=== PATIENT | male | born 1950 | race Caucasian/White ===

== ENCOUNTER 2017-08-03 13:57 | Outpatient (RCR) | payer MEDICARE, OTHER, SELFPAY ==
[2017-05-23 10:00] VITALS: BP 115/52
[2017-08-03 13:02] VITALS: BP 128/70; BMI 30.7
[2017-08-03 15:36] LABS: AST(SGOT) 24 U/L (15-37); Alanine Aminotransfer ALT/SGPT 22 U/L (16-61); Alkaline Phosphatase 41 U/L (45-117); Bilirubin, Direct 0.23 mg/dL (0.00-0.30); Globulin 3.4 g/dL (2.2-4.2); Protein, Total 7.4 g/dL (6.4-8.2)
[2017-08-03 15:39] LABS: BNP,B-Type NATRIURETIC PEPTIDE 211.9 pg/mL (0-100)
== END 2017-08-03 14:00 | disposition home or self-care (01) ==
LOC: LAB 13:57
PROVIDERS: Family Provider Family Medicine; PCP Family Medicine; Visit Provider Internal Medicine Pulmonary Disease
DX: I27.20 Pulmonary hypertension, unspecified (principal); R06.00 Dyspnea, unspecified; Z79.899 Other long term (current) drug therapy
CPT/HCPCS: 36415; 80076; 83880

== ENCOUNTER → 2017-08-28 13:54 | Outpatient (CLI) | payer MEDICARE, OTHER, SELFPAY | PROVIDERS: Family Provider Family Medicine; PCP Family Medicine; Visit Provider Internal Medicine Cardiovascular Disease | DX: I47.2 Ventricular tachycardia (principal) | CPT/HCPCS: 93225; 93226 ==

== ENCOUNTER 2017-10-30 16:49 | Outpatient (RCR) | payer MEDICARE, OTHER, SELFPAY ==
[2017-10-01 06:42] VITALS: BP 128/70; BMI 30.7
[2017-10-30 18:07] LABS: AST(SGOT) 22 U/L (15-37); Alanine Aminotransfer ALT/SGPT 17 U/L (16-61); Albumin, Serum 3.9 g/dL (3.2-5.0); Alkaline Phosphatase 34 U/L (45-117); Globulin 3.3 g/dL (2.2-4.2); Protein, Total 7.2 g/dL (6.4-8.2)
== END 2017-10-30 17:00 | disposition home or self-care (01) ==
LOC: LAB 16:49
PROVIDERS: Family Provider Family Medicine; PCP Family Medicine; Visit Provider Internal Medicine Pulmonary Disease
DX: I27.20 Pulmonary hypertension, unspecified (principal); R06.00 Dyspnea, unspecified; Z79.899 Other long term (current) drug therapy
CPT/HCPCS: 36415; 80076; 83880

== ENCOUNTER → 2017-12-31 14:18 | Outpatient (CLI) | payer MEDICARE, OTHER, SELFPAY ==
[2017-12-31 17:00] LABS: Magnesium 1.5 mg/dL (1.6-2.6)
== END ==
PROVIDERS: Family Provider Family Medicine; PCP Family Medicine; Visit Provider Physician Assistant Medical
DX: E83.42 Hypomagnesemia (principal)
CPT/HCPCS: 36415; 83735

== ENCOUNTER → 2018-06-11 14:32 | Outpatient (CLI) | payer MEDICARE, OTHER, SELFPAY ==
[2018-06-04 15:35] VITALS: BMI 31.3
--- NOTE | 2018-06-11 14:33 | CT_ITS ---
STUDY: CT ABDOMEN AND PELVIS WITH CONTRAST REASON FOR EXAM: Male, 67 years old. B-cell lymphoma RADIATION DOSAGE (If Supplied By Facility): CTDIvol = ( 23.83 ) mGy, DLP = ( 2819.32 ) mGycm TECHNIQUE: Transaxial images were obtained from the dome of the diaphragm to the symphysis pubis without oral contrast. 75ML ml of Isovue 300 contrast was administered. Sagittal and coronal images were reconstructed. Individualized dose optimization techniques were used for this CT. COMPARISON: 04/21/2016 FINDINGS: The patient is status post cholecystectomy. Again noted is fatty infiltration of the liver. There are no focal hepatic lesions. The spleen is enlarged, measuring 14.5 cm in maximal dimension. This is stable when compared with the prior exam. The pancreas is within normal limits. The adrenal glands are within normal limits. There are no renal or ureteral stones. There is no hydronephrosis. There are no focal renal lesions. Normal visualized stomach. There is no bowel obstruction or inflammation. The appendix is not visualized, but there are no findings to suggest acute appendicitis. Again noted is a fat-containing right inguinal hernia. There is no bowel containing hernia. The aorta is normal in caliber. Again noted are atherosclerotic calcifications in the aorta. There is mild mesenteric lymphadenopathy noted with the largest node measuring 2.0 x 1.2 cm (image 50 series 4). There is no free air, free fluid or fluid collection. There are no destructive osseous lesions. Again noted is vertebroplasty cement in the L2 vertebral body. Again noted are degenerative changes in the lumbar spine. CT/Abdomen/Pelvis WITH Contrast IMPRESSION: Mild mesenteric lymphadenopathy which is new when compared with the prior exam. If indicated, further evaluation with PET CT can be performed. Stable splenomegaly. Stable fatty infiltration of the liver. Electronically Signed: Eliazar Stack, at 16:05 EST Tel , Service support ,
--- NOTE | 2018-06-11 14:33 | CT_ITS ---
HISTORY: History of B-cell lymphoma for follow-up TECHNIQUE: Helically acquired images were obtained of the neck following IV contrast. A radiation dose optimization technique was used for this scan. IV Contrast dosage and agent: 75 cc Isovue-300 contrast COMPARISON: 09/28/2015 FINDINGS: With comparison to previous, no significant change. No cervical lymph node enlargement. The parotid and some the upper glands show no CT abnormality. The tongue base appears normal. Right tonsillar small crypt calcification, unchanged. No suspicious tonsillar enlargement. Laryngeal and pharyngeal structure showed no CT abnormality. Trachea is midline. Thyroid gland is not enlarged. Minor opacification of the ethmoid air cells and left maxillary sinus mild mucosal thickening, unchanged, compatible with chronic sinusitis. Bilateral carotid atherosclerotic calcifications. The mastoid air cells are poorly developed. Middle ear cavities appear clear. CT/Soft Tissue Neck WITH Contrast IMPRESSION: 1. No lymphadenopathy or recurrent tumor. No significant change. 2. Chronic mild sinusitis and bilateral carotid atherosclerotic calcifications. Individualized dose optimization techniques were used for this CT. at 0723 Reported and signed by: Av Son MD Electronically Signed: Av Son, at 7:21 EST Tel , Service support ,
--- NOTE | 2018-06-11 14:33 | CT_ITS ---
STUDY: CT CHEST WITH CONTRAST REASON FOR EXAM: Male, 67 years old. B-cell lymphoma TECHNIQUE: Transaxial imaging was performed following intravenous administration of 758ML ml of Isovue 300 contrast material. Coronal and sagittal reformatted images were created. Individualized dose optimization techniques were used for this CT. COMPARISON: 04/21/2016 FINDINGS: There is stable mild emphysematous changes noted in the lungs. There are no pulmonary infiltrates or pleural effusions. There are no pulmonary nodules or masses. There is no pneumothorax. The heart and pericardium are within normal limits. There are coronary artery calcifications noted. There is new mediastinal lymphadenopathy noted with a 2.0 x 1.3 cm prevascular node (image 40 series 2), a 1.7 x 1.7 cm upper paratracheal lymph node (image 39 series 2) and a 2.6 x 1.3 cm subcarinal lymph node (image 55 series 2). There is no evidence of thoracic aortic aneurysm. There are no destructive osseous lesions. CT/Chest WITH Contrast IMPRESSION: New mediastinal lymphadenopathy, as described above. If indicated, further evaluation with PET CT can be performed. Stable mild emphysema. No pulmonary nodules or masses. Coronary artery disease. Electronically Signed: Eliazar Stack, at 15:58 EST Tel , Service support ,
[2018-06-11 16:42] LABS: AST(SGOT) 23 U/L (15-37); Alanine Aminotransfer ALT/SGPT 24 U/L (16-61); Albumin, Serum 3.7 g/dL (3.2-5.0); Alkaline Phosphatase 37 U/L (45-117); Bilirubin, Direct 0.22 mg/dL (0.00-0.30); Globulin 3.1 g/dL (2.2-4.2); Protein, Total 6.8 g/dL (6.4-8.2)
[2018-06-11 16:47] LABS: BNP,B-Type NATRIURETIC PEPTIDE 396.5 pg/mL (0-100)
--- OUTSIDE RECORDS SUMMARY | 2018-07-28 20:18 | XMS RPT_ITS ---
:1950 Author Organization OHIP Support Name Relationship Address Phone GRAYSON HERRREA Unavailable [address] + [place] [address] R Unavailable Unavailable Unavailable GRAYSON HERRERA Unavailable [address] + [place] [address] R Unavailable Unavailable Unavailable GRAYSON HERRERA Unavailable [address] [place] [address] JAVIERASAF Unavailable Unavailable Unavailable GRAYSON HERRERA Unavailable [address] + [place] [address] R Unavailable Unavailable Unavailable GRAYSON HERRERA Unavailable [address] + [place] [address] R Unavailable Unavailable Unavailable VICENTA HERRERAARA Unavailable [address] + [place] [address] R Unavailable Unavailable Unavailable GRAYSON HERRERA Unavailable [address] + [place] [address] R Unavailable Unavailable Unavailable GRAYSON HERRERA Unavailable [address] + [place] [address] R Unavailable Unavailable Unavailable GRAYSON HERRERA Unavailable [address] [place] [address] JAVIER ASAF Unavailable Unavailable Unavailable VICENTA HERRERAARA Unavailable [address] + [place] [address] R Unavailable Unavailable Unavailable JAVIER GRAYSON Unavailable [address] + [place] [address] R Unavailable Unavailable Unavailable JAVIER GRAYSON Unavailable [address] + [place] [address] R Unavailable Unavailable Unavailable JAVIER GRAYSON Unavailable [address] + [place] [address] R Unavailable Unavailable Unavailable VICENTA HERRERAARA Unavailable [address] [place] [address] ASAF HERRERA Unavailable Unavailable Unavailable GRAYSON HERRERA Unavailable [address] [place] [address] ASAF HERRERA Unavailable Unavailable Unavailable VICENTA HERRERAARA Unavailable [address] [place] [address] ASAF HERRERA Unavailable Unavailable Unavailable VICENTA HERRERAARA Unavailable [address] + [place] [address] R Unavailable Unavailable Unavailable VICENTA HERRERAARA Unavailable [address] + [place] [address] R Unavailable Unavailable Unavailable VICENTA HERRERAARA Unavailable [address] + [place] [address] R Unavailable Unavailable Unavailable JAVIERVICENTAGRAYSON Unavailable [address] + [place] [address] VICENTA HERRERAARA Unavailable [address] + [place] [address] VICENTA HERRERAARA Unavailable [address] + [place] [address] R Unavailable Unavailable Unavailable GRAYSON HERRERA A Unavailable [address] + [place] [address] R Unavailable Unavailable Unavailable JAVIERGRAYSON A Unavailable [address] + [place] [address] R Unavailable Unavailable Unavailable VICENTA HERRERAARA Unavailable [address] + [place] [address] JAVIER GRAYSON Unavailable [address] + [place] [address] JAVIER GRAYSON Unavailable [address] + [place] [address] JAVIER GRAYSON Unavailable [address] + [place] [address] JAVIER GRAYSON Unavailable [address] + [place] [address] JAVIER GRAYSON Unavailable [address] + [place] [address] JAVIERGRAYSON A Unavailable [address] + [place] [address] R Unavailable Unavailable Unavailable JAVIER GRAYSON A Unavailable [address] + [place] [address] R Unavailable Unavailable Unavailable GRAYSON HERRERA Unavailable [address] [place] [address] ASAF HERRERA Unavailable Unavailable Unavailable GRAYSON HERRERA Unavailable [address] [place] [address] ASAF HERRERA Unavailable Unavailable Unavailable GRAYSON HERRERA A Unavailable [address] + [place] [address] R Unavailable Unavailable Unavailable GRAYSON HERRERA A Unavailable [address] + [place] [address] R Unavailable Unavailable Unavailable GRAYSON HERRERA A Unavailable [address] + [place] [address] R Unavailable Unavailable Unavailable GRAYSON HERRERA Unavailable [address] + [place] [address] GRAYSON HERRERA Unavailable [address] + [place] [address] GRAYSON HERRERA A Unavailable [address] + [place] [address] R Unavailable Unavailable Unavailable GRAYSON HERRERA A Unavailable [address] + [place] [address] R Unavailable Unavailable Unavailable GRAYSON HERRERA A Unavailable [address] + [place] [address] R Unavailable Unavailable Unavailable GRAYSON HERRERA A Unavailable [address] + [place] [address] R Unavailable Unavailable Unavailable GRAYSON HERRERA A Unavailable [address] + [place] [address] R Unavailable Unavailable Unavailable Care Team Providers Name Role Phone EDIS CABALLERO Admitting Unavailable EDIS CABALLERO Attending Unavailable SERGIO, RHODA A Primary Care Unavailable EDIS CABALLERO Admitting Unavailable EDIS CABALLERO Attending Unavailable SERGIO, RHODA A Primary Care Unavailable D'BURTFIORDALIZA CRAWFORD Attending Unavailable SERGIO, RHODA A Referring Unavailable SERGIO, RHODA A Primary Care Unavailable FIORDALIZA MCDONNELL Attending Unavailable Kaushal'FIORDALIZA BURT Referring Unavailable SERGIO, RHODA A Primary Care Unavailable D'FIORDALIZA BURT Attending Unavailable D'BURT, FIORDALIZA Referring Unavailable SERGIO, RHODA A Primary Care Unavailable D'BURT, FIORDALIZA Attending Unavailable D'BURT, FIORDALIZA Referring Unavailable SERGIO, RHODA A Primary Care Unavailable D'BURT, FIORDALIZA Attending Unavailable D'BURT, FIORDALIZA Referring Unavailable SERGIO, RHODA A Primary Care Unavailable Clary Arredondo MD Attending Unavailable SERGIO, RHODA Primary Care Unavailable CHRIS RODRIGUEZ MD Attending Unavailable SERGIO, RHODA Primary Care Unavailable SERGIO, RHODA Attending Unavailable SERGIO, RHODA Primary Care Unavailable CHRIS RODRIGUEZ MD Attending Unavailable SERGIO, RHODA Primary Care Unavailable RAVINDER Jackson Attending Unavailable SERGIO, RHODA Primary Care Unavailable Solomon Mercer Attending Unavailable Jamison, Yuliet Referring Unavailable PrahJem Attending Unavailable Jamison, Yuliet Primary Care Unavailable Jem Cedillo Consulting Unavailable Tawana Joe Attending Unavailable Sergio, Rhoda Referring Unavailable Tawana Joe Attending Unavailable Tawana Joe Referring Unavailable Jamison, Yuliet Primary Care Unavailable Tawana Joe Attending Unavailable Jem Cedillo Attending Unavailable Jamison, Yuliet Primary Care Unavailable PraJem hammer Consulting Unavailable Jem Cedillo Attending Unavailable Jem Cedillo Referring Unavailable Jamison, Yuliet Primary Care Unavailable Tawana Joe Attending Unavailable Sergio, Rhoda Referring Unavailable Sergio, Rhoda Primary Care Unavailable Mike Leiva Attending Unavailable Mike Leiva Referring Unavailable Sergio, Rhoda Primary Care Unavailable Jem Cedillo Attending Unavailable Jem Cedillo Referring Unavailable Sergio, Rhoda Primary Care Unavailable PraJme hammer Consulting Unavailable Eids Caballero Attending Unavailable Edis Caballero Referring Unavailable Sergio, Rhoda Primary Care Unavailable PraJem hammer Attending Unavailable Jem Cedillo Referring Unavailable Jamison, Yuliet Primary Care Unavailable Micheal Rouse Attending Unavailable Tawana Joe Referring Unavailable Jamison, Yuliet Primary Care Unavailable Tawana Joe Consulting Unavailable Micheal Rouse Attending Unavailable Micheal Rouse Referring Unavailable Jamison, Yuliet Primary Care Unavailable Cody Fernandez Attending Unavailable Cody Fernandez Referring Unavailable Mike Leiva Attending Unavailable Mike Leiva Referring Unavailable Sergio, Rhoda Primary Care Unavailable Veena Tesfayeita Attending Unavailable Tesfaye, Mikala Attending Unavailable Tawana Joe Attending Unavailable Sergio, Rhoda Referring Unavailable Tesfaye, Mikala Attending Unavailable Tesfaye, Mikala Attending Unavailable Sibilia, Mike Attending Unavailable Sibilia, Mike Referring Unavailable Sergio, Rhoda Primary Care Unavailable JoeTawana scherer Attending Unavailable Sergio, Rhoda Referring Unavailable JoeTawana scherer Attending Unavailable JoeTawana guzman Referring Unavailable Jamison, Yuliet Primary Care Unavailable Sergio, Kristin Attending Unavailable Sergio, Rhoda Primary Care Unavailable Prah, Jem Consulting Unavailable Sergio, Rhoda Referring Unavailable Prah, Jem Attending Unavailable Sergio, Kristin Referring Unavailable Sergio, Rhoda Primary Care Unavailable Prah, Jem Consulting Unavailable Prah, Jem Attending Unavailable Prah, Jem Referring Unavailable Jamison, Yuliet Primary Care Unavailable Sibilia, Mike Consulting Unavailable Sibilia, Mike Attending Unavailable Jamison, Yuliet Primary Care Unavailable Solomon Mercer Attending Unavailable CalSolomon menon Referring Unavailable Jamison, Yuliet Primary Care Unavailable PROBLEMS PROBLEMS DATE TYPE CONDITION / CODE ATTENDING STATUS SOURCE 07/18/2018 Admitting New Patient / D'BR[place], Active [place] diagnosis [id number]() [facility] Repository 07/05/2018 Unknown I25.10 - [place], Active [facility] Atherosclerotic [facility] heart disease of [facility] [place] coronary Repository artery without angina pectoris / I25.10(ICD-10) 2018 Unknown C85.90 - Non-Hod[facility] Jem Active [facility] lymphoma, Community unspecified, Hospital unspecified site / Repository C85.90(ICD-10) 2018 Unknown C83.33 - Diffuse [facility] large B-cell [facility] lymphoma, [facility] intra-abdominal Repository lymph nodes / C83.33(ICD-10) 2018 Unknown R91.1 - Solitary PrajaquelinJem Active [place] pulmonary nodule / Community R91.1(ICD-10) Hospital Repository 2018 Unknown Z85.72 - Personal PrajaquelinJem Active [facility] history of [facility] lymphomas / Repository Z85.72(ICD-10) 2018 Unknown R93.5 - [facility] [place] findings on [facility] diagnostic imaging Hospital of other abdominal Repository regions, including retroperitoneum / R93.5(ICD-10) 06/17/2018 Unknown K40.30 - Unilateral [place], Active [facility] inguinal hernia, [facility] with obstruction, Hospital without gangrene, Repository not specified as recurrent / K40.30(ICD-10) 06/11/2018 Unknown R19.7 - Diarrhea, Jem Cedillo Active [place] unspecified / [facility] R19.7(ICD-10) Hospital Repository 12/31/2017 Unknown E83.42 - Joe, Active [facility] Hypomagnesemia / Tawana [facility] E83.42(ICD-10) Hospital Repository 11/16/2017 Admitting Ischemic FEDERICO, EDIS G Active [facility] diagnosis cardiomyopathy / University I25.5(ICD-10) [facility] Repository 11/16/2017 Admitting Essential (primary) FEDERICO, EDIS G [facility] diagnosis hypertension / University I10(ICD-10) [facility] Repository 11/15/2017 Admitting Ventricular FEDERICO, EDIS G Active [facility] diagnosis tachycardia / University I47.2(ICD-10) [facility] Repository 11/29/2017 Unknown I27.20 - Pulmonary Sibilia, Active [place] hypertension, [facility] unspecified / Hospital I27.20(ICD-10) Repository 10/01/2017 Unknown R06.00 - Dyspnea, Sibilia, Active [facility] unspecified / [facility] R06.00(ICD-10) Hospital Repository PROCEDURES PROCEDURES No Procedure Records FoundRESULTS RESULTS STRESS REPORT Observed: 07/23/2018 Status: F Source: [place] 9:09 AM [facility] HOSPITAL REPOSITORY [facility] Cardiovascular Services [address] [place] [address] MR#: [id number] Acct: [id number] Name: ASAF HERRERA Rep #: [id number] : 1950 68 From: Micheal Rouse MD Primary Care: Yuliet Jamison DO Status: REG CLI Ordering Dr: Dennise Whitaker Stress Test Report : 07/23/2017 Procedure: Pharmacologic (-) evaluation Indications: CAD; PCI; preoperative cardiovascular evaluation Consent: The patient Procedure: The patient underwent pharmacologic (Regadenoson) evaluation with a peak heart rate of 87 beats per minute (58% predicted maximal heart rate) with peak blood pressure was 160/88 mmHg. The baseline ECG demonstrated normal sinus rhythm with a right bundle branch block pattern. The peak pharmacologic ECG continuous demonstrating a right bundle branch block pattern with no obvious ECG changes. There was not occasional PVC pretest. There was no complaints of chest discomfort during pharmacologic infusion or recovery. The examination was discontinued secondary to complete the protocol. Impression: 1. Pharmacologic (regadenoson) evaluation 2. Peak pharmacological ECG will continue right bundle branch block pattern with no obvious ECG changes 3. Occasional PVCs pretest 4. Nuclear images pending Myocardial perfusion imaging study: Technique: The patient was injected with 14.2 mci of technetium-99m Cardiolite and subsequently rest SPECT Cardiolite nuclear imaging was obtained in the horizontal long, vertical long, and short axis views. Patient underwent a pharmacologic (regadenoson) evaluation with peak heart rate of 87 beats per minute (58% predicted maximal heart rate) with a peak blood pressure of 160/88 mmHg. The patient was injected with 44.4 mci of technetium-99m Cardiolite and subsequently stress SPECT Cardiolite nuclear imaging was obtained in the horizontal, vertical, and short axis views. Gated Cardiolite study at peak stress was obtained. Interpretation: Rest and stress SPECT Cardiolite nuclear imaging status post realignment, normalization, and attenuation correction, demonstrates the appearance of an extracardiac/gastrointestinal tracer uptake near the inferior segments. Otherwise there appears to be relative uniform tracer uptake with the exception of a small area of subtle diminished tracer uptake near the inferior apical/lateral apical segments without significant change between rest and stress appearing compatible with physiologic apical thinning. There is end systolic thickening and brightening. The gated Cardiolite study demonstrates myocardial thickening and inward wall motion. The reported LVEF is 55%. Impression: 1. Rest and stress SPECT nuclear imaging demonstrate myocardial perfusion changes appearing compatible with physiologic apical thinning with no myocardial perfusion changes considered diagnostic for associated stress induced myocardial ischemia. 2. The gated Cardiolite study reports an LVEF of 55%. This note was generated using a voice recognition system and there may be incorrect words, spelling or punctuation that were not noted when reviewing the office note prior to saving. 07/23/18 0909 <Electronically signed by Micheal Rouse MD> Date Micheal Rouse MD CC: Yuliet Jamison DO; Micheal Rouse MD Date Dictated: 07/23/18902 Date Transcribed: 07/23/18902 Systems Software Manager: PM Signed CBC-COMPLETE BLOOD CNT Collected: 07/23/2018 Status: F Source: AREL[place] NO DIFF 8:48 AM [facility] REPOSITORY TYPE CODE TESTS RESULT OUT OF RANGE REFERENCE UNITS LAB L100.1000 4.4-11.0 K/mm3 Normal WBC 5.8 LAB L100.1200 4.6-6.2 M/mm3 Normal RBC 5.35 LAB L100.1300 13.0-16.5 g/dl Normal HGB 15.5 LAB L100.1400 40-54 % Normal HCT 47.5 LAB L100.1500 80-94 fL Normal MCV 88.8 LAB L100.1600 27.0-32.0 pg Normal MCH 29.0 LAB L100.1700 32-36 g/gl Normal MCHC 32.6 LAB L100.1810 11.6-14.6 % Normal RDW CV 14.5 LAB L100.1820 35.1-43.9 fl High RDW SD 46.5 LAB L100.1900 150-450 K/mm3 Low PLT 133 LAB L100.2000 6.2-12.0 fl Normal MPV 9.5 Performed By: #### L100.0500 #### [facility] [address] [place], [address] BASIC METABOLIC Collected: 07/23/2018 Status: F Source: [place] PROFILE (BMP) 8:48 AM [facility] REPOSITORY TYPE CODE TESTS RESULT OUT OF RANGE REFERENCE UNITS LAB L501.0100 74-106 mg/dL High GLU 135 Result Comment: Fasting Glucose result greater than or equal to 126 mg/dL suggests DIABETES MELLITUS per A.D.A. criteria. Please note revised GLUCOSE reference range effective 2017. LAB L501.1000 7-18 mg/dL High BUN 31 LAB L501.1100 0.70-1.30 mg/dL High CREAT,SERUM 1.41 Result Comment: The validity of the calculated GFR AND GFRAA in patients over 70 years has not been determined. Clinical correlation is essential. LAB L501.1110 >60 mL/min Low EST GFR 53 Result Comment: Non- GFR Calc LAB L501.1115 >60 mL/min Normal EST GFR - AA 64 Result Comment: GFR Calc LAB L501.1300 10-20 RATIO High BUN/CRE 22.0 LAB L501.2200 8.5-10.1 mg/dL CA Normal 9.4 LAB L501.5300 136-145 mmol/L NA Normal 142 LAB L501.5600 3.5-5.1 mmol/L K Normal 4.3 LAB L501.5900 98-107 mmol/L High CL 108 LAB L501.6100 21.0-32.0 mmol/L Normal CO2 26.0 LAB L501.6200 5-15 Normal GAP 8 Performed By: #### L500.2500 #### [facility] [address] [place], [address] HEMOGLOBIN A1C Collected: 07/23/2018 Status: F Source: ARELIS 8:48 AM [facility] REPOSITORY Order Comment: Reason for Laboratory Test PREOP TYPE CODE TESTS RESULT OUT OF RANGE REFERENCE UNITS LAB L501.9985 4.2-6.3 % Normal HGB A1C 5.8 Performed By: #### L501.9985 #### [facility] [address] [place], [address] MRI ABD WITH AND W/O Observed: 2018 Status: F Source: [place] CONTRAST 12:29 PM [facility] REPOSITORY [facility] Imaging Services [address] [place] [address] MRI Abd WITH and W/O Contrast MR#: [id number] Acct: [id number] Name: ASAF HERRERA Kaushal Rep #: [id number] : 1950 M 68 From: Andi Klein MD PCP: Yuliet Jamison DO Status: REG CLI Study: MRI Abd WITH and W/O Contrast Date of Exam: 07/08/18 Exam# [id number] Ordering Dr: Jem Cedillo MD STUDY: MRI ABDOMEN WITH AND WITHOUT CONTRAST REASON FOR EXAM: Male, 68 years old. Attention pancreas. Nausea. 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 Prior cholecystectomy. TECHNIQUE: Standardized fat and water weighted pulse sequences were obtained in all 3 orthogonal planes post contrast administration. 10 ml of Gadavist contrast material was administered intravenously for the contrast portion of the examination. COMPARISON: PET/CT 06/24/2018, CT abdomen and pelvis 06/11/2018, 04/21/2016, 09/28/2015, PET/CT 06/21/2015. FINDINGS: Body wall soft tissues: No acute process. Osseous structures: No acute process. Mid to low lumbar spondylosis. L2 kyphoplasty. Inferior chest: Limited evaluation, no acute process. Liver: Not enlarged. Normal signal characteristics, no lesion, no biliary ductal ectasia, normal common bile duct, gallbladder surgically absent. Pancreas: Mild atrophy, no ductal ectasia or focal lesion and no evidence of acute pancreatitis. Spleen: Mild splenomegaly, craniocaudal spleen 14 cm. Adrenal glands: Normal. Urogenital: Right renal mid polar lateral margin partially exophytic cyst, oval shaped, circumscribed margins, greatest dimension 14 mm, T2 hyperintense, T1 hypointense, thin-walled peripherally. There is a small focus of diminished enhancement along the anterior wall, and a very slender enhancing septation. The majority is nonenhancing and simple cystic. The left kidney is unremarkable. Retroperitoneum: No mass or lymphadenopathy. Vasculature: No acute process. Stomach and bowel: Evaluated portions exhibit no acute process. MRI/MRI Abd WITH and W/O Contrast IMPRESSION: 1. Mild pancreatic atrophy without a suspicious lesion, ductal ectasia, or inflammation. 2. Nondilated biliary tree and common bile duct. 3. Minimally complex cyst of the right kidney. Tiny favored as enhancing focus, very slender enhancing septum. Bosniak category 2F. Approximate risk of malignancy 5%. Follow-up is recommended in 6 months. Monitoring for size or increased complexity should be effective with ultrasound. Electronically Signed: Andi Klein MD at 18:49 EST Tel , Service support , CC: Jem Cedillo MD; Yuliet Jamison DO Systems Software Manager: Signed ECHOCARDIOGRAM COMPLETE Observed: 07/05/2018 Status: F Source: ARELIS 4:18 PM [facility] REPOSITORY [facility] [place] [address] Echo Complete 07/05/18 1345 MR#: [id number] Acct: [id number] Name: ASAF HERRERA Rep #: [id number] : 1950 67 From: Micheal Rouse MD Attending Dr: Tawana Joe Status: REG CLI Ordering Dr: Tawana Joe Date: 07/05/18 Location: [facility] Sex: M C Admitted: Reason For Study: Dyspnea/SOB Procedure This was a 2D Doppler, Color Flow transthoracic echocardiogram. Myocardial strain analysis was performed in this exam to aid in the assessment of cardiac function. The study was technically difficult. Exam performed in department. Left Ventricle Mildly dilated left ventricle. Segmental dysfunction with preserved ejection fraction (see wall motion). The estimated ejection fraction is 60 %. There is evidence of diastolic dysfunction. Infero-Basal: Akinetic. Mid-Posterior: Hypokinetic. Mid-Inferior: Hypokinetic. Right Ventricle Normal RV size. Normal systolic function. Atria The left atrium is mildly enlarged. Normal right atrium. No doppler evidence for ASD. Mitral Valve There is mild to moderate mitral annular calcification. Extension of the mitral annular calcification onto the posterior mitral valve leaflet. Mild (1+) mitral valve insufficiency. Tricuspid Valve Normal tricuspid valve. Trivial tricuspid valve insufficiency. Right ventricular systolic pressure estimated to be 60 mmHg. Aortic Valve Trisinus/trileaflet aortic valve. Mild focal aortic valve thickening. Pulmonic Valve The pulmonic valve is not well visualized. Trivial pulmonic valve insufficiency. Great Vessels Normal sized aortic root. Pericardium/Pleural No pericardial effusion. MMode/2D Measurements AND Calculations LVIDd: 6.4 cm IVSd: 1.2 cm Ao root diam: 3.2 cm LVIDs: 4.5 cm LVPWd: 1.0 cm RVDd: 5.2 cm FS: 29.1 % LAV(MOD-bp): 70.4 ml LVAd ap4: 36.8 cm2 SV(MOD-sp4): 93.2 ml LAV(MOD-bp) Indexed: 31.3 ml/m2 EDV(MOD-sp4): 134.8 ml LAV(MOD-sp2): 73.0 ml EDV(sp4-el): 138.1 ml LAV(MOD-sp4): 65.1 ml LVAs ap4: 18.1 cm2 ESV(MOD-sp4): 41.6 ml ESV(sp4-el): 41.7 ml EF(MOD-sp4): 69.1 % EF(sp4-el): 69.8 % SV(sp4-el): 96.4 ml LA A4 area: 22.0 cm2 LA dimension(2D): 5.4 cm RA A4 area: 18.1 cm2 Doppler Measurements AND Calculations MV E max erna: 114.4 cm/sec Lat Peak E' Erna: 10.9 cm/sec Med Peak E' Erna: 5.2 cm/sec MV A max erna: 75.1 cm/sec E/E' lat: 10.5 E/E' med: 22.2 MV E/A: 1.5 Ao V2 max: 164.8 cm/sec LV V1 max: 117.7 cm/sec PA V2 max: 118.2 cm/sec Ao max P.9 mmHg LV V1 max P.5 mmHg Ao V2 mean: 121.6 cm/sec Ao mean P.3 mmHg Ao V2 VTI: 35.5 cm TR max erna: 378.2 cm/sec TR max P.2 mmHg Interpretation Summary The study was technically difficult. Mildly dilated left ventricle. Segmental dysfunction with preserved ejection fraction (see wall motion). The estimated ejection fraction is 60 %. The left atrium is mildly enlarged. There is mild to moderate mitral annular calcification. Extension of the mitral annular calcification onto the posterior mitral valve leaflet. Mild (1+) mitral valve insufficiency. Trivial tricuspid valve insufficiency. Mild focal aortic valve thickening. Trivial pulmonic valve insufficiency. Right ventricular systolic pressure estimated to be 60 mmHg. There is evidence of diastolic dysfunction. Ordering Physician: Tawana Joe Referring Physician: Ayesha Jamison Performed By: Abbi Rodriguez RDCS, RVT 07/05/18 1618 Date Micheal Rouse MD CC: Yuliet Jamison DO; Tawana Joe Date Dictated: 07/05/18 1345 Date Transcribed: 07/05/18 1618 Systems Software Manager: Signed CARDIOLOGY VISIT Observed: 06/27/2018 Status: F Source: [place] REPORT 4:50 PM [facility] REPOSITORY [facility] [address] [place] [address] OFFICE VISIT Date of Service: 06/24/18 MR#: [id number] Acct: [id number] Name: ASAF HERRERA Rep #: [id number] : 1950 Provider: Tawana Joe Age/Sex: 67/M Location: [facility] Status: Signed HPI HPI Details: ASAF HERRERA, is a 67 M who presents to the office today for cardiovascular outpatient follow-up. Patient has a history of coronary artery disease status post stenting with drug-eluting stent to RCA in May 2017. He also has a history of remote stenting with a bare metal stent to the RCA, ischemic mediated cardiomyopathy, pulmonary hypertension, hyperlipidemia, and nonsustained ventricular tachycardia. Patient was referred to Dr. Caballero for further evaluation of his nonsustained ventricular tachycardia after recent RCA stenting. He was on amiodarone but this has been discontinued by Dr. Caballero. He is planning to undergo a hernia repair in the near future. During part of his workup it was noted that he had an elevated BNP. He was given a short course of Lasix. He is unsure if the Lasix made a difference. He did lose 8 pounds. He is concerned about his cancer returning as he is short of breath and fatigue. He is having a workup done with oncology. He is in need of cataract surgery in addition to inguinal hernia surgery. He does not have any chest pain or heaviness. He does not have any lightheadedness or dizziness. He does not have any lower extremity edema. He does not have any near-syncope or syncope. Intake Vital Signs06/24/18 Height 6 ft 06/24/18 Weight: 225 lb 06/24/18 Body Mass Index (BMI) 30.5 06/24/18 Blood Pressure 122/60 H 06/24/18 Blood Pressure Location Lt brachial Intake Visit Reasons: 6 M FU Type Caster Required: No Is patient in pain?: No Allergies magnesium Adverse Reaction (Severe, Verified 06/27/18 11:14) Diarrhea Medications Aspirin [Aspirin, Baby] 81 mg PO DAILY@0800 01/22/14 [History Confirmed 06/27/18] Clopidogrel Bisulfate [Plavix] 75 mg PO DAILY 01/22/14 [History Confirmed 06/27/18] Pantoprazole Sodium [Protonix] 20 mg PO DAILY 01/22/14 [History Confirmed 06/27/18] Cholecalciferol (Vitamin D3) [D3-2000] 5,000 unit PO DAILY 02/09/15 [History Confirmed 06/27/18] Tamsulosin HCl [Flomax] 0.4 mg PO QHS #30 cap 06/18/15 [Rx Confirmed 06/27/18] Fenofibrate,Micronized [Lofibra] 134 mg PO DAILY 12/03/15 [History Confirmed 06/27/18] Sertraline HCl [Zoloft] 150 mg PO DAILY 12/03/15 [History Confirmed 06/27/18] Oxygen, Home [Home Oxygen] 2 - 4 lpm NASAL UD PRN 09/28/16 [History Confirmed 06/27/18] Rosuvastatin Calcium [Crestor] 40 mg PO DAILY 05/21/17 [History Confirmed 06/27/18] treprostinil diolamine ER 1 mg tablet,extended release 4 mg PO DAILY tab 08/03/17 [History Confirmed 06/27/18] Glipizide [Glucotrol Xl] 5 mg PO DAILY 08/15/17 [History Confirmed 06/27/18] carvedilol 12.5 mg tablet 12.5 mg PO BID #180 tab 12/31/17 [Rx Confirmed 06/27/18] macitentan 10 mg tablet 10 mg PO QDAY 12/31/17 [History Confirmed 06/27/18] triamcinolone acetonide 0.1 % topical ointment 1 applic TOPICAL .prn g 12/31/17 [History Confirmed 06/27/18] allopurinol 100 mg tablet 100 mg PO DAILY 06/17/18 [History Confirmed 06/27/18] lisinopril 20 mg tablet 10 mg PO DAILY tab 06/17/18 [History Confirmed 06/27/18] PFSH Medical History Essential (primary) hypertension (Chronic) Atherosclerotic heart disease of [place] coronary artery without angina pectoris (Chronic) NSVT (nonsustained ventricular tachycardia) (Acute) CAD (coronary artery disease), [place] artery transplanted heart (Chronic) Cough (Acute) Dyspnea (Acute) Fever (Acute) Other malaise and fatigue (Acute) Shortness of breath (Acute) Hyperlipidemia (Chronic) Palpitations (Chronic) Pulmonary hypertension (Chronic) Surgical History H/O shoulder surgery (Resolved) tendon surgery (Resolved) heel surgery (Resolved) Hx of cholecystectomy (Resolved) History of lumbar surgery (Resolved) S/P coronary artery stent placement (Chronic 2004) S/P nasal surgery (Resolved) Family History Father Heart disease Hypertension Mother Heart disease CVA (cerebral vascular accident) Sister Diabetes Heart disease Social History Smoking Status: Former smoker how long ago did patient quit smokin alcohol intake: current Alcohol type: beer, hard liquor substance use type: does not use caffeine: Yes Type: coffee what type of physical activity do you participate in: none seatbelt use: always do you feel safe at home: Yes ROS Const Const: Negative for fatigue, weakness, body ache, fever(s) or chills ENT ENT: Negative for dizziness Cardio Chest Pain: No Edema: None Muscle aches with walking: None Resp Respiratory: Negative for SOB with activity, SOB at rest, SOB orthopnea\SOB lying down or paroxysmal nocturnal dyspnea GI GI: Negative nausea, black,tarry stools, bright, red blood in stools or vomiting blood/hematemesis : Negative for hematuria or frequent nighttime urination/ nocturia Musc Musc: Negative for muscle aches/ myalgia Neuro Neuro: Negative for weakness or dizziness Endo Endo: Negative for fatigue Cardiology Exam Const Appearance: cooperative, healthy appearing, comfortable and no acute distress Orientation: alert, awake and oriented x3 Head Head: normal to inspection Mouth: oral mucosae normal Neck Neck: no JVD and normal visual inspection Carotids: normal carotid upstroke Chest Chest inspection: normal inspection of the chest and normal respiratory effort Auscultation: Bilateral: Clear to Auscultation Cardio Rate: regular rate Rhythm: regular rhythm Heart sounds: S1 normal and S2 normal; negative rub or gallop GI GI: normal to inspection Neuro General: alert, awake, oriented x3 and CN's II-XI intact bilaterally Skin Skin: no rashes or lesions noted Extremities Pulses: Normal: Right Posterior Tibial Pulse, Left Posterior Tibial Pulse, Right Radial Pulse, Left Radial Pulse Lower Extremity Edema: None: Bilateral Psych Psychological: normal affect Assessment AND Plan 1. Atherosclerosis of [place] coronary artery of [place] heart without angina pectoris I25.10 Plan Patient does not have any symptoms of angina. He will continue with current aggressive medical management and risk factor modification. Orders Orders: 2. Essential hypertension I10 Plan Blood pressure is adequately controlled. Will not make any adjustments. 3. Cardiomyopathy, ischemic I25.5 Plan Patient did have an elevated BNP. He unsure if increasing his Lasix made a difference. He did lose 8 pounds in that week. We will have him hold his Lasix. Will obtain an echocardiogram. Once that is complete will assess cardiac clearance for his hernia surgery. Patient will be undergoing cataract surgery, it is okay for patient to proceed with the surgery. Plan Detail Additional Comments Thank you for allowing us to participate in patient's plan of care, if you have any questions please do not hesitate to call. This note was generated using a voice recognition system and there may be incorrect words, spelling or punctuation errors that were not noted when reviewing the office note prior to saving. Follow Up 06/24/18 (keep as is) Coding Level of Care Code Off vis,est,level 4 Diagnoses Atherosclerosis of [place] coronary artery of [place] heart without angina pectoris I25.10 [place] vs. transplanted heart: [place] heart Essential hypertension I10 Cardiomyopathy, ischemic I25.5 Coding Level of Care Code Off vis,est,level 4 Diagnoses Atherosclerosis of [place] coronary artery of [place] heart without angina pectoris I25.10 [place] vs. transplanted heart: [place] heart Essential hypertension I10 Cardiomyopathy, ischemic I25.5 06/27/18 1650 <Electronically signed by Tawana JAMESON> Date Tawana JAMESON Cosigner Signature: Date (if applicable) CC: Rhoda Chung MD ONCOLOGY VISIT REPORT Observed: 06/27/2018 Status: F Source: [place] 12:20 PM [facility] REPOSITORY [facility] [place] [address] OFFICE VISIT Date of Service: 06/27/18 1200 MR#: [id number] Acct: [id number] Name: ASAF HERRERA Rep #: [id number] : 1950 From: Jem Cedillo MD Age/Sex: 67/M Location: OMD Status: Signed Subjective - Date of Service Date of Service:: 06/27/18 - Chief Complaint F/U for PET/CT results. - History of Present Illness 67-year-old man was 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 He underwent kyphoplasty and biopsy at that time showed lymphoproliferative disorder. He developed progressive disease with transformation to diffuse large B cell in August 2014 and was treated with 6 cycles of R-CHOP until May 26, 2015. Demonstrated a CR on PET 06/21/15. He felt more tired, had loose stools and swelling in the R groin. CT on 06/11/2018 showed Left AP window node. He had a PET/CT done and comes for follow up. - Past Medical/Social History Past Medical History Past Medical History: COPD,Heart disease,Hyperlipidemia,Hypertension, Sleep apnea Cancer: Lymphoma Past Surgical History Surgical: Back,Cholecystectomy,Cardiac stent Other Surgical History: LEFT HEEL FRACTURE REPAIR LLE TENDON SURGERY BILATERAL SHOULDER SURGERY NASAL SURGERY EAR TUBES PLACED RIGHT INGUINAL LYMPH NODE BX Family History Paternal Past Medical History: Heart disease,Hypertension Maternal Past Medical History: Heart disease,Stroke Social History Smoking Status Former smoker Review of Systems Constitutional:: Denies: Fever, Sweats, Weight loss, Appetite change, Chills Cardiovascular:: Denies: Chest pain, Palpitations, Dyspnea on exertion, Orthopnea, PND, Shortness of breath Respiratory: Denies: Cough, Hemoptysis, Shortness of Breath, Wheezing Gastrointestinal:: Denies: Abdominal pain, Nausea, Vomiting, Diarrhea, Constipation, Hematochezia Genitourinary: Denies: Dysuria, Hematuria, 15, Flank pain Musculoskeletal:: Denies: Back pain, Myalgia, Arthralgia Skin: Denies: Rash, Skin Changes, Wounds Neurological:: Denies: Headache, Dizziness, Visual changes, Tinnitus, Hearing loss Psychiatric: Denies: Anxiety, Depression, Homicidal Ideations, Suicidal Ideations Vital Signs Height 6 ft Weight: 103.419 kg Weight in Pounds 228.0 lbs Pulse Ox 91 - Physical Exam General: Alert, Oriented x3, No apparent distress Laboratory Data: Laboratory Tests Diagnostic Data: Diagnostic Data PET, CT Tumor Imaging 06/24/18 07:49 IMPRESSION: 1. Increased glucose concentration observed in the left thoracic perihilum fulfills quantitative criteria for viable neoplasm. Histopathologic analysis is recommended. (Maria Esther et al, Journal of Clinical Oncology 16:2142, 1997 Rafia, Seminars in Thoracic and Cardiovascular Surgery 14:292, 2001). 2. Facilitated FDG concentration noted in the mid abdominal retroperitoneum in the region of the pancreatic head demonstrated no anatomic changes on review of CT of the abdomen and pelvis report dated 06/11/18. Correlation with magnetic resonance imaging may be of benefit. 3. The increase in radiotracer uptake noted in the third lumbar vertebra is most consistent with postsurgical change attributed to the patient?s vertebroplasty. Electronic Signature Andi Alba D.O. Electronically Signed: Andi Alba DO at 21:28 EST Tel , Service support , Assessment and Plan NHL follicular type, s/p transformation to DLBC, treated with 6 cycles of R-CHOP. Feels un-well R/O recurrent disease. Right inguinal hernia. PET/CT shows activities in AP mediastinal, laryngeal area, pancreatic head. Discussed need for biopsy of AP window node, ENT evaluation. Pt agrees to proceed. Wants to for surgical evaluation before getting further work for flushing of face. Plan is to obtain Thoracic surgery consult, ENT consult. Obtain MRI +/- of pancreas. RTC 4 weeks with CBC, CMP,LDH/uric acid. Medications: Prescriptions This Visit Medication Instructions Recorded Glipizide [Glucotrol Xl] 5 mg PO DAILY 08/15/17 lisinopril 20 mg tablet 10 mg PO DAILY tab 06/17/18 Primary Care Provider: Rhoda Chung Referring Provider: Jem Cedillo MD - Problem List (1) History of non-Hodgkin's lymphoma Status: Chronic (2) Inguinal hernia Status: Chronic (3) Diarrhea Status: Chronic (4) Lung nodule < 6cm on CT Status: Acute Code Visit Office Visits / Consults: [id number] OV L4 Est 06/27/18 1220 <Electronically signed by Jem Cedillo MD> Date Jem Cedillo MD Cosigner Signature: Date (if applicable) CC: CBC W/DIFF, AUTOMATED Collected: 06/27/2018 Status: F Source: [place] 10:51 AM [facility] REPOSITORY Order Comment: Reason for Laboratory Test . TYPE CODE TESTS RESULT OUT OF RANGE REFERENCE UNITS LAB L100.1000 4.4-11.0 K/mm3 Normal WBC 6.5 LAB L100.1200 4.6-6.2 M/mm3 Normal RBC 5.13 LAB L100.1300 13.0-16.5 g/dl Normal HGB 14.7 LAB L100.1400 40-54 % Normal HCT 44.9 LAB L100.1500 80-94 fL Normal MCV 87.5 LAB L100.1600 27.0-32.0 pg Normal MCH 28.7 LAB L100.1700 32-36 g/gl Normal MCHC 32.7 LAB L100.1810 11.6-14.6 % Normal RDW CV 14.2 LAB L100.1820 35.1-43.9 fl High RDW SD 45.5 LAB L100.1900 150-450 K/mm3 Low PLT 130 LAB L100.2000 6.2-12.0 fl Normal MPV 8.3 LAB L100.2100 47-70 % High NEUT% 73.4 LAB L100.2200 19-41 % Low LY% 11.9 LAB L100.2300 0-10 % Normal MONO% 9.0 LAB L100.2400 0-5 % Normal EO% 4.9 LAB L100.2500 0-1 % Normal BASO% 0.5 LAB L100.2550 0.0-0.9 % Normal IM GRAN % 0.300 Result Comment: IG% - Immature Granulocytes (promyelocytes, myelocytes and metamyelocytes) > 1% indicates that a LEFT SHIFT is Present. LAB L100.2620 2.0-7.7 X10 3/uL Normal Absolute Neut 4.8 LAB L100.2720 0.83-4.51 X10 3/ul Low Absolute Lymph 0.78 Performed By: #### L100.0100 #### [facility] [address] [place], [address] COMPREHENSIVE METABOLIC Collected: 06/27/2018 Status: F Source: [facility] 10:51 AM [facility] REPOSITORY Order Comment: Reason for Laboratory Test . Serial Specimen #1, #2 or #3? 1 TYPE CODE TESTS RESULT OUT OF RANGE REFERENCE UNITS LAB L501.0100 74-106 mg/dL Normal GLU 97 Result Comment: Please note revised GLUCOSE reference range effective 2017. LAB L501.1000 7-18 mg/dL High BUN 28 LAB L501.1100 0.70-1.30 mg/dL High CREAT,SERUM 1.61 Result Comment: The validity of the calculated GFR AND GFRAA in patients over 70 years has not been determined. Clinical correlation is essential. LAB L501.1110 >60 mL/min Low EST GFR 45 Result Comment: Non- GFR Calc LAB L501.1115 >60 mL/min Low EST GFR - AA 55 Result Comment: GFR Calc LAB L501.1255 ml/min Normal Estimated CRCL 47.53 LAB L501.1300 10-20 RATIO Normal BUN/CRE 17.4 LAB L501.1500 6.4-8. g/dL Normal 2 T PROT 7.4 LAB L501.1800 3.2-5. g/dL Normal 0 ALB 4.1 LAB L501.1950 2.2-4. g/dL Normal 2 GLOB 3.3 LAB L501.2000 0.9-2. RATIO Normal 4 A/G 1.2 LAB L501.2200 8.5-10 mg/dL Low .1 CA 8.4 LAB L501.4100 15-37 U/L Normal AST 19 LAB L501.4305 45-117 U/L Low ALK P 37 LAB L501.4405 16-61 U/L Normal ALT 19 LAB L501.4600 0.20-1 mg/dL Normal .00 T BILI 0.60 LAB L501.5300 136-14 mmol/L Normal 5 NA 140 LAB L501.5600 3.5-5. mmol/L Normal 1 K 4.6 LAB L501.5900 98-107 mmol/L High CL 110 LAB L501.6100 21.0-3 mmol/L Normal 2.0 CO2 24.0 LAB L501.6200 5-15 Normal GAP 6 Performed By: #### L500.4050, L501.1400, L504.2610 #### [facility] [address] [place], [address] URIC ACID Collected: 06/27/2018 Status: F Source: [place] 10:51 AM [facility] REPOSITORY Order Comment: Reason for Laboratory Test . Serial Specimen #1, #2 or #3? 1 TYPE CODE TESTS RESULT OUT OF RANGE REFERENCE UNITS LAB L501.1400 3.5-7.2 mg/dL Normal URIC 6.4 Result Comment: The drugs N-Acetylcysteine and Metamizole may falsely depress this assay. Performed By: #### L500.4050, L501.1400, L504.2610 #### [facility] [address] [place], [address] LDH Collected: 06/27/2018 Status: F Source: [place] 10:51 AM [facility] REPOSITORY Order Comment: Reason for Laboratory Test . Serial Specimen #1, #2 or #3? 1 TYPE CODE TESTS RESULT OUT OF RANGE REFERENCE UNITS LAB L504.2610 87-241 U/L Normal LDH 148 Performed By: #### L500.4050, L501.1400, L504.2610 #### [facility] [address] [place], [place], [address] PET/CT TUMOR BASE Observed: 06/24/2018 Status: F Source: [place] -THIGH SUBS 7:49 AM [facility] REPOSITORY [facility] Imaging Services [address] [place] [address] PET/CT Tumor Base -Thigh Subs MR#: [id number] Acct: [id number] Name: ASAF HERRERA Rep #: [id number] : 1950 M 67 From: Andi Alba DO PCP: Yuliet Jamison DO Status: REG RCR Study: PET/CT Tumor Base -Thigh Subs Date of Exam: 06/24/18 Exam# [id number] Ordering Dr: Jem Cedillo MD INDICATIONS: A 67-year-old male with reported history of lymphoma presenting for restaging examination. COMPARISON EXAMINATION: CT of the neck, chest, abdomen and pelvis reports dated 06/11/18, previous FDG PET study dated 06/21/15 INDEX LESION SIZE LUGANO SCORE SUV INTERPRETATION NEW: Left thoracic perihilum 17.3 x 27.5-mm (frame 237) 5 24.7 Fulfills quantitative criteria for viable neoplasm NEW: mid abdominal retroperitoneum, pancreatic head 16.2-mm 3 2.4 May warrant further investigation with magnetic resonance imaging NON-INDEX LESION SIZE LUGANO SCORE SUV INTERPRETATION Second lumbar vertebra X 3.3 (max) Most consistent with postsurgical change attributed to visualized vertebroplasty TECHNIQUE: Following the intravenous administration of 17.5 mCi of F-18 deoxyglucose via the right antecubital fossa, multiplanar image acquisitions of the neck, chest, abdomen and pelvis to level of mid thigh, obtained at one hour post radiopharmaceutical administration contemporaneously interpreted with the current CT of the neck, chest, abdomen and pelvis to level of mid thigh, dated 06/24/[address] of the neck, chest, abdomen and pelvis reports dated 06/11/18, previous FDG PET study report dated 06/21/15 reveal: SERUM GLUCOSE LEVEL: 65 mg/dl. HEIGHT: 73 inches. WEIGHT: 230 lbs. FINDINGS: 1. Newly identified increased glucose concentration is manifest in the region of the left thoracic perihilum-left mid medial lung zone. The calculated maximal standard uptake value is 24.7. The maximal axial diameter of the corresponding metabolic, morphologic abnormality on review of CT of the chest dated 06/24/18 is 17.3-mm (transverse) x 27.5-mm (AP). The [place] Deauville score is 5. 2. There is an increase in FDG uptake noted in the midline mid abdominal retroperitoneum contiguous and/or adjacent to the visualized pancreatic head. The calculated maximal standard uptake value is 2.4. The [place] Deauville score is 3. The maximal axial diameter of the metabolic abnormality on review of CT of the abdomen dated 06/24/18 is approximately 16.2-mm (AP). Review of CT of the abdomen and pelvis report dated 06/11/18 defines no corresponding anatomic abnormality in the analogous location. 3. Normal physiologic distribution of the radiopharmaceutical is apparent in the hepatic (3.1) and splenic parenchyma, both renal units, bladder and visualized intestinal tract. The visualized portion of the cerebral cortex demonstrate symmetric and preserved glucose metabolism. Diffuse radiopharmaceutical concentration is noted in all four quadrants of the abdomen and pelvis. The spleen demonstrates a maximal vertical dimension of 11.8-cm (normal<12.5-cm). Pertinent CT findings are as follows: ABDOMEN AND PELVIS: There is atherosclerotic calcification defined in the abdominal aorta without evidence of dilatation-aneurysm formation. Pelvic arterial calcification is observed. A prominent fat containing right inguinal hernia is noted. Bilateral inguinal soft tissue densities are non-glucose avid. Colonic diverticulosis is defined. The gallbladder is surgically absent. SKELETAL: Degenerative changes are noted in the cervical, thoracic and lumbar spine. Vertebroplasty placement is defined at the level of the second lumbar vertebra with increased glucose concentration identified demonstrating a calculated maximal standard uptake value of 3.3. PET/PET/CT Tumor Base -Thigh Subs IMPRESSION: 1. Increased glucose concentration observed in the left thoracic perihilum fulfills quantitative criteria for viable neoplasm. Histopathologic analysis is recommended. (Maria Esther et al, Journal of Clinical Oncology 16:2142, 1998 Rafia, Seminars in Thoracic and Cardiovascular Surgery 14:292, 2002). 2. Facilitated FDG concentration noted in the mid abdominal retroperitoneum in the region of the pancreatic head demonstrated no anatomic changes on review of CT of the abdomen and pelvis report dated 06/11/18. Correlation with magnetic resonance imaging may be of benefit. 3. The increase in radiotracer uptake noted in the third lumbar vertebra is most consistent with postsurgical change attributed to the patient?s vertebroplasty. Electronic Signature Andi Alba D.O. Electronically Signed: Andi Alba DO at 21:28 EST Tel , Service support , CC: Jem Cedillo MD; Yuliet Jamison DO Systems Software Manager: Signed ONCOLOGY VISIT REPORT Observed: 06/17/2018 Status: F Source: [place] 12:34 PM [facility] REPOSITORY [facility] [address] [place] [address] OFFICE VISIT Date of Service: 06/17/18 1217 MR#: [id number] Acct: [id number] Name: ASAF HERRERA Rep #: [id number] : 1950 From: Jem Cedillo MD Age/Sex: 67/M Location: OMD Status: Signed Subjective - Date of Service Date of Service:: 06/17/18 - Chief Complaint F/U for CT results. - History of Present Illness 67-year-old man was 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 He underwent kyphoplasty and biopsy at that time showed lymphoproliferative disorder. He developed progressive disease with transformation to diffuse large B cell in August 2014 and was treated with 6 cycles of R-CHOP until May 26, 2015. Demonstrated a CR on PET 06/21/15. He comes in for follow up. He feels more tired, had loose stools and swelling in the R groin so CT was requested and comes for follow up. - Past Medical/Social History Past Medical History Past Medical History: COPD,Heart disease,Hyperlipidemia,Hypertension, Sleep apnea Cancer: Lymphoma Past Surgical History Surgical: Back,Cholecystectomy,Cardiac stent Other Surgical History: LEFT HEEL FRACTURE REPAIR LLE TENDON SURGERY BILATERAL SHOULDER SURGERY NASAL SURGERY EAR TUBES PLACED RIGHT INGUINAL LYMPH NODE BX Family History Paternal Past Medical History: Heart disease,Hypertension Maternal Past Medical History: Heart disease,Stroke Social History Smoking Status Former smoker Review of Systems Constitutional:: Denies: Fever, Sweats, Weight loss, Appetite change, Chills Cardiovascular:: Denies: Chest pain, Palpitations, Dyspnea on exertion, Orthopnea, PND, Shortness of breath Respiratory: Denies: Cough, Hemoptysis, Shortness of Breath, Wheezing Gastrointestinal:: Denies: Abdominal pain, Nausea, Vomiting, Diarrhea, Constipation, Hematochezia Genitourinary: Denies: Dysuria, Hematuria, 15, Flank pain Musculoskeletal:: Denies: Back pain, Myalgia, Arthralgia Skin: Denies: Rash, Skin Changes, Wounds Neurological:: Denies: Headache, Dizziness, Visual changes, Tinnitus, Hearing loss Psychiatric: Denies: Anxiety, Depression, Homicidal Ideations, Suicidal Ideations Vital Signs Height 6 ft Weight: 105.687 kg Weight in Pounds 233.0 lbs Pulse Ox 88 - Physical Exam General: Alert, Oriented x3, No apparent distress Diagnostic Data: 06/11/[address]/Soft Tissue Neck WITH Contrast IMPRESSION: 1. No lymphadenopathy or recurrent tumor. No significant change. 2. Chronic mild sinusitis and bilateral carotid atherosclerotic calcifications. Individualized dose optimization techniques were used for this CT. at 0723 Reported and signed by: Av Son MD Electronically Signed: Av Son, at 7:21 CT/Chest WITH Contrast IMPRESSION: New mediastinal lymphadenopathy, as described above. If indicated, further evaluation with PET CT can be performed. Stable mild emphysema. No pulmonary nodules or masses. Coronary artery disease. Electronically Signed: Eliazar Stack, at 15:[address]/Abdomen/Pelvis WITH Contrast IMPRESSION: Mild mesenteric lymphadenopathy which is new when compared with the prior exam. If indicated, further evaluation with PET CT can be performed. Stable splenomegaly. Stable fatty infiltration of the liver. Electronically Signed: Eliazar Stack, at 16:05 EST Assessment and Plan NHL follicular type, s/p transformation to DLBC, treated with 6 cycles of R-CHOP. Feels un-well R/O recurrent disease. Right inguinal hernia. CT shows NORI lung nodule, mediastinal and mesenteric nodes Plan is to obtain PET/CT to evaluate lung nodule and mediastinal nodes. RTC 3 weeks with CBC, CMP,LDH/uric acid. Medications: Prescriptions This Visit Medication Instructions Recorded Glipizide [Glucotrol Xl] 5 mg PO DAILY 08/15/17 lisinopril 20 mg tablet 10 mg PO DAILY tab 06/17/18 Primary Care Provider: Rhoda Chung Referring Provider: Jem Cedillo MD - Problem List (1) History of non-Hodgkin's lymphoma Status: Chronic (2) Inguinal hernia Status: Chronic (3) Diarrhea Status: Chronic (4) Lung nodule < 6cm on CT Status: Acute Code Visit Office Visits / Consults: [id number] OV L4 Est 06/17/18 1234 <Electronically signed by Jem Cedillo MD> Date Jem Cedillo MD Cosigner Signature: Date (if applicable) CC: SURGERY VISIT REPORT Observed: 06/17/2018 Status: F Source: [place] 10:17 AM [facility] REPOSITORY [facility] [address] [place] [address] [address] [place] [address] OFFICE VISIT Date of Service: 06/17/18 MR#: [id number] Acct: [id number] Name: ASAF HERRERA Kaushal Rep #: [id number] : 1950 Provider: Solomon Mercer MD Age/Sex: 67/M Location: [facility] Status: Signed Intake Vital Signs06/17/18 Body Mass Index (BMI) 31.3 06/17/18 Height 6 ft 06/17/18 Weight: 235 lb Intake Visit Reasons: Inguinal Hernia/CT 06/11 [facility] Chief Complaint: NHL F/U Type Caster Required: No Is patient in pain?: No (tenderness to touch- Right groin) Allergies No Known Allergies Allergy (Verified 06/17/18 10:04) Medications Aspirin [Aspirin, Baby] 81 mg PO DAILY@0800 01/22/14 [History Confirmed 06/17/18] Clopidogrel Bisulfate [Plavix] 75 mg PO DAILY 01/22/14 [History Confirmed 06/17/18] Pantoprazole Sodium [Protonix] 20 mg PO DAILY 01/22/14 [History Confirmed 06/17/18] Multivitamins,Ther W-Minerals [Multivitamin With Minerals] 1 tab PO DAILY 02/03/15 [History Confirmed 06/17/18] Cholecalciferol (Vitamin D3) [D3-2000] 5,000 unit PO DAILY 02/09/15 [History Confirmed 06/17/18] Tamsulosin HCl [Flomax] 0.4 mg PO QHS #30 cap 06/18/15 [Rx Confirmed 06/17/18] Fenofibrate,Micronized [Lofibra] 134 mg PO DAILY 12/03/15 [History Confirmed 06/17/18] Sertraline HCl [Zoloft] 150 mg PO DAILY 12/03/15 [History Confirmed 06/17/18] Oxygen, Home [Home Oxygen] 2 - 4 lpm NASAL UD PRN 09/28/16 [History Confirmed 06/17/18] Rosuvastatin Calcium [Crestor] 40 mg PO DAILY 05/21/17 [History Confirmed 06/17/18] calcium carbonate 500 mg calcium (1,250 mg) tablet 500 mg PO QDAY tab 08/03/17 [History Confirmed 06/17/18] treprostinil diolamine ER 1 mg tablet,extended release 4 mg PO DAILY tab 08/03/17 [History Confirmed 06/17/18] Glipizide [Glucotrol Xl] 5 mg PO DAILY 08/15/17 [History Confirmed 06/17/18] carvedilol 12.5 mg tablet 12.5 mg PO BID #180 tab 12/31/17 [Rx Confirmed 06/17/18] macitentan 10 mg tablet 10 mg PO QDAY 12/31/17 [History Confirmed 06/17/18] triamcinolone acetonide 0.1 % topical ointment 1 applic TOPICAL .prn g 12/31/17 [History Confirmed 06/17/18] magnesium oxide 400 mg (241.3 mg magnesium) tablet 400 mg PO QDAY #90 tab 01/03/18 [Rx Confirmed 06/17/18] allopurinol 100 mg tablet 100 mg PO DAILY 06/17/18 [History Confirmed 06/17/18] lisinopril 20 mg tablet 10 mg PO DAILY tab 06/17/18 [History Confirmed 06/17/18] [facility] History Palpitations (Chronic) Essential (primary) hypertension (Chronic) Atherosclerotic heart disease of [place] coronary artery without angina pectoris (Chronic) NSVT (nonsustained ventricular tachycardia) (Acute) CAD (coronary artery disease), [place] artery transplanted heart (Chronic) Cough (Acute) Dyspnea (Acute) Fever (Acute) Other malaise and fatigue (Acute) Shortness of breath (Acute) Hyperlipidemia (Chronic) Pulmonary hypertension (Chronic) Surgical History S/P nasal surgery (Resolved) H/O shoulder surgery (Resolved) tendon surgery (Resolved) heel surgery (Resolved) Hx of cholecystectomy (Resolved) History of lumbar surgery (Resolved) S/P coronary artery stent placement (Chronic 2004) Family History Father Heart disease Hypertension Mother Heart disease CVA (cerebral vascular accident) Sister Diabetes Heart disease Social History Smoking Status: Former smoker how long ago did patient quit smokin alcohol intake: current Alcohol type: hard liquor, beer substance use type: does not use caffeine: Yes Type: coffee what type of physical activity do you participate in: none seatbelt use: always do you feel safe at home: Yes HPI HPI HPI: ASAF HERRERA, is a 67 M who presents to the office today for right inguinal hernia. The patient has experienced a right groin bulge for the last few months. It has been bothering him more recently. Patient does not report any pain in his other groin. The patient is not having any nausea or vomiting. ROS General General: Yes fatigue; no weight change Endo Endocrine: Yes diabetes mellitus Musc Musculoskeletal: Yes back problems Cardio Cardiovascular: Yes heart disease, high blood pressure, heart attack and heart stent; no murmur, pacemaker, atrial fibrillation, palpitations, shortness of breat with exertion or chest pain Psych Psychiatric: Yes depression; no anxiety Resp Respiratory: Yes shortness of breath, Yes sleep apnea, No cough, Yes COPD, No asthma, No emphysema, No wheezing Gastro Gastrointestinal: Yes abdominal pain, Yes nausea or vomiting, No diarrhea, No constipation, No blood in stool, Yes acid reflux, Yes hemorrhoids, No ulcers, No gallbladder problem, No black,tarry stools Morgan Hematologic: Yes blood thinners Exam Const General: cooperative Orientation: alert, oriented x3 Resp Effort AND Inspection: normal respiratory effort, audible wheezes Auscultation: clear to auscultation bilaterally Cardio Rate: regular rate Rhythm: regular rhythm Heart Sounds: no murmurs GI Inspection: non-distended Palpation: soft, nontender Other: Patient has a large right inguinal hernia which is incarcerated. Assessment AND Plan Problems 1. Incarcerated right inguinal hernia K40.30 Plan 1. Patient has an incarcerated right inguinal hernia. I was unable to reduce this in the office. Patient had a recent CT scan which confirmed the presence of right inguinal hernia. This appears to be containing intra-abdominal fat. 2. I explained hernia repair to the patient in detail. I explained the risks including but not limited to bleeding, infection, injury of the spermatic cord, chronic groin pain, recurrence of hernia. The patient understands the risks and is willing to proceed with surgery. 3. The patient has an extensive heart and lung history. I will prefer to do this in an open fashion under MAC anesthesia. I will obtain cardiac clearance from Dr. Rouse as well as permission to come off his Plavix as he has had a heart stent within this last year. Patient should be able to continue aspirin at a low risk. Solomon Mercer MD Pager: [facility] [address] [place] [address], [address] [place] [address] Office: Coding Level of Care Code Off vis,new,level 3 Diagnoses Incarcerated right inguinal hernia K40.30 06/17/18 1017 <Electronically signed by Solomon Mercer MD> Date Solomon Mercer MD Cosigner Signature: Date (if applicable) CC: Yuliet Jamison DO; Micheal Rouse MD LIVER PROFILE Collected: 06/11/2018 Status: F Source: [place] 3:01 PM [facility] REPOSITORY TYPE CODE TESTS RESULT OUT OF RANGE REFERENCE UNITS LAB L501.1500 6.4-8.2 g/dL Normal T PROT 6.8 LAB L501.1800 3.2-5.0 g/dL Normal ALB 3.7 LAB L501.1950 2.2-4.2 g/dL Normal GLOB 3.1 LAB L501.4100 15-37 U/L Normal AST 23 LAB L501.4305 45-117 U/L Low ALK P 37 LAB L501.4405 16-61 U/L Normal ALT 24 LAB L501.4600 0.20-1.00 mg/dL Normal T BILI 0.60 LAB L501.4700 0.00-0.30 mg/dL Normal D BILI 0.22 Performed By: #### L500.3400 #### [facility] [address] [facility] [place], [address] BNP,B-TYPE NATRIURETIC Collected: 06/11/2018 Status: F Source: [place] PEPTIDE 3:01 PM [facility] REPOSITORY TYPE CODE TESTS RESULT OUT OF RANGE REFERENCE UNITS LAB L503.6620 0-100 pg/mL High B-TYPE 396.5 MOSHE PEP Performed By: #### L503.6620 #### [facility] [address] [place], [address] CHEST WITH CONTRAST Observed: 06/11/2018 Status: F Source: [place] 2:33 PM [facility] REPOSITORY [facility] Imaging Services [address] [place] [address] Chest WITH Contrast MR#: [id number] Acct: [id number] Name: ASAF HERRERA Rep #: [id number] : 1950 M 67 From: Eliazar Stack MD PCP: Yuliet Jamison DO Status: REG CLI Study: Chest WITH Contrast Date of Exam: 06/11/18 Exam# [id number] Ordering Dr: Jem Cedillo MD STUDY: CT CHEST WITH CONTRAST REASON FOR EXAM: Male, 67 years old. B-cell lymphoma TECHNIQUE: Transaxial imaging was performed following intravenous administration of 758ML ml of Isovue 300 contrast material. Coronal and sagittal reformatted images were created. Individualized dose optimization techniques were used for this CT. COMPARISON: 04/21/2016 FINDINGS: There is stable mild emphysematous changes noted in the lungs. There are no pulmonary infiltrates or pleural effusions. There are no pulmonary nodules or masses. There is no pneumothorax. The heart and pericardium are within normal limits. There are coronary artery calcifications noted. There is new mediastinal lymphadenopathy noted with a 2.0 x 1.3 cm prevascular node (image 40 series 2), a 1.7 x 1.7 cm upper paratracheal lymph node (image 39 series 2) and a 2.6 x 1.3 cm subcarinal lymph node (image 55 series 2). There is no evidence of thoracic aortic aneurysm. There are no destructive osseous lesions. CT/Chest WITH Contrast IMPRESSION: New mediastinal lymphadenopathy, as described above. If indicated, further evaluation with PET CT can be performed. Stable mild emphysema. No pulmonary nodules or masses. Coronary artery disease. Electronically Signed: Eliazar Stack, at 15:58 EST Tel , Service support , CC: Jem Cedillo MD; Yuliet Jamison DO Systems Software Manager: Signed ABDOMEN/PELVIS WITH Observed: 06/11/2018 Status: F Source: [place] CONTRAST 2:33 PM [facility] REPOSITORY [facility] Imaging Services [address] [place] [address] Abdomen/Pelvis WITH Contrast MR#: [id number] Acct: [id number] Name: ASAF HERRERA Rep #: [id number] : 1950 M 67 From: Eliazar Stack MD PCP: Yuliet Jamison DO Status: REG CLI Study: Abdomen/Pelvis WITH Contrast Date of Exam: 06/11/18 Exam# [id number] Ordering Dr: Jem Cedillo MD STUDY: CT ABDOMEN AND PELVIS WITH CONTRAST REASON FOR EXAM: Male, 67 years old. B-cell lymphoma RADIATION DOSAGE (If Supplied By Facility): CTDIvol = ( 23.83 ) mGy, DLP = ( 2819.32 ) mGycm TECHNIQUE: Transaxial images were obtained from the dome of the diaphragm to the symphysis pubis without oral contrast. 75ML ml of Isovue 300 contrast was administered. Sagittal and coronal images were reconstructed. Individualized dose optimization techniques were used for this CT. COMPARISON: 04/21/2016 FINDINGS: The patient is status post cholecystectomy. Again noted is fatty infiltration of the liver. There are no focal hepatic lesions. The spleen is enlarged, measuring 14.5 cm in maximal dimension. This is stable when compared with the prior exam. The pancreas is within normal limits. The adrenal glands are within normal limits. There are no renal or ureteral stones. There is no hydronephrosis. There are no focal renal lesions. Normal visualized stomach. There is no bowel obstruction or inflammation. The appendix is not visualized, but there are no findings to suggest acute appendicitis. Again noted is a fat-containing right inguinal hernia. There is no bowel containing hernia. The aorta is normal in caliber. Again noted are atherosclerotic calcifications in the aorta. There is mild mesenteric lymphadenopathy noted with the largest node measuring 2.0 x 1.2 cm (image 50 series 4). There is no free air, free fluid or fluid collection. There are no destructive osseous lesions. Again noted is vertebroplasty cement in the L2 vertebral body. Again noted are degenerative changes in the lumbar spine. CT/Abdomen/Pelvis WITH Contrast IMPRESSION: Mild mesenteric lymphadenopathy which is new when compared with the prior exam. If indicated, further evaluation with PET CT can be performed. Stable splenomegaly. Stable fatty infiltration of the liver. Electronically Signed: Eliazar Seda, at 16:05 EST Tel , Service support , CC: Jem Cedillo MD; Yuliet Jamison DO Systems Software Manager: Signed SOFT TISSUE NECK WITH Observed: 06/11/2018 Status: F Source: [place] CONTRAST 2:33 PM [facility] Imaging Services [address] [place] [address] Soft Tissue Neck WITH Contrast MR#: [id number] Acct: [id number] Name: ASAF HERRERA Rep #: [id number] : 1950 M 67 From: Av Son MD PCP: Yuliet Jamison DO Status: REG CLI Study: Soft Tissue Neck WITH Contrast Date of Exam: 06/11/18 Exam# [id number] Ordering Dr: Jem Cdeillo MD HISTORY: History of B-cell lymphoma for follow-up TECHNIQUE: Helically acquired images were obtained of the neck following IV contrast. A radiation dose optimization technique was used for this scan. IV Contrast dosage and agent: 75 cc Isovue-300 contrast COMPARISON: 09/28/2015 FINDINGS: With comparison to previous, no significant change. No cervical lymph node enlargement. The parotid and some the upper glands show no CT abnormality. The tongue base appears normal. Right tonsillar small crypt calcification, unchanged. No suspicious tonsillar enlargement. Laryngeal and pharyngeal structure showed no CT abnormality. Trachea is midline. Thyroid gland is not enlarged. Minor opacification of the ethmoid air cells and left maxillary sinus mild mucosal thickening, unchanged, compatible with chronic sinusitis. Bilateral carotid atherosclerotic calcifications. The mastoid air cells are poorly developed. Middle ear cavities appear clear. CT/Soft Tissue Neck WITH Contrast IMPRESSION: 1. No lymphadenopathy or recurrent tumor. No significant change. 2. Chronic mild sinusitis and bilateral carotid atherosclerotic calcifications. Individualized dose optimization techniques were used for this CT. at 0723 Reported and signed by: Av Son MD Electronically Signed: Av Son, at 7:21 EST Tel , Service support , CC: Jem Cedillo MD; Yuliet Jamison DO Systems Software Manager: Signed Observed: 06/06/2018 Status: F Source: [place] CDIFF (MOLECULAR) 10:10 AM [facility] REPOSITORY Reason for Laboratory Test . Cdiff-Molecular Normal Reference Range = Negative C. Diff DNA Negative- No toxigenic C. Diff DNA Detected NAAT METHOD Testing was performed using nucleic acid amplification Performed By: #### M100.6796 #### [facility] [address] [place], [address] Observed: 06/06/2018 Status: F Source: [place] OVA AND PARASITES 10:10 AM [facility] REPOSITORY Reason for Exam: . Reason for Laboratory Test . O + P OVA AND PARASITES EXAM, ROUTINE These results were obtained using wet preparation(s) and trichrome stained smear. This test does not include testing for Crytosporidium parvum, Cyclospora, or Microsporidia. TESTING PERFORMED AT [facility]. ORIGINAL REPORT ON FILE IN LAB CONTAINS ADDITIONAL TEST SITE INFORMATION. Ova/Parasite Exam NO OVA, CYSTS, OR PARASITES FOUND. Performed By: #### M600.5000 #### [facility] [address] [place], [address] ONCOLOGY VISIT REPORT Observed: 06/04/2018 Status: F Source: [place] 4:10 PM [facility] REPOSITORY [facility] [address] [place] [address] [place] [address] OFFICE VISIT Date of Service: 06/04/18 1602 MR#: [id number] Acct: [id number] Name: ASAF HERRERA Rep #: [id number] : 1950 From: Jem Cedillo MD Age/Sex: 67/M Location: OMD Status: Signed Subjective - Date of Service Date of Service:: 06/04/18 - Chief Complaint NHL F/U - History of Present Illness 67-year-old man was 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 He underwent kyphoplasty and biopsy at that time showed lymphoproliferative disorder. He developed progressive disease with transformation to diffuse large B cell in August 2014 and was treated with 6 cycles of R-CHOP until May 26, 2015. Demonstrated a CR on PET 06/21/15. He comes in for follow up. He feels more tired, has loose stools and swelling in the R groin. - Past Medical/Social History Past Medical History Past Medical History: COPD,Heart disease,Hyperlipidemia,Hypertension, Sleep apnea Cancer: Lymphoma Past Surgical History Surgical: Back,Cholecystectomy,Cardiac stent Other Surgical History: LEFT HEEL FRACTURE REPAIR LLE TENDON SURGERY BILATERAL SHOULDER SURGERY NASAL SURGERY EAR TUBES PLACED RIGHT INGUINAL LYMPH NODE BX Family History Paternal Past Medical History: Heart disease,Hypertension Maternal Past Medical History: Heart disease,Stroke Social History Smoking Status Former smoker Review of Systems Constitutional:: Reports: Fatigue. Denies: Fever, Sweats, Weight loss, Appetite change, Chills Cardiovascular:: Denies: Chest pain, Palpitations, Dyspnea on exertion, Orthopnea, PND, Shortness of breath Respiratory: Denies: Cough, Hemoptysis, Shortness of Breath, Wheezing Gastrointestinal:: Reports: Diarrhea, - Genitourinary: Denies: Dysuria, Hematuria, 15, Flank pain Musculoskeletal:: Denies: Back pain, Myalgia, Arthralgia Skin: Denies: Rash, Skin Changes, Wounds Neurological:: Denies: Headache, Dizziness, Visual changes, Tinnitus, Hearing loss Vital Signs Height 6 ft Weight: 104.78 kg Weight in Pounds 231.0 lbs Pulse Ox 91 - Physical Exam General: Alert, Oriented x3, No apparent distress HEENT: Atraumatic, PERRLA, EOMI, Normocephalic Neck:: Supple, Trachea midline. Negative for: JVD, bilateral Cardiac:: Regular rate, Regular rhythm, Normal S1, Normal S2. Negative for: Murmur Lungs: Clear to auscultation, Excusion symmetrical. Negative for: Rhonchi, Wheezes Abdomen:: Bowel sounds x 4, Soft, Non-tender, Non-distended, Hernia - R inguinal area.. Negative for: Hepatosplenomegaly Extremities:: Negative for: Cyanosis, Edema Neurological: Neuro grossly intact Skin:: Negative for: Lesions, Rash, Petechiae, Ecchymosis Psychiatric:: Appropriate affect, Euthymic Lymphatics:: Negative for: Cervical lymphadenopathy, Supraclavicular lymphadenopathy, Axillary lymphadenopathy Laboratory Data: Laboratory Tests WBC 5.9 (4.4-11.0) K/mm3 RBC 5.16 (4.6-6.2) M/mm3 Assessment and Plan NHL follicular type, s/p transformation to DLBC, treated with 6 cycles of R-CHOP. Feels un-well R/O recurrent disease. Right inguinal hernia. Diarrhea/loose stools. Plan is to obtain CT c/a/p. Stop Protonix, Mag Oxide. Stool for O AND P, C.difficile. Refer to Surgery for R inguinal hernia. RTC 1 months with CBC, CMP,LDH. Medications: Prescriptions This Visit Medication Instructions Recorded Glipizide [Glucotrol Xl] 5 mg PO DAILY 08/15/17 Lisinopril [Zestril] 20 mg PO DAILY 08/15/17 Primary Care Provider: Rhoda Chung Referring Provider: Jem Cedillo MD - Problem List (1) History of non-Hodgkin's lymphoma Status: Chronic (2) Inguinal hernia Status: Chronic (3) Diarrhea Status: Chronic Code Visit Office Visits / Consults: 45956 OV L5 Est 06/04/18 1610 <Electronically signed by Jem Cedillo MD> Date Jem Cedillo MD Cosigner Signature: Date (if applicable) CC: CBC W/DIFF, AUTOMATED Collected: 06/04/2018 Status: F Source: [place] 2:54 PM [facility] REPOSITORY Order Comment: Reason for Laboratory Test . TYPE CODE TESTS RESULT OUT OF RANGE REFERENCE UNITS LAB L100.1000 4.4-11.0 K/mm3 Normal WBC 5.9 LAB L100.1200 4.6-6.2 M/mm3 Normal RBC 5.16 LAB L100.1300 13.0-16.5 g/dl Normal HGB 15.0 LAB L100.1400 40-54 % Normal HCT 45.5 LAB L100.1500 80-94 fL Normal MCV 88.2 LAB L100.1600 27.0-32.0 pg Normal MCH 29.1 LAB L100.1700 32-36 g/gl Normal MCHC 33.0 LAB L100.1810 11.6-14.6 % Normal RDW CV 14.0 LAB L100.1820 35.1-43.9 fl High RDW SD 45.2 LAB L100.1900 150-450 K/mm3 Low PLT 120 LAB L100.2000 6.2-12.0 fl Normal MPV 8.7 LAB L100.2100 47-70 % High NEUT% 78.5 LAB L100.2200 19-41 % Low LY% 8.1 LAB L100.2300 0-10 % Normal MONO% 8.5 LAB L100.2400 0-5 % Normal EO% 4.4 LAB L100.2500 0-1 % Normal BASO% 0.3 LAB L100.2550 0.0-0.9 % Normal IM GRAN % 0.200 Result Comment: IG% - Immature Granulocytes (promyelocytes, myelocytes and metamyelocytes) > 1% indicates that a LEFT SHIFT is Present. LAB L100.2620 2.0-7.7 X10 3/uL Normal Absolute Neut 4.6 LAB L100.2720 0.83-4.51 X10 3/ul Low Absolute Lymph 0.48 LAB L100.4500 Normal SMEAR COMMENT SEE COMMENT Result Comment: LYMPHOPENIA NOTED LAB L100.5500 ADEQ Normal PLT EST SLT DEC LAB L100.7300 Normal ANISO RARE Performed By: #### L100.0100 #### [facility] [address] [place], [address] COMPREHENSIVE METABOLIC Collected: 06/04/2018 Status: F Source: [facility] 2:54 PM [facility] REPOSITORY Order Comment: Reason for Laboratory Test . TYPE CODE TESTS RESULT OUT OF RANGE REFERENCE UNITS LAB L501.0100 74-106 mg/dL Low GLU 73 Result Comment: Please note revised GLUCOSE reference range effective 2017. LAB L501.1000 7-18 mg/dL High BUN 27 LAB L501.1100 0.70-1.30 mg/dL High CREAT,SERUM 1.72 Result Comment: The validity of the calculated GFR AND GFRAA in patients over 70 years has not been determined. Clinical correlation is essential. LAB L501.1110 >60 mL/min Low EST GFR 42 Result Comment: Non- GFR Calc LAB L501.1115 >60 mL/min Low EST GFR - AA 51 Result Comment: GFR Calc LAB L501.1255 ml/min Normal Estimated CRCL 44.49 LAB L501.1300 10-20 RATIO Normal BUN/CRE 15.7 LAB L501.1500 6.4-8. g/dL Normal 2 T PROT 7.6 LAB L501.1800 3.2-5. g/dL Normal 0 ALB 4.2 LAB L501.1950 2.2-4. g/dL Normal 2 GLOB 3.4 LAB L501.2000 0.9-2. RATIO Normal 4 A/G 1.2 LAB L501.2200 8.5-10 mg/dL Normal .1 CA 9.1 LAB L501.4100 15-37 U/L Normal AST 20 LAB L501.4305 45-117 U/L Low ALK P 38 LAB L501.4405 16-61 U/L Normal ALT 19 LAB L501.4600 0.20-1 mg/dL Normal .00 T BILI 0.80 LAB L501.5300 136-14 mmol/L Normal 5 NA 141 LAB L501.5600 3.5-5. mmol/L Normal 1 K 4.4 LAB L501.5900 98-107 mmol/L High CL 110 LAB L501.6100 21.0-3 mmol/L Normal 2.0 CO2 24.0 LAB L501.6200 5-15 Normal GAP 7 Performed By: #### L500.4050 #### [facility] [address] [place], [place], [address] PHOSPHORUS Collected: 06/04/2018 Status: F Source: [place] 2:45 PM [facility] REPOSITORY Order Comment: Reason for Laboratory Test . TYPE CODE TESTS RESULT OUT OF RANGE REFERENCE UNITS LAB L501.2300 2.5-4.9 mg/dL Normal PHOS 3.6 Performed By: #### L501.2300, L501.5200 #### [facility] [address] [place], [address] MAGNESIUM Collected: 06/04/2018 Status: F Source: [place] 2:45 PM [facility] REPOSITORY Order Comment: Reason for Laboratory Test . TYPE CODE TESTS RESULT OUT OF RANGE REFERENCE UNITS LAB L501.5200 1.6-2.6 mg/dL Low MG 1.5 Performed By: #### L501.2300, L501.5200 #### [facility] [address] [facility] [place], [address] CBC Collected: 04/04/2018 Status: F Source: [facility] 12:23 PM [facility] REPOSITORY TYPE CODE TESTS RESULT OUT OF REFERENCE UNITS RANGE LAB WBC(LOINC) 4.60-10.80 10 3/mcL WBC 6.50 LAB RBCCT(LOINC 4.04-6.13 10 6/mcL ) RBC 4.87 LAB HGB(LOINC) 14.0-18.0 G/dL Hgb 14.1 LAB HCT(LOINC) 42.0-52.0 % Hct 42.0 LAB MCV(LOINC) 80.0-94.0 fL MCV 86.3 LAB MCH(LOINC) 27.0-31.2 pg MCH 29.0 LAB MCHC(LOINC) 31.8-35.4 G/dL MCHC 33.6 LAB RDW(LOINC) 11.5-14.5 % High RDW 15.6 LAB PLT(LOINC) 130-400 10 3/mcL Platelet 176 LAB MPV(LOINC) 7.4-10.4 fL Low MPV 7.2 Performed By: #### CBC, ADIFF, ANEU #### [facility] [address] [place], [place] [address] #### MG, CMP, GFR #### [address] [address] .AUTO DIFF Collected: 04/04/2018 Status: F Source: [facility] 12:23 PM [facility] REPOSITORY TYPE CODE TESTS RESULT OUT OF REFERENCE UNITS RANGE LAB KAELYN(LOINC) 37.0-80.0 % Neutrophil % 70.2 LAB LYM(LOINC) 10.0-50.0 % Lymphocyte % 14.2 LAB MON(LOINC) 1.7-13.0 % Monocyte % 9.4 LAB EO(LOINC) 0.0-7.0 % Eosinophil % 5.0 LAB BAS(LOINC) 0.0-2.5 % Basophil % 1.2 LAB ABLYM(LOIN 0.77-3.85 10 3/mcL C) Lymphocyte, 0.90 Absolute LAB FREDA(LOINC 0.15-1.00 10 3/mcL ) Monocyte, 0.60 Absolute LAB AEOS(LOINC 0.00-0.40 10 3/mcL ) Eosinophil, 0.30 Absolute LAB ABAS(LOINC 0.00-0.19 10 3/mcL ) Basophil, 0.10 Absolute Performed By: #### CBC, ADIFF, ANEU #### [address] [address] #### MG, CMP, GFR #### [place] [address] .NEUABS Collected: 04/04/2018 Status: F Source: [facility] 12:23 [facility] REPOSITORY TYPE CODE TESTS RESULT OUT OF REFERENCE UNITS RANGE LAB ANEU(LOINC) 2.85-6.16 10 3/mcL Neutrophil, 4.60 Absolute Performed By: #### CBC, ADIFF, ANEU #### [address] [address] #### MG, CMP, GFR #### [place] [address] MG Collected: 04/04/2018 Status: F Source: [facility] 12:23 [facility] REPOSITORY TYPE CODE TESTS RESULT OUT OF REFERENCE UNITS RANGE LAB MG(LOINC) 1.8-2.4 mg/dL Low Magnesium Lvl 1.4 Performed By: #### CBC, ADIFF, ANEU #### [place] [id number] #### MG, CMP, GFR #### [place] [address] CMP Collected: 04/04/2018 Status: F Source: [facility] 12:23 [facility] REPOSITORY TYPE CODE TESTS RESULT OUT OF REFERENCE UNITS RANGE LAB GLU(LOINC) 80-115 mg/dL Glucose High Level 120 LAB NA(LOINC) 136-145 mmol/L Sodium Level 140 LAB K(LOINC) 3.5-5.1 mmol/L Potassium Level 4.4 LAB CL(LOINC) 98-107 mmol/L Chloride 106 LAB CO2(LOINC) 23-31 mmol/L CO2 23 LAB EBAL(LOINC mEq/L ) Electrolyte Balance 11.0 LAB BUN(LOINC) 7-18 mg/dL BUN High 29 LAB CRE(LOINC) 0.70-1.30 mg/dL Creatinine High Lvl (s) 1.72 LAB BC(LOINC) 7-27 ratio BUN/Creatinine 17 Ratio LAB CA(LOINC) 8.4-10.2 mg/dL Calcium Lvl 9.2 LAB PROT(LOINC 6.4-8.2 G/dL ) Total Protein 6.7 LAB ALB(LOINC) 3.4-4.8 G/dL Albumin Level 4.0 LAB GLB(LOINC) G/dL Globulin 2.7 LAB AG(LOINC) 1.1-2.5 ratio A/G Ratio 1.5 LAB BILT(LOINC 0.2-1.0 mg/dL ) Bili Total 0.5 LAB AP(LOINC) 40-135 U/L Alk Phos 43 LAB AST(LOINC) 10-40 U/L AST/SGOT 17 LAB ALT(LOINC) 10-35 U/L ALT/SGPT 19 Performed By: #### CBC, ADIFF, ANEU #### [address] [address] #### MG, CMP, GFR #### [address] [address] .GFR Collected: 04/04/2018 Status: F Source: [facility] 12:23 PM [facility] REPOSITORY TYPE CODE TESTS RESULT OUT OF REFERENCE UNITS RANGE LAB GFRAA(LOINC ml/min/1.73 ) sqm GFR 48 [place] Result Comment: GFR Population mean for , Non- Americans Ages 20-29 = 116 mL/min/1.73 sq.m. Ages 30-39 = 107 mL/min/1.73 sq.m. Ages 40-49 = 99 mL/min/1.73 sq.m. Ages 50-59 = 93 mL/min/1.73 sq.m. Ages 60-69 = 85 mL/min/1.73 sq.m. Ages 70+ = 75 mL/min/1.73 sq.m. Chronic Kidney Disease: Less than 60 mL/min/1.73 square meters End Stage Renal Disease: Less than 15 mL/min/1.73 square meters LAB GFRNO(LOINC) ml/min/1.73sqm GFR Non- 40 Result Comment: GFR Population mean for , Non- Americans Ages 20-29 = 116 mL/min/1.73 sq.m. Ages 30-39 = 107 mL/min/1.73 sq.m. Ages 40-49 = 99 mL/min/1.73 sq.m. Ages 50-59 = 93 mL/min/1.73 sq.m. Ages 60-69 = 85 mL/min/1.73 sq.m. Ages 70+ = 75 mL/min/1.73 sq.m. Chronic Kidney Disease: Less than 60 mL/min/1.73 square meters End Stage Renal Disease: Less than 15 mL/min/1.73 square meters Performed By: #### CBC, ADIFF, ANEU #### [address] [address] #### MG, CMP, GFR #### [place] [address] ONCOLOGY VISIT REPORT Observed: 02/27/2018 Status: F Source: [facility] 3:56 PM [facility] REPOSITORY [facility] [address] [place] [address] OFFICE VISIT Date of Service: 02/27/18 1457 MR#: [id number] Acct: [id number] Name: ASAF HERRERA Kaushal Rep #: [id number] : 1950 From: Kristin MALONE Age/Sex: 67/M Location: OMD Status: Signed Subjective - Date of Service Date of Service:: 02/27/18 - Chief Complaint NHL F/U - History of Present Illness 67-year-old man was 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 He underwent kyphoplasty and biopsy at that time showed lymphoproliferative disorder. He developed progressive disease with transformation to diffuse large B cell in August 2014 and was treated with 6 cycles of R-CHOP until May 26, 2015. Demonstrated a CR on PET 06/21/15. - Interval History The patient is presenting to clinic for routine six-month follow-up and denies any concerns related to today's visit. Specifically he denies any B symptoms inclusive of frequent infections, weight loss, enlarged lymph nodes, dysphagia, abdominal pain, any episodes of overt bleeding or abnormal bruising and changes in his bowel habits with the exception of some mild diarrhea which he attributes to new medication Dr. Leiva gave him for management of pulmonary hypertension. - Past Medical/Social History Past Medical History Past Medical History: COPD,Heart disease,Hyperlipidemia,Hypertension, Sleep apnea Cancer: Lymphoma Past Surgical History Surgical: Back,Cholecystectomy,Cardiac stent Other Surgical History: LEFT HEEL FRACTURE REPAIR LLE TENDON SURGERY BILATERAL SHOULDER SURGERY NASAL SURGERY EAR TUBES PLACED RIGHT INGUINAL LYMPH NODE BX Family History Paternal Past Medical History: Heart disease,Hypertension Maternal Past Medical History: Heart disease,Stroke Social History Smoking Status Former smoker Review of Systems Constitutional:: Denies: Fever, Sweats, Weight loss, Appetite change, Chills Cardiovascular:: Denies: Chest pain, Palpitations, Dyspnea on exertion, Orthopnea, PND, Shortness of breath Respiratory: Denies: Cough, Hemoptysis, Shortness of Breath, Wheezing Gastrointestinal:: Denies: Abdominal pain, Nausea, Vomiting, Diarrhea, Constipation, Hematochezia Genitourinary: Denies: Dysuria, Hematuria, 15, Flank pain Musculoskeletal:: Denies: Back pain, Myalgia, Arthralgia Skin: Denies: Rash, Skin Changes, Wounds Neurological:: Denies: Headache, Dizziness, Visual changes, Tinnitus, Hearing loss Psychiatric: Denies: Anxiety, Depression, Homicidal Ideations, Suicidal Ideations Vital Signs Height 6 ft Weight: 234 lb Weight in Pounds 234.0 lbs Pulse Ox 92 - Physical Exam General: Alert, Oriented x3, No apparent distress HEENT: Atraumatic, Normocephalic, - - Wears glasses Oropharynx:: Negative for: Dry mucosa, Ulcerated lesions Neck:: Supple, Trachea midline. Negative for: JVD, bilateral Cardiac:: Regular rate, Regular rhythm, Normal S1, Normal S2. Negative for: Murmur Lungs: Clear to auscultation, Excusion symmetrical. Negative for: Rhonchi, Wheezes Abdomen:: Bowel sounds x 4, Soft, Non-tender, Non-distended. Negative for: Hepatosplenomegaly Extremities:: Negative for: Cyanosis, Edema Neurological: Neuro grossly intact Skin:: Negative for: Lesions, Rash, Petechiae, Ecchymosis Psychiatric:: Appropriate affect, Euthymic Lymphatics:: Negative for: Cervical lymphadenopathy, Supraclavicular lymphadenopathy, Axillary lymphadenopathy Assessment and Plan 1. NHL follicular type, s/p transformation to DLBC, treated with 6 cycles of R-CHOP. PET 06/2015 demonstrated CR-CBC is reviewed reveals mild thrombocytopenia discussed below. Patient is otherwise not endorsing any B symptoms or symptoms. CMP and LDH are pending. She will be notified via phone if there are aberrancies. 2. Thrombocytopenia-mild, as evidenced by platelet count of 137,000. He is not endorsing any episodes of overt bleeding or abnormal bruising. Return to clinic in 3 months for CBC, CMP, LDH. Patient was in agreement with aforementioned plan. JAYASHREE Ferrera, BOAT RENTAL CLERK-C, AOCNP Medications: Prescriptions This Visit Medication Instructions Recorded Glipizide [Glucotrol Xl] 5 mg PO 08/15/17 Lisinopril [Zestril] 20 mg PO DAILY 08/15/17 Primary Care Provider: Rhoda Chung Referring Provider: Jem Cedillo MD - Problem List (1) History of non-Hodgkin's lymphoma Status: Chronic (2) Thrombocytopenia Status: Acute 02/27/18 1556 <Electronically signed by Kristin Chung CLINICAL LIAISON-C> Date Kristin PARKSC Cosigner Signature: Date (if applicable) CC: CBC W/DIFF, AUTOMATED Collected: 02/27/2018 Status: F Source: [facility] 2:42 PM [facility] REPOSITORY Order Comment: Reason for Laboratory Test . TYPE CODE TESTS RESULT OUT OF RANGE REFERENCE UNITS LAB L100.1000 4.4-11.0 K/mm3 Normal WBC 6.4 LAB L100.1200 4.6-6.2 M/mm3 Normal RBC 5.01 LAB L100.1300 13.0-16.5 g/dl Normal HGB 14.1 LAB L100.1400 40-54 % Normal HCT 44.3 LAB L100.1500 80-94 fL Normal MCV 88.4 LAB L100.1600 27.0-32.0 pg Normal MCH 28.1 LAB L100.1700 32-36 g/gl Low MCHC 31.8 LAB L100.1810 11.6-14.6 % High RDW CV 14.8 LAB L100.1820 35.1-43.9 fl High RDW SD 47.8 LAB L100.1900 150-450 K/mm3 Low PLT 138 LAB L100.2000 6.2-12.0 fl Normal MPV 9.2 LAB L100.2100 47-70 % High NEUT% 71.3 LAB L100.2200 19-41 % Low LY% 15.1 LAB L100.2300 0-10 % Normal MONO% 8.0 LAB L100.2400 0-5 % Normal EO% 4.9 LAB L100.2500 0-1 % Normal BASO% 0.5 LAB L100.2550 0.0-0.9 % Normal IM GRAN % 0.200 Result Comment: IG% - Immature Granulocytes (promyelocytes, myelocytes and metamyelocytes) > 1% indicates that a LEFT SHIFT is Present. LAB L100.2620 2.0-7.7 X10 3/uL Normal Absolute Neut 4.5 LAB L100.2720 0.83-4.51 X10 3/ul Normal Absolute Lymph 0.96 Performed By: #### L100.0100 #### [facility] [address] [place], [place], [id number] COMPREHENSIVE METABOLIC Collected: 02/27/2018 Status: F [facility]: [facility] 2:42 PM [facility] REPOSITORY Order Comment: Reason for Laboratory Test . Serial Specimen #1, #2 or #3? 1 TYPE CODE TESTS RESULT OUT OF RANGE REFERENCE UNITS LAB L501.0100 74-106 mg/dL Normal GLU 87 Result Comment: Please note revised GLUCOSE reference range effective 2017. LAB L501.1000 7-18 mg/dL High BUN 29 LAB L501.1100 0.70-1.30 mg/dL High CREAT,SERUM 1.78 Result Comment: The validity of the calculated GFR AND GFRAA in patients over 70 years has not been determined. Clinical correlation is essential. LAB L501.1110 >60 mL/min Low EST GFR 40 Result Comment: Non- GFR Calc LAB L501.1115 >60 mL/min Low EST GFR - AA 49 Result Comment: GFR Calc LAB L501.1255 ml/min Normal Estimated CRCL 42.99 LAB L501.1300 10-20 RATIO Normal BUN/CRE 16.3 LAB L501.1500 6.4-8. g/dL Normal 2 T PROT 7.2 LAB L501.1800 3.2-5. g/dL Normal 0 ALB 3.9 LAB L501.1950 2.2-4. g/dL Normal 2 GLOB 3.3 LAB L501.2000 0.9-2. RATIO Normal 4 A/G 1.2 LAB L501.2200 8.5-10 mg/dL Low .1 CA 8.4 LAB L501.4100 15-37 U/L Normal AST 19 LAB L501.4305 45-117 U/L Low ALK P 36 LAB L501.4405 16-61 U/L Normal ALT 18 LAB L501.4600 0.20-1 mg/dL Normal .00 T BILI 0.60 LAB L501.5300 136-14 mmol/L Normal 5 NA 143 LAB L501.5600 3.5-5. mmol/L Normal 1 K 4.1 LAB L501.5900 98-107 mmol/L High CL 111 LAB L501.6100 21.0-3 mmol/L Normal 2.0 CO2 23.0 LAB L501.6200 5-15 Normal GAP 9 Performed By: #### L500.4050, L504.2610 #### [facility] [address] [place], [place], [address] LDH Collected: 02/27/2018 Status: F Source: [facility] 2:42 PM [facility] REPOSITORY Order Comment: Reason for Laboratory Test . Serial Specimen #1, #2 or #3? 1 TYPE CODE TESTS RESULT OUT OF RANGE REFERENCE UNITS LAB L504.2610 87-241 U/L Normal LDH 172 Performed By: #### L500.4050, L504.2610 #### [facility] [address] [place], [address] MAGNESIUM Collected: 12/31/2017 Status: F Source: [facility] 2:34 PM [facility] REPOSITORY TYPE CODE TESTS RESULT OUT OF RANGE REFERENCE UNITS LAB L501.5200 1.6-2.6 mg/dL Low MG 1.5 Performed By: #### L501.5200 #### [facility] [address] [place], [address] CARDIOLOGY VISIT Observed: 12/31/2017 Status: F Source: [facility] REPORT 2:21 PM [facility] REPOSITORY [facility] [address] [place] [address] OFFICE VISIT Date of Service: 12/31/17 MR#: [id number] Acct: [id number] Name: ASAF HERRERA Rep #: [id number] : 1950 Provider: Tawana Joe Age/Sex: 67/M Location: [facility] Status: Signed HPI HPI Details: ASAF HERRERA, is a 67 M who presents to the office today for a cardiovascular outpatient follow-up. Patient has a history of coronary artery disease status post stenting with drug-eluting stent to RCA in May 2017. He also has a history of remote stenting with a bare metal stent to the RCA, ischemic mediated cardiomyopathy, pulmonary hypertension, hyperlipidemia, and nonsustained ventricular tachycardia. Patient was referred to Dr. Caballero for further evaluation of his nonsustained ventricular tachycardia after recent RCA stenting. He was on amiodarone but this has been discontinued by Dr. Caballero. Pt. denies chest, arm, jaw, or neck discomfort. His exercise tolerance is stable. Pt. denies symptoms of CHF, palpitations, lightheadedness, dizziness, near syncope, or syncopal episodes. Pt. denies edema or claudication issues. Pt. denies orthopnea, PND, fever, chills, blood in urine, blood in stool, myalgia, or unexplainable fatigue. Intake Vital Signs12/31/17 Height 6 ft 1 in 12/31/17 Weight: 234 lb 12/31/17 Body Mass Index (BMI) 30.9 Intake Visit Reasons: 2 M FU Type Caster Required: No Is patient in pain?: No Allergies No Known Allergies Allergy (Verified 12/31/17 13:35) Medications Aspirin [Aspirin, Baby] 81 mg PO DAILY@0800 01/22/14 [History Confirmed 12/31/17] Clopidogrel Bisulfate [Plavix] 75 mg PO DAILY 01/22/14 [History Confirmed 12/31/17] Pantoprazole Sodium [Protonix] 20 mg PO DAILY 01/22/14 [History Confirmed 12/31/17] Multivitamins,Ther W-Minerals [Multivitamin With Minerals] 1 tab PO DAILY 02/03/15 [History Confirmed 12/31/17] Cholecalciferol (Vitamin D3) [D3-2000] 5,000 unit PO DAILY 02/09/15 [History Confirmed 12/31/17] Tamsulosin HCl [Flomax] 0.4 mg PO QHS #30 cap 06/18/15 [Rx Confirmed 12/31/17] Fenofibrate,Micronized [Lofibra] 134 mg PO DAILY 12/03/15 [History Confirmed 12/31/17] Isosorbide Mononitrate [Isosorbide Mononitrate ER] 60 mg PO DAILY 12/03/15 [History Confirmed 12/31/17] Sertraline HCl [Zoloft] 150 mg PO DAILY 12/03/15 [History Confirmed 12/31/17] Oxygen, Home [Home Oxygen] 2 - 4 lpm NASAL UD PRN 09/28/16 [History Confirmed 12/31/17] Rosuvastatin Calcium [Crestor] 40 mg PO DAILY 05/21/17 [History Confirmed 12/31/17] calcium carbonate 500 mg calcium (1,250 mg) tablet 500 mg PO QDAY tab 08/03/17 [History Confirmed 12/31/17] treprostinil diolamine ER 1 mg tablet,extended release 1 mg PO TID tab 08/03/17 [History Confirmed 12/31/17] Glipizide [Glucotrol Xl] 5 mg PO 08/15/17 [History Confirmed 12/31/17] Lisinopril [Zestril] 20 mg PO DAILY 08/15/17 [History Confirmed 12/31/17] carvedilol 12.5 mg tablet 12.5 mg PO BID #180 tab 12/31/17 [Rx Confirmed 12/31/17] macitentan 10 mg tablet 10 mg PO QDAY 12/31/17 [History Confirmed 12/31/17] triamcinolone acetonide 0.1 % topical ointment 1 applic TOPICAL .prn g 12/31/17 [History Confirmed 12/31/17] [facility] Medical History Palpitations (Chronic) Essential (primary) hypertension (Chronic) Atherosclerotic heart disease of [place] coronary artery without angina pectoris (Chronic) NSVT (nonsustained ventricular tachycardia) (Acute) CAD (coronary artery disease), [place] artery transplanted heart (Chronic) Cough (Acute) Dyspnea (Acute) Fever (Acute) Other malaise and fatigue (Acute) Shortness of breath (Acute) Hyperlipidemia (Chronic) Pulmonary hypertension (Chronic) Surgical History S/P nasal surgery (Resolved) H/O shoulder surgery (Resolved) tendon surgery (Resolved) heel surgery (Resolved) Hx of cholecystectomy (Resolved) History of lumbar surgery (Resolved) S/P coronary artery stent placement (Chronic 2004) Family History Father Heart disease Hypertension Mother Heart disease CVA (cerebral vascular accident) Sister Diabetes Heart disease Social History Smoking Status: Former smoker how long ago did patient quit smokin alcohol intake: current Alcohol type: hard liquor, beer substance use type: does not use caffeine: Yes Type: coffee what type of physical activity do you participate in: none seatbelt use: always do you feel safe at home: Yes ROS Const Const: Negative for fatigue, weakness, body ache, fever(s) or chills ENT ENT: Negative for dizziness Cardio Chest Pain: No Edema: None Muscle aches with walking: None Resp Respiratory: Negative for SOB with activity, SOB at rest, SOB orthopnea\SOB lying down or paroxysmal nocturnal dyspnea GI GI: Negative nausea, black,tarry stools, bright, red blood in stools or vomiting blood/hematemesis : Negative for hematuria or frequent nighttime urination/ nocturia Musc Musc: Negative for muscle aches/ myalgia Neuro Neuro: Negative for weakness or dizziness Endo Endo: Negative for fatigue Cardiology Exam Const Appearance: cooperative, healthy appearing, comfortable and no acute distress Orientation: alert, awake and oriented x3 Head Head: normal to inspection Mouth: oral mucosae normal Neck Neck: no JVD and normal visual inspection Carotids: normal carotid upstroke Chest Chest inspection: normal inspection of the chest and normal respiratory effort Auscultation: Bilateral: Clear to Auscultation Cardio Rate: regular rate Rhythm: regular rhythm Heart sounds: S1 normal and S2 normal; negative rub or gallop GI GI: normal to inspection Neuro General: alert, awake, oriented x3 and CN's II-XI intact bilaterally Skin Skin: no rashes or lesions noted Extremities Pulses: Normal: Right Posterior Tibial Pulse, Left Posterior Tibial Pulse, Right Radial Pulse, Left Radial Pulse Lower Extremity Edema: None: Bilateral Psych Psychological: normal affect Supplemental Info Post hospital 30 day event monitor showed sinus rhythm/tachycardia, PAF, wide-complex tachycardia (aberrancy versus NSVT), and underlying IVCD. Patient was referred to Dr. Caballero for further evaluation of wide complex tachycardia. Heart catheterization from May 2017 showed a left ventriculogram ejection fraction of 40-45%, left main is angiographically normal, LAD with less than 30% stenosis, LCx with less than 30% stenosis, proximal RCA with 75% stenosis, mid RCA with 40% stenosis, and right PDA with less than 30% stenosis. Patient underwent drug-eluting stent to proximal RCA and medical management was recommended for mid RCA lesion. Echocardiogram from April 2015 showed an estimated ejection fraction of 55% and mild tricuspid valve insufficiency. Assessment AND Plan 1. Atherosclerosis of [place] coronary artery of [place] heart without angina pectoris I25.10 Plan Stable, from a cardiac standpoint patient does not have any symptoms of angina. We recommend that they continue with current aggressive medical management and risk factor modification. 2. Essential hypertension I10 Plan Blood pressure is well controlled on current medications, we do not recommend any changes at this time. 3. Cardiomyopathy, ischemic I25.5 Plan Patient does not have any symptoms of congestive heart failure. He will continue with aggressive medical management. We will continue to monitor with periodic echocardiograms. 4. NSVT (nonsustained ventricular tachycardia) I47.2 Plan Will obtain recent office visit note from Dr. De Dios. Patient does have a history of hypomagnesia will obtain a magnesium level. We will continue to follow patient closely. He has not had any symptomatic recurrence. 5. Hypomagnesemia E83.42 Plan With patient's history of hypomagnesia will obtain a magnesium level Orders Orders: Plan Detail Other Medications Refilled: Discontinued: albuterol sulfate HFA 90 mcg/actuatio1 - 2 puffs Inhalation Q4H PRN PRN W Marlene E Alia n Discontinued Reason: Pt no longheezing er taking Additional Comments Thank you for allowing us to participate in patient's plan of care, if you have any questions please do not hesitate to call. This note was generated using a voice recognition system and there may be incorrect words, spelling or punctuation errors that were not noted when reviewing the office note prior to saving. Follow Up 6 Months (MMM) 1 Year (PFM) 12/31/17 (Please obtain recent notes from Jessica back) Coding Level of Care Code Off vis,est,level 3 Diagnoses Atherosclerosis of [place] coronary artery of [place] heart without angina pectoris I25.10 [place] vs. transplanted heart: [place] heart Essential hypertension I10 Cardiomyopathy, ischemic I25.5 NSVT (nonsustained ventricular tachycardia) I47.2 Hypomagnesemia E83.42 Coding Level of Care Code Off vis,est,level 3 Diagnoses Atherosclerosis of [place] coronary artery of [place] heart without angina pectoris I25.10 [place] vs. transplanted heart: [place] heart Essential hypertension I10 Cardiomyopathy, ischemic I25.5 NSVT (nonsustained ventricular tachycardia) I47.2 Hypomagnesemia E83.42 12/31/17 1421 <Electronically signed by Tawana JAMESON> Date [facility] JAMESON [facility] Signature: Date (if applicable) CC: Rhoda Chung MD UA Collected: 12/14/2017 Status: F Source: [facility] 1:22 [facility] REPOSITORY TYPE CODE TESTS RESULT OUT OF RANGE REFERENCE UNITS LAB SPCUA([place]) UA Specimen Type Clean Catch LAB CLRUA([place]) UA Color YELLOW LAB APPUA([place]) UA Appear SL CLOUDY LAB SGUA(LOIN C) UA Spec Unknown Grav >=1.030 LAB GLUA(LOIN mg/dL C) UA Glucose NEGATIVE LAB BILUA([place] NC) UA Bili NEGATIVE LAB KETUA([place] mg/dL NC) UA Ketones NEGATIVE LAB BLDUA([place] NC) UA Blood NEGATIVE LAB PHUA(LOIN C) UA pH 5.5 LAB PROUA([place]OME[place] mg/dL NC) UA Protein NEGATIVE LAB UROUA([place]OME[place] E.U./dL NC) UA Urobilinogen 0.2 LAB NITUA([place] NC) UA Nitrite NEGATIVE LAB LEUUA([place] NC) UA Leuk Est NEGATIVE Performed By: #### UA, UAMICAO, CRUR, PRUR #### [place] [id number] .URINALYSIS MICROSCOPIC Collected: 12/14/2017 Status: F Source: [place] () 1:22 [facility] REPOSITORY TYPE CODE TESTS RESULT OUT OF RANGE REFERENCE UNITS LAB WBCUA(LOIN None Seen /hpf C) Unknown UA WBC 0-5 LAB RBCUA(LOIN None Seen /hpf C) Unknown UA RBC 0-5 LAB EPIUA(LOIN None Seen /hpf C) Unknown UA Squam Epithelial 0-5 Performed By: #### UA, UAMICAO, CRUR, PRUR #### [place] [address] [address] CRUR Collected: 12/14/2017 Status: F Source: [facility] 1:22 [facility] REPOSITORY TYPE CODE TESTS RESULT OUT OF REFERENCE UNITS RANGE LAB CRU(LOINC) 39.0-259.0 mg/dL U Creatinine 218.2 Performed By: #### UA, UAMICAO, CRUR, PRUR #### [address] [address] PRUR Collected: 12/14/2017 Status: F Source: [facility] 1:22 [facility] REPOSITORY TYPE CODE TESTS RESULT OUT OF REFERENCE UNITS RANGE LAB PRU(LOINC) 0-14 mg/dL U High Protein 17 Performed By: #### UA, UAMICAO, KRISTIAN, PRUR #### [place] [address] [place], [place] [address] RENAL Observed: 12/14/2017 Status: F Source: [facility] 1:00 PM [facility] REPOSITORY ORIGINAL Complete ultrasound of the retroperitoneum for the kidneys HISTORY: Stage III chronic kidney disease COMPARISON: None RIGHT kidney 10.9 cm length and LEFT kidney 11.9 cm length. At the RIGHT lower pole, there is a 1.5 x 1.6 x 1.7 cm cyst. This shows several internal septations. No definite soft tissue or nodular compon ent seen. No other focal RIGHT renal lesion is evident. There is no stone or collecting system dilatation on either side. No perinephric fluid seen. The urinary bladder is unremarkable with no focal lesions seen. No free fluid. IMPRESSION: 1. No evidence for hydronephrosis. 2. Septated cyst at the RIGHT lower pole kidney. This is considered benign and does not require follow-up. Interpreted By: Jorge Ledesma MD Preliminary Report By: Jorge Ledesma MD Electronically Signed By: Jorge Ledesma MD Dictated Date: 12/14/2017 1:54:21 PM Prelim Date: 12/14/2017 1:54:21 PM Sign Date: 12/14/2017 1:58:35 PM CBC Collected: 12/14/2017 Status: F Source: [facility] 12:58 PM [facility] REPOSITORY TYPE CODE TESTS RESULT OUT OF REFERENCE UNITS RANGE LAB WBC(LOINC) 4.60-10.80 10 3/mcL WBC 6.90 LAB RBCCT(LOINC 4.04-6.13 10 6/mcL ) RBC 5.04 LAB HGB(LOINC) 14.0-18.0 G/dL Hgb 14.3 LAB HCT(LOINC) 42.0-52.0 % Hct 42.6 LAB MCV(LOINC) 80.0-94.0 fL MCV 84.6 LAB MCH(LOINC) 27.0-31.2 pg MCH 28.4 LAB MCHC(LOINC) 31.8-35.4 G/dL MCHC 33.6 LAB RDW(LOINC) 11.5-14.5 % High RDW 15.6 LAB PLT(LOINC) 130-400 10 3/mcL Platelet 164 LAB MPV(LOINC) 7.4-10.4 fL MPV 7.6 Performed By: #### CBC, ADIFF, ANEU, URIC, FES, RFP, GFR #### [address] [address] #### VIHAKEEM, SPE #### [address] [address] .AUTO DIFF Collected: 12/14/2017 Status: F Source: [facility] 12:58 PM [facility] REPOSITORY TYPE CODE TESTS RESULT OUT OF REFERENCE UNITS RANGE LAB KAELYN(LOINC) 37.0-80.0 % Neutrophil % 71.8 LAB LYM(LOINC) 10.0-50.0 % Lymphocyte % 14.5 LAB MON(LOINC) 1.7-13.0 % Monocyte % 8.1 LAB EO(LOINC) 0.0-7.0 % Eosinophil % 4.8 LAB BAS(LOINC) 0.0-2.5 % Basophil % 0.8 LAB ABLYM(LOIN 0.77-3.85 10 3/mcL C) Lymphocyte, 1.00 Absolute LAB FREDA(LOINC 0.15-1.00 10 3/mcL ) Monocyte, 0.60 Absolute LAB AEOS(LOINC 0.00-0.40 10 3/mcL ) Eosinophil, 0.30 Absolute LAB ABAS(LOINC 0.00-0.19 10 3/mcL ) Basophil, 0.10 Absolute Performed By: #### CBC, ADIFF, ANEU, URIC, FES, RFP, GFR #### [address] [address] #### VIHAKEEM, SPE #### [address] [address] .NEUABS Collected: 12/14/2017 Status: F Source: [facility] 12:58 [facility] REPOSITORY TYPE CODE TESTS RESULT OUT OF REFERENCE UNITS RANGE LAB ANEU(LOINC) 2.85-6.16 10 3/mcL Neutrophil, 4.90 Absolute Performed By: #### CBC, ADIFF, ANEU, URIC, FES, RFP, GFR #### [address] [address] #### VIDH, SPE #### [place] [address] URIC Collected: 12/14/2017 Status: F Source: [facility] 12:58 PM [facility] REPOSITORY TYPE CODE TESTS RESULT OUT OF RANGE REFERENCE UNITS LAB URIC(LOINC) 3.5-7.2 mcg/dL High Uric Acid 8.9 Lvl Performed By: #### CBC, ADIFF, ANEU, URIC, FES, RFP, GFR #### [address] [address] #### VIDH, SPE #### [place] [address] FES Collected: 12/14/2017 Status: F Source: [facility] 12:58 PM [facility] REPOSITORY TYPE CODE TESTS RESULT OUT OF RANGE REFERENCE UNITS LAB FE(LOINC) 65-170 mcg/dL Low Iron 62 LAB IBC(LOINC) 250-450 mcg/dL TIBC 356 LAB FESAT(LOINC % ) Iron Sat 17 Performed By: #### CBC, ADIFF, ANEU, URIC, FES, RFP, GFR #### [address] [address] #### VIDH, SPE #### [place] [address] RFP Collected: 12/14/2017 Status: F Source: [facility] 12:58 [facility] REPOSITORY TYPE CODE TESTS RESULT OUT OF REFERENCE UNITS RANGE LAB GLU(LOINC) 80-115 mg/dL Low Glucose Level 67 LAB NA(LOINC) 136-146 mEq/L Sodium Level 142 LAB K(LOINC) 3.5-5.1 mEq/L Potassium Level 4.1 LAB CL(LOINC) 98-107 mEq/L Chloride 106 LAB CO2(LOINC) 23-31 mEq/L CO2 23 LAB EBAL(LOINC mEq/L ) Electrolyte Balance 13.0 LAB BUN(LOINC) 7.0-18.0 mg/dL BUN High 20.5 LAB CRE(LOINC) 0.6-1.2 mg/dL Creatinine High Lvl (s) 1.4 LAB BC(LOINC) 7-27 ratio BUN/Creatinine 15 Ratio LAB CA(LOINC) 8.4-10.2 mg/dL Calcium Lvl 8.9 LAB PHOS(LOINC 2.3-4.1 mg/dL ) Phosphorus 4.1 LAB ALB(LOINC) 3.4-4.8 G/dL Albumin Level 4.3 Performed By: #### CBC, ADIFF, ANEU, URIC, FES, RFP, GFR #### [place] [address] [place], [place] [address] #### VIDH, SPE #### [address] [address] .GFR Collected: 12/14/2017 Status: F Source: [facility] 12:58 PM [facility] REPOSITORY TYPE CODE TESTS RESULT OUT OF REFERENCE UNITS RANGE LAB GFRAA(LOINC ml/min/1.73 ) sqm GFR 61 [place] Result Comment: GFR Population mean for , Non- Americans Ages 20-29 = 116 mL/min/1.73 sq.m. Ages 30-39 = 107 mL/min/1.73 sq.m. Ages 40-49 = 99 mL/min/1.73 sq.m. Ages 50-59 = 93 mL/min/1.73 sq.m. Ages 60-69 = 85 mL/min/1.73 sq.m. Ages 70+ = 75 mL/min/1.73 sq.m. Chronic Kidney Disease: Less than 60 mL/min/1.73 square meters End Stage Renal Disease: Less than 15 mL/min/1.73 square meters LAB GFRNO(LOINC) ml/min/1.73sqm GFR Non- 51 Result Comment: GFR Population mean for , Non- Americans Ages 20-29 = 116 mL/min/1.73 sq.m. Ages 30-39 = 107 mL/min/1.73 sq.m. Ages 40-49 = 99 mL/min/1.73 sq.m. Ages 50-59 = 93 mL/min/1.73 sq.m. Ages 60-69 = 85 mL/min/1.73 sq.m. Ages 70+ = 75 mL/min/1.73 sq.m. Chronic Kidney Disease: Less than 60 mL/min/1.73 square meters End Stage Renal Disease: Less than 15 mL/min/1.73 square meters Performed By: #### CBC, ADIFF, ANEU, URIC, FES, RFP, GFR #### [address] [address] #### VIDH, SPE #### [address] [address] VIDH Collected: 12/14/2017 Status: F Source: [facility] 12:58 [facility] REPOSITORY TYPE CODE TESTS RESULT OUT OF RANGE REFERENCE UNITS LAB VIDH(LOINC) ng/mL Vit. D 26 25-Hydroxy Result Comment: Interpretive Values Based on Total 25(OH)D: Severe Deficiency <20 ng/mL Mild to Moderate Deficiency 20-30 ng/mL Optimum Levels 30-100 ng/mL Toxicity Possible >100 ng/mL Performed By: #### CBC, ADIFF, ANEU, URIC, FES, RFP, GFR #### [place] [address] #### VIDH, SPE #### [address] [id number] SPE Collected: 12/14/2017 Status: F Source: [facility] 12:58 [facility] REPOSITORY TYPE CODE TESTS RESULT OUT OF REFERENCE UNITS RANGE LAB PROT(GOMEZ 6.0-8.5 G/dL NC) Total Protein 6.6 LAB PEALB(LO 3.3-5.0 G/dL INC) Albumin 3.8 LAB PEA1(GOMEZ 0.1-0.4 G/dL NC) Alpha 1 0.2 LAB PEA2(GOMEZ 0.6-1.2 G/dL NC) Alpha 2 0.8 LAB PEB(LOIN 0.6-1.3 G/dL C) Beta 0.9 LAB PEGLB(LO 0.7-1.6 G/dL INC) Gamma 0.8 LAB PECOM(LO INC) SPE Normal serum Interpretation protein electrophoresis pattern. No abnormality detected. Result Comment: Electronically Signed by: CODY AMADO MD 12/19/2017 16:32 EDT Performed By: #### CBC, ADIFF, ANEU, URIC, FES, RFP, GFR #### [address] [address] #### VIDH, SPE #### [address] [address] LIPID Collected: 12/14/2017 Status: F Source: [place] [address]:03 AM [facility] REPOSITORY TYPE CODE TESTS RESULT OUT OF REFERENCE UNITS RANGE LAB CHOL(LOINC 131-200 mg/dL ) Low Cholesterol 100 Result Comment: Cholesterol Reference Interval: Less than 200 Desirable 200-239 Borderline high risk 240 and above High risk LAB TRIG(LOINC) 40-150 mg/dL Triglycerides 85 Result Comment: Triglyceride Reference Interval: Less than 150 Normal 150-199 Borderline high risk 200-499 High risk 500 or higher Very high risk LAB HD(LOINC) 35-90 mg/dL HDL Low Cholesterol 31 Result Comment: HDL Reference Interval: Less than 40 Low - high risk 60 or above Optimal/lowers risk LAB LDL(LOINC) 0-130 mg/dL LDL Cholesterol 52 Result Comment: LDL is a calculated result and requires a 12-hr fast. LDL Reference Interval: Less than 100 Optimal 100-129 Near or above optimal 130-159 Borderline high risk 160-189 High risk 190 and above Very high risk Performed By: #### LIPID, CMP, GFR, A1C #### [address] [address] CMP Collected: 12/14/2017 Status: F Source: [facility] 8:03 [facility] REPOSITORY TYPE CODE TESTS RESULT OUT OF REFERENCE UNITS RANGE LAB GLU(LOINC) 80-115 mg/dL Glucose Level 86 LAB NA(LOINC) 136-146 mEq/L Sodium Level 141 LAB K(LOINC) 3.5-5.1 mEq/L Potassium Level 4.1 LAB CL(LOINC) 98-107 mEq/L Chloride 107 LAB CO2(LOINC) 23-31 mEq/L CO2 25 LAB EBAL(LOINC mEq/L ) Electrolyte Balance 9.0 LAB BUN(LOINC) 7.0-18.0 mg/dL BUN High 18.5 LAB CRE(LOINC) 0.6-1.2 mg/dL Creatinine Lvl (s) 1.2 LAB BC(LOINC) 7-27 ratio BUN/Creatinine 15 Ratio LAB CA(LOINC) 8.4-10.2 mg/dL Calcium Lvl 8.8 LAB PROT(LOINC 6.0-8.3 G/dL ) Total Protein 6.5 LAB ALB(LOINC) 3.4-4.8 G/dL Albumin Level 4.2 LAB GLB(LOINC) G/dL Globulin 2.3 LAB AG(LOINC) 1.1-2.5 ratio A/G Ratio 1.8 LAB BILT(LOINC 0.2-1.0 mg/dL ) Bili Total 0.7 LAB AP(LOINC) 40-135 IU/L Alk Phos 53 LAB AST(LOINC) 10-40 IU/L AST/SGOT 17 LAB ALT(LOINC) 10-35 IU/L ALT/SGPT 26 Performed By: #### LIPID, CMP, GFR, A1C #### [address] [address] .GFR Collected: 12/14/2017 Status: F Source: [facility] 8:03 AM [facility] REPOSITORY TYPE CODE TESTS RESULT OUT OF REFERENCE UNITS RANGE LAB GFRAA(LOINC ml/min/1.73 ) sqm GFR 72 [place] Result Comment: GFR Population mean for , Non- Americans Ages 20-29 = 116 mL/min/1.73 sq.m. Ages 30-39 = 107 mL/min/1.73 sq.m. Ages 40-49 = 99 mL/min/1.73 sq.m. Ages 50-59 = 93 mL/min/1.73 sq.m. Ages 60-69 = 85 mL/min/1.73 sq.m. Ages 70+ = 75 mL/min/1.73 sq.m. Chronic Kidney Disease: Less than 60 mL/min/1.73 square meters End Stage Renal Disease: Less than 15 mL/min/1.73 square meters LAB GFRNO(LOINC) ml/min/1.73sqm GFR Non- 60 Result Comment: GFR Population mean for , Non- Americans Ages 20-29 = 116 mL/min/1.73 sq.m. Ages 30-39 = 107 mL/min/1.73 sq.m. Ages 40-49 = 99 mL/min/1.73 sq.m. Ages 50-59 = 93 mL/min/1.73 sq.m. Ages 60-69 = 85 mL/min/1.73 sq.m. Ages 70+ = 75 mL/min/1.73 sq.m. Chronic Kidney Disease: Less than 60 mL/min/1.73 square meters End Stage Renal Disease: Less than 15 mL/min/1.73 square meters Performed By: #### LIPID, CMP, GFR, A1C #### [facility] [address] [place], [place] [address] A1C Collected: 12/14/2017 Status: F Source: [facility] 8:03 AM [facility] REPOSITORY TYPE CODE TESTS RESULT OUT OF RANGE REFERENCE UNITS LAB A1C(LOINC) 4.8-5.9 % Hgb A1c 5.3 Performed By: #### LIPID, CMP, GFR, A1C #### [place] [address] [place], [place] [address] EP PROCEDURE - Observed: 11/16/2017 Status: F Source: [facility] EPS/ABLATION/DEVICE 2:38 PM [facility] REPOSITORY EPS for high burden ventricular ectopy and EF 40-45% ischemic CM Prolonged CSNRT 680ms Normal AV and HV No inducible SVT No inducible VT, NSVT, VF with and without isuprel with S5 protocol at 2 RV sites PLAN Continue medical therapy All F/U with Dr. Rouse in [place] No ICD No amiodarone *POC GLUCOSE BATTERY Collected: 11/16/2017 Status: F Source: [facility] 10:36 AM [facility] REPOSITORY TYPE CODE TESTS RESULT OUT OF REFERENCE UNITS RANGE LAB GLUP 70-99 mg/dL High Glucose (poc 107 device) Result Comment: No BRAVE per RN: PATIENT TYPE LAB PCSTYP *POC SAMPLE TYPE Venous CBC,PLATELET,DIFFERENTIAL - CCL Collected: Status: F Source: [facility] 11/16/2017 9:54 AM [facility] REPOSITORY TYPE CODE TESTS RESULT OUT OF REFERENCE UNITS RANGE LAB WBC 4.23-9.07 K/uL WBC Count 5.96 LAB RBC 4.63-6.08 M/uL RBC Count 4.73 LAB HGB 13.7-17.5 g/dL Hemoglobin 13.4 Low LAB HCT 40.1-51.0 % Hematocrit 41.2 LAB MCV 79.0-92.2 fL Mean Cell 87.1 Volume LAB MCH 25.7-32.2 pg Mean Cell 28.3 Hgb LAB MCHC 32.3-36.5 g/dL Mean Cell 32.5 Hgb Conc LAB RDW 11.6-14.4 % RBC 14.9 High Distribution LAB PLT 163-337 K/uL Platelet 151 Low Count LAB MPV 9.4-12.4 fL Mean 9.3 Low Platelet Volume LAB NRBC 0.0-0.2 /100 WBC NUCLEATED 0.0 RBC LAB DTYPE Electronic DIFFERENTIAL TYPE Differential LAB IGRE % IMMATURE 0.5 GRANS % LAB SEGS % NEUTROPHIL 76.3 SEGMENTED LAB LYM % LYMPHOCYTE 10.7 % LAB MON % MONOCYTE % 7.7 LAB EOS % EOSINOPHIL 4.0 % LAB BASO % BASOPHIL % 0.8 LAB IGABS 0.00-0.03 K/uL IMMATURE <0.04 High GRANS ABSOLUTE LAB SBANS 1.78-5.38 K/uL SEGS + 4.54 Bands,Absolute LAB ALYM 1.32-3.57 K/uL Abs Lymph 0.64 Low LAB AMONO 0.30-0.82 K/uL Abs [place] 0.46 LAB AEOS 0.04-0.54 K/uL Abs Eos 0.24 LAB ABASO 0.01-0.08 K/uL Abs Baso 0.05 Performed By: #### YING MONTERO, M7 #### [facility] [address] [place] [address] [address] PT*PTT Collected: 11/16/2017 Status: F Source: [facility] 9:54 AM [facility] REPOSITORY TYPE CODE TESTS RESULT OUT OF RANGE REFERENCE UNITS LAB PT 11.9-14.2 sec High PT 14.8 LAB INR 0.9-1.1 High INR 1.2 LAB PTT 24.0-34.3 sec PTT 28.7 Performed By: #### YING MONTERO, M7 #### [facility] [address] [place] [address] [address] CHEM 7 Collected: 11/16/2017 Status: F Source: [facility] 9:54 [facility] REPOSITORY TYPE CODE TESTS RESULT OUT OF REFERENCE UNITS RANGE LAB BUN 7-22 mg/dL BUN High 25 LAB NA 133-143 mmol/L Sodium 139 LAB K 3.5-5.0 mmol/L Potassium 4.1 LAB CL 98-108 mmol/L Chloride 107 LAB CO2 22-30 mmol/L Carbon Dioxide 24 LAB GLUC 70-99 mg/dL Glucose 97 LAB CREA 0.70-1.30 mg/dL High Creatinine 1.51 LAB GAP 7-17 mmol/L Anion Gap 12 LAB BC BUN/CREA Ratio 17 LAB OSMC 278-305 mOsm/kg Osmolality 295 (Calc) LAB GFR >60 mL/min/1.73 Low sqM Est GFR,non 46 [place] LAB GFRA >60 mL/min/1.73 Low sqM Est GFR, 56 Performed By: #### CBCDFC, PTPTT, CHM7 #### [facility] [address] [place] [address] [facility] [address] [place], [place] [address] LIVER PROFILE Collected: 10/30/2017 Status: F Source: [facility] 5:00 PM [facility] REPOSITORY TYPE CODE TESTS RESULT OUT OF RANGE REFERENCE UNITS LAB L501.1500 6.4-8.2 g/dL Normal T PROT 7.2 LAB L501.1800 3.2-5.0 g/dL Normal ALB 3.9 LAB L501.1950 2.2-4.2 g/dL Normal GLOB 3.3 LAB L501.4100 15-37 U/L Normal AST 22 LAB L501.4305 45-117 U/L Low ALK P 34 LAB L501.4405 16-61 U/L Normal ALT 17 LAB L501.4600 0.20-1.00 mg/dL Normal T BILI 0.60 LAB L501.4700 0.00-0.30 mg/dL Normal D BILI 0.20 Performed By: #### L500.3400 #### [facility] [address] [place], [place], [id number] BNP,B-TYPE NATRIURETIC Collected: 10/30/2017 Status: F Source: [facility] [place] 5:00 PM [facility] REPOSITORY TYPE CODE TESTS RESULT OUT OF RANGE REFERENCE UNITS LAB L503.6620 0-100 pg/mL High B-TYPE 279.0 MOSHE PEP Performed By: #### L503.6620 #### [facility] [address] [facility] [place], [address] XR KNEE THREE VIEWS Observed: 09/06/2017 Status: F [facility] REPOSITORY ORIGINAL XR KNEE THREE VIEWS RIGHT CLINICAL STATEMENT: pain COMPARISON: None FINDINGS: 3 views obtained. There is no fracture or traumatic malalignment. Patellar enthesophytes seen. No destructive osseous lesion visualized. A spur projects off the lateral spine of the tibia. IMPRESSION: No acute radiographic finding Interpreted By: Ryan Mclaughlin MD Preliminary Report By: Ryan Mclaughlin MD Electronically Signed By: Ryan Mclaughlin MD Dictated Date: 09/06/2017 3:36:20 PM Prelim Date: 09/06/2017 3:36:20 PM Sign Date: 09/06/2017 3:38:46 PM CBC W/DIFF, AUTOMATED Collected: 08/15/2017 Status: F Source: [facility] 1:15 PM [facility] REPOSITORY TYPE CODE TESTS RESULT OUT OF RANGE REFERENCE UNITS LAB L100.1000 4.4-11.0 K/mm3 Normal WBC 7.0 LAB L100.1200 4.6-6.2 M/mm3 Normal RBC 4.72 LAB L100.1300 13.0-16.5 g/dl Normal HGB 13.8 LAB L100.1400 40-54 % Normal HCT 41.6 LAB L100.1500 80-94 fL Normal MCV 88.1 LAB L100.1600 27.0-32.0 pg Normal MCH 29.2 LAB L100.1700 32-36 g/gl Normal MCHC 33.2 LAB L100.1810 11.6-14.6 % High RDW CV 14.8 LAB L100.1820 35.1-43.9 fl High RDW SD 47.2 LAB L100.1900 150-450 K/mm3 Normal PLT 211 LAB L100.2000 6.2-12.0 fl Normal MPV 9.3 LAB L100.2100 47-70 % High NEUT% 76.0 LAB L100.2200 19-41 % Low LY% 10.7 LAB L100.2300 0-10 % Normal MONO% 8.3 LAB L100.2400 0-5 % Normal EO% 4.4 LAB L100.2500 0-1 % Normal BASO% 0.3 LAB L100.2550 0.0-0.9 % Normal IM GRAN % 0.300 Result Comment: IG% - Immature Granulocytes (promyelocytes, myelocytes and metamyelocytes) > 1% indicates that a LEFT SHIFT is Present. LAB L100.2620 2.0-7.7 X10 3/uL Normal Absolute Neut 5.3 LAB L100.2720 0.83-4.51 X10 3/ul Low Absolute Lymph 0.75 Performed By: #### L100.0100 #### [facility] [address] [place], [address] COMPREHENSIVE METABOLIC Collected: 08/15/2017 Status: F Source: [place] [place] 1:14 PM [facility] REPOSITORY Order Comment: Reason for Laboratory Test NHL TYPE CODE TESTS RESULT OUT OF RANGE REFERENCE UNITS LAB L501.0100 74-106 mg/dL Normal GLU 80 Result Comment: Please note revised GLUCOSE reference range effective 2017. LAB L501.1000 7-18 mg/dL High BUN 31 LAB L501.1100 0.70-1.30 mg/dL High CREAT,SERUM 1.76 Result Comment: The validity of the calculated GFR AND GFRAA in patients over 70 years has not been determined. Clinical correlation is essential. LAB L501.1110 >60 mL/min Low EST GFR 41 Result Comment: Non- GFR Calc LAB L501.1115 >60 mL/min Low EST GFR - AA 50 Result Comment: GFR Calc LAB L501.1255 ml/min Normal Estimated CRCL 43.48 LAB L501.1300 10-20 RATIO Normal BUN/CRE 17.6 LAB L501.1500 6.4-8. g/dL Normal 2 T PROT 7.6 LAB L501.1800 3.2-5. g/dL Normal 0 ALB 4.0 LAB L501.1950 2.2-4. g/dL Normal 2 GLOB 3.6 LAB L501.2000 0.9-2. RATIO Normal 4 A/G 1.1 LAB L501.2200 8.5-10 mg/dL Normal .1 CA 9.2 LAB L501.4100 15-37 U/L Normal AST 20 LAB L501.4305 45-117 U/L Low ALK P 36 LAB L501.4405 16-61 U/L Normal ALT 20 Result Comment: Please note revised ALT reference range effective 2017. LAB L501.4600 0.20-1.00 mg/dL Normal T BILI 0.60 LAB L501.5300 136-145 mmol/L Normal NA 139 LAB L501.5600 3.5-5.1 mmol/L Normal K 4.7 LAB L501.5900 98-107 mmol/L Normal CL 106 LAB L501.6100 21.0-32.0 mmol/L Normal CO2 24.0 LAB L501.6200 5-15 Normal GAP 9 Performed By: #### L500.4050 #### [facility] [address] [place], [address] CARDIOLOGY VISIT Observed: 08/06/2017 Status: F Source: [place] REPORT 10:15 AM [facility] REPOSITORY [facility] [address] [place] [address] OFFICE VISIT Date of Service: 08/03/17 MR#: [id number] Acct: [id number] Name: ASAF HERRERA Rep #: [id number] : 1950 Provider: Tawana Joe Age/Sex: 67/M Location: [facility] Status: Signed HPI 1 M FU: Details: ASAF HERRERA, is a 67 M who presents to the office today for a cardiovascular outpatient follow-up. Patient has a history of coronary artery disease status post stenting with drug-eluting stent to RCA in May 2017. He also has a history of remote stenting with a bare metal stent to the RCA, ischemic mediated cardiomyopathy, pulmonary hypertension, hyperlipidemia, and nonsustained ventricular tachycardia. Patient was referred to Dr. Caballero for further evaluation of his nonsustained ventricular tachycardia after recent RCA stenting. His amiodarone was decreased to 100mg PO daily and a follow- up holter monitor was ordered. Pt. denies chest, arm, jaw, or neck discomfort. His exercise tolerance is stable. Pt. denies symptoms of CHF, palpitations, lightheadedness, dizziness, near syncope, or syncopal episodes. Pt. denies edema or claudication issues. Pt. denies orthopnea, PND, fever, chills, blood in urine, blood in stool, myalgia, or unexplainable fatigue. Pt. is eager to undergo cardiac rehab, but is waiting until rhythm is better controlled/monitored. Pt. currently uses CPAP. Next appoint is September [address] Caballero. Post hospital 30 day event monitor showed sinus rhythm/tachycardia, PAF, wide-complex tachycardia (aberrancy versus NSVT), and underlying IVCD. Patient was referred to Dr. Caballero for further evaluation of wide complex tachycardia. Heart catheterization from May 2017 showed a left ventriculogram ejection fraction of 40-45%, left main is angiographically normal, LAD with less than 30% stenosis, LCx with less than 30% stenosis, proximal RCA with 75% stenosis, mid RCA with 40% stenosis, and right PDA with less than 30% stenosis. Patient underwent drug-eluting stent to proximal RCA and medical management was recommended for mid RCA lesion. Echocardiogram from April 2015 showed an estimated ejection fraction of 55% and mild tricuspid valve insufficiency. Intake Vital Signs08/03/17 Height 6 ft 1 in 08/03/17 Weight: 233 lb 08/03/17 Body Mass Index (BMI) 30.7 08/03/17 Blood Pressure 128/70 08/03/17 Blood Pressure Location Lt brachial Intake Visit Reasons: 1 M Type Caster Required: No Accompanied by: None Is patient in pain?: No Allergies No Known Allergies Allergy (Verified 08/03/17 13:09) Medications Aspirin [Aspirin, Baby] 81 mg PO DAILY@0800 01/22/14 [History Confirmed 07/20/17] Clopidogrel Bisulfate [Plavix] 75 mg PO DAILY 01/22/14 [History Confirmed 07/20/17] Pantoprazole Sodium [Protonix] 20 mg PO DAILY 01/22/14 [History Confirmed 07/20/17] Multivitamins,Ther W-Minerals [Multivitamin With Minerals] 1 tab PO DAILY 02/03/15 [History Confirmed 07/20/17] Cholecalciferol (Vitamin D3) [D3-2000] 5,000 unit PO DAILY 02/09/15 [History Confirmed 07/20/17] Tamsulosin HCl [Flomax] 0.4 mg PO QHS #30 cap 06/18/15 [Rx Confirmed 07/20/17] Fenofibrate,Micronized [Lofibra] 134 mg PO DAILY 12/03/15 [History Confirmed 07/20/17] Isosorbide Mononitrate [Isosorbide Mononitrate ER] 60 mg PO DAILY 12/03/15 [History Confirmed 07/20/17] Sertraline HCl [Zoloft] 150 mg PO DAILY 12/03/15 [History Confirmed 07/20/17] Oxygen, Home [Home Oxygen] 2 - 4 lpm NASAL UD PRN 09/28/16 [History Confirmed 07/20/17] GlipiZIDE [Glucotrol] 10 mg PO DAILY@0730 05/21/17 [History Confirmed 07/20/17] Metformin HCl 1,000 mg PO QHS 05/21/17 [History Confirmed 07/20/17] Rosuvastatin Calcium [Crestor] 40 mg PO DAILY 05/21/17 [History Confirmed 07/20/17] carvedilol 12.5 mg tablet 12.5 mg PO BID 06/13/17 [History Confirmed 07/20/17] Albuterol Inhaler [Ventolin Hfa] 1 - 2 puff INHALATION Q4H PRN PRN #1 inhaler 06/17/17 [Rx Confirmed 08/03/17] amiodarone 200 mg tablet 100 mg PO QDAY tab 08/03/17 [History] calcium carbonate 500 mg calcium (1,250 mg) tablet 500 mg PO QDAY tab 08/03/17 [History Confirmed 08/03/17] lisinopril 40 mg tablet 40 mg PO QDAY 08/03/17 [History Confirmed 08/03/17] treprostinil diolamine ER 1 mg tablet,extended release 1 mg PO TID tab 08/03/17 [History Confirmed 08/03/17] Ejection fraction %: 55 to 59 PFSH Medical History NSVT (nonsustained ventricular tachycardia) (Acute) CAD (coronary artery disease), [place] artery transplanted heart (Chronic) Hyperlipidemia (Chronic) Pulmonary hypertension (Chronic) Surgical History S/P coronary artery stent placement (Chronic 2004) Family History Father Heart disease Hypertension Mother Heart disease CVA (cerebral vascular accident) Sister Diabetes Heart disease Social History Smoking Status: Former smoker how long ago did patient quit smokin alcohol intake: current Alcohol type: hard liquor, beer substance use type: does not use caffeine: Yes Type: coffee what type of physical activity do you participate in: none seatbelt use: always do you feel safe at home: Yes ROS Const Const: Negative for fatigue, weakness, body ache, fever(s) or chills ENT ENT: Negative for dizziness Cardio Chest Pain: No Palpitations: Positive for No Edema: None Muscle aches with walking: None Resp Respiratory: Negative for SOB with activity, SOB at rest, SOB orthopnea\SOB lying down or paroxysmal nocturnal dyspnea GI GI: Negative nausea, black,tarry stools, bright, red blood in stools or vomiting blood/hematemesis : Negative for hematuria or frequent nighttime urination/ nocturia Musc Musc: Negative for muscle aches/ myalgia Neuro Neuro: Negative for weakness, Negative for dizziness, Negative for lightheadedness, Negative for near syncope, Negative for syncope, Negative for orthostatic symptoms Endo Endo: Negative for fatigue Cardiology Exam Const Appearance: cooperative, healthy appearing, comfortable and no acute distress Orientation: alert, awake and oriented x3 Head Head: normal to inspection Mouth: oral mucosae normal Neck Neck: no JVD and normal visual inspection Carotids: normal carotid upstroke Chest Chest inspection: normal inspection of the chest and normal respiratory effort Auscultation: Bilateral: Clear to Auscultation Cardio Rate: regular rate Rhythm: regular rhythm Heart sounds: S1 normal and S2 normal; negative rub or gallop GI GI: normal to inspection Neuro General: alert, awake, oriented x3 and CN's II-XI intact bilaterally Skin Skin: no rashes or lesions noted Extremities Pulses: Normal: Right Posterior Tibial Pulse, Left Posterior Tibial Pulse, Right Radial Pulse, Left Radial Pulse Lower Extremity Edema: None: Bilateral Psych Psychological: normal affect Assessment AND Plan 1. NSVT (nonsustained ventricular tachycardia) I47.2 Plan - KIRA Garcia Per Dr. Caballero's office note, pt will take amiodarone 100mg daily and have follow-up holter monitor. Patient denies any palpitations or syncopal episodes. We will continue to monitor this. Patient will have follow-up appointment with Dr. Caballero for further evaluation at the end of August. We will see him back in the office at the beginning of September and if doing well and no concerns from Dr. Caballero he will proceed with cardiac rehab. Of note patient appears to have significant pulmonary hypertension in which he follows up with Dr. Leiva. This may be important to consider given his potential long-term usage of amiodarone. 2. Ischemic cardiomyopathy I25.5 Plan - KIRA Garcia Patient's left ventriculogram ejection fraction from May 2017 showed an estimated ejection fraction 40-45%. Pt's activity level has been stable. He denies any shortness of breath or lower extremity pedal edema. We will continue current medications which include beta-rodger and MAURY inhibitor. 3. CAD S/P percutaneous coronary angioplasty I25.10; Z98.61 Plan - KIRA Garcia Patient is status post regular extent to proximal RCA. His rhythm will be further evaluated prior to going to cardiac rehab. Hopefully, by the end of August after seeing Dr. Caballero he will be able to proceed with cardiac rehab. Patient denies any chest pain, arm pain, jaw pain, neck pain, shortness of breath, or fatigue suggestive of angina at this time. We will continue to monitor this. We will not make any medication regimen changes and will continue risk factor modification. 4. Elevated serum creatinine R79.89 Plan - KIRA Garcia Patient's current creatinine level from June 2017 is 1.7. It appears that patient's creatinine level has ranged from 1.3-1.8 over the last 2 years. We will consider adjusting his MAURY inhibitor and repeating BMP to see if kidney function improves. Plan Detail Other Medications New: Changed: Discontinued: Additional Comments - KIRA Garcia Discussed the above patient with Dr. Rouse, he agrees with the plan of care. Thank you for allowing us to participate in the patients plan of care, if you have any questions please do not hesitate to call. This note was generated using a voice recognition system and there may be incorrect words, spelling or punctuation that were not noted when reviewing the office note prior to saving. Follow Up 2 Months (CLINICAL LIAISON/PA) Coding Level of Care Code Off vis,est,level 3 Diagnoses NSVT (nonsustained ventricular tachycardia) I47.2 Ischemic cardiomyopathy I25.5 CAD S/P percutaneous coronary angioplasty I25.10; Z98.61 Elevated serum creatinine R79.89 Coding Level of Care Code Off vis,est,level 3 Diagnoses NSVT (nonsustained ventricular tachycardia) I47.2 Ischemic cardiomyopathy I25.5 CAD S/P percutaneous coronary angioplasty I25.10; Z98.61 Elevated serum creatinine R79.89 08/03/17 1435 <Electronically signed by Darryn Rodriguez CLINICAL LIAISON-C> Date Darryn Rodriguez CLINICAL LIAISON-C 08/06/17 1015<Electronically signed by Micheal Rouse MD> Cosigner Signature: Date (if applicable) Micheal Rouse MD CC: Rhoda Chung MD LIVER PROFILE Collected: 08/03/2017 Status: F Source: ARELIS 2:03 PM [facility] REPOSITORY TYPE CODE TESTS RESULT OUT OF RANGE REFERENCE UNITS LAB L501.1500 6.4-8.2 g/dL Normal T PROT 7.4 LAB L501.1800 3.2-5.0 g/dL Normal ALB 4.0 LAB L501.1950 2.2-4.2 g/dL Normal GLOB 3.4 LAB L501.4100 15-37 U/L Normal AST 24 LAB L501.4305 45-117 U/L Low ALK P 41 LAB L501.4405 16-61 U/L Normal ALT 22 Result Comment: Please note revised ALT reference range effective 2017. LAB L501.4600 0.20-1.00 mg/dL Normal T BILI 0.80 LAB L501.4700 0.00-0.30 mg/dL Normal D BILI 0.23 Performed By: #### L500.3400 #### [facility] [address], [place], [id number] BNP,B-TYPE NATRIURETIC Collected: 08/03/2017 Status: F Source: ARELIS PEPTIDE 2:03 PM [facility] REPOSITORY TYPE CODE TESTS RESULT OUT OF RANGE REFERENCE UNITS LAB L503.6620 0-100 pg/mL High B-TYPE 211.9 MOSHE PEP Performed By: #### L503.6620 #### [facility] [address] [place], [address] ALLERGIES ALLERGIES DATE TYPE / CODE NAME / CODE REACTION SEVERITY SOURCE 07/22/2018 Drug magnesium/F00 Diarrhea SV [facility] Allergy/4160 6180526([facility] Hospital 05058(SNOMED M) Repository CT) 06/26/2018 Drug No Known Unknown [facility] Allergy/4160 Allergies/F00 Hospital 18578(SNOMED 9085835(RXNOR Repository CT) M) ENCOUNTERS ENCOUNTERS ADMIT/DISCHARGE ACCOUNT NUMBER ADMITTING ENCOUNTER LOCATION SOURCE CLASS 07/29/2018 [id number] [facility] ding:SDC Repository 07/23/2018 [id number] [facility] ding:[facility] Repository 07/18/2018 [id number] Ambulatory Building:[address] Repository 2018 [id number] [facility] ding:MRI Repository 07/05/2018 [id number] Ambulatory BMSBuilding: [place] BMS.CF.[facility] Repository 07/05/2018 [id number] [facility] ding:CVS Repository 06/27/2018 [id number] Ambulatory BMSBuilding: [place] BMS.CF.[facility] Repository 06/27/2018 [id number] [facility] ding:OMD Repository 06/24/2018 [id number] Ambulatory Building:[facility] Repository 06/24/2018 [id number] [facility] ding:CVS Repository 06/24/2018/06/24/20 [id number] Ambulatory BMSBuilding: [place] 18 BMS.[facility] Repository 06/17/2018 [id number] Ambulatory BMSBuilding: [place] BMS.CF.[facility] Repository 06/17/2018/06/17/20 [id number] Ambulatory BMSBuilding: [place] 18 BMS.[facility] Repository 06/11/2018 [id number] Ambulatory Building:[facility] Repository 06/11/2018 [id number] Ambulatory Building:[facility] Repository 06/11/2018 [id number] Ambulatory Building:[facility] Repository 06/11/2018 [id number] [facility] ding:CT Repository 06/07/2018 [id number] [facility] ding:LAB.FUT Repository URE 06/04/2018 [id number] Ambulatory BMSBuilding: [place] BMS.CF.[facility] Repository 04/04/2018/04/04/20 [id number] Ambulatory MANFRED Manfred [address] [place] [address] ding:[facility] Repository 02/27/2018 [id number] Ambulatory BMSBuilding: [place] BMS.CF.[facility] Repository 12/31/2017 [id number] [facility] ding:LAB Repository 12/31/2017/01/01/20 [id number] Ambulatory BMSBuilding: [place] 18 BMS.[facility] Repository 12/14/2017/12/15/19 [id number] Ambulatory MANFRED Man[place] [address] [place] [address] ding:OLAB [facility] Repository 12/14/2017/12/15/19 [id number] Ambulatory MANFRED Man[place] [address] [place] [address] ding:[facility] Repository 12/14/2017/12/15/19 [id number] Ambulatory MANFRED Man[place] [address] [place] [address] ding:[facility] Repository 11/30/2017 [id number] [facility] ding:LAB Repository 11/27/2017 [id number] Ambulatory [facility] Repository 11/27/2017 [id number] Ambulatory [facility] Repository 11/16/2017/11/17/19 [id number] FEDERICO, EDIS Ambulatory Building:[facility] 18 RSSRoom: [facility] Repository 11/13/2017/11/14/19 [id number] FEDERICO, EDIS Ambulatory Building:[facility] 18 RSSRoom: [facility] Repository 11/12/2017 [id number] Ambulatory BMSBuilding: [place] BMS.[facility] Repository 10/30/2017/10/31/19 [id number] Ambulatory [address] ding:LAB Repository 10/16/2017 [id number] Ambulatory [facility] Repository 10/16/2017 [id number] Ambulatory [facility] Repository 09/06/2017/09/07/19 [id number] Emergency BBuilding:ER Manfred [address] [place] [address] Repository 08/28/2017 [id number] [facility] ding:PSN Repository 08/28/2017 [id number] Ambulatory BMSBuilding: [place] [facility] Repository 08/15/2017 [id number] Ambulatory BMSBuilding: [place] BMS.[facility] Repository 08/03/2017/08/03/19 [id number] Ambulatory [address] ding:LAB Repository 08/03/2017/08/03/19 [id number] Ambulatory BMSBuilding: [place] 18 BMS.[facility] Repository PAYERS PAYERS ENCOUNTER GUARANTOR PAYER SUBSCRIBER SOURCE 07/29/2018 ASAF Easley Primary ASAF Oh[place]oster [id number] S Insurance:MEDICARE AUSTINDOB: [facility] [id number] Number: Repository [address]Brp: [phone]) [id number] [phone] () Date:2018-07-11 07/29/2018 Secondary ASAF D [place] Insurance:AARPPolicy AUSTINDOB: [facility] Number: [id number] Hospital [id number] Repository Date:2701-90-37[address]fmsffm, [place] [address]ZY: 07/29/2018 Tertiary NOT GIVENUNK [place] Insurance:SELF PAY [facility] Number: Effective Repository Date:2018-07-11 07/23/2018 ASAF Easley Primary ASAF [place] [id number] S Insurance:MEDICARE AUSTINDOB: [facility] [id number], [place] Number: Repository [address]Sfh: [phone]) [id number] [phone] () Date:2018-07-22 07/23/2018 Secondary ASAF D [place] Insurance:AARPPolicy AUSTINDOB: [facility] Number: [id number] Hospital [id number] Repository Date:3434-39-74[address]kw, [place] [address]NW: 07/23/2018 Tertiary NOT GIVENUNK [place] Insurance:SELF PAY [facility] Number: Effective Repository Date:2018-07-22 07/18/2018 ASAF D Primary ASAF D [facility] AUSTINDOB: Insurance:MEDICARE A AUSTINDOB: [place] S AND [facility] Number: [id number] [place] [address] [id number] [place], [place] Date:Plan Name:CARE [place] Repository [address]Ymb: [phone]: () [phone] () 07/18/[address] [facility] Insurance:AARPPolicy AUSTINDOB: [place] Number: [id number] [place] [address] [id number] Date:Plan [place] Repository Name:MANAGED CARE 12251Skw: () 2018 ASAF D Primary ASAF D [place] [id number] S Insurance:MEDICARE AUSTINDOB: [facility] PART A [facility] [id number], [place] Number: Repository [address]Dcr: [phone]) [id number] [phone] () Date:2018-06-27 2018 Secondary ASAF D [place] Insurance:AARPPolicy AUSTINDOB: [facility] Number: [id number] Hospital [id number] Repository Date:8643-35-76Qd [place] [address], [place] [address]RQ: 2018 Tertiary NOT GIVENUNK [place] Insurance:SELF PAY [facility] Number: Effective Repository Date:2018-06-27 07/05/2018 ASAF D Primary ASAF D [place] [id number] S Insurance:MEDICARE AUSTINDOB: [facility] PART A [facility] [id number], [place] Number: Repository [address]Uwm: 330 [id number] [phone] () Date:2018-06-24 07/05/2018 Secondary ASAF D [place] Insurance:AARPPolicy AUSTINDOB: Community Number: [id number] Hospital [id number] Repository Date:8068-13-76Ha [place] [address]hs[place]nb, [place] [address]CA: 07/05/2018 Tertiary NOT GIVENUNK [place] Insurance:SELF PAY [facility] Number: Effective Repository Date:2018-07-05 07/05/2018 ASAF D Primary ASAF D [place] [id number] S Insurance:MEDICARE AUSTINDOB: [facility] PART A [facility] [id number], [place] Number: Repository [address]Gut: 330 [id number] [phone] () Date:2018-06-24 07/05/2018 Secondary ASAF D [place] Insurance:AARPPolicy AUSTINDOB: Community Number: [id number] Hospital [id number] Repository Date:3817-70-01Py [place] [address]jnj, [place] [address]MD: 07/05/2018 Tertiary NOT GIVENUNK [place] Insurance:SELF PAY [facility] Number: Effective Repository Date:2018-06-24 06/27/2018 ASAF D Primary ASAF D [place] [id number] S Insurance:MEDICARE AUSTINDOB: [facility] PART A [facility] [id number] Number: Repository [address]Tev: 330 [id number] [phone] () Date:2013-07-02 06/27/2018 Secondary ASAF D [place] Insurance:AARPPolicy AUSTINDOB: Community Number: [id number] Hospital [id number] Repository Date:4635-74-45Vz [address], [place] [address]GK: 06/27/2018 Tertiary NOT GIVENUNK [place] Insurance:SELF PAY [facility] Number: Effective Repository Date:2018-06-27 06/27/2018 ASAF D Primary ASAF D [place] [id number] S Insurance:MEDICARE AUSTINDOB: [facility] PART A [facility] [id number], [place] Number: Repository [address]Vna: [phone]) [id number] [phone] () Date:2013-07-02 06/27/2018 Secondary ASAF D [place] Insurance:AARPPolicy AUSTINDOB: [facility] Number: [id number] Hospital [id number] Repository Date:5317-51-89Qn [address]Lcqlnzq, [place] [address]AC: 06/27/2018 Tertiary NOT GIVENUNK [place] Insurance:SELF PAY [facility] Hospital Number: Effective Repository Date:2016-09-20 06/24/2018 ASAF D Primary ASAF D [facility] AUSTINDOB: Insurance:MEDICARE A AUSTINDOB: [place] S AND [facility] Number: [id number] [facility] [id number] [place], [place] Date:Plan Name:[place] Repository [address]Hyy: [phone]: () [phone] () 06/24/2018 Secondary ASAF D [place] Insurance:AARPPolicy AUSTINDOB: [place] Number: [id number] [facility] [id number] [facility] Date:Plan [place] Repository Name:[facility] CARE [id number]: () 06/24/2018 Primary NOT GIVENUNK [place] Insurance:SELF PAY [facility] Number: Effective Repository Date:2018-06-24 06/24/2018 ASAF D Primary ASAF D [place] [id number] S Insurance:MEDICARE AUSTINDOB: [facility] A [facility] [id number], [place] Number: Repository [address]Ets: 330 [id number] [phone] () Date:2017-12-31 06/24/2018 Secondary ASAF D [place] Insurance:AARPPolicy AUSTINDOB: Community Number: [id number] Hospital [id number] Repository Date:3889-71-10Ki [address], [place] [address]YM: 06/24/2018 Tertiary NOT GIVENUNK [place] Insurance:SELF PAY [facility] Number: Effective Repository Date:2018-06-24 06/17/2018 ASAF D Primary ASAF D [place] [id number] S Insurance:MEDICARE AUSTINDOB: [facility] PART A [facility] [id number], [place] Number: Repository [address]Ehu: 330 [id number] [phone] () Date:2013-07-02 06/17/2018 Secondary ASAF D [place] Insurance:AARPPolicy AUSTINDOB: Community Number: [id number] Hospital [id number] Repository Date:9726-97-86Wq [address], [place] [address]AG: 06/17/2018 Tertiary NOT GIVENUNK [place] Insurance:SELF PAY [facility] Number: Effective Repository Date:2018-06-17 06/17/2018 ASAF D Primary ASAF D [place] [id number] S Insurance:MEDICARE AUSTINDOB: [facility] PART [facility] [id number], [place] Number: Repository [address]Fhg: 330 [id number] [phone] () Date:2018-06-04 06/17/2018 Secondary ASAF D [place] Insurance:AARPPolicy AUSTINDOB: Community Number: [id number] Hospital [id number] Repository Date:3983-69-42Ba [place] [address], [place] [address]RI: 06/17/2018 Tertiary NOT GIVENUNK [place] Insurance:SELF PAY [facility] Hospital Number: Effective Repository Date:2018-06-04 06/11/2018 ASAF D Primary ASAF D [facility] AUSTINDOB: Insurance:MEDICARE A AUSTINDOB: [place] S AND BPolicy Number: [id number] [facility] [id number], [place] Date:Plan Name:[place] Repository [address]Roe: [phone]: (HP) [phone] (HP) 06/11/[address] [facility] Insurance:AARPPolicy AUSTINDOB: [facility] Number: [id number] [facility] [id number] [facility] Date:Plan [place] Repository Name:MANAGED CARE [address]Qes: () 06/11/2018 ASAF D Primary ASAF D [facility] AUSTINDOB: Insurance:MEDICARE A AUSTINDOB: [place] S AND BPolicy Number: [id number] [facility] [id number] [place], [place] Date:Plan Name:[place] Repository [address]Nin: [phone]: (HP) [phone] () 06/11/[address] [facility] Insurance:AARPPolicy AUSTINDOB: [facility] Number: [id number] [facility] [id number] [facility] Date:Plan [place] Repository Name:MANAGED CARE [address]Twb: (HP) 06/11/2018 ASAF D Primary ASAF D [facility] AUSTINDOB: Insurance:MEDICARE A AUSTINDOB: [place] S AND BPolicy Number: [id number] [facility] [id number] [place], [place] Date:Plan Name:[place] Repository [address]Rvi: [phone]: (HP) [phone] (HP) 06/11/[address] [facility] Insurance:AARPPolicy AUSTINDOB: [place] Number: [id number] [facility] [id number] [facility] Date:[place], [place] Repository Name:MANAGED CARE [address]Ndp: () 06/11/2018 ASAF D Primary ASAF D [place] [id number] S Insurance:MEDICARE AUSTINDOB: [facility] A [facility] [id number], [place] Number: Repository [address]Wmd: [phone]) [id number] [phone] () Date:2018-06-04 06/11/2018 Secondary ASAF D [place] Insurance:AARPPolicy AUSTINDOB: [facility] Number: [id number] Hospital [id number] Repository Date:6752-11-71Yv [address], [place] [address]ZP: 06/11/2018 Tertiary NOT GIVENUNK [place] Insurance:SELF PAY [facility] Hospital Number: Effective Repository Date:2018-06-04 06/07/2018 ASAF D Primary ASAF D [place] [id number] S Insurance:MEDICARE AUSTINDOB: [facility] [id number], [place] Number: Repository [address]Cnl: ([phone]) [id number] [phone] () Date:2018-06-07 06/07/2018 Secondary ASAF D [place] Insurance:AARPPolicy AUSTINDOB: Community Number: [id number] Hospital [id number] Repository Date:2203-97-58Ns [address], [place] [address]WX: 06/07/2018 Tertiary NOT GIVENUNK [place] Insurance:SELF PAY [facility] Number: Effective Repository Date:2018-06-07 06/04/2018 ASAF D Primary ASAF D [place] [id number] S Insurance:MEDICARE AUSTINDOB: [facility] [id number], [place] Number: Repository [address]Jtw: [phone]) [id number] [phone] () Date:2013-07-02 06/04/2018 Secondary ASAF D [place] Insurance:AARPPolicy AUSTINDOB: Community Number: [id number] Hospital [id number] Repository Date:8372-23-32Rt [address]Xwncgrq, [place] [address]XN: 06/04/2018 Tertiary NOT GIVENUNK [place] Insurance:SELF PAY [facility] Number: Effective Repository Date:2018-06-04 04/04/2018 ASAF D [facility]F [facility] AUSTINDOB: [facility] S PART BPolicy Number: [id number] Repository [facility] [id number] S [place], [place] Date:2018-04-04 [place] [address]~AUSTINCOLO 3863-27-26Tesa 226[address]Cqe: ([phone]) MELANIE@AIL.[facility] Name:[facility] [phone] : Administrators LLCPO ()Tel: (000) () [address]Yqkyzucxk, 000-0000 (WP) [place] [address]VO: 04/04/2018 Secondary [facility] AUSTINDOB: [facility] [id number] Repository ONLYPolicy Number: [place] [id number] [place] Date:2018-04-04 [address]Pdi: [phone] [id number] [phone] Name:PH[employer] MAKER Box (HP)Tel: (000) [phone], [place] 000-0000 () [address]EB: 02/27/2018 ASAF D Primary ASAF D [facility]129 S Insurance:MEDICARE AUSTINDOB: [facility] PART A BPolic [id number], [place] Number: Repository [address]Pfg: 330 [id number] [phone] () Date:2013-07-02 02/27/2018 Secondary ASAF D [place] Insurance:AARPPolicy AUSTINDOB: Community Number: [id number] Hospital [id number] Repository Date:3271-03-53Oz [address]Xucqqcv, [place] [address]ZV: 02/27/2018 Tertiary NOT GIVENUNK [place] Insurance:SELF PAY [facility] Number: Effective Repository Date:2018-02-27 12/31/2017 ASAF D Primary ASAF D [place] [id number] S Insurance:MEDICARE AUSTINDOB: [facility] A [facility] [id number], [place] Number: Repository [address]Hpl: [phone]) [id number] [phone] () Date:2017-12-31 12/31/2017 Secondary ASAF D [place] Insurance:AARPPolicy AUSTINDOB: Community Number: [id number] Hospital [id number] Repository Date:3921-07-71Ei [address]Dbhsesj, [place] [address]UL: 12/31/2017 Tertiary NOT GIVENUNK [place] Insurance:SELF PAY [facility] Number: Effective Repository Date:2017-12-31 12/31/2017 ASAF D Primary ASAF Easley [place] [id number] S Insurance:MEDICARE AUSTINDOB: [facility] PART A [facility] [id number], [place] Number: Repository [address]Ecq: 330 [id number] [phone] () Date:2017-10-22 12/31/2017 Secondary ASAF D [place] Insurance:AARPPolicy AUSTINDOB: Community Number: [id number] Hospital [id number] Repository Date:9517-84-57Gt [address]Xzskjyb, [place] [address]JL: 12/31/2017 Tertiary NOT GIVENUNK [place] Insurance:SELF PAY [facility] Number: Effective Repository Date:2017-12-31 12/14/2017 ASAF D Primary ASAF Easley [facility] AUSTINDOB: Insurance:MEDICARE AUSTINDOB: [facility] S PART BPolicy Number: [id number] Repository EMERITA [id number] S [place] RD[place], [place] Date:2017-12-14 [place] [address]~[facility] 9728-73-43Expv 284[address]Sah: ([phone]) [email or web address] Name:TOR[place] [phone] : Administrators LLCPO (HP)Tel: (000) (HP) [address]Ckvhkabqi, 000-0000 (WP) [place] [address]GI: 12/14/2017 Secondary [facility] [id number] Repository ONLYPolicy Number: Julisa FELDER [id number] [place], [place] Date:2017-12-14 [address]35[address]Qhr: [phone] 8513-37-60Rimr [phone] Name:PHOTOSTATIC COPY MAKER Box (HP)Tel: 000 208[address]Dibfkwb, [place] 000-0000 ([place]) [address]UX: 12/14/2017 [facility] AUSTINDOB: Insurance:MEDICARE AUSTINDOB: [facility] S PART BPolicy Number: [id number] Repository EMERITA [id number] S [place], [place] Date:2017-12-11 [place] [address]~[facility] 4713-89-10Lymx 45[address]Nvt: 330 MELANIE@AIL.[facility] Name:[facility] TULSAJulisa [phone] : Administrators LLCPO (HP)Tel: (000) (HP) [address] [address]Rfuhnvvil, 000-0000 (WP) [place] [address]OZ: 12/14/2017 Secondary [facility] Insurance[facility] [id number] Repository ONLYPolicy Number: Julisa FELDER [id number] [place], [place] Date:2017-12-11 [address]38[address]Ifz: (465) [id number] [phone] Name:PHOTOSTATIC COPY MAKER Box (HP)Tel: 000 706[address]Zaywaxv, [place] 000-0000 ([place]) [address]YB: 12/14/2017 ASAF D Primary ASAF [facility] Insurance:MEDICARE AUSTINDOB: [facility] S PART BPolicy Number: [id number] [facility] [id number] [place], [place] Date:2017-12-14 - [place] [address]~AUSTINCOLO [id number] 07465Sbs: [phone] [email or web address]'Sel Name:[facility] [phone] : Administrators LLCPO (HP)Tel: [phone]) (HP) [address] [address]Mthogpgrx, 000-0000 (WP) [place] [address]ES: 12/14/2017 Secondary [facility] Insurance:[employer] [place] AUSTINDOB: [facility] [id number] Repository ONLYPolicy Number: S JOSÉAZJOON [id number] [place], [place] Date:2017-12-14 19857Emb: [phone] [id number] [phone] Name:PHOTOSTATIC COPY MAKER Box (HP)Tel: [phone], [place] 000-0000 (WP) [address]XN: 11/30/2017 ASAF Easley Primary ASAF Easley [place] [id number] [address] Insurance:MEDICARE STANLEYDOB: [facility] PART [facility] BPolicy [id number] [place] Number: Repository [address]Hxe: 330 [id number] [phone] (HP) Date:2017-08-03 11/30/2017 Secondary ASAF Infante [facility]olicMin[facility]: Community Number: [id number] [facility] [id number] Repository Date:1446-70-25Ai [address]Fqhefxd, [place] [address]GO: 11/30/2017 Tertiary NOT GIVENUNK [place] Insurance:SELF PAY [facility] Hospital Number: Effective Repository Date:2017-11-29 11/27/2017 ASAF D Primary ASAF D [place] [id number] S Insurance:MEDICARE AUSTINDOB: [facility] PART A BPolicy [id number] Number: Repository [address]Kxb: [phone] [id number] [phone] () Date:2017-11-27 11/27/2017 Secondary ASAF D Arel[place] Insurance:AARPPolicy AUSTINDOB: [facility] Number: [id number] Hospital [id number] Repository Date:2435-69-74[address]Tjqldhh, [place] [address]LT: 11/27/2017 Tertiary NOT GIVENUNK [place] Insurance:SELF PAY [facility] Number: Effective Repository Date:2017-11-27 11/27/2017 Primary NOT GIVENUNK [place] Insurance:SELF PAY [facility] Number: Effective Repository Date:2017-11-27 11/16/2017 ASAF D Primary ASAF D [facility] AUSTINDOB: Insurance:MEDICARE A AUSTINDOB: [place] S AND BPolicy Number: [id number] [facility] [id number] [place], [place] Date:Plan Name:CARE [place] Repository [address]Bkq: [phone]: () [phone] () 11/16/[address] [facility] Insurance:AARPPolicy AUSTINDOB: University Number: [id number] [facility] [id number] [facility] Date:Plan [place] Repository Name:[facility] CARE [id number]: () 11/13/2017 ASAF D Primary ASAF D [facility] AUSTINDOB: Insurance:MEDICARE A AUSTINDOB: [place] S AND BPolicy Number: [id number] [facility] [id number] [place], [place] Date:Plan Name:CARE [place] Repository [address]Glw: [phone]: () [phone] () 11/13/[address] [facility] Insurance:AARPPolicy AUSTINDOB: University Number: [id number] [place] [address] [id number] [facility] Date:Plan [place] Repository Name:MANAGED CARE [id number]: () 11/12/2017 ASAF D Primary ASAF D [place] [id number] S Insurance:MEDICARE AUSTINDOB: [place] [id number] Number: Repository [address]Jaw: [phone] [id number] [phone] () Date:2017-06-12 11/12/2017 Secondary ASAF D [place] Insurance:AARPPolicy AUSTINDOB: [facility] Number: [id number] Hospital [id number] Repository Date:9284-74-14[address], [place] [address]OY: 11/12/2017 Tertiary NOT GIVENUNK [place] Insurance:SELF PAY [facility] Number: Effective Repository Date:2017-06-13 10/30/2017 ASAF D Primary ASAF D [place] [id number] S Insurance:MEDICARE AUSTINDOB: [facility] [id number] Number: Repository [address]Wco: 330 [id number] [phone] () Date:2017-08-03 10/30/2017 Secondary ASAF D [place] Insurance:AARPPolicy AUSTINDOB: [facility] Number: [id number] [id number] Repository Date:0961-75-33Xf [address], [place] [address]GE: 10/30/2017 Tertiary NOT GIVENUNK [place] Insurance:SELF PAY [facility] Hospital Number: Effective Repository Date:2017-10-01 10/16/2017 ASAF D Primary ASAF D [place] [id number] S Insurance:MEDICARE AUSTINDOB: [facility] PART A [facility] [id number] Number: Repository [address]Lkv: [phone] [id number] [phone] () Date:2017-10-16 10/16/2017 Secondary ASAF D [place] Insurance:AARolicy AUSTINDOB: Community Number: [id number] Hospital [id number] Repository Date:3632-34-92U[address]Rhsgzps, [place] [address]FV: 10/16/2017 Tertiary NOT GIVENUNK [place] Insurance:SELF PAY [facility] Number: Effective Repository Date:2017-10-16 10/16/2017 Primary NOT GIVENUNK [place] Insurance:SELF PAY [facility] Number: Effective Repository Date:2017-10-16 09/06/2017 ASAF D Primary Insurance: ASAF Easley [facility] AUSTINDOB: [facility] AUSTINDOB: [facility] Number: [id number] Repository [facility] [address] [id number] [place], [place] Date:2017-01-13 - [place] [address]~JAVIERCOLO 1323-61-31Cebi [address]Ika: [phone]) [email or web address] [facility] Name:[facility] [phone] : [address] [place] [address] ()Tel: [phone] ([phone]) [phone]: () [phone] 08/28/2017 ASAF D Primary ASAF D [place] [id number] S Insurance:MEDICARE AUSTINDOB: [facility] PART A [facility] [id number] Number: Repository [id number]: [phone] [id number] [phone] () Date:2017-08-27 08/28/2017 Secondary ASAF D [place] Insurance:AAROSS HealthDOB: Community Number: [id number] Hospital [id number] Repository Date:5465-06-36[address]vlmfnw, [place] [address]HZ: 08/28/2017 Tertiary NOT GIVENUNK [place] Insurance:SELF PAY [facility] Number: Effective Repository Date:2017-08-27 08/28/2017 ASAF D Primary ASAF D [place] [id number] S Insurance:MEDICARE AUSTINDOB: Community [place] PART A [facility] [id number] Number: Repository [address]Dxv: 330 [id number] [phone] () Date:2017-08-27 08/28/2017 Secondary ASAF D [place] Insurance:AARPPolicy AUSTINDOB: Community Number: [id number] Hospital [id number] Repository Date:3624-41-71Rl [address], [place] [address]AK: 08/28/2017 Tertiary NOT GIVENUNK [place] Insurance:SELF PAY [facility] Hospital Number: Effective Repository Date:2017-08-28 08/15/2017 ASAF D Primary ASAF D [place] [id number] S Insurance:MEDICARE AUSTINDOB: Community [place] PART A [facility] [id number] Number: Repository [address]Rsy: 330 [id number] [phone] () Date:2013-07-02 08/15/2017 Secondary ASAF D [place] Insurance:AARPPolicy AUSTINDOB: Community Number: [id number] Hospital [id number] Repository Date:4255-16-73Lc [address]yxbwdj, [place] [address]ZS: 08/15/2017 Tertiary NOT GIVENUNK [place] Insurance:SELF PAY [facility] Number: Effective Repository Date:2017-08-15 08/03/2017 ASAF D Primary ASAF D [place] [id number] S Insurance:MEDICARE AUSTINDOB: Community [place] PART A [facility] [id number], [place] Number: Repository [id number]: [phone] [id number] [phone] (HP) Date:2017-08-03 08/03/2017 Secondary ASAF D [place] Insurance:AARPPolicy AUSTINDOB: Community Number: [id number] [id number] Repository Date:6896-69-25RG [facility] 810417GJDVNDS, [place] [address]WQ: 08/03/2017 Tertiary NOT GIVENUNK [place] Insurance:SELF PAY [facility] Number: Effective Repository Date:2017-08-03 08/03/2017 ASAF D Primary ASAF D [place] [id number] S Insurance:MEDICARE AUSTINDOB: [facility] PART A [facility] [id number] Number: Repository [address]Rod: [phone] [id number] [phone] () Date:2017-06-13 08/03/2017 Secondary ASAF D [place] Insurance:AARPPolicy AUSTINDOB: Community Number: [id number] [id number] Repository Date:8872-08-44TL [address]OHTHWNJ, [place] [address]WZ: 08/03/2017 Tertiary NOT GIVENUNK [place] Insurance:SELF PAY [facility] Number: Effective Repository Date:2017-06-13
== END ==
PROVIDERS: Family Provider Family Medicine; PCP Family Medicine; Referring Provider Internal Medicine Medical Oncology; Visit Provider Internal Medicine Medical Oncology
DX: C85.90 Non-Hodgkin lymphoma, unspecified, unspecified site (principal); R19.7 Diarrhea, unspecified; I27.20 Pulmonary hypertension, unspecified; R06.00 Dyspnea, unspecified; Z79.899 Other long term (current) drug therapy
CPT/HCPCS: 36415; 70491; 71260; 74177; 80076; 83880; Q9967

== ENCOUNTER → 2018-07-05 13:07 | Outpatient (CLI) | payer MEDICARE, OTHER, SELFPAY ==
[2018-06-24 10:43] VITALS: BMI 30.5
[2018-06-27 11:17] VITALS: BMI 30.9
--- NOTE | 2018-07-05 13:15 | ECHOD_ITS ---
Reason For Study: Dyspnea/SOB Procedure This was a 2D Doppler, Color Flow transthoracic echocardiogram. Myocardial strain analysis was performed in this exam to aid in the assessment of cardiac function. The study was technically difficult. Exam performed in department. Left Ventricle Mildly dilated left ventricle. Segmental dysfunction with preserved ejection fraction (see wall motion). The estimated ejection fraction is 60 %. There is evidence of diastolic dysfunction. Infero-Basal: Akinetic. Mid-Posterior: Hypokinetic. Mid-Inferior: Hypokinetic. Right Ventricle Normal RV size. Normal systolic function. Atria The left atrium is mildly enlarged. Normal right atrium. No doppler evidence for ASD. Mitral Valve There is mild to moderate mitral annular calcification. Extension of the mitral annular calcification onto the posterior mitral valve leaflet. Mild (1+) mitral valve insufficiency. Tricuspid Valve Normal tricuspid valve. Trivial tricuspid valve insufficiency. Right ventricular systolic pressure estimated to be 60 mmHg. Aortic Valve Trisinus/trileaflet aortic valve. Mild focal aortic valve thickening. Pulmonic Valve The pulmonic valve is not well visualized. Trivial pulmonic valve insufficiency. Great Vessels Normal sized aortic root. Pericardium/Pleural No pericardial effusion. MMode/2D Measurements & Calculations LVIDd: 6.4 cm IVSd: 1.2 cm Ao root diam: 3.2 cm LVIDs: 4.5 cm LVPWd: 1.0 cm RVDd: 5.2 cm FS: 29.1 % LAV(MOD-bp): 70.4 ml LVAd ap4: 36.8 cm2 SV(MOD-sp4): 93.2 ml LAV(MOD-bp) Indexed: 31.3 ml/m2 EDV(MOD-sp4): 134.8 ml LAV(MOD-sp2): 73.0 ml EDV(sp4-el): 138.1 ml LAV(MOD-sp4): 65.1 ml LVAs ap4: 18.1 cm2 ESV(MOD-sp4): 41.6 ml ESV(sp4-el): 41.7 ml EF(MOD-sp4): 69.1 % EF(sp4-el): 69.8 % SV(sp4-el): 96.4 ml LA A4 area: 22.0 cm2 LA dimension(2D): 5.4 cm RA A4 area: 18.1 cm2 Doppler Measurements & Calculations MV E max maih: 114.4 cm/sec Lat Peak E' Miah: 10.9 cm/sec Med Peak E' Miah: 5.2 cm/sec MV A max miah: 75.1 cm/sec E/E' lat: 10.5 E/E' med: 22.2 MV E/A: 1.5 Ao V2 max: 164.8 cm/sec LV V1 max: 117.7 cm/sec PA V2 max: 118.2 cm/sec Ao max P.9 mmHg LV V1 max P.5 mmHg Ao V2 mean: 121.6 cm/sec Ao mean P.3 mmHg Ao V2 VTI: 35.5 cm TR max miah: 378.2 cm/sec TR max P.2 mmHg Interpretation Summary The study was technically difficult. Mildly dilated left ventricle. Segmental dysfunction with preserved ejection fraction (see wall motion). The estimated ejection fraction is 60 %. The left atrium is mildly enlarged. There is mild to moderate mitral annular calcification. Extension of the mitral annular calcification onto the posterior mitral valve leaflet. Mild (1+) mitral valve insufficiency. Trivial tricuspid valve insufficiency. Mild focal aortic valve thickening. Trivial pulmonic valve insufficiency. Right ventricular systolic pressure estimated to be 60 mmHg. There is evidence of diastolic dysfunction. Ordering Physician: Tawana Joe Referring Physician: Ayesha Jamison Performed By: Abbi Rodriguez RDCS, RVT
== END ==
PROVIDERS: Family Provider Family Medicine; PCP Family Medicine; Referring Provider Physician Assistant Medical; Visit Provider Physician Assistant Medical
DX: I25.10 Atherosclerotic heart disease of native coronary artery without angina pectoris (principal)
CPT/HCPCS: 93306

== ENCOUNTER → 2018-07-08 12:23 | Outpatient (CLI) | payer MEDICARE, OTHER, SELFPAY ==
[2018-06-27 11:17] VITALS: BMI 30.9
--- NOTE | 2018-07-08 12:28 | MRI_ITS ---
STUDY: MRI ABDOMEN WITH AND WITHOUT CONTRAST REASON FOR EXAM: Male, 68 years old. Attention pancreas. Nausea. 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 Prior cholecystectomy. TECHNIQUE: Standardized fat and water weighted pulse sequences were obtained in all 3 orthogonal planes post contrast administration. 10 ml of Gadavist contrast material was administered intravenously for the contrast portion of the examination. COMPARISON: PET/CT 06/24/2018, CT abdomen and pelvis 06/11/2018, 04/21/2016, 09/28/2015, PET/CT 06/21/2015. FINDINGS: Body wall soft tissues: No acute process. Osseous structures: No acute process. Mid to low lumbar spondylosis. L2 kyphoplasty. Inferior chest: Limited evaluation, no acute process. Liver: Not enlarged. Normal signal characteristics, no lesion, no biliary ductal ectasia, normal common bile duct, gallbladder surgically absent. Pancreas: Mild atrophy, no ductal ectasia or focal lesion and no evidence of acute pancreatitis. Spleen: Mild splenomegaly, craniocaudal spleen 14 cm. Adrenal glands: Normal. Urogenital: Right renal mid polar lateral margin partially exophytic cyst, oval shaped, circumscribed margins, greatest dimension 14 mm, T2 hyperintense, T1 hypointense, thin-walled peripherally. There is a small focus of diminished enhancement along the anterior wall, and a very slender enhancing septation. The majority is nonenhancing and simple cystic. The left kidney is unremarkable. Retroperitoneum: No mass or lymphadenopathy. Vasculature: No acute process. Stomach and bowel: Evaluated portions exhibit no acute process. MRI/MRI Abd WITH and W/O Contrast IMPRESSION: 1. Mild pancreatic atrophy without a suspicious lesion, ductal ectasia, or inflammation. 2. Nondilated biliary tree and common bile duct. 3. Minimally complex cyst of the right kidney. Tiny favored as enhancing focus, very slender enhancing septum. Bosniak category 2F. Approximate risk of malignancy 5%. Follow-up is recommended in 6 months. Monitoring for size or increased complexity should be effective with ultrasound. Electronically Signed: Andi Klein MD at 18:49 EST Tel , Service support ,
== END ==
PROVIDERS: Family Provider Family Medicine; PCP Family Medicine; Referring Provider Internal Medicine Medical Oncology; Visit Provider Internal Medicine Medical Oncology
DX: R93.5 Abnormal findings on diagnostic imaging of other abdominal regions, including retroperitoneum (principal); Z85.72 Personal history of non-Hodgkin lymphomas
CPT/HCPCS: 74183; A9585

== ENCOUNTER → 2018-07-23 06:07 | Outpatient (CLI) | payer MEDICARE, OTHER, SELFPAY ==
[2018-06-27 11:17] VITALS: BMI 30.9
--- NOTE | 2018-07-23 07:00 | EKG12_ITS ---
Test Reason : PREOP Blood Pressure : / mmHG Vent. Rate : 060 BPM Atrial Rate : 060 BPM P-R Int : 204 ms QRS Dur : 146 ms QT Int : 456 ms P-R-T Axes : 055 -28 -36 degrees QTc Int : 456 ms Normal sinus rhythm Right bundle branch block Inferior infarct , age undetermined Abnormal ECG Confirmed by SARAHY LEAL, MICHEAL ([id number]), telegraph editor APURVA WRIGHT ([id number]) on 07/24/2018 1:36:27 PM Referred By: Micheal Weathers Confirmed By:MICHEAL WEATHERS MD
--- NOTE | 2018-07-23 09:03 | STRESSREP ---
Stress Test Report : 07/23/2017 Procedure: Pharmacologic (-) evaluation Indications: CAD; PCI; preoperative cardiovascular evaluation Consent: The patient Procedure: The patient underwent pharmacologic (Regadenoson) evaluation with a peak heart rate of 87 beats per minute (58% predicted maximal heart rate) with peak blood pressure was 160/88 mmHg. The baseline ECG demonstrated normal sinus rhythm with a right bundle branch block pattern. The peak pharmacologic ECG continuous demonstrating a right bundle branch block pattern with no obvious ECG changes. There was not occasional PVC pretest. There was no complaints of chest discomfort during pharmacologic infusion or recovery. The examination was discontinued secondary to complete the protocol. Impression: 1. Pharmacologic (regadenoson) evaluation 2. Peak pharmacological ECG will continue right bundle branch block pattern with no obvious ECG changes 3. Occasional PVCs pretest 4. Nuclear images pending Myocardial perfusion imaging study: Technique: The patient was injected with 14.2 mci of technetium-99m Cardiolite and subsequently rest SPECT Cardiolite nuclear imaging was obtained in the horizontal long, vertical long, and short axis views. Patient underwent a pharmacologic (regadenoson) evaluation with peak heart rate of 87 beats per minute (58% predicted maximal heart rate) with a peak blood pressure of 160/88 mmHg. The patient was injected with 44.4 mci of technetium-99m Cardiolite and subsequently stress SPECT Cardiolite nuclear imaging was obtained in the horizontal, vertical, and short axis views. Gated Cardiolite study at peak stress was obtained. Interpretation: Rest and stress SPECT Cardiolite nuclear imaging status post realignment, normalization, and attenuation correction, demonstrates the appearance of an extracardiac/gastrointestinal tracer uptake near the inferior segments. Otherwise there appears to be relative uniform tracer uptake with the exception of a small area of subtle diminished tracer uptake near the inferior apical/lateral apical segments without significant change between rest and stress appearing compatible with physiologic apical thinning. There is end systolic thickening and brightening. The gated Cardiolite study demonstrates myocardial thickening and inward wall motion. The reported LVEF is 55%. Impression: 1. Rest and stress SPECT nuclear imaging demonstrate myocardial perfusion changes appearing compatible with physiologic apical thinning with no myocardial perfusion changes considered diagnostic for associated stress induced myocardial ischemia. 2. The gated Cardiolite study reports an LVEF of 55%. This note was generated using a voice recognition system and there may be incorrect words, spelling or punctuation that were not noted when reviewing the office note prior to saving.
--- OUTSIDE RECORDS SUMMARY | 2018-09-24 06:51 | XMS RPT_ITS ---
:1950 Author Organization OHIP Support Name Relationship Address Phone GRAYSON HERRERA Unavailable [address] + [place] [address] R Unavailable Unavailable Unavailable GRAYSON HERRERA Unavailable [address] + [place] [address] R Unavailable Unavailable Unavailable GRAYSON HERRERA Unavailable [address] [place] [address] JAVIERASAF Unavailable Unavailable Unavailable GRAYSON HERRERA Unavailable [address] + [place] [address] R Unavailable Unavailable Unavailable GRAYSON HERRERA Unavailable [address] + [place] [address] R Unavailable Unavailable Unavailable VICENTA HERRERAARA Unavailable [address] + [place] [address] R Unavailable Unavailable Unavailable GRAYSON HERRERA Unavailable [address] + [place] [address] R Unavailable Unavailable Unavailable GRAYSON HERRERA Unavailable [address] + [place] [address] R Unavailable Unavailable Unavailable GRAYSON HERRERA Unavailable [address] [place] [address] JAVIER ASAF Unavailable Unavailable Unavailable VICENTA HERRERAARA Unavailable [address] + [place] [address] R Unavailable Unavailable Unavailable JAVIER GRAYSON Unavailable [address] + [place] [address] R Unavailable Unavailable Unavailable JAVIER GRAYSON Unavailable [address] + [place] [address] R Unavailable Unavailable Unavailable JAVIER GRAYSON Unavailable [address] + [place] [address] R Unavailable Unavailable Unavailable VICENTA HERRERAARA Unavailable [address] [place] [address] ASAF HERRERA Unavailable Unavailable Unavailable GRAYSON HERRERA Unavailable [address] [place] [address] ASAF HERRERA Unavailable Unavailable Unavailable VICENTA HERRERAARA Unavailable [address] [place] [address] ASAF HERRERA Unavailable Unavailable Unavailable VICENTA HERRERAARA Unavailable [address] + [place] [address] R Unavailable Unavailable Unavailable VICENTA HERRERAARA Unavailable [address] + [place] [address] R Unavailable Unavailable Unavailable VICENTA HERRERAARA Unavailable [address] + [place] [address] R Unavailable Unavailable Unavailable JAVIERVICENTAGRAYSON Unavailable [address] + [place] [address] VICENTA HERRERAARA Unavailable [address] + [place] [address] VICENTA HERRERAARA Unavailable [address] + [place] [address] R Unavailable Unavailable Unavailable GRAYSON HERRERA A Unavailable [address] + [place] [address] R Unavailable Unavailable Unavailable JAVIERGRAYSON A Unavailable [address] + [place] [address] R Unavailable Unavailable Unavailable VICENTA HERRERAARA Unavailable [address] + [place] [address] JAVIER GRAYSON Unavailable [address] + [place] [address] JAVIER GRAYSON Unavailable [address] + [place] [address] JAVIER GRAYSON Unavailable [address] + [place] [address] JAVIER GRAYSON Unavailable [address] + [place] [address] JAVIER GRAYSON Unavailable [address] + [place] [address] JAVIERGRAYSON A Unavailable [address] + [place] [address] R Unavailable Unavailable Unavailable JAVIER GRAYSON A Unavailable [address] + [place] [address] R Unavailable Unavailable Unavailable GRAYSON HERRERA Unavailable [address] [place] [address] ASAF HERRERA Unavailable Unavailable Unavailable GRAYSON HERRERA Unavailable [address] [place] [address] ASAF HERRERA Unavailable Unavailable Unavailable GRAYSON HERRERA Unavailable [address] + [place] [address] R Unavailable Unavailable Unavailable GRAYSON HERRERA A Unavailable [address] + [place] [address] R Unavailable Unavailable Unavailable GRAYSON HERRERA A Unavailable [address] + [place] [address] R Unavailable Unavailable Unavailable GRAYSON HERRERA Unavailable [address] + [place] [address] GRAYSON HERRERA Unavailable [address] + [place] [address] GRAYSON HERRERA A Unavailable [address] + [place] [address] R Unavailable Unavailable Unavailable GRAYSON HERRERA Unavailable [address] + [place] [address] R Unavailable Unavailable Unavailable GRAYSON HERRERA Unavailable [address] + [place] [address] R Unavailable Unavailable Unavailable GRAYSON HERRERA Unavailable [address] + [place] [address] R Unavailable Unavailable Unavailable GRAYSON HERRERA A Unavailable [address] + [place] [address] R Unavailable Unavailable Unavailable Care Team Providers Name Role Phone Clary Arredondo MD Attending Unavailable SERGIO, RHODA Primary Care Unavailable CHRIS RODRIGUEZ MD Attending Unavailable SERGIO, RHODA Primary Care Unavailable SERGIO, RHODA Attending Unavailable SERGIO, RHODA Primary Care Unavailable CHRIS RODRIGUEZ MD Attending Unavailable SERGIO, RHODA Primary Care Unavailable RAVINDER Jackson Attending Unavailable SERGIO, RHODA Primary Care Unavailable Micheal Weathers Attending Unavailable Micheal Weathers Referring Unavailable Yuliet Jamison Primary Care Unavailable Jem Cedillo Attending Unavailable Jem Cedillo Referring Unavailable Sergio, Rhoda Primary Care Unavailable PraJem hammer Consulting Unavailable SibiliaMike Attending Unavailable Sibilia, Mike Referring Unavailable Sergio, Rhoda Primary Care Unavailable Tawana Joe Attending Unavailable Sergio, Rhoda Referring Unavailable Sergio, Rhoda Primary Care Unavailable PraJem hammer Attending Unavailable Jamison, Yuliet Primary Care Unavailable PraJem hammer Consulting Unavailable Tawana Joe Attending Unavailable Tawana Joe Attending Unavailable Tawana Joe Referring Unavailable Jamison, Yuliet Primary Care Unavailable Tawana Joe Attending Unavailable Sergio, Rhoda Referring Unavailable Prah, Jem Attending Unavailable Jamison, Yuliet Primary Care Unavailable PraJem hammer Consulting Unavailable Solomon Mercer Attending Unavailable Jamison, Yuliet Referring Unavailable Micheal Weathers Attending Unavailable Tawana Joe Referring Unavailable Jamison, Yuliet Primary Care Unavailable Tawana Joe Consulting Unavailable Sibilia, Mike Attending Unavailable Jamison, Yuliet Primary Care Unavailable PraJem hammer Attending Unavailable Jem Cedillo Referring Unavailable Jamison, Yuliet Primary Care Unavailable Sibyaon, Mike Consulting Unavailable Jem Cedillo Attending Unavailable Sergio, Kristni Referring Unavailable Sergio, Rhoda Primary Care Unavailable PraJem hammer Consulting Unavailable Sergio, Kristin Attending Unavailable Sergio, Rhoda Primary Care Unavailable Jem Cedillo Consulting Unavailable Sergio, Rhoda Referring Unavailable Tawana Joe Attending Unavailable Tawana Joe Referring Unavailable Jamison, Yuliet Primary Care Unavailable Tawana Joe Attending Unavailable Sergio, Rhoda Referring Unavailable SibiliaMike Attending Unavailable Sibilia, Mike Referring Unavailable Sergio, Rhoda Primary Care Unavailable Mikala Tesfaye Attending Unavailable Mikala Tesfaye Attending Unavailable Tawana Joe Attending Unavailable Sergio, Rhoda Referring Unavailable Sibilia, Mike Attending Unavailable Sibilia, Mike Referring Unavailable Sergio, Rhoda Primary Care Unavailable Edis Higuera Attending Unavailable Edis Higuera Referring Unavailable Sergio, Rhoda Primary Care Unavailable Jem Cedillo Attending Unavailable Jem Cedillo Referring Unavailable Jamison, Yuliet Primary Care Unavailable Mikala Tesfaye Attending Unavailable Mikala Tesfaye Attending Unavailable Jem Cedillo Attending Unavailable Jem Cedillo Referring Unavailable Jamison, Yuliet Primary Care Unavailable Cody Fernandez Attending Unavailable Cody Fernandez Referring Unavailable Solomon Mercer Attending Unavailable Solomon Mercer Referring Unavailable Yuliet Jamison Primary Care Unavailable D'BURT, FIORDALIZA Attending Unavailable D'BURT, FIORDALIZA Referring Unavailable SERGIO, RHODA A Primary Care Unavailable D'BURT, FIORDALIZA Attending Unavailable D'BURT, FIORDALIZA Referring Unavailable SERGIO, RHODA A Primary Care Unavailable D'BURT, FIORDALIZA Attending Unavailable D'BURT, FIORDALIZA Referring Unavailable SERGIO, RHODA A Primary Care Unavailable D'BURT, FIORDALIZA Attending Unavailable D'BURT, FIORDALIZA Referring Unavailable SERGIO, RHODA A Primary Care Unavailable FEDERICO, EDIS G Admitting Unavailable FEDERICO, EDIS G Attending Unavailable SERGIO, RHODA A Primary Care Unavailable FEDERICO, EDIS G Admitting Unavailable FEDERICO, EDIS G Attending Unavailable SERGIO, RHODA A Primary Care Unavailable D'BURT, FIORDALIZA Attending Unavailable SERGIO, RHODA A Referring Unavailable SERGIO, RHODA A Primary Care Unavailable PROBLEMS PROBLEMS DATE TYPE CONDITION / CODE ATTENDING STATUS SOURCE 07/18/2018 Admitting New Patient / D'BURT, Active [place] diagnosis [id number]() [facility] Repository 07/05/2018 Unknown I25.10 - [place], Active [place] Atherosclerotic Micheal [facility] heart disease of [facility] 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 intra-abdominal Repository lymph nodes / C83.33(ICD-10) 07/25/2018 Unknown R91.1 - [facility] pulmonary nodule / Community R91.1(ICD-10) Hospital Repository 07/25/2018 Unknown R93.5 - Abnormal [facility] Jem Active [place] findings on [facility] diagnostic imaging Hospital of other abdominal Repository regions, including retroperitoneum / R93.5(ICD-10) 06/17/2018 Unknown K40.30 - Unilateral [place], Active [place] inguinal hernia, [facility] with obstruction, Hospital without gangrene, Repository not specified as recurrent / K40.30(ICD-10) 06/11/2018 Unknown R19.7 - Diarrhea, Jem Cedillo Active [facility] unspecified / [facility] R19.7(ICD-10) Hospital Repository 12/31/2017 Unknown E83.42 - Joe, Active [place] Hypomagnesemia / [facility] E83.42(ICD-10) Hospital Repository 11/16/2017 Admitting Ischemic FEDERICOEDIS G Active [facility] diagnosis cardiomyopathy / University I25.5(ICD-10) [facility] Repository 11/16/2017 Admitting Essential (primary) FEDERICO, EDIS G [facility] diagnosis hypertension / [facility] I10(ICD-10) [facility] Repository 11/15/2017 Admitting Ventricular FEDERICO, EDIS G Active [facility] diagnosis tachycardia / University I47.2(ICD-10) [facility] Repository 11/29/2017 Unknown I27.20 - Pulmonary Sibilia, Active [place] hypertension, [facility] unspecified / Hospital I27.20(ICD-10) Repository 10/01/2017 Unknown R06.00 - Dyspnea, Sibilia, Active [place] unspecified / [facility] R06.00(ICD-10) Hospital Repository PROCEDURES PROCEDURES No Procedure Records FoundRESULTS RESULTS 12 LEAD ELECTROCARDIOGRAM Observed: 07/24/2018 Status: F Source: [place] 1:36 PM COUNTS INCLUDE 234 BEDS AT THE [facility] HOSPITAL REPOSITORY [facility] Cardiovascular Services [address] [place] [address] 12 Lead EKG 07/23/18 0642 MR#: [id number] Acct: [id number] Name: ASAF HERRERA Rep #: [id number] : 1950 68 From: Micheal Weathers MD Attending Dr: Micheal Weathers MD Status: REG CLI Ordering Dr: Micheal Weathers MD Date: 07/23/18 Location: [facility] Sex: M C Admitted: Test Reason : PREOP Blood Pressure : / mmHG Vent. Rate : 060 BPM Atrial Rate : 060 BPM P-R Int : 204 ms QRS Dur : 146 ms QT Int : 456 ms P-R-T Axes : 055 -28 -36 degrees QTc Int : 456 ms Normal sinus rhythm Right bundle branch block Inferior infarct , age undetermined Abnormal ECG Confirmed by MICHEAL WEATHERS MD ([id number]), electronic news gathering editor APURVA WRIGHT ([id number]) on 07/24/2018 1:36:27 PM Referred By: Micheal Weathers Confirmed By:MICHEAL WEATHERS MD 07/24/18 1336 Date Micheal Weathers MD CC: Yuliet Jamison DO; Micheal Weathers MD Signed STRESS REPORT Observed: 07/23/2018 Status: F Source: [place] 9:09 AM [facility] REPOSITORY [facility] Cardiovascular Services [address] [place] [address] MR#: [id number] Acct: [id number] Name: ASAF HERRERA Kaushal Rep #: [id number] : 1950 68 From: Micheal Weathers MD Primary Care: Yuliet Jamison DO Status: [...] reviewing the office note prior to saving. 07/23/18908 <Electronically signed by Micheal Weathers MD> Date Micheal Weathers MD CC: Yuliet Jamison DO; Micheal Weathers MD Date Dictated: 07/23/18902 Date Transcribed: 07/23/18902 Mechanical Assembly: PM Signed CBC-COMPLETE BLOOD CNT Collected: 07/23/2018 Status: F Source: [place] NO DIFF 8:48 AM [facility] REPOSITORY TYPE CODE TESTS RESULT OUT OF [...] MPV 9.5 Performed By: #### L100.0500 #### [facility] [address] [place], [address] BASIC METABOLIC Collected: 07/23/2018 Status: F Source: [place] PROFILE (BMP) 8:48 AM [facility] REPOSITORY TYPE CODE TESTS RESULT OUT OF [...] GAP 8 Performed By: #### L500.2500 #### [facility] [address] [place], [address] HEMOGLOBIN A1C Collected: 07/23/2018 Status: F Source: [place] 8:48 AM [facility] REPOSITORY Order Comment: Reason for Laboratory Test PREOP TYPE CODE TESTS RESULT OUT OF RANGE REFERENCE UNITS LAB L501.9985 4.2-6.3 % Normal HGB A1C 5.8 Performed By: #### L501.9985 #### [facility] [address] [place], [address] MRI ABD WITH AND W/O Observed: 2018 Status: F Source: [place] CONTRAST 12:29 PM [facility] REPOSITORY [facility] Imaging Services [address] [place] [address] MRI Abd WITH and W/O Contrast MR#: [id number] Acct: [id number] Name: ASAF HERRERA Rep #: [id number] : 1950 M 68 From: Andi Klein MD PCP: Yuliet Jamison DO Status: REG CLI Study: MRI Abd WITH and W/O Contrast Date of Exam: 07/08/18 Exam# [id number] Ordering Dr: Jem Cedillo MD STUDY: MRI [...] CC: Jem Cedillo MD; Yuliet Jamison DO Mechanical Assembly: Signed ECHOCARDIOGRAM COMPLETE Observed: 07/05/2018 Status: F Source: [place] 4:18 PM [facility] REPOSITORY [facility] Cardiovascular Services [address] [place] [address] Echo Complete 07/05/18 1345 MR#: [id number] Acct: [id number] Name: ASAF HERRERA Rep #: [id number] : 1950 67 From: Micheal Weathers MD Attending Dr: Taawna Joe Status: REG CLI Ordering Dr: Tawana Joe Date: 07/05/18 Location: [facility] Sex: M C Admitted: Reason For Study: [...] Referring Physician: Ayesha Jamison Performed By: Abbi Rodriguez, BAUTISTA, RVT 07/05/18 1618 Date Micheal Weathers MD CC: Yuliet Jamison DO; Tawana Joe Date Dictated: 07/05/18 1345 Date Transcribed: 07/05/18 1618 Mechanical Assembly: Signed CARDIOLOGY VISIT Observed: 06/27/2018 Status: F Source: [place] REPORT 4:50 PM [facility] REPOSITORY [facility] [address] [place], [place] [address]e. [address] [place] [address] OFFICE VISIT Date of Service: 06/24/18 MR#: [id number] Acct: [id number] Name: ASAF HERRERA Rep #: [id number] : 1950 Provider: Tawana Joe Age/Sex: 67/M Location: [facility] Status: Signed HPI HPI Details: ASAF HERRERA, [...] ventricular tachycardia. Patient was referred to Dr. Higuera for further evaluation of his nonsustained ventricular tachycardia after recent RCA stenting. He was on amiodarone but this has been discontinued by Dr. Higuera. He is planning to undergo a hernia [...] brachial Intake Visit Reasons: 6 M FU Salvager Required: No Is patient in pain?: No [...] (primary) hypertension (Chronic) Atherosclerotic heart disease of [place] coronary artery without angina pectoris (Chronic) NSVT (nonsustained ventricular tachycardia) (Acute) CAD (coronary artery disease), [place] artery transplanted heart (Chronic) Cough (Acute) Dyspnea [...] affect Assessment AND Plan 1. Atherosclerosis of [place] coronary artery of [place] heart without angina pectoris I25.10 Plan Patient [...] Code Off vis,est,level 4 Diagnoses Atherosclerosis of [place] coronary artery of [place] heart without angina pectoris I25.10 [place] vs. transplanted heart: [place] heart Essential hypertension I10 Cardiomyopathy, ischemic I25.5 Coding Level of Care Code Off vis,est,level 4 Diagnoses Atherosclerosis of [place] coronary artery of [place] heart without angina pectoris I25.10 [place] vs. transplanted heart: [place] heart Essential hypertension I10 Cardiomyopathy, ischemic I25.5 06/27/18 1650 <Electronically signed by Tawana JAMESON> Date [facility] Signature: Date (if applicable) CC: Rhoda Chung MD ONCOLOGY VISIT REPORT Observed: 06/27/2018 Status: F Source: [place] 12:20 PM [facility] REPOSITORY [facility] [address] [place] [address] OFFICE VISIT Date of Service: 06/27/18 1200 MR#: [id number] Acct: [id number] Name: ASAF HERRERA Kaushal Rep #: [id number] : 1950 From: Jem Cedillo MD Age/Sex: [...] Acute Code Visit Office Visits / Consults: 97102 OV L4 Est 06/27/18 1220 <Electronically signed by Jem Cedillo MD> Date Jem Cedillo MD Cosigner Signature: Date (if applicable) CC: CBC W/DIFF, AUTOMATED Collected: 06/27/2018 Status: F Source: [place] 10:51 AM [facility] REPOSITORY Order Comment: Reason for Laboratory Test [...] Lymph 0.78 Performed By: #### L100.0100 #### [place] [facility] [place], [address] COMPREHENSIVE METABOLIC Collected: 06/27/2018 Status: F Source: [place] العلي 10:51 AM [facility] REPOSITORY Order Comment: Reason for Laboratory Test [...] Performed By: #### L500.4050, L501.1400, L504.2610 #### [facility] [address] [place], [address] URIC ACID Collected: 06/27/2018 Status: F Source: [place]ARK 10:51 AM [facility] REPOSITORY Order Comment: Reason for Laboratory Test . Serial Specimen #1, #2 or #3? 1 TYPE CODE TESTS RESULT OUT OF RANGE REFERENCE UNITS LAB L501.1400 3.5-7.2 mg/dL Normal URIC 6.4 Result Comment: The drugs N-Acetylcysteine and Metamizole may falsely depress this assay. Performed By: #### L500.4050, L501.1400, L504.2610 #### [facility] [address] [place], [address] LDH Collected: 06/27/2018 Status: F Source: [place] 10:51 AM [facility] REPOSITORY Order Comment: Reason for Laboratory Test . Serial Specimen #1, #2 or #3? 1 TYPE CODE TESTS RESULT OUT OF RANGE REFERENCE UNITS LAB L504.2610 87-241 U/L Normal LDH 148 Performed By: #### L500.4050, L501.1400, L504.2610 #### [facility] [address] [place], [address] PET/CT TUMOR BASE Observed: 06/24/2018 Status: F Source: [place] -THIGH SUBS 7:49 AM [facility] REPOSITORY [facility] Imaging Services [address] [place] [address] PET/CT Tumor Base -Thigh Subs MR#: [id number] Acct: [id number] Name: ASAF HERRERA Kaushal Rep #: [id number] : 1950 M 67 From: Andi Alba DO PCP: Yuliet Jamison DO Status: REG RCR Study: PET/CT Tumor Base -Thigh Subs Date of Exam: 06/24/18 Exam# [id number] Ordering Dr: Jem Cedillo MD INDICATIONS: A [...] Electronic Signature Andi Alba D.O. Electronically Signed: Anid Alba DO at 21:28 EST Tel , Service support , CC: Jem Cedillo MD; Yuliet Jamison DO Mechanical Assembly: Signed ONCOLOGY VISIT REPORT Observed: 06/17/2018 Status: F Source: [place]ARK 12:34 PM [facility] REPOSITORY [facility] [place] [address] OFFICE VISIT Date of Service: 06/17/187 MR#: [id number] Acct: [id number] Name: ASAF HERRERA Rep #: [id number] : 1950 From: Jem Cedillo MD Age/Sex: [...] Acute Code Visit Office Visits / Consults: 36303 OV L4 Est 06/17/18 1234 <Electronically signed by Jem Cedillo MD> Date Jem Cedillo MD Cosigner Signature: Date (if applicable) CC: SURGERY VISIT REPORT Observed: 06/17/2018 Status: F Source: [place] 10:17 AM [facility] REPOSITORY [facility] [address] [place] [address] OFFICE VISIT Date of Service: 06/17/18 MR#: [id number] Acct: [id number] Name: ASAF HERRERA Rep #: [id number] : 1950 Provider: Solomon Mercer MD Age/Sex: 67/M Location: [facility] Status: Signed Intake Vital Signs06/17/18 Body Mass Index (BMI) 31.3 06/17/18 Height 6 ft 06/17/18 Weight: 235 lb Intake Visit Reasons: Inguinal Hernia/CT 06/11 [facility] Chief Complaint: NHL F/U Salvager Required: No Is patient in pain?: No [...] PO DAILY tab 06/17/18 [History Confirmed 06/17/18] [facility] Medical History Palpitations (Chronic) Essential (primary) hypertension (Chronic) Atherosclerotic heart disease of [place] coronary artery without angina pectoris (Chronic) NSVT (nonsustained ventricular tachycardia) (Acute) CAD (coronary artery disease), [place] artery transplanted heart (Chronic) Cough (Acute) Dyspnea (Acute) Fever (Acute) Other malaise and fatigue (Acute) Shortness of breath (Acute) Hyperlipidemia (Chronic) Pulmonary hypertension (Chronic) Surgical History S/P nasal surgery (Resolved) H/O shoulder surgery (Resolved) tendon surgery (Resolved) heel surgery (Resolved) Hx of cholecystectomy (Resolved) History of lumbar surgery (Resolved) S/P coronary artery stent placement (Chronic 2004) Family History (Reviewed 06/17/18 @ 10:12 by Jacki Fitzpatrick Father Heart disease Hypertension Mother Heart disease [...] I will obtain cardiac clearance from Dr. Weathers as well as permission to come off his Plavix as he has had a heart stent within this last year. Patient should be able to continue aspirin at a low risk. Solomon Mercer MD Pager: [facility] [address] [place] [address] [address] [place], [address] [place] [address] Office: Coding Level of Care Code Off vis,new,level 3 Diagnoses Incarcerated right inguinal hernia K40.30 06/17/18 1017 <Electronically signed by Solomon Mercer MD> Date Solomon Mercer MD Cosigner Signature: Date (if applicable) CC: Yuliet Jamison DO; Micheal Weathers MD LIVER PROFILE Collected: 06/11/2018 Status: F Source: [place] 3:01 PM [facility] REPOSITORY TYPE CODE TESTS RESULT OUT OF [...] BILI 0.22 Performed By: #### L500.3400 #### [facility] [address] [place], [address] BNP,B-TYPE NATRIURETIC Collected: 06/11/2018 Status: F Source: [place] PEPTIDE 3:01 PM [facility] REPOSITORY TYPE CODE TESTS RESULT OUT OF RANGE REFERENCE UNITS LAB L503.6620 0-100 pg/mL High B-TYPE 396.5 MOSHE PEP Performed By: #### L503.6620 #### [facility] [address] [place], [address] CHEST WITH CONTRAST Observed: 06/11/2018 Status: F Source: AREL[place] 2:33 PM COUNTS INCLUDE 234 BEDS AT THE [facility] HOSPITAL REPOSITORY [facility] Imaging Services [address] [place] [address] Chest WITH Contrast MR#: [id number] Acct: [id number] Name: ASAF HERRERA Rep #: [id number] : 1950 M 67 From: Eliazar Stack MD PCP: Yuliet Jamison DO Status: REG CLI Study: Chest WITH Contrast Date of Exam: 06/11/18 Exam# [id number] Ordering Dr: Jem Cedillo MD STUDY: CT [...] CC: Jem Cedillo MD; Yuliet Jamison DO Mechanical Assembly: Signed ABDOMEN/PELVIS WITH Observed: 06/11/2018 Status: F Source: AERLIS CONTRAST 2:33 PM [facility] REPOSITORY [facility] Imaging Services [address] [place] [address] [place] [address] Abdomen/Pelvis WITH Contrast MR#: [id number] Acct: [id number] Name: ASAF HERRERA Kaushal Rep #: [id number] : 1950 M 67 From: Eliazar Stack MD PCP: Yuliet Jamison DO Status: REG CLI Study: Abdomen/Pelvis WITH Contrast Date of Exam: 06/11/18 Exam# [id number] Ordering Dr: Jem Cedillo MD STUDY: CT [...] Electronically Signed: Eliazar Stack, at 16:05 EST Tel , Service support , CC: Jem Cedillo MD; Yuliet Jamison DO Mechanical Assembly: Signed SOFT TISSUE NECK WITH Observed: 06/11/2018 Status: F Source: PARK CONTRAST 2:33 PM [facility] REPOSITORY [facility] Imaging Services [address] [place] [address] Soft Tissue Neck WITH Contrast MR#: [id number] Acct: [id number] Name: ASAF HERRERA Rep #: [id number] : 1950 M 67 From: Av Son MD PCP: Yuliet Jamison DO Status: REG CLI Study: Soft Tissue Neck WITH Contrast Date of Exam: 06/11/18 Exam# [id number] Ordering Dr: Jem Cedillo MD HISTORY: History of B-cell lymphoma for [...] CC: Jem Cedillo MD; Yuliet Jamison DO Mechanical Assembly: Signed Observed: 06/06/2018 Status: F Source: ARELIS CDIFF (MOLECULAR) 10:10 AM [facility] REPOSITORY Reason for Laboratory Test . Cdiff-Molecular Normal Reference Range = Negative C. Diff DNA Negative- No toxigenic C. Diff DNA Detected NAAT METHOD Testing was performed using nucleic acid amplification Performed By: #### M100.6796 #### [facility] [place], [address] Observed: 06/06/2018 Status: F Source: ARELIS OVA AND PARASITES 10:10 AM [facility] REPOSITORY Reason for Exam: . Reason for Laboratory Test . O + P OVA AND PARASITES EXAM, ROUTINE These results were obtained using wet preparation(s) and trichrome stained smear. This test does not include testing for Crytosporidium parvum, Cyclospora, or Microsporidia. TESTING PERFORMED AT [facility]. ORIGINAL REPORT ON FILE IN LAB CONTAINS ADDITIONAL TEST SITE INFORMATION. Ova/Parasite Exam NO OVA, CYSTS, OR PARASITES FOUND. Performed By: #### M600.5000 #### [facility] [address] [place], [address] ONCOLOGY VISIT REPORT Observed: 06/04/2018 Status: F Source: PARK 4:10 PM [facility] REPOSITORY [facility] [address] [place] [address] OFFICE VISIT Date of Service: 06/04/18 1602 MR#: [id number] Acct: [id number] Name: ASAF HERRERA Kaushal Rep #: [id number] : 1950 From: Jem Cedillo MD Age/Sex: [...] Chronic Code Visit Office Visits / Consults: 52153 OV L5 Est 06/04/18 1610 <Electronically signed by Jem Cedillo MD> Date Jem Cedillo MD Cosigner Signature: Date (if applicable) CC: CBC W/DIFF, AUTOMATED Collected: 06/04/2018 Status: F Source: ARELIS 2:54 PM [facility] REPOSITORY Order Comment: Reason for Laboratory Test [...] ANISO RARE Performed By: #### L100.0100 #### [facility] [address] [place], [address] COMPREHENSIVE METABOLIC Collected: 06/04/2018 Status: F Source: [facility] 2:54 PM [facility] REPOSITORY Order Comment: Reason for Laboratory Test [...] GAP 7 Performed By: #### L500.4050 #### [facility] [address] [place], [place], [address] PHOSPHORUS Collected: 06/04/2018 Status: F Source: PARK 2:45 PM [facility] REPOSITORY Order Comment: Reason for Laboratory Test . TYPE CODE TESTS RESULT OUT OF RANGE REFERENCE UNITS LAB L501.2300 2.5-4.9 mg/dL Normal PHOS 3.6 Performed By: #### L501.2300, L501.5200 #### [facility] [address] [place], [address] MAGNESIUM Collected: 06/04/2018 Status: F Source: PARK 2:45 PM [facility] REPOSITORY Order Comment: Reason for Laboratory Test . TYPE CODE TESTS RESULT OUT OF RANGE REFERENCE UNITS LAB L501.5200 1.6-2.6 mg/dL Low MG 1.5 Performed By: #### L501.2300, L501.5200 #### [facility] [address] [place], [place], [address] CBC Collected: 04/04/2018 Status: F Source: [facility] 12:23 PM [facility] REPOSITORY TYPE CODE TESTS [...] Performed By: #### CBC, ADIFF, ANEU #### [address] [address] #### MG, CMP, GFR #### [place] [address] .AUTO DIFF Collected: 04/04/2018 Status: F Source: [facility] 12:23 [facility] REPOSITORY TYPE CODE TESTS RESULT OUT [...] Performed By: #### CBC, ADIFF, ANEU #### [address] [address] #### MG, CMP, GFR #### [address] [address] .NEUABS Collected: 04/04/2018 Status: F Source: [facility] 12:23 PM [facility] REPOSITORY TYPE CODE TESTS RESULT OUT OF REFERENCE UNITS RANGE LAB ANEU(LOINC) 2.85-6.16 10 3/mcL Neutrophil, 4.60 Absolute Performed By: #### CBC, ADIFF, ANEU #### [address] [address] #### MG, CMP, GFR #### [address] [address] MG Collected: 04/04/2018 Status: F Source: [facility] 12:23 [facility] REPOSITORY TYPE CODE TESTS RESULT OUT OF REFERENCE UNITS RANGE LAB MG(LOINC) 1.8-2.4 mg/dL Low Magnesium Lvl 1.4 Performed By: #### CBC, ADIFF, ANEU #### [address] [address] #### MG, CMP, GFR #### [address] [address] CMP Collected: 04/04/2018 Status: F Source: [facility] 12:23 [facility] REPOSITORY TYPE CODE TESTS RESULT OUT [...] Performed By: #### CBC, ADIFF, ANEU #### [facility] [address] [place], [place] [address] #### MG, CMP, GFR #### [address] [address] .GFR Collected: 04/04/2018 Status: F Source: [facility] 12:23 PM [facility] REPOSITORY TYPE CODE TESTS RESULT OUT OF REFERENCE UNITS RANGE LAB GFRAA(LOINC ml/min/1.73 ) sqm GFR 48 [place] Result Comment: GFR Population mean for , [...] Performed By: #### CBC, ADIFF, ANEU #### [facility] [place] [place], [place] [address] #### MG, CMP, GFR #### [facility] [address] [place] [address] ONCOLOGY VISIT REPORT Observed: 02/27/2018 Status: F Source: ARELIS 3:56 PM [facility] REPOSITORY [facility] [place] [address] OFFICE VISIT Date of Service: 02/27/18 1457 MR#: [id number] Acct: [id number] Name: ASAF HERRERA Rep #: [id number] : 1950 From: Kristin MALONE Age/Sex: 67/M [...] Patient was in agreement with aforementioned plan. Kristin Chung, MSN, SITE ADMINISTRATOR-C, AOCNP Medications: Prescriptions This Visit Medication Instructions Recorded Glipizide [Glucotrol Xl] 5 mg PO 08/15/17 Lisinopril [Zestril] 20 mg PO DAILY 08/15/17 Primary Care Provider: Rhoda Chung Referring Provider: Jem Cedillo MD - Problem List (1) History of non-Hodgkin's lymphoma Status: Chronic (2) Thrombocytopenia Status: Acute 02/27/18 1556 <Electronically signed by Kristin Chung NP-C> Date Kristin PARKSC Cosigner Signature: Date (if applicable) CC: CBC W/DIFF, AUTOMATED Collected: 02/27/2018 Status: F Source: ARELIS 2:42 PM [facility] REPOSITORY Order Comment: Reason for Laboratory Test [...] Lymph 0.96 Performed By: #### L100.0100 #### [facility] [address] [place], [address] COMPREHENSIVE METABOLIC Collected: 02/27/2018 Status: F Source: [facility] 2:42 PM [facility] REPOSITORY Order Comment: Reason for Laboratory Test [...] 9 Performed By: #### L500.4050, L504.2610 #### [facility] [address] [place], [place], [address] LDH Collected: 02/27/2018 Status: F Source: PARK 2:42 PM [facility] REPOSITORY Order Comment: Reason for Laboratory Test . Serial Specimen #1, #2 or #3? 1 TYPE CODE TESTS RESULT OUT OF RANGE REFERENCE UNITS LAB L504.2610 87-241 U/L Normal LDH 172 Performed By: #### L500.4050, L504.2610 #### [facility] [address] [place], [place], [address] MAGNESIUM Collected: 12/31/2017 Status: F Source: PARK 2:34 PM [facility] REPOSITORY TYPE CODE TESTS RESULT OUT OF RANGE REFERENCE UNITS LAB L501.5200 1.6-2.6 mg/dL Low MG 1.5 Performed By: #### L501.5200 #### [facility] [address] [place], [address] CARDIOLOGY VISIT Observed: 12/31/2017 Status: F Source: ARELIS REPORT 2:21 PM [facility] REPOSITORY [facility] [address] [place] [address] OFFICE VISIT Date of Service: 12/31/17 MR#: [id number] Acct: [id number] Name: ASAF HERRERA Rep #: [id number] : 1950 Provider: Tawana Joe Age/Sex: 67/M Location: [facility] Status: Signed HPI HPI Details: ASAF HERRERA, [...] ventricular tachycardia. Patient was referred to Dr. Higuera for further evaluation of his nonsustained ventricular tachycardia after recent RCA stenting. He was on amiodarone but this has been discontinued by Dr. Higuera. Pt. 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 Patient was referred to Dr. Higuera for further evaluation of wide complex tachycardia. [...] insufficiency. Assessment AND Plan 1. Atherosclerosis of [place] coronary artery of [place] heart without angina pectoris I25.10 Plan Stable, [...] puffs Inhalation Q4H PRN PRN W Marlene frances Discontinued Reason: Pt no longheezing er taking [...] Code Off vis,est,level 3 Diagnoses Atherosclerosis of [place] coronary artery of [place] heart without angina pectoris I25.10 [place] vs. transplanted heart: [place] heart Essential hypertension I10 Cardiomyopathy, ischemic I25.5 NSVT (nonsustained ventricular tachycardia) I47.2 Hypomagnesemia E83.42 Coding Level of Care Code Off vis,est,level 3 Diagnoses Atherosclerosis of [place] coronary artery of [place] heart without angina pectoris I25.10 [place] vs. transplanted heart: [place] heart Essential hypertension I10 Cardiomyopathy, ischemic I25.5 NSVT (nonsustained ventricular tachycardia) I47.2 Hypomagnesemia E83.42 12/31/17 1421 <Electronically signed by Tawana JAMESON> Date Tawana JAMESON Cosigner Signature: Date (if applicable) CC: Rhoda Chung MD UA Collected: 12/14/2017 Status: F Source: [facility] 1:22 PM [facility] REPOSITORY TYPE CODE TESTS RESULT [...] By: #### UA, UAMICAO, CRUR, PRUR #### [address] [address] .URINALYSIS MICROSCOPIC Collected: 12/14/2017 Status: F Source: [facility]) 1:22 [facility] REPOSITORY TYPE CODE TESTS RESULT OUT OF RANGE REFERENCE UNITS LAB WBCUA(LOIN None Seen /hpf C) Unknown UA WBC 0-5 LAB RBCUA(LOIN None Seen /hpf C) Unknown UA RBC 0-5 LAB EPIUA(LOIN None Seen /hpf C) Unknown UA Squam Epithelial 0-5 Performed By: #### UA, UAMICAO, CRUR, PRUR #### [place] [address] CRUR Collected: 12/14/2017 Status: F Source: [facility] 1:22 [facility] REPOSITORY TYPE CODE TESTS RESULT OUT OF REFERENCE UNITS RANGE LAB CRU(LOINC) 39.0-259.0 mg/dL U Creatinine 218.2 Performed By: #### UA, UAMICAO, CRUR, PRUR #### [address] [address] PRUR Collected: 12/14/2017 Status: F Source: [facility] 1:22 [facility] REPOSITORY TYPE CODE TESTS RESULT OUT OF REFERENCE UNITS RANGE LAB PRU(LOINC) 0-14 mg/dL U High Protein 17 Performed By: #### UA, UAMICAO, CRUR, PRUR #### [address] [address] [place] RENAL Observed: 12/14/2017 Status: F Source: [facility] 1:00 PM [facility] REPOSITORY ORIGINAL Complete ultrasound of the [...] PM CBC Collected: 12/14/2017 Status: F Source: [facility] 12:58 [facility] REPOSITORY TYPE CODE TESTS RESULT OUT [...] ADIFF, ANEU, URIC, FES, RFP, GFR #### [address] [address] #### VIDH, SPE #### [address] [address] .AUTO DIFF Collected: 12/14/2017 Status: F Source: [facility] 12:58 [facility] REPOSITORY TYPE CODE TESTS RESULT OUT [...] ADIFF, ANEU, URIC, FES, RFP, GFR #### [address] [address] #### VIDH, SPE #### [place] [address] .NEUABS Collected: 12/14/2017 Status: F Source: [facility] 12:58 [facility] REPOSITORY TYPE CODE TESTS RESULT OUT OF REFERENCE UNITS RANGE LAB ANEU(LOINC) 2.85-6.16 10 3/mcL Neutrophil, 4.90 Absolute Performed By: #### CBC, ADIFF, ANEU, URIC, FES, RFP, GFR #### [address] [address] #### VIDH, SPE #### [place] [address] URIC Collected: 12/14/2017 Status: F Source: [facility] 12:58 [facility] REPOSITORY TYPE CODE TESTS RESULT OUT OF RANGE REFERENCE UNITS LAB URIC(LOINC) 3.5-7.2 mcg/dL High Uric Acid 8.9 Lvl Performed By: #### CBC, ADIFF, ANEU, URIC, FES, RFP, GFR #### [address] [address] #### VIDH, SPE #### [place] [address] FES Collected: 12/14/2017 Status: F Source: [facility] 12:58 PM [facility] REPOSITORY TYPE CODE TESTS RESULT OUT OF RANGE REFERENCE UNITS LAB FE(LOINC) 65-170 mcg/dL Low Iron 62 LAB IBC(LOINC) 250-450 mcg/dL TIBC 356 LAB FESAT(LOINC % ) Iron Sat 17 Performed By: #### CBC, ADIFF, ANEU, URIC, FES, RFP, GFR #### [place] [address] [place], [place] [address] #### LUZ, SPE #### [place] [address] RFP Collected: 12/14/2017 Status: F Source: [facility] 12:58 PM [facility] REPOSITORY TYPE CODE TESTS RESULT OUT [...] ADIFF, ANEU, URIC, FES, RFP, GFR #### [address] [address] #### LUZ, SPE #### [place] [address] .GFR Collected: 12/14/2017 Status: F Source: [facility] 12:58 [facility] REPOSITORY TYPE CODE TESTS RESULT OUT OF REFERENCE UNITS RANGE LAB GFRAA(LOINC ml/min/1.73 ) sqm GFR 61 [place] Result Comment: GFR Population mean for , [...] ADIFF, ANEU, URIC, FES, RFP, GFR #### [address] [address] #### VIDH, SPE #### [address] [address] VIDH Collected: 12/14/2017 Status: F Source: [facility] 12:58 PM [facility] REPOSITORY TYPE CODE TESTS RESULT OUT OF RANGE REFERENCE UNITS LAB VIDH(LOINC) ng/mL Vit. D 26 25-Hydroxy Result Comment: Interpretive Values Based on Total 25(OH)D: Severe Deficiency <20 ng/mL Mild to Moderate Deficiency 20-30 ng/mL Optimum Levels 30-100 ng/mL Toxicity Possible >100 ng/mL Performed By: #### CBC, ADIFF, ANEU, URIC, FES, RFP, GFR #### [place] [address] [place], [place] [address] #### VIDH, SPE #### [address] [address] SPE Collected: 12/14/2017 Status: F Source: [facility] 12:58 PM [facility] REPOSITORY TYPE CODE TESTS RESULT OUT [...] ADIFF, ANEU, URIC, FES, RFP, GFR #### [address] [address] #### LUZ, SPE #### [address] [address] LIPID Collected: 12/14/2017 Status: F Source: [facility] 8:03 AM [facility] REPOSITORY TYPE CODE TESTS RESULT OUT [...] By: #### LIPID, CMP, GFR, A1C #### [place] [address] [place], [place] [address] CMP Collected: 12/14/2017 Status: F Source: [facility] 8:03 AM [facility] REPOSITORY TYPE CODE TESTS RESULT OUT [...] By: #### LIPID, CMP, GFR, A1C #### [address] [place], [place] [address] .GFR Collected: 12/14/2017 Status: F Source: [facility] 8:03 AM [facility] REPOSITORY TYPE CODE TESTS RESULT OUT OF REFERENCE UNITS RANGE LAB GFRAA(LOINC ml/min/1.73 ) sqm GFR 72 [place] Result Comment: GFR Population mean for , [...] By: #### LIPID, CMP, GFR, A1C #### [address] [address] A1C Collected: 12/14/2017 Status: F Source: [facility] 8:03 AM [facility] REPOSITORY TYPE CODE TESTS RESULT OUT OF RANGE REFERENCE UNITS LAB A1C(LOINC) 4.8-5.9 % Hgb A1c 5.3 Performed By: #### LIPID, CMP, GFR, A1C #### [place] [address] [place], [place] [address] EP PROCEDURE - Observed: 11/16/2017 Status: F Source: [facility] EPS/ABLATION/DEVICE 2:38 PM [facility] REPOSITORY EPS for high burden ventricular ectopy and EF 40-45% ischemic CM Prolonged CSNRT 680ms Normal AV and HV No inducible SVT No inducible VT, NSVT, VF with and without isuprel with S5 protocol at 2 RV sites PLAN Continue medical therapy All F/U with Dr. Weathers in [place] No ICD No amiodarone *POC GLUCOSE BATTERY Collected: 11/16/2017 Status: F Source: [facility] 10:36 AM [facility] REPOSITORY TYPE CODE TESTS RESULT OUT OF REFERENCE UNITS RANGE LAB GLUP 70-99 mg/dL High Glucose (poc 107 device) Result Comment: No BRAVE per RN: PATIENT TYPE LAB PCSTYP *POC SAMPLE TYPE Venous CBC,PLATELET,DIFFERENTIAL - CCL Collected: Status: F Source: [facility] 11/16/2017 9:54 AM [facility] REPOSITORY TYPE CODE TESTS RESULT [...] 0.64 Low LAB AMONO 0.30-0.82 K/uL Abs Slope 0.46 LAB AEOS 0.04-0.54 K/uL Abs Eos 0.24 LAB ABASO 0.01-0.08 K/uL Abs Baso 0.05 Performed By: #### YING MONTERO CHM7 #### [place] [address] PT*PTT Collected: 11/16/2017 Status: F Source: [facility] 9:54 AM [facility] REPOSITORY TYPE CODE TESTS RESULT OUT OF RANGE REFERENCE UNITS LAB PT 11.9-14.2 sec High PT 14.8 LAB INR 0.9-1.1 High INR 1.2 LAB PTT 24.0-34.3 sec PTT 28.7 Performed By: #### YING MONTERO CHM7 #### [place] [address] CHEM 7 Collected: 11/16/2017 Status: F Source: [facility] 9:54 AM [facility] REPOSITORY TYPE CODE TESTS RESULT [...] >60 mL/min/1.73 Low sqM Est GFR,non 46 [place] LAB GFRA >60 mL/min/1.73 Low sqM Est GFR, 56 Performed By: #### YING MONTERO, GUYMKt #### [place] [address] LIVER PROFILE Collected: 10/30/2017 Status: F Source: [facility] 5:00 PM [facility] REPOSITORY TYPE CODE TESTS RESULT OUT OF [...] BILI 0.20 Performed By: #### L500.3400 #### [facility] [address] [place], [place], [address] BNP,B-TYPE NATRIURETIC Collected: 10/30/2017 Status: F Source: [facility] [place] 5:00 PM [facility] REPOSITORY TYPE CODE TESTS RESULT OUT OF RANGE REFERENCE UNITS LAB L503.6620 0-100 pg/mL High B-TYPE 279.0 MOSHE PEP Performed By: #### L503.6620 #### [facility] [address] [place], [address] XR KNEE THREE VIEWS Observed: 09/06/2017 Status: F Source: [facility] 3:25 PM [facility] REPOSITORY ORIGINAL XR KNEE [...] W/DIFF, AUTOMATED Collected: 08/15/2017 Status: F Source: [place] 1:15 PM [facility] REPOSITORY TYPE CODE TESTS RESULT OUT OF [...] Lymph 0.75 Performed By: #### L100.0100 #### [facility] [place], [place], [address] COMPREHENSIVE METABOLIC Collected: 08/15/2017 Status: F Source: [facility] 1:14 PM [facility] REPOSITORY Order Comment: Reason for Laboratory Test [...] GAP 9 Performed By: #### L500.4050 #### [facility] [place], [address] CARDIOLOGY VISIT Observed: 08/06/2017 Status: F Source: [facility] REPORT 10:15 AM [facility] [address] [place] [address] OFFICE VISIT Date of Service: 08/03/17 MR#: [id number] Acct: [id number] Name: ASAF HERRERA Rep #: [id number] : 1950 Provider: Tawana Joe Age/Sex: 67/M Location: [facility] Status: Signed HPI 1 M FU: Details: [...] ventricular tachycardia. Patient was referred to Dr. Higuera for further evaluation of his nonsustained ventricular [...] Next appoint is September [address] Higuera. Post hospital 30 day event monitor showed sinus rhythm/tachycardia, PAF, wide-complex tachycardia (aberrancy versus NSVT), and underlying IVCD. Patient was referred to Dr. Higuera for further evaluation of wide complex tachycardia. 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 NSVT (nonsustained ventricular tachycardia) I47.2 Nel - KIRA Garcia Per Dr. Higuera's office note, pt will take amiodarone 100mg daily and have follow-up holter monitor. Patient denies any palpitations or syncopal episodes. We will continue to monitor this. Patient will have follow-up appointment with Dr. Higuera for further evaluation at the end of August. We will see him back in the office at the beginning of September and if doing well and no concerns from Dr. Higuera he will proceed with cardiac rehab. Of note patient appears to have significant pulmonary hypertension in which he follows up with Dr. Leiva. This may be important to consider given his potential long-term usage of amiodarone. 2. Ischemic cardiomyopathy I25.5 KIRA James Patient's left ventriculogram ejection fraction from May 2017 showed an estimated ejection fraction 40-45%. Pt's activity level has been stable. He denies any shortness of breath or lower extremity pedal edema. We will continue current medications which include beta-rodger and MAURY inhibitor. 3. CAD S/P percutaneous coronary angioplasty I25.10; Z98.61 KIRA James Patient is status post regular extent to proximal RCA. His rhythm will be further evaluated prior to going to cardiac rehab. Hopefully, by the end of August after seeing Dr. Higuera he will be able to proceed with [...] Garcia Discussed the above patient with Dr. Weathers, he agrees with the plan of care. [...] prior to saving. Follow Up 2 Months ([employer]/[place]) Coding Level of Care Code Off vis,est,level 3 Diagnoses NSVT (nonsustained ventricular tachycardia) I47.2 Ischemic cardiomyopathy I25.5 CAD S/P percutaneous coronary angioplasty I25.10; Z98.61 Elevated serum creatinine R79.89 Coding Level of Care Code Off vis,est,level 3 Diagnoses NSVT (nonsustained ventricular tachycardia) I47.2 Ischemic cardiomyopathy I25.5 CAD S/P percutaneous coronary angioplasty I25.10; Z98.61 Elevated serum creatinine R79.89 08/03/17 1435 <Electronically signed by Darryn MALONE> Date Darryn MALONE 08/06/17 1015<Electronically signed by Micheal Weathers MD> Cosigner Signature: Date (if applicable) Micheal Weathers MD CC: Rhoda Chung MD LIVER PROFILE Collected: 08/03/2017 Status: F Source: [facility] 2:03 PM [facility] REPOSITORY TYPE CODE TESTS RESULT OUT OF [...] BILI 0.23 Performed By: #### L500.3400 #### [facility] [address] [place], [address] BNP,B-TYPE NATRIURETIC Collected: 08/03/2017 Status: F Source: [facility] [place] 2:03 PM [facility] REPOSITORY TYPE CODE TESTS RESULT OUT OF RANGE REFERENCE UNITS LAB L503.6620 0-100 pg/mL High B-TYPE 211.9 MOSHE PEP Performed By: #### L503.6620 #### [facility] [address] [place], [address] ALLERGIES ALLERGIES DATE TYPE / CODE NAME / CODE REACTION SEVERITY SOURCE 07/22/2018 Drug magnesium/F00 Diarrhea SV [facility] Allergy/4160 [id number]([facility] 77008(SNOMED M) Repository CT) 06/26/2018 Drug No Known Unknown [facility] Allergy/4160 Allergies/F00 [facility] 74125(SNOMED 4394483(RXNOR Repository CT) M) ENCOUNTERS ENCOUNTERS ADMIT/DISCHARGE ACCOUNT NUMBER ADMITTING ENCOUNTER LOCATION SOURCE CLASS 07/29/2018 [id number] Ambulatory [facility] ding:SDC Repository 07/23/2018 [id number] Ambulatory [facility] ding:CVS Repository 07/18/2018 [id number] Ambulatory Building:BS2 [facility] Repository 2018 [id number] Ambulatory [facility] ding:MRI Repository 07/05/2018 [id number] Ambulatory BMSBuilding: [place] BMS.CF.[facility] Repository 07/05/2018 [id number] Ambulatory [facility] ding:CVS Repository 06/27/2018 [id number] Ambulatory BMSBuilding: [place] BMS.CF.[facility] Repository 06/27/2018 [id number] Ambulatory [facility] ding:OMD Repository 06/24/2018 [id number] Ambulatory Building:[facility] Repository 06/24/2018 [id number] Ambulatory [facility] ding:CVS Repository 06/24/2018/06/24/20 [id number] Ambulatory BMSBuilding: Arelis 18 BMS.[facility] Repository 06/17/2018 [id number] Ambulatory BMSBuilding: [place] BMS.CF.[facility] Repository 06/17/2018/06/17/20 [id number] Ambulatory BMSBuilding: Arelis 18 BMS.[facility] Repository 06/11/2018 [id number] Ambulatory Building:[facility] Repository 06/11/2018 [id number] Ambulatory Building:[facility] Repository 06/11/2018 [id number] Ambulatory Building:[facility] Repository 06/11/2018 [id number] Ambulatory [facility] ding:CT Repository 06/07/2018 [id number] Ambulatory [facility] ding:LAB.FUT Repository URE 06/04/2018 [id number] Ambulatory BMSBuilding: [place] BMS.CF.[facility] Repository 04/04/2018/04/04/20 [id number] Ambulatory [address] ding:OLAB [facility] Repository 02/27/2018 [id number] Ambulatory BMSBuilding: [place] BMS.CF.[facility] Repository 12/31/2017 [id number] Ambulatory [facility] ding:LAB Repository 12/31/2017/01/01/20 [id number] Ambulatory BMSBuilding: [place] 18 BMS.[facility] Repository 12/14/2017/12/15/19 [id number] Ambulatory [address] ding:OLAB [facility] Repository 12/14/2017/12/15/19 [id number] Ambulatory [address] ding:[facility] Repository 12/14/2017/12/15/19 [id number] Ambulatory [address] ding:OLAB [facility] Repository 11/30/2017 [id number] Ambulatory [facility] ding:LAB Repository 11/27/2017 [id number] Ambulatory [facility] Repository 11/27/2017 [id number] Ambulatory [facility] Repository 11/16/2017/11/17/19 [id number] FEDERICO, EDIS Ambulatory Building:[address] RSSRoom: [facility] Repository 11/13/2017/11/14/19 [id number] FEDERICO, EDIS Ambulatory Building:[facility] 18 RSSRoom: [facility] Repository 11/12/2017 [id number] Ambulatory BMSBuilding: [place] BMS.[facility] Repository 10/30/2017/10/31/19 [id number] Ambulatory [address] ding:LAB Repository 10/16/2017 [id number] Ambulatory [facility] Repository 10/16/2017 [id number] Ambulatory [facility] Repository 09/06/2017/09/07/19 [id number] Emergency BBuilding:ER [address] Repository 08/28/2017 [id number] Ambulatory [facility] ding:PSN Repository 08/28/2017 [id number] Ambulatory BMSBuilding: [place] [facility] Repository 08/15/2017 [id number] Ambulatory BMSBuilding: [place] BMS.O [facility] Repository 08/03/2017/08/03/19 [id number] Ambulatory Arelis Arelis 18 [facility] ding:LAB Repository 08/03/2017/08/03/19 [id number] Ambulatory BMSBuilding: Arelis 18 BMS.[facility] Repository PAYERS PAYERS ENCOUNTER GUARANTOR PAYER SUBSCRIBER SOURCE 07/29/2018 ASAF D Primary ASAF D [place] [id number] S Insurance:MEDICARE AUSTINDOB: [facility] PART A [facility] [id number] Number: Repository [address]Wls: 330 [id number] [phone] () Date:2018-07-11 07/29/2018 Secondary ASAF D Arelis Insurance:AARPPolicy AUSTINDOB: Community Number: [id number] Hospital [id number] Repository Date:3219-33-15[address], [place] [address]DY: 07/29/2018 Tertiary NOT GIVENUNK Arelis Insurance:SELF PAY [facility] Number: Effective Repository Date:2018-07-11 07/23/2018 ASAF D Primary ASAF D [place] [id number] S Insurance:MEDICARE AUSTINDOB: [facility] PART A [facility] [id number] [place] Number: Repository [address]Amh: 330 [id number] [phone] () Date:2018-07-22 07/23/2018 Secondary ASAF D [place] Insurance:AARPPolicy AUSTINDOB: Community Number: [id number] [facility] [id number] Repository Date:5104-53-01[address]F[place]fg[place], [place] [address]HM: 07/23/2018 Tertiary NOT GIVENUNK Arelis Insurance:SELF PAY [facility] Number: Effective Repository Date:2018-07-22 07/18/2018 ASAF D Primary ASAF D [facility] AUSTINDOB: Insurance:MEDICARE A AUSTINDOB: Lorena S AND [facility] Number: [id number] [facility] [id number] [place], [place] Date:Plan Name:CARE [place] Repository [address]Ugn: [phone]: () [phone] () 07/18/2018 Secondary ASAF D [facility] Insurance:AARPPolicy AUSTINDOB: University Number: [id number] [facility] [id number] [facility] Date:Plan [place] Repository Name:MANAGED CARE 51007Scp: () 2018 ASAF D Primary ASAF D Arelis [id number] S Insurance:MEDICARE AUSTINDOB: [facility] PART A [facility] [id number] [place], [place] Number: Repository [address]Dsg: 330 [id number] [phone] () Date:2018-06-27 2018 Secondary ASAF D Arelis Insurance:AARPPolicy AUSTINDOB: [facility] Number: [id number] Hospital [id number] Repository Date:9619-39-47[address], [place] [address]UT: 2018 Tertiary NOT GIVENUNK [place] Insurance:SELF PAY [facility] Number: Effective Repository Date:2018-06-27 07/05/2018 ASAF D Primary ASAF D [place] [id number] S Insurance:MEDICARE AUSTINDOB: [facility] PART A [facility] [id number] [place], [place] Number: Repository [address]Hpz: [phone] [id number] [phone] () Date:2018-06-24 07/05/2018 Secondary ASAF D [place] Insurance:AARPPolicy AUSTINDOB: Community Number: [id number] Hospital [id number] Repository Date:7126-05-02Tq [place] [address]07[place], [place] [address]HT: 07/05/2018 Tertiary NOT GIVENUNK [place] Insurance:SELF PAY [facility] Number: Effective Repository Date:2018-07-05 07/05/2018 ASAF D Primary ASAF D [place] [id number] S Insurance:MEDICARE AUSTINDOB: Community [facility] PART A [facility] [id number] Number: Repository [address]Dqm: [phone]) [id number] [phone] () Date:2018-06-24 07/05/2018 Secondary ASAF D Arelis Insurance:AARPPolicy AUSTINDOB: Community Number: [id number] Hospital [id number] Repository Date:6446-54-30Ih [address] 651049Qtx[place]ys, [place] [address]OM: 07/05/2018 Tertiary NOT GIVENUNK [place] Insurance:SELF PAY [facility] Number: Effective Repository Date:2018-06-24 06/27/2018 ASAF D Primary ASAF D [place] [id number] S Insurance:MEDICARE AUSTINDOB: [facility] PART A [facility] [id number] [place] Number: Repository [address]Ntm: [phone]) [id number] [phone] () Date:2013-07-02 06/27/2018 Secondary ASAF D Arelis Insurance:AARPPolicy AUSTINDOB: Community Number: [id number] Hospital [id number] Repository Date:5371-89-14Cv [address], [place] [address]RM: 06/27/2018 Tertiary NOT GIVENUNK [place] Insurance:SELF PAY [facility] Number: Effective Repository Date:2018-06-27 06/27/2018 ASAF D Primary ASAF D [place] [id number] S Insurance:MEDICARE AUSTINDOB: [facility] PART A [facility] [id number] [place] Number: Repository [address]Ffa: [phone] [id number] [phone] () Date:2013-07-02 06/27/2018 Secondary ASAF D Arelis Insurance:AARPPolicy AUSTINDOB: Community Number: [id number] Hospital [id number] Repository Date:1154-34-43Jc [address] 095200[place], [place] [address]MQ: 06/27/2018 Tertiary NOT GIVENUNK [place] Insurance:SELF PAY [facility] Number: Effective Repository Date:2016-09-20 06/24/2018 ASAF D Primary ASAF D [facility] AUSTINDOB: Insurance:MEDICARE A AUSTINDOB: [place] S AND [facility] Number: [id number] [facility] [id number] [place], [place] Date:Plan Name:CARE [place] Repository [address]Hly: [phone]: () [phone] () 06/24/2018 Secondary ASAF D [facility] Insurance:AARPPolicy AUSTINDOB: [place] Number: [id number] [facility] [id number] [facility] Date:Plan [place] Repository Name:[facility] CARE [address]10Dqt: () 06/24/2018 Primary NOT GIVENUNK [place] Insurance:SELF PAY [facility] Number: Effective Repository Date:2018-06-24 06/24/2018 ASAF D Primary ASAF D Arelis [id number] S Insurance:MEDICARE AUSTINDOB: [facility] PART A [facility] [id number] Number: Repository [address]Zkg: [phone]) [id number] [phone] () Date:2017-12-31 06/24/2018 Secondary ASAF D Arelis Insurance:AARPPolicy AUSTINDOB: [facility] Number: [id number] Hospital [id number] Repository Date:7092-10-01Bq [address]96[place], [place] [address]DA: 06/24/2018 Tertiary NOT GIVENUNK [place] Insurance:SELF PAY [facility] Number: Effective Repository Date:2018-06-24 06/17/2018 ASAF D Primary ASAF D Arelis [id number] S Insurance:MEDICARE AUSTINDOB: [facility] PART A [facility] [id number] [place] Number: Repository [address]Khw: [phone]) [id number] [phone] () Date:2013-07-02 06/17/2018 Secondary ASAF D [place] Insurance:AARPPolicy AUSTINDOB: Community Number: [id number] Hospital [id number] Repository Date:9289-07-11Jq [address]yig[place], [place] [address]XW: 06/17/2018 Tertiary NOT GIVENUNK Arelis Insurance:SELF PAY [facility] Number: Effective Repository Date:2018-06-17 06/17/2018 ASAF D Primary ASAF D [place] [id number] S Insurance:MEDICARE AUSTINDOB: [facility] PART A [facility] [id number] [place] Number: Repository [address]Oga: [phone] [id number] [phone] () Date:2018-06-04 06/17/2018 Secondary ASAF D [place] Insurance:AARPPolicy AUSTINDOB: Community Number: [id number] Hospital [id number] Repository Date:3669-29-33[address]Lixibfj, [place] [address]JC: 06/17/2018 Tertiary NOT GIVENUNK [place] Insurance:SELF PAY [facility] Number: Effective Repository Date:2018-06-04 06/11/2018 ASAF D Primary ASAF D [facility] AUSTINDOB: Insurance:MEDICARE A AUSTINDOB: Lorena S AND BPolic Number: [id number] [facility] [id number] S [place], [place] Date:Plan Name:[place] Repository [address]Qob: [phone]: () [phone] () 06/11/2018 Secondary ASAF D [facility] Insurance:AARPPolicy AUSTINDOB: University Number: [id number] [facility] [id number] Date:Plan [place] Repository Name:MANAGED CARE [address]Xmc: () 06/11/2018 ASAF D Primary ASAF D [facility] AUSTINDOB: Insurance:MEDICARE A AUSTINDOB: [place]orena S AND BPolicy Number: [id number] [facility] [id number], [place] Date:Plan Name:[place] Repository [address]Lyd: [phone]: (HP) [phone] (HP) 06/11/2018 Secondary ASAF D [facility] Insurance:AARPPolicy AUSTINDOB: University Number: [id number] [facility] [id number] [facility] Date:Plan [place] Repository Name:MANAGED CARE 14531Zon: () 06/11/2018 ASAF D Primary ASAF D [facility] AUSTINDOB: Insurance:MEDICARE A AUSTINDOB: [place] S AND BPolicy Number: [id number] [facility] [id number], [place] Date:Plan Name:[place] Repository [address]Nlg: [phone]: (WW) [phone] () 06/11/2018 Secondary ASAF D [facility] Insurance:AARPPolicy AUSTINDOB: University Number: [id number] [facility] [id number] Regional Health Center Date:Plan [place] Repository Name:MANAGED CARE [address]Rcc: () 06/11/2018 ASAF D Primary ASAF D [facility]129 S Insurance:MEDICARE AUSTINDOB: [facility] PART A BPolic [id number] [place], [place] Number: Repository [address]Cgg: [phone]) [id number] [phone] () Date:2018-06-04 06/11/2018 Secondary ASAF D [place] Insurance:AARPPolicy AUSTINDOB: Community Number: [id number] Hospital [id number] Repository Date:5548-55-67Ei [address]Zlrijqg, [place] [address]WU: 06/11/2018 Tertiary NOT GIVENUNK Arelis Insurance:SELF PAY [facility] Number: Effective Repository Date:2018-06-04 06/07/2018 ASAF D Primary ASAF D Arelis [id number] S Insurance:MEDICARE AUSTINDOB: [facility] PART A [facility] [id number] [place] Number: Repository [address]Jjg: (690) [id number] [phone] () Date:2018-06-07 06/07/2018 Secondary ASAF D Arelis Insurance:AARPPolicy AUSTINDOB: Community Number: [id number] Hospital [id number] Repository Date:8403-47-35Yr [address] 851819Nstdflv, [place] [address]YZ: 06/07/2018 Tertiary NOT GIVENUNK [place] Insurance:SELF PAY [facility] Number: Effective Repository Date:2018-06-07 06/04/2018 ASAF D Primary ASAF Easley Arelis [id number] S Insurance:MEDICARE AUSTINDOB: [facility] PART A [facility] [id number] [place] Number: Repository [address]Tch: 330 [id number] [phone] () Date:2013-07-02 06/04/2018 Secondary ASAF D [place] Insurance:AARPPolicy AUSTINDOB: Community Number: [id number] Hospital [id number] Repository Date:9289-88-61Tz [address]Ojj[place], [place] [address]DN: 06/04/2018 Tertiary NOT GIVENUNK [place] Insurance:SELF PAY [facility] Number: Effective Repository Date:2018-06-04 04/04/2018 ASAF D Primary ASAF Easley [facility] AUSTINDOB: Insurance:MEDICARE AUSTINDOB: [facility] S PART BPolicy Number: [id number] Repository [facility] [id number] S [facility] [place], [place] Date:2018-04-04 [place] [address]~BRENDEN 1999-03-22Umrh 61617Ykq: [phone] [email or web address] Name:[facility] [phone] : Administrators LLCPO ()Tel: (000) (HP) [address]Nviqnaqjd, 000-0000 (WP) [place] [address]SZ: 04/04/2018 Secondary ASAF Kaushal [facility] Insurance:AARST. MARY'S MEDICAL CENTERDOB: [facility] [id number] Repository ONLYPolicy Number: Julisa FELDER [id number] [place] Date:2018-04-04 16001Dce: [phone] 6136-47-59Tvsn [phone] Name:[employer] SALESPERSON Box ()Tel: 000) 720950Lmexgff [place] 000-0000 () [address]RL: 02/27/2018 ASAF D Primary ASAF D [place] [id number] S Insurance:MEDICARE AUSTINDOB: [facility] A [facility] [id number] [place] Number: Repository [address]Kny: 330 [id number] [phone] () Date:2013-07-02 02/27/2018 Secondary ASAF D [place] Insurance:AARPPolic AUSTINDOB: Community Number: [id number] Hospital [id number] Repository Date:4888-28-77If [address]Hbkmdyb, [place] [address]LW: 02/27/2018 Tertiary NOT GIVENUNK Arelis Insurance:SELF PAY [facility] Number: Effective Repository Date:2018-02-27 12/31/2017 ASAF D Primary ASAF D [place] [id number] S Insurance:MEDICARE AUSTINDOB: [facility] PART A [facility] [id number] [place] Number: Repository [address]Xrj: [phone]) [id number] [phone] () Date:2017-12-31 12/31/2017 Secondary ASAF D [place] Insurance:AARPPolicy AUSTINDOB: Community Number: [id number] Hospital [id number] Repository Date:6562-52-32Gh [address]Nbuqlgl, [place] [address]WV: 12/31/2017 Tertiary NOT GIVENUNK Arelis Insurance:SELF PAY [facility] Number: Effective Repository Date:2017-12-31 12/31/2017 ASAF D Primary ASAF D [place] [id number] S Insurance:MEDICARE AUSTINDOB: [facility] PART A [facility] [id number] [place] Number: Repository [address]Blx: 330 [id number] [phone] () Date:2017-10-22 12/31/2017 Secondary ASAF D Arelis Insurance:AARolicy AUSTINDOB: Community Number: [id number] Hospital [id number] Repository Date:7295-46-68Un [address]Nrivlrx, [place] [address]ZI: 12/31/2017 Tertiary NOT GIVENUNK [place] Insurance:SELF PAY [facility] Number: Effective Repository Date:2017-12-31 12/14/2017 ASAF D Primary [facility] D [facility] Insurance:MEDICARE AUSTINDOB: [facility] S PART [facility] Number: [id number] Repository [facility] [id number] S [place], [place] Date:2017-12-14 [place] [address]~AUSTINCOLO 7702-43-00Spbw 299[address]Ect: (331) [email or web address] Name:[facility] [phone] : [facility] ()Tel: (232) (HP) [address]Xkmhnnjbu, 000-0000 () [place] [address]JN: 12/14/2017 Secondary ASAF D [facility] Insurance:AARP UNITED AUSTINDOB: [facility] [id number] Repository ONLYPolicy Number: Julisa FELDER [id number] RDORRKERLINE, [place] Date:2017-12-14Tel: ([phone]) [id number] [phone] Name:[employer] SALESPERSON Box (HP)Tel: (097) [phone], 000-0000 (WP) [address]CL: 12/14/2017 [facility] Hospital[facility]: Insurance:MEDICARE AUSTINDOB: [facility] S PART BPolicy Number: [id number] Repository EMERITA [id number] S [place], [place] Date:2017-12-11 [place] [address]~[facility] 8391-39-53Axmp 46[address]Nho: (040) [email or web address] Name:[facility] [address] : Administrators LLCPO ()Tel: (000) (HP) [address] [address]Hgubsldrc, 000-0000 (WP) [place] [address]PT: 12/14/2017 [facility] Insurance:[facility] AUSTINDOB: [facility] [id number] Repository ONLYPolicy Number: Julisa FELDER [id number] RDORRK[place], [place] Date:2017-12-11Tel: (139) 7526-03-72Hccr [phone] Name:[employer] SALESPERSON Box (HP)Tel: 000) [phone], 000-0000 (WP) [address]JH: 12/14/2017 [facility] Insurance:MEDICARE AUSTINDOB: [facility] S PART BPolicy Number: [id number] Repository ANGEL LUISLL [id number] S [place], [place] Date:2017-12-14 [place] [address]~[facility] 9651-70-30Gqsu 10146Hvl: (954) [email or web address] ROADel Name:[facility] [phone] : [facility] LLCPO ()Tel: (000) (HP) [address]Vhejzoyso, 000-0000 (WP) [place] [address]DT: 12/14/2017 Secondary ASAF Kaushal [facility] Insurance:AARP [place] AUSTINDOB: [facility] [id number] Repository ONLYPolicy Number: Julisa FELDER [id number] [place] Date:2017-12-14 [address]Lwq: (999) 6070-35-22Qqbz [phone] Name:[employer] SALESPERSON Box (HP)Tel: 000) 720310Lwvwcnr, [place] 000-0000 () [address]NB: 11/30/2017 ASAF D Primary ASAF D Arelis [id number] S Insurance:MEDICARE AUSTINDOB: [facility] [id number] [place], [place] Number: Repository [address]Vms: 330 [id number] [phone] () Date:2017-08-03 11/30/2017 Secondary ASAF D [place] Insurance:AARolicSanta Ana Health CenterDOB: [facility] Number: [id number] Hospital [id number] Repository Date:0832-49-50[address], [place] [address]MN: 11/30/2017 Tertiary NOT GIVENUNK Arelis Insurance:SELF PAY [facility] Number: Effective Repository Date:2017-11-29 11/27/2017 ASAF D Primary ASAF D [place] [id number] S Insurance:MEDICARE AUSTINDOB: [facility] [id number] [place], [place] Number: Repository [address]Yuq: (940) [id number] [phone] (HP) Date:2017-11-27 11/27/2017 Secondary ASAF D Arelis Insurance:AARPPolicSanta Ana Health CenterDO: [facility] Number: [id number] [place] [address] [id number] Repository Date:4447-34-68Av [address]Vpoxgiz, [place] [address]GK: 11/27/2017 Tertiary NOT GIVENUNK [place] Insurance:SELF PAY [facility] Number: Effective Repository Date:2017-11-27 11/27/2017 Primary NOT GIVENUNK [place] Insurance:SELF PAY [facility] Number: Effective Repository Date:2017-11-27 11/16/2017 ASAF D Primary ASAF D [facility] AUSTINDOB: Insurance:MEDICARE A AUSTINDOB: [place] S AND BPolicy Number: [id number] [facility] [id number] Park, [place] Date:Plan Name:[place] Repository [address]Bhq: [phone]: () [phone] () 11/16/2017 Secondary ASAF D [facility] Insurance:AARPPolicy AUSTINDOB: University Number: [id number] [facility] [id number] [facility] Date:Plan [place] Repository Name:MANAGED CARE [id number]: () 11/13/2017 ASAF D Primary ASAF D [facility] AUSTINDOB: Insurance:MEDICARE A AUSTINDOB: [place]orena S AND BPolicy Number: [id number] [facility] [id number], [place] Date:Plan Name:[place] Repository [address]Pwo: [phone]: () [phone] () 11/13/2017 Secondary ASAF D [facility] Insurance:AARPPolicy AUSTINDOB: University Number: [id number] [facility] [id number] Regional Health Center Date:Plan [place] Repository Name:MANAGED CARE [address]35[address]Ovp: () 11/12/2017 ASAF D Primary ASAF D [place] [id number] S Insurance:MEDICARE AUSTINDOB: [facility] PART A olic [id number] Number: Repository [id number]: [id number] [phone] () Date:2017-06-12 11/12/2017 Secondary ASAF D [place] Insurance:AARPPolicy AUSTINDOB: Community Number: [id number] [id number] Repository Date:[id number], [place] [id number]: 11/12/2017 Tertiary NOT GIVENUNK [place] Insurance:SELF PAY [facility] Number: Effective Repository Date:2017-06-13 10/30/2017 ASAF D Primary ASAF D [place] [id number] S Insurance:MEDICARE AUSTINDOB: [facility] PART A [facility] [id number], [place] Number: Repository [id number]: 330 [id number] [phone] () Date:2017-08-03 10/30/2017 Secondary ASAF D Barney Insurance:AARPPolicy AUSTINDOB: Community Number: [id number] [id number] Repository Date:7051-36-32[address], [place] [address]SH: 10/30/2017 Tertiary NOT GIVENUNK Arelis Insurance:SELF PAY [facility] Number: Effective Repository Date:2017-10-01 10/16/2017 ASAF D Primary ASAF D Arelis [id number] S Insurance:MEDICARE AUSTINDOB: [facility] PART A [facility] [id number] [place], [place] Number: Repository [id number]: 330 [id number] [phone] () Date:2017-10-16 10/16/2017 Secondary ASAF D Barney Insurance:AARPPolicy AUSTINDOB: Community Number: [id number] Hospital [id number] Repository Date:9482-14-59[address], [place] [address]HR: 10/16/2017 Tertiary NOT GIVENUNK Arelis Insurance:SELF PAY [facility] Number: Effective Repository Date:2017-10-16 10/16/2017 Primary NOT GIVENUNK Barney Insurance:SELF PAY [facility] Number: Effective Repository Date:2017-10-16 09/06/2017 ASAF D Primary Insurance: ASAF Easley [facility] Number: [id number] Repository [facility] [id number] [place], [place] Date:2017-01-13 [place] [address]~JAVIERCOLO 1217-23-80Kyed 86[address]Jwh: [phone] [email or web address] Name:[phone] : [address], [place] ()Tel: [phone]: () [phone] 08/28/2017 ASAF Kaushal Primary ASAF Kaushal Arelis [id number] S Insurance:MEDICARE AUSTINDOB: [facility] A [facility] [id number] [place] Number: Repository [address]Jns: [phone] [id number] [phone] () Date:2017-08-27 08/28/2017 Secondary ASAF D Barney Insurance:AARPPolicy AUSTINDOB: [facility] Number: [id number] Hospital [id number] Repository Date:0709-11-26[address], [place] [address]XC: 08/28/2017 Tertiary NOT GIVENUNK Arelis Insurance:SELF PAY [facility] Number: Effective Repository Date:2017-08-27 08/28/2017 ASAF D Primary ASAF D Arelis [id number] S Insurance:MEDICARE AUSTINDOB: [facility] PART A [facility] [id number] Number: Repository [id number]: [phone] [id number] [phone] () Date:2017-08-27 08/28/2017 Secondary ASAF D Barney Insurance:AARPPolicy AUSTINDOB: Community Number: [id number] Hospital [id number] Repository Date:5457-50-59[address], [place] [address]WP: 08/28/2017 Tertiary NOT GIVENUNK Arelis Insurance:SELF PAY [facility]: Effective Repository Date:2017-08-28 08/15/2017 ASAF D Primary ASAF Kaushal Arelis [id number] S Insurance:MEDICARE AUSTINDOB: [facility] PART A [facility] [id number] [place] Number: Repository [id number]: [phone] [id number] [phone] () Date:2013-07-02 08/15/2017 Secondary ASAF D Arelis Insurance:AARPPolicy AUSTINDOB: Community Number: [id number] [facility] [id number] Repository Date:8858-86-17[address], [place] [address]BH: 08/15/2017 Tertiary NOT GIVENUNK Barney Insurance:SELF PAY [facility] Number: Effective Repository Date:2017-08-15 08/03/2017 ASAF D Primary ASAF Easley Arelis [id number] S Insurance:MEDICARE AUSTINDOB: [facility] PART A [facility] [id number] [place] Number: Repository [id number]: 330 [id number] [phone] () Date:2017-08-03 08/03/2017 Secondary ASAF D Barney Insurance:AARPPolicy AUSTINDOB: Community Number: [id number] Hospital [id number] Repository Date:1446-00-10[address], [place] [address]XA: 08/03/2017 Tertiary NOT GIVENUNK Barney Insurance:SELF PAY [facility] Number: Effective Repository Date:2017-08-03 08/03/2017 ASAF D Primary ASAF D Arelis [id number] S Insurance:MEDICARE AUSTINDOB: [facility] PART A [facility] [id number] [place] Number: Repository [id number]: [phone] [id number] [phone] () Date:2017-06-13 08/03/2017 Secondary ASAF Infante Insurance:José ROSAB: [facility] Number: [id number] Hospital [id number] Repository Date:7856-24-12[address], [place] [address]EY: 08/03/2017 Tertiary NOT BRIAN Infante Insurance:SELF PAY [facility] Number: Effective Repository Date:2017-06-13
== END ==
PROVIDERS: Family Provider Family Medicine; PCP Family Medicine; Referring Provider Internal Medicine Cardiovascular Disease; Visit Provider Internal Medicine Cardiovascular Disease
DX: I25.811 Atherosclerosis of native coronary artery of transplanted heart without angina pectoris (principal); I45.10 Unspecified right bundle-branch block
CPT/HCPCS: 78452; 93005; 93017; A9500; A4216; J2785

== ENCOUNTER 2018-07-29 10:32 | Day surgery (SDC) | payer MEDICARE, OTHER, SELFPAY ==
[2018-06-27 11:17] VITALS: BMI 30.9
[2018-07-23 09:36] LABS: Hematocrit 47.5 % (40-54); Hemoglobin 15.5 g/dl (13.0-16.5); Mean Corp Hgb Conc 32.6 g/gl (32-36); Mean Corpuscular Volume 88.8 fL (80-94); Mean Platelet Vol. 9.5 fl (6.2-12.0); Platelet Count 133 K/mm3 (150-450); RBC Distribution Width CV 14.5 % (11.6-14.6); RBC Distribution Width SD 46.5 fl (35.1-43.9); Red Blood Count 5.35 M/mm3 (4.6-6.2); White Blood Count 5.8 K/mm3 (4.4-11.0)
[2018-07-23 09:37] LABS: Scan Indicated on CBC? Y/N NO
[2018-07-23 09:59] LABS: Anion Gap 8 (5-15); BUN 31 mg/dL (7-18); Calcium,Total 9.4 mg/dL (8.5-10.1); Chloride 108 mmol/L (98-107); Creatinine, Serum 1.41 mg/dL (0.70-1.30); EST Glomerular Filtration Rate 53 mL/min (>60); Est Glom Filt Rate - Afr Amer 64 mL/min (>60); Glucose 135 mg/dL (74-106); Potassium 4.3 mmol/L (3.5-5.1); Sodium Level 142 mmol/L (136-145)
[2018-07-23 10:04] LABS: Hemoglobin A1c 5.8 % (4.2-6.3)
[2018-07-29] VITALS (8 sets, daily range): BP systolic 85–118; BP diastolic 40–68; PULSE 47–55; RESP 16–18; TEMP 36.5–36.9; O2SAT 84–96; BMI 29.5
[2018-07-29 12:01] LABS: Bedside Glucose 85 mg/dL (70-110)
[2018-07-29] MEDS: Cefazolin 2 GM in 0.9% Normal Saline 100 ML IV (13:01)
[2018-07-29] MEDS: Bupivacaine Mpf 0.5% 30 ML VIAL (14:14)
--- NOTE | 2018-07-29 14:35 | PCM.OPRPT ---
Problem List (1) Right inguinal hernia Status: Acute Report of Operation Date of Procedure: 07/29/18 Pre-Operative Diagnosis: Incarcerated right inguinal hernia Post-Operative Diagnosis: Same Surgery/Procedure Performed:: Incarcerated right inguinal hernia repair with mesh Specimen's removed: None Description of Procedure: The patient was brought back to the operating room and MAC anesthesia was induced. The patient's abdomen was prepped and draped in the usual sterile fashion. The hernia was reduced as much as possible. It was incarcerated. The skin incision was marked and then anesthetized with a mixture of Marcaine and lidocaine. Next an incision was made and deepened to the external aponeurosis. The aponeurosis was then injected with lidocaine and then a small shaka was made with a scalpel. Hemostats were used to elevate the external aponeurosis and scissors were used to carry this to the external opening of the inguinal canal. This was also brought proximally. Next the external aponeurosis was retracted laterally in both sides. The spermatic cord was encircled and then elevated with a [place] drain. The spermatic cord was inspected and it did contain the vas but it did not contain a hernia sac. The floor of the inguinal canal was inspected and the patient had a very large hernia sac coming in the direct space through a very small neck. With pressure this was able to be reduced. The neck of the hernia was then closed with interrupted 3-0 Vicryl sutures imbricating the hernia sac into the abdomen. Next a keyhole mesh was tacked to the pubic tubercle with an 0 PDS suture. Interrupted 0 PDS sutures were used to tack the mesh laterally to the shelving portion of the inguinal ligament per next the medial portion of the mesh was tacked to the conjoined tendon using interrupted 0 PDS sutures making sure to get anterior medial to the opening of the hernia defect for good coverage of the hernia defect. Next the tails were brought together around the spermatic cord and sutured together ensuring that I was able to fit my pinky finger between the mesh and the spermatic cord. The tails were tucked under the external aponeurosis. The inguinal canal was inspected once more and irrigated and suctioned dry. The external aponeurosis was closed laterally using a running 3-0 Vicryl suture reapproximating the roof of the inguinal canal. Next the Obie's fascia was closed with interrupted 3-0 Vicryl sutures and the skin was anesthetized once more and closed with running 4-0 Monocryl suture. Glue was then applied. Testicles were checked at the end the case and both present in the scrotum. The patient tolerated the procedure well was brought to PACU in stable condition. Grafts/Implants Used: Bard Keyhole mesh - Admit VTE Documentation VTE Mechan Device Prophylaxis: SCD's
--- NOTE | 2018-07-29 14:48 | PCM.DC.HER ---
Discharge Diet: Light diet - advance as tolerated Discharge Activity: Return to Normal Activity, May Not Drive - for 2-3 days or while taking narcotic pain meds., May Shower - tomorrow Lifting Restrictions: 20 pounds for 6 weeks. Additional Activity Instructions:: Climbing stairs is fine, walking is encouraged. Sitting in bed may be uncomfortable. Sitting up using your lateral muscles (sitting up sideways) is usually more comfortable. Do not drive, work heavy equipment of sign legal documents for 24 hours. If your hernia repair was an ingunial repair, you may have scrotal swelling, an ice pack and/or athletic support can provide more comfort. Pain medications may cause nausea, you should typically eat light foods as you take your pain medications. Pain medications may also cause constipation. If you have difficulty with this, discuss with your doctor. Call your doctor if your incision/area has: Continuous Slow Oozing, Sudden Increased Bleeding, Increased Pain/ Swelling, Increased Redness, Foul Smelling Discharge Call your doctor if you observe: Fever of 101 or Higher Suture Line Care: Avoid Pulling/Pushing, Avoid Pinching/Bending Cleanse incision/area with: Keep Dressing Clean & Dry Additional Instructions: Resume blood thinners Sunday Allergies/Adverse Reactions: Allergies magnesium Adverse Reaction (Severe, Verified 07/22/18 13:02) Diarrhea Medications to take at Discharge Aspirin [Aspirin, Baby] 81 mg PO DAILY@0800 01/22/14 Clopidogrel Bisulfate [Plavix] 75 mg PO DAILY 01/22/14 Pantoprazole Sodium [Protonix] 20 mg PO DAILY 01/22/14 Cholecalciferol (Vitamin D3) [D3-2000] 5,000 unit PO DAILY 02/09/15 Fenofibrate,Micronized [Lofibra] 134 mg PO DAILY 12/03/15 Sertraline HCl [Zoloft] 150 mg PO DAILY 12/03/15 Oxygen, Home [Home Oxygen] 2 - 4 lpm NASAL UD PRN 09/28/16 Rosuvastatin Calcium [Crestor] 40 mg PO DAILY 05/21/17 treprostinil diolamine ER 1 mg tablet,extended release 4 mg PO TID tab 08/03/17 Glipizide [Glucotrol Xl] 5 mg PO QHS 08/15/17 macitentan 10 mg tablet 10 mg PO QDAY 12/31/17 triamcinolone acetonide 0.1 % topical ointment 1 applic TOPICAL .prn g 12/31/17 allopurinol 100 mg tablet 100 mg PO DAILY 06/17/18 lisinopril 20 mg tablet 10 mg PO DAILY tab 06/17/18 Carvedilol [Coreg] 12.5 mg PO BID 07/22/18 Ipratropium/Albuterol Respimat [Combivent Respimat Inhal [place]] 1 puff INHALATION PRN PRN 07/22/18 Tamsulosin HCl [Flomax] 0.4 mg PO QHS 07/22/18 Oxycodone HCl/Acetaminophen [Percocet 5/325] 1 - 2 tablet PO Q4H PRN PRN 7 Days #40 tablet 07/29/18 The following prescriptions were given: Oxycodone HCl/Acetaminophen [Percocet 5/325] 1 - 2 tablet PO Q4H PRN PRN 7 Days #40 tablet PRN Reason: Pain Orders to be completed after discharge: 12 Lead EKG [CVS] Time Frame: 07/22/18, Facility: [facility], Location: Cardiovascular Services Primary Care Physician: Yuliet Jamison MD [Primary Care Provider] - Test Results: Test results from this visit will be discussed in further detail at your follow-up appointment, if applicable. Please Follow Up With: Solomon Mercer MD When: Please call to schedule 2 week follow up appointment. [phone]
== END 2018-07-29 15:52 | disposition home or self-care (01) ==
LOC: SDC 10:34 → AC 10:35
PROVIDERS: Anesthesiology; Family Provider Family Medicine; PCP Family Medicine; Referring Provider Surgery; Visit Provider Surgery
PROC: (CPT 49507; principal; 2018-07-29 12:05)
DX: K40.30 Unilateral inguinal hernia, with obstruction, without gangrene, not specified as recurrent (principal); K21.9 Gastro-esophageal reflux disease without esophagitis; N18.3 Chronic kidney disease, stage 3 (moderate); I12.9 Hypertensive chronic kidney disease with stage 1 through stage 4 chronic kidney disease, or unspecified chronic kidney disease; F32.9 Major depressive disorder, single episode, unspecified; I27.20 Pulmonary hypertension, unspecified; G47.30 Sleep apnea, unspecified; E11.9 Type 2 diabetes mellitus without complications; J44.9 Chronic obstructive pulmonary disease, unspecified; Z95.5 Presence of coronary angioplasty implant and graft; Z87.891 Personal history of nicotine dependence; Z99.81 Dependence on supplemental oxygen; Z85.72 Personal history of non-Hodgkin lymphomas; R05 Cough; E78.5 Hyperlipidemia, unspecified
CPT/HCPCS: 00830; 49507; 36415; 80048; 82962; 83036; 85027; J7120; C1781

== ENCOUNTER → 2018-09-02 14:33 | Outpatient (CLI) | payer MEDICARE, OTHER, SELFPAY ==
[2018-08-12 10:02] VITALS: BMI 29.5
[2018-09-02 15:42] LABS: Hemoglobin 13.8 g/dl (13.0-16.5); Mean Corp Hgb Conc 32.1 g/gl (32-36); Mean Corpuscular Hgb 29.1 pg (27.0-32.0); Mean Corpuscular Volume 90.5 fL (80-94); Mean Platelet Vol. 9.5 fl (6.2-12.0); Platelet Count 158 K/mm3 (150-450); RBC Distribution Width CV 15.2 % (11.6-14.6); RBC Distribution Width SD 50.2 fl (35.1-43.9); Red Blood Count 4.75 M/mm3 (4.6-6.2); White Blood Count 5.1 K/mm3 (4.4-11.0)
[2018-09-02 15:52] LABS: Scan Indicated on CBC? Y/N NO
[2018-09-02 16:01] LABS: Protein, Urine (Random) < 6.0 mg/dL (<11.9)
[2018-09-02 16:09] LABS: ALB/GLOB Ratio 1.1 RATIO (0.9-2.4); AST(SGOT) 14 U/L (15-37); Alanine Aminotransfer ALT/SGPT 17 U/L (16-61); Albumin, Serum 3.6 g/dL (3.2-5.0); Alkaline Phosphatase 42 U/L (45-117); BUN 23 mg/dL (7-18); BUN/Creat Ratio 15.9 RATIO (10-20); Bilirubin, Direct 0.15 mg/dL (0.00-0.30); Calcium,Total 8.4 mg/dL (8.5-10.1); Chloride 112 mmol/L (98-107); Creatinine, Serum 1.45 mg/dL (0.70-1.30); EST Glomerular Filtration Rate 51 mL/min (>60); Est Glom Filt Rate - Afr Amer 62 mL/min (>60); Ferritin 80 ng/mL (26-388); Globulin 3.3 g/dL (2.2-4.2); Glucose 113 mg/dL (74-106); Iron 63 ug/dL (65-175); Iron Binding Capacity,Total 409 ug/dL (250-450); Phosphorus 2.8 mg/dL (2.5-4.9); Potassium 4.2 mmol/L (3.5-5.1); Protein, Total 6.9 g/dL (6.4-8.2); Sodium Level 143 mmol/L (136-145); Uric Acid 6.9 mg/dL (3.5-7.2)
[2018-09-02 16:28] LABS: BNP,B-Type NATRIURETIC PEPTIDE 326.6 pg/mL (0-100)
[2018-09-02 18:07] LABS: PTHIN 60.6 pg/mL (18.4-80.1)
[2018-09-04 10:19] LABS: Transferrin 326 mg/dL (200-370)
== END ==
PROVIDERS: Family Provider Family Medicine; PCP Family Medicine; Referring Provider Internal Medicine Pulmonary Disease; Visit Provider Internal Medicine Pulmonary Disease
DX: I12.9 Hypertensive chronic kidney disease with stage 1 through stage 4 chronic kidney disease, or unspecified chronic kidney disease (principal); N18.3 Chronic kidney disease, stage 3 (moderate); D63.1 Anemia in chronic kidney disease; M10.9 Gout, unspecified; I27.20 Pulmonary hypertension, unspecified; R06.00 Dyspnea, unspecified; Z79.899 Other long term (current) drug therapy
CPT/HCPCS: 36415; 80069; 82247; 82248; 82570; 82728; 83540; 83550; 83880; 83970; 84075; 84156; 84450; 84460; 84466; 84550; 85027

== ENCOUNTER → 2018-09-06 13:27 | Outpatient (CLI) | payer MEDICARE, OTHER, SELFPAY ==
[2018-08-12 10:02] VITALS: BMI 29.5
--- NOTE | 2018-09-06 14:05 | CT_ITS ---
STUDY: CT CHEST WITH CONTRAST REASON FOR EXAM: Male, 68 years old. Preoperative exam for lung resection. RADIATION DOSAGE (If Supplied By Facility): CTDIvol = ( 18.19 ) mGy, DLP = ( 702.16 ) mGycm TECHNIQUE: Transaxial imaging was performed following intravenous administration of Isovue 300 100ml IV. Individualized dose optimization techniques were used for this CT. COMPARISON: 06/11/2018. FINDINGS: There again is a mass in the medial aspect of the left upper lobe best seen on axial images 42-48 series 1004/unchanged or may be slightly smaller in size. There is mild prominence of the pulmonary vasculature in the lung bases. No new nodules are identified. There is mild left basilar subpleural fat. There is no evidence of pleural effusions. Normal heart and pericardium. There are coronary calcifications. Enlarged mediastinal nodes in the aortopulmonic window, anterior mediastinum and subcarinal regions are again seen unchanged since the prior exam. There are small nodes in the left hilar region. There may be additional nodes in the right hilar region. Normal enhanced pulmonary arteries. There is atherosclerotic calcification of the aortic arch with tortuosity and elongation of the aortic arch and descending thoracic aorta. There are multi-level degenerative changes of the thoracic spine. There is a Schmorl's node in the lower thoracic vertebra. There is decrease height of midthoracic vertebra. The bones are better evaluated by bone scan. The visualized portions of the upper abdomen demonstrates normal-sized adrenal glands. The patient is status post cholecystectomy. The spleen is mildly enlarged. CT/Chest WITH Contrast IMPRESSION: 1. Right upper lobe mass as described above unchanged or may be slightly smaller in size than the previous examination. 2. Persistent mediastinal and hilar adenopathy. 3. No new lesions are identified. 4. Mild splenomegaly. Electronically Signed: Bud Infante MD at 14:27 EST Tel , Service support ,
== END ==
PROVIDERS: Family Provider Family Medicine; PCP Family Medicine
DX: C34.92 Malignant neoplasm of unspecified part of left bronchus or lung (principal)
CPT/HCPCS: 71260; Q9967

== ENCOUNTER 2018-11-05 09:08 | Day surgery (SDC) | payer MEDICARE, OTHER, SELFPAY ==
[2018-10-25 08:27] VITALS: BMI 30.2
--- NOTE | 2018-10-25 08:57 | HP_ITS ---
Intake Vital Signs 10/25/18 Body Mass Index (BMI) 30.2 10/25/18 Height 6 ft 1 in 10/25/18 Weight: 225 lb 10/25/18 Body Mass Index (BMI) 29.7 10/25/18 Blood Pressure 99/54 L 10/25/18 Blood Pressure Location Rt brachial 10/25/18 Blood Pressure Position Sitting 10/25/18 Respiratory Rate 20 H 10/25/18 Pulse Rate 63 10/25/18 Pulse Source Monitor 10/25/18 Temperature 97.8 F 10/25/18 Temperature Source Oral 10/25/18 Pulse Ox 90 10/25/18 Oxygen Delivery Method room air Intake Visit Reasons: Port Placement Chief Complaint: F/U for PET/CT results. Distribution Analyst Required: No Is patient in pain?: No Allergies magnesium Adverse Reaction (Severe, Verified 10/25/18 08:26) Diarrhea Medications Aspirin [Aspirin, Baby] 81 mg PO DAILY@0800 01/22/14 [History Confirmed 10/25/18] Clopidogrel Bisulfate [Plavix] 75 mg PO DAILY 01/22/14 [History Confirmed 10/25/18] Pantoprazole Sodium [Protonix] 20 mg PO DAILY 01/22/14 [History Confirmed 10/25/18] Cholecalciferol (Vitamin D3) [D3-2000] 5,000 unit PO DAILY 02/09/15 [History Confirmed 10/25/18] Fenofibrate,Micronized [Lofibra] 134 mg PO DAILY 12/03/15 [History Confirmed 10/25/18] Sertraline HCl [Zoloft] 150 mg PO DAILY 12/03/15 [History Confirmed 10/25/18] Oxygen, Home [Home Oxygen] 2 - 4 lpm NASAL UD PRN 09/28/16 [History Confirmed 10/25/18] Rosuvastatin Calcium [Crestor] 40 mg PO DAILY 05/21/17 [History Confirmed 10/25/18] treprostinil diolamine ER 1 mg tablet,extended release 4 mg PO TID tab 08/03/17 [History Confirmed 10/25/18] macitentan 10 mg tablet 10 mg PO QDAY 12/31/17 [History Confirmed 10/25/18] triamcinolone acetonide 0.1 % topical ointment 1 applic TOPICAL .prn g 12/31/17 [History Confirmed 10/25/18] lisinopril 20 mg tablet 10 mg PO DAILY tab 06/17/18 [History Confirmed 10/25/18] Carvedilol [Coreg] 12.5 mg PO BID 07/22/18 [History Confirmed 10/25/18] Ipratropium/Albuterol Respimat [Combivent Respimat Inhal [place]] 1 puff INHALATION PRN PRN 07/22/18 [History Confirmed 10/25/18] Tamsulosin HCl [Flomax] 0.4 mg PO QHS 07/22/18 [History Confirmed 10/25/18] Calcium Carbonate [Calcium] 1,200 mg PO DAILY 10/23/18 [History Confirmed 10/25/18] Ginseng 100 mg PO 10/23/18 [History Confirmed 10/25/18] Isosorbide Mononitrate [Imdur] 60 mg PO DAILY 10/23/18 [History Confirmed 10/25/18] [facility] Medical History Essential (primary) hypertension (Chronic) 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 (Chronic) NSVT (nonsustained ventricular tachycardia) (Acute) CAD (coronary artery disease), andreafski artery transplanted heart (Chronic) Cough (Acute) Dyspnea (Acute) Fever (Acute) Other malaise and fatigue (Acute) Shortness of breath (Acute) Hyperlipidemia (Chronic) Palpitations (Chronic) Pulmonary hypertension (Chronic) Surgical History H/O shoulder surgery (Resolved) tendon surgery (Resolved) heel surgery (Resolved) Hx of cholecystectomy (Resolved) History of lumbar surgery (Resolved) S/P lobectomy of lung (Acute) History of right inguinal hernia repair (Acute ~08/2018) S/P coronary artery stent placement (Chronic ~2004) S/P nasal surgery (Resolved) Family History Father Heart disease Hypertension Mother Heart disease CVA (cerebral vascular accident) Sister Diabetes Heart disease Social History Smoking Status: Former smoker how long ago did patient quit smokin alcohol intake: current Alcohol type: beer, hard liquor substance use type: does not use caffeine: Yes Type: coffee what type of physical activity do you participate in: none seatbelt use: always do you feel safe at home: Yes HPI HPI HPI: ASAF HERRERA, is a 68 M who presents to the office today for HPI HPI Surgical H&P: Yes HPI: ASAF HERRERA, is a 68 M who presents to the office today for non-Hodgkin lymphoma. Patient was initially diagnosed with non-Hodgkin's vomiting 2013. This did transformed diffuse large B cell in 2015 was treated with chemotherapy and patient did have a right subclavian port for this. Patient states about a year ago it did clot off as it may not been accessed as often as it needed to per pt and it was removed. In June 2018 CT did show a left AP lymph node and PET scan was done which showed hypermetabolic activity in the left upper lobe nodule. Patient did have a left upper lobe resection and mediastinal adenectomy on 10/29/1018 which did show non-Hodgkin's lymphoma, BCL-2. Patient currently wears 4 L O2 via nasal cannula all day. Before the surgery he would only wear O2 at night. ROS General General: Yes weight change and fatigue; no appetite, colon cancer, breast cancer or weakness HEENT HEENT: No difficulty swallowing, eye injury, eye surgery, swollen glands or hoarseness Endo Endocrine: No thyroid disease, diabetes mellitus, thyroid cancer, Hair loss, heat intolerance or cold intolerance Skin Skin: No rash or changing moles Breast Breast: No left breast lump, right breast lump, nipple discharge, breast pain, abnormal mammogram, abnormal US or breast enlargement Musc Musculoskeletal: Yes back problems; no arthritis, rheumatoid arthritis, gout or joint pain Cardio Cardiovascular: Yes murmur, heart disease, high blood pressure, heart attack and heart stent; no pacemaker, atrial fibrillation, palpitations, shortness of breat with exertion or chest pain Psych Psychiatric: No depression, anxiety or hearing voices Resp Respiratory: Yes shortness of breath, Yes sleep apnea, No cough, Yes COPD, No asthma, No emphysema, No wheezing Gastro Gastrointestinal: No abdominal pain, No nausea or vomiting, No diarrhea, No constipation, No blood in stool, Yes acid reflux, No hemorrhoids, No ulcers, No gallbladder problem, No black,tarry stools Morgan Hematologic: Yes blood thinners, No blood disorders, No bleeding, No anemia, No blood clots Neuro Neurologic: No system reviewed and no additional complaints, except as docu, No as per HPI, No abnormal walking, No abnormal hearing, No abnormal movements, No abnormal speech, No behavioral changes, No burning sensations, No confusion, No seizure-like activity, No unsteadiness, No dizziness, No localized weakness, No frequent falls, No headache(s), No lack of coordination, No loss of vision, No memory loss, No numbness, No other visual disturbances, No radiating pain, No restless legs, No sensory deficit, No fainting, No tingling, No tremor(s), No weakness, No other Exam Const General: cooperative, comfortable, no acute distress Neck Neck: supple Chest Breast Palpation: No nipple discharge Other: Chest: Previous right subclavian port incision well-healed, otherwise normal appearing upper chest. Left lateral chest incisions,healing well from his left upper lobe resection Cardio Rate: regular rate Heart Sounds: murmur GI Inspection: non-distended, incision (left lateral abdomen/left chest) Palpation: soft, no guarding, tender (Left lateral abdomen near previous incisions) Assessment & Plan Problems 1. Encounter for adjustment or management of vascular access device Z45.2 2. Diffuse large B-cell lymphoma of extranodal site excluding spleen and other solid organs C83.39 Plan I have discussed above with the patient- Port-a-Cath placement. Right possible left IJ port placement discussed with patient to hold aspirin 5 days and Eliquis for 3 days Patient has been counseled as to the risks/benefits of the procedure. I have explained the risks of the surgery, including but not limited to: infection, bleeding, injury to any blood vessels/nerves, injury to lungs (such as pneumothorax or hemothorax and need for chest tube), not having any access, nonfunctioning of port due to thrombosis, infection of port, etc. the patient understands and agrees to proceed. I have answered all the patient's questions to the patient?s satisfaction and the patient has no further questions. Vidhya Menjivar M.D. Pager: [phone] [facility] [address] [place] [address], [address] [place] [address] Office: [phone] Plan Detail Follow Up We will schedule port placement Coding Level of Care Code Off vis,est,level 3 Diagnoses Encounter for adjustment or management of vascular access device Z45.2 Diffuse large B-cell lymphoma of extranodal site excluding spleen and other solid organs C83.39 ??Non-Hodgkin lymphoma type: B-cell ??B-cell lymphoma type: diffuse large B-cell ??Lymphoma site: extranodal excluding spleen and other solid organs 10/25/18 0857 <Electronically signed by Vidhya Menjivar MD> Date Vidhya Menjivar MD I have re-examined the patient. There are no clinical changes since date of exam.
[2018-11-04 15:09] VITALS: BMI 30.5
[2018-11-05] VITALS (7 sets, daily range): BP systolic 93–133; BP diastolic 56–73; PULSE 57–66; RESP 16–18; TEMP 36.2–36.7; O2SAT 92–99; BMI 29.6
[2018-11-05 10:00] LABS: Bedside Glucose 122 mg/dL (70-110)
[2018-11-05] MEDS: Cefazolin 2 GM in 0.9% Normal Saline 100 ML IV (10:24)
[2018-11-05] MEDS: Bupivacaine Mpf 0.5% 30 ML VIAL (10:43)
--- NOTE | 2018-11-05 11:09 | RAD_ITS ---
STUDY: X-RAY CHEST REASON FOR EXAM: Male, 68 years old. Port placement. TECHNIQUE: Single AP portable view of the chest. COMPARISON: Comparison is made with prior study dated June 17, 2017. FINDINGS: A right-sided Port-A-Cath has been placed. The tip is at the junction of the superior vena cava and right atrium. There is opacity of the left hemithorax. The patient has a history of prior left upper lobectomy. Normal size heart. Normal mediastinum and lynn. There is prominence of the pulmonary hilar arteries without peripheral pulmonary vascular congestion, suggesting pulmonary hypertension. There is atherosclerotic calcification of the aortic arch with tortuosity. There are degenerative changes of the visualized thoracic spine. Normal visualized ribs, clavicles, and shoulders. There is no demonstrated abnormality of the visualized soft tissue structures of the upper abdomen. RAD/CXR for Line Placement IMPRESSION: The tip of the right kathrin catheter is at the junction of superior vena cava and right atrium. Status post left upper lobectomy with postoperative changes. Electronically Signed: Zane Doherty, at 12:22 EDT , Service support ,
--- NOTE | 2018-11-05 11:10 | PCM.OPRPT ---
Report of Operation Date of Procedure: 11/05/18 Pre-Operative Diagnosis: Z 45.2, non-Hodgkin's lymphoma/large B-cell lymphoma Post-Operative Diagnosis: Same Surgery/Procedure Performed:: 1. Insertion of right IJ Port-A-Cath. 2. Use of fluoroscopy. 3. Use of ultrasound Type of Anesthesia:: MAC/Supplemental/Local Anesthesiologist: Kin Eaton Special Medications: Ancef 2 g IV x1 Specimen's removed: None Estimated Blood Loss (mL): <5 cc Fluids Replaced: 200 cc Description of Procedure: After informed consent was given, the patient was brought to the operating room and placed in the supine position. Appropriate time out protocol was followed. He was then given IV conscious sedation for anesthesia. The patient's bilateral upper chest and neck were then prepped with a surgical skin preparation and sterile surgical drapes were placed. After proper landmarks were ascertained, the skin at the upper right chest area was then infiltrated with 1:1 mixture of 1% lidocaine with epinephrine and 0.5% maricaine. A needle trocar was then inserted into the right internal jugular vein with ultrasound guidance-multiple vessels were viewed with u/s and the right IJ was chosen-- and there was good aspiration of venous blood. A wire was then threaded into the needle trocar and this was visualized under fluoroscopy to ensure that the wire was in the superior vena cava. Once this was done, then the needle trocar was removed. A small skin shaka was made with an 11 blade knife at the wire entrance site. The dilator with the introducer sheath attached was then placed over the wire into the right internal jugular vein via the Seldinger technique and this was visualized under fluoroscopy. The dilator and sheath were in proper position as visualized by fluoroscopy. A subcutaneous pocket was then created caudad to the catheter insertion site. A transverse skin incision was made after the skin and subcutaneous tissues were infiltrated with local anesthetic. Blunt dissection was then used to create a space large enough for placement of the subcutaneous port. The catheter was then tunneled into the subcutaneous pocket. The wire and dilator were then removed. The catheter was then threaded into the introducer sheath and was positioned with its tip at the junction of the superior vena cava and the right atrium as visualized under fluoroscopy. The excess catheter was transected. The catheter was then attached to the subcutaneous port using manufacturers guidelines. The catheter was flushed with a heparin saline mixture prior to placement. Hemostasis was carefully controlled with electrocautery. The port was sutured to the subcutaneous fascia using 3-0 PDS suture at two sites. The port was then placed in the subcutaneous pocket and the sutures were ligated. The incision were reapproximated with interrupted subdermal 3-0 vicryl sutures. The skin was reapproximated with 3-0 nylon suture in a interrupted fashion. Steristrips were used for reinforcement of the skin closure at IJ insertion site and a sterile opsite dressings were applied. The patient tolerated the procedure well. Implants Used: Bard PowerPort isp M.R.I. 6Fr Lot [id number] [id number] Grafts/Implants Used: [employer] PowerPort isp M.R.I. 6Fr Lot [id number] REF [id number] - Complications none
--- NOTE | 2018-11-05 11:14 | PCM.DC.POR ---
Discharge Diet: No Restrictions Discharge Activity: May not drive while taking narcotic pain medications. May shower in (days): 5 - Keep port site clean and dry for 5 days, okay to lower shower and sponge bath the top or okay to taper off the port site with a Ziploc bag to shower Lifting Restrictions: No lifting greater than 50 pounds with the right x1 week Call your doctor if your incision/area has: Continuous Slow Oozing, Sudden Increased Bleeding, Increased Pain/ Swelling, Increased Redness, Foul Smelling Discharge, Swelling at the incision site Call your doctor if you observe: Fever of 101 or Higher Change Dressing in (Days):: 3 - Okay but keep port site dressing on for 3 days okay to remove neck dressing tomorrow Allergies/Adverse Reactions: Allergies magnesium Adverse Reaction (Severe, Verified 11/05/18 09:30) Diarrhea Medications to take at Discharge Aspirin [Aspirin, Baby] 81 mg PO DAILY@0800 01/22/14 Pantoprazole Sodium [Protonix] 20 mg PO DAILY 01/22/14 Cholecalciferol (Vitamin D3) [D3-2000] 5,000 unit PO DAILY 02/09/15 Sertraline HCl [Zoloft] 100 mg PO DAILY 12/03/15 Oxygen, Home [Home Oxygen] 2 - 4 lpm NASAL UD PRN 09/28/16 Rosuvastatin Calcium [Crestor] 40 mg PO DAILY 05/21/17 treprostinil diolamine ER 1 mg tablet,extended release 3 mg PO TID tab 08/03/17 macitentan 10 mg tablet 10 mg PO QDAY 12/31/17 triamcinolone acetonide 0.1 % topical ointment 1 applic TOPICAL .prn g 12/31/17 lisinopril 20 mg tablet 10 mg PO DAILY tab 06/17/18 Carvedilol [Coreg] 12.5 mg PO BID 07/22/18 Ipratropium/Albuterol Respimat [Combivent Respimat Inhal [place]] 1 puff INHALATION PRN PRN 07/22/18 Tamsulosin HCl [Flomax] 0.4 mg PO QHS 07/22/18 Calcium Carbonate [Calcium] 1,200 mg PO DAILY 10/23/18 Isosorbide Mononitrate [Imdur] 60 mg PO DAILY 10/23/18 Apixaban [Eliquis] 5 mg PO BID 10/30/18 Fenofibrate 160 mg PO DAILY 11/04/18 Lidocaine/Prilocaine [Lidocaine-Prilocaine Cream] 1 applicatio TP DAILY 30 Days #1 tube 11/04/18 Ondansetron [Zofran Odt] 4 mg PO Q8H PRN PRN 10 Days #30 tablet 11/04/18 Hydrocodone Bitart/Apap 5-325 [[place] 5MG-325MG] 1 tablet PO Q6H PRN PRN 3 Days #5 tablet 11/05/18 Primary Care Physician: Yuliet Owens DO [Primary Care Provider] - Test Results: Test results from this visit will be discussed in further detail at your follow-up appointment, if applicable. Please Follow Up With: Vidhya Menjivar MD - After 5:00 on the weekend call [phone] with any concerns When: Call for a follow-up appointment in 10 days for suture removal. Proposed Discharge Date: 11/05/18
--- NOTE | 2018-11-05 11:17 | DCINST_ITS ---
Discharge Diet: No Restrictions Discharge Activity: May not drive while taking narcotic pain medications. May shower in (days): 5 - Keep port site clean and dry for 5 days, okay to lower shower and sponge bath the top or okay to taper off the port site with a Ziploc bag to shower Lifting Restrictions: No lifting greater than 50 pounds with the right x1 week Call your doctor if your incision/area has: Continuous Slow Oozing, Sudden Increased Bleeding, Increased Pain/ Swelling, Increased Redness, Foul Smelling Discharge, Swelling at the incision site Call your doctor if you observe: Fever of 101 or Higher Change Dressing in (Days):: 3 - Okay but keep port site dressing on for 3 days okay to remove neck dressing tomorrow Allergies/Adverse Reactions: Allergies magnesium Adverse Reaction (Severe, Verified 11/05/18 09:30) Diarrhea Medications to take at Discharge Aspirin [Aspirin, Baby] 81 mg PO DAILY@0800 01/22/14 Pantoprazole Sodium [Protonix] 20 mg PO DAILY 01/22/14 Cholecalciferol (Vitamin D3) [D3-2000] 5,000 unit PO DAILY 02/09/15 Sertraline HCl [Zoloft] 100 mg PO DAILY 12/03/15 Oxygen, Home [Home Oxygen] 2 - 4 lpm NASAL UD PRN 09/28/16 Rosuvastatin Calcium [Crestor] 40 mg PO DAILY 05/21/17 treprostinil diolamine ER 1 mg tablet,extended release 3 mg PO TID tab 08/03/17 macitentan 10 mg tablet 10 mg PO QDAY 12/31/17 triamcinolone acetonide 0.1 % topical ointment 1 applic TOPICAL .prn g 12/31/17 lisinopril 20 mg tablet 10 mg PO DAILY tab 06/17/18 Carvedilol [Coreg] 12.5 mg PO BID 07/22/18 Ipratropium/Albuterol Respimat [Combivent Respimat Inhal [place]] 1 puff INHALATION PRN PRN 07/22/18 Tamsulosin HCl [Flomax] 0.4 mg PO QHS 07/22/18 Calcium Carbonate [Calcium] 1,200 mg PO DAILY 10/23/18 Isosorbide Mononitrate [Imdur] 60 mg PO DAILY 10/23/18 Apixaban [Eliquis] 5 mg PO BID 10/30/18 Fenofibrate 160 mg PO DAILY 11/04/18 Lidocaine/Prilocaine [Lidocaine-Prilocaine Cream] 1 applicatio TP DAILY 30 Days #1 tube 11/04/18 Ondansetron [Zofran Odt] 4 mg PO Q8H PRN PRN 10 Days #30 tablet 11/04/18 Hydrocodone Bitart/Apap 5-325 [[place] 5MG-325MG] 1 tablet PO Q6H PRN PRN 3 Days #5 tablet 11/05/18 Primary Care Physician: Yuliet Owens DO [Primary Care Provider] - Test Results: Test results from this visit will be discussed in further detail at your follow- up appointment, if applicable. Please Follow Up With: Vidhya Mejnivar MD - After 5:00 on the weekend call [phone] with any concerns When: Call for a follow-up appointment in 10 days for suture removal. Proposed Discharge Date: 11/05/18
== END 2018-11-05 12:45 | disposition home or self-care (01) ==
LOC: SDC 09:09 → AC 09:10
PROVIDERS: Family Provider Family Medicine; PCP Family Medicine; Referring Provider Surgery; Visit Provider Surgery
PROC: (CPT 36561; principal; 2018-11-05 10:15)
DX: Z45.2 Encounter for adjustment and management of vascular access device (principal); C83.39 Diffuse large B-cell lymphoma, extranodal and solid organ sites; I10 Essential (primary) hypertension; I25.10 Atherosclerotic heart disease of native coronary artery without angina pectoris; E78.5 Hyperlipidemia, unspecified; I27.20 Pulmonary hypertension, unspecified; Z87.891 Personal history of nicotine dependence
CPT/HCPCS: 36561; 71045; 77001; 82962; J7120; J2405

== ENCOUNTER 2018-11-08 11:04 | Day surgery (SDC) | payer MEDICARE, OTHER, SELFPAY ==
[2018-11-04 15:09] VITALS: BMI 30.5
[2018-11-05 09:33] VITALS: BMI 29.6
[2018-11-08] VITALS (7 sets, daily range): BP systolic 69–96; BP diastolic 42–54; PULSE 54–63; RESP 16–20; TEMP 36.7–36.8; O2SAT 91–95; BMI 30.6
--- NOTE | 2018-11-08 11:27 | EKG12_ITS ---
Test Reason : PRE-OP Blood Pressure : / mmHG Vent. Rate : 065 BPM Atrial Rate : 375 BPM P-R Int : 000 ms QRS Dur : 142 ms QT Int : 464 ms P-R-T Axes : 000 -23 -60 degrees QTc Int : 482 ms Atrial fibrillation Right bundle branch block Inferior infarct (cited on or before 23-JUL-2018), age undetermined T wave abnormality, consider lateral ischemia Abnormal ECG Confirmed by SARAHY LEAL, KEATON ([id number]), film editor RONNA TREVINO ([id number]) on 11/13/2018 2:18:32 PM Referred By: Kin Parker Confirmed By:KEATON WEATHERS MD
[2018-11-08 12:01] LABS: Bedside Glucose 120 mg/dL (70-110)
--- NOTE | 2018-11-08 15:09 | OP.PCM_ITS ---
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 Examination showed a paralyzed left vocal fold medialization was offered in hopes of improved phonation and swallowing which caused him significant disability. The risks, alternatives, potential complications, and benefits were discussed at length and any questions answered to the patient and/or caregiver's satisfaction. Witnessed informed consent was obtained in the office, and the patient and/or caregiver was agreeable to proceed. Procedure went as follows: The patient was identified in the preoperative holding and brought to the operating room where he was placed under monitored anesthesia care. The [left] neck was then injected overlying the thyroid cartilage extending past the midline with 1% lidocaine with 100,000 epinephrine for a total of 4 cc. After allowing for vasoconstriction, a 5 cm horizontal incision was then made through the skin and subcutaneous tissues. The platysma was then transected and the strap muscles visualized overlying the thyroid cartilage. These were then transected with the ends cauterized with bipolar cautery for hemostasis. The intervening vasculature was individually clamped and ligated with 3-0 silk sutures. The thyroid cartilage was then exposed along its inferior edge, and the horizontal midline marked with a marking pen. A 6 x 13 mm rectangular window was then marked along the inferior aspect of this line 4 mm from the vertical midline and then incised with a 15 blade scalpel. The cartilage was then removed with a combination of bone curettes and Kerrison curettes. Once the cartilaginous window was completed, the inner perichondrium was then incised to allow for medialization of the vocal muscle. The Danielle titanium [15] mm prosthesis was then placed and positioned until the patient had satisfactory voicing who had been revived by anesthesia and had been prompted to speak. The implant was then secured in position and the strap muscles reapproximated with interrupted 3-0 Vicryl sutures over the area. The platysma was then reapproximated along with the subcutaneous tissues with interrupted 3-0 Vicryl followed by running 5-0 Monocryl suture to the skin. Cavilon and Steri- Strips were then applied. The patient was then returned to anesthesia and taken to recovery having tolerated the procedure well with significant improvement in voicing noted. Type of Anesthesia:: Local MAC Anesthesiologist: Kin Eaton Special Medications: none Specimen's removed: none Drains: none Estimated Blood Loss (mL): 0 mL Fluids Replaced: 400 mL Grafts/Implants Used: Danielle 15 mm titanium laryngeal implant - Complications none - Admit VTE Documentation VTE Present on Admission: No VTE Mechan Device Prophylaxis: SCD's VTE Pharm Prophylaxis ordered?: No
--- NOTE | 2018-11-08 15:10 | PCM.DC ---
- Discharge Diagnoses Current Active Problems: Current Active and Chronic Problems (Last Reviewed 11/04/18 @ 15:09 by Bella Lafleur) Paralysis of vocal cords and larynx, unilateral (Chronic) Dysphonia (Chronic) You will use the following diet at home:: No restrictions Discharge Activity: Return to Normal Activity Call your doctor if your incision/area has: Continuous Slow Oozing, Increased Pain/ Swelling, Foul Smelling Discharge, Swelling at the incision site Call your doctor if you observe: Fever of 101 or Higher, Uncontrolled pain Cleanse incision/area with: Do not get Incision Wet Allergies/Adverse Reactions: Allergies magnesium Adverse Reaction (Severe, Verified 11/05/18 09:30) Diarrhea Medications to take at Discharge RX: Aspirin [Aspirin, Baby] 81 mg PO DAILY@0800 01/22/14 RX: Pantoprazole Sodium [Protonix] 20 mg PO DAILY 01/22/14 RX: Cholecalciferol (Vitamin D3) [D3-2000] 5,000 unit PO DAILY 02/09/15 RX: Sertraline HCl [Zoloft] 100 mg PO DAILY 12/03/15 RX: Oxygen, Home [Home Oxygen] 2 - 4 lpm NASAL UD PRN 09/28/16 RX: Rosuvastatin Calcium [Crestor] 40 mg PO DAILY 05/21/17 treprostinil diolamine ER 1 mg tablet,extended release 3 mg PO TID tab 08/03/17 macitentan 10 mg tablet 10 mg PO QDAY 12/31/17 triamcinolone acetonide 0.1 % topical ointment 1 applic TOPICAL .prn g 12/31/17 lisinopril 20 mg tablet 10 mg PO DAILY tab 06/17/18 Ipratropium/Albuterol Respimat [Combivent Respimat Inhal [place]] 1 puff INHALATION PRN PRN 07/22/18 RX: Carvedilol [Coreg] 12.5 mg PO BID 07/22/18 RX: Tamsulosin HCl [Flomax] 0.4 mg PO QHS 07/22/18 Calcium Carbonate [Calcium] 1,200 mg PO DAILY 10/23/18 Isosorbide Mononitrate [Imdur] 60 mg PO DAILY 10/23/18 Apixaban [Eliquis] 5 mg PO BID 10/30/18 Lidocaine/Prilocaine [Lidocaine-Prilocaine Cream] 1 applicatio TP DAILY 30 Days #1 tube 11/04/18 RX: Fenofibrate 160 mg PO DAILY 11/04/18 RX: Ondansetron [Zofran Odt] 4 mg PO Q8H PRN PRN 10 Days #30 tablet 11/04/18 Primary Care Physician: Yuliet Owens DO [Primary Care Provider] - Test Results: Test results from this visit will be discussed in further detail at your follow-up appointment, if applicable. Please Follow Up With: Kin Parker MD When: 2 weeks
[2018-11-08 15:11] LABS: Bedside Glucose 115 mg/dL (70-110)
== END 2018-11-08 16:23 | disposition home or self-care (01) ==
LOC: SDC 11:05 → AC 11:05
PROVIDERS: Anesthesiology; Family Provider Family Medicine; PCP Family Medicine; Referring Provider Otolaryngology; Visit Provider Otolaryngology
PROC: (CPT 31591; principal; 2018-11-08 12:25)
DX: J38.01 Paralysis of vocal cords and larynx, unilateral (principal); R49.0 Dysphonia; H69.92 Unspecified Eustachian tube disorder, left ear; C85.10 Unspecified B-cell lymphoma, unspecified site; K21.9 Gastro-esophageal reflux disease without esophagitis; E11.9 Type 2 diabetes mellitus without complications; E78.5 Hyperlipidemia, unspecified; I10 Essential (primary) hypertension; I25.2 Old myocardial infarction; Z87.891 Personal history of nicotine dependence
CPT/HCPCS: 31611; 36415; 82962; 83036; 93005; J7120; A4216

== ENCOUNTER 2018-12-12 16:50 | Emergency (ER) | payer MEDICARE, OTHER, SELFPAY ==
[2018-12-05 14:35] VITALS: BMI 30.2
[2018-12-12 16:51] VITALS: BP 143/71; PULSE 89; RESP 17; TEMP 36.8; O2SAT 91; BMI 29.7
--- NOTE | 2018-12-12 17:29 | EKG12_ITS ---
Test Reason : CP Blood Pressure : / mmHG Vent. Rate : 082 BPM Atrial Rate : 098 BPM P-R Int : 000 ms QRS Dur : 144 ms QT Int : 390 ms P-R-T Axes : 000 -03 -56 degrees QTc Int : 455 ms Atrial fibrillation Right bundle branch block Inferior infarct (cited on or before 23-JUL-2018) T wave abnormality, consider lateral ischemia Abnormal ECG Confirmed by DYLON KUO ([id number]), sports editor HAI DIAMOND ([id number]) on 12/16/2018 1:30:22 PM Referred By: SALVADOR Confirmed By:BALBINA KUO
--- NOTE | 2018-12-12 17:40 | RAD_ITS ---
STUDY: X-RAY CHEST REASON FOR EXAM: Male, 68 years old. Chest pain TECHNIQUE: Frontal view of the chest COMPARISON: X-Ray Chest June 17, 2017 FINDINGS: Right chest tunneled catheter is present with the tip at the SVC. There has been interval opacification of the left hemithorax, with blunting of the costophrenic angle and volume loss. There is no pneumothorax. The heart is obscured. The visualized osseous structures are within normal limits. RAD/Chest 1 View (Portable) IMPRESSION: Interval opacification of the left hemithorax, consistent in appearance with edema and small effusion, with volume loss and history of partial resection noted. Placement of right chest tunneled catheter with the tip at the SVC. Electronically Signed: Ha Mata, at 17:55 EDT Tel , Service support ,
[2018-12-12 18:02] LABS: International Normalized Ratio 1.3; Prothrombin Time (Protime)PT. 15.5 SECONDS (11.7-14.9)
[2018-12-12 18:03] LABS: Absolute Lymphocyte Count 0.42 X10^3/ul (0.83-4.51); Absolute Neutrophil Count 3.5 X10^3/uL (2.0-7.7); Basophil# 0.03 X10^3/uL; Basophil% 0.6 % (0-1); Eosinophil# 0.42 X10^3/uL; Eosinophils% 8.8 % (0-5); Hematocrit 37.1 % (40-54); Hemoglobin 12.6 g/dl (13.0-16.5); Lymphocyte # 0.42 X10^3/ul (4.0); Lymphocyte % 8.8 % (19-41); Mean Corpuscular Hgb 29.8 pg (27.0-32.0); Mean Corpuscular Volume 87.7 fL (80-94); Mean Platelet Vol. 9.2 fl (6.2-12.0); Monocyte# 0.32 X10^3/uL; Monocyte% 6.7 % (0-10); Neutrophil # 3.53 X10^3/uL (2.7-7.7); Neutrophil % 74.3 % (47-70); Partial Thromboplast Time 32.6 Seconds (24.1-36.2); Platelet Count 108 K/mm3 (150-450); RBC Distribution Width CV 15.5 % (11.6-14.6); RBC Distribution Width SD 49.5 fl (35.1-43.9); Red Blood Count 4.23 M/mm3 (4.6-6.2); White Blood Count 4.8 K/mm3 (4.4-11.0)
[2018-12-12 18:10] LABS: Anion Gap 6 (5-15); BUN 27 mg/dL (7-18); BUN/Creat Ratio 16.9 RATIO (10-20); Calcium,Total 8.7 mg/dL (8.5-10.1); Chloride 111 mmol/L (98-107); EST Glomerular Filtration Rate 46 mL/min (>60); Est Glom Filt Rate - Afr Amer 55 mL/min (>60); Estimated Creatinine Clearance 48.55 ml/min; Glucose 167 mg/dL (74-106); Potassium 3.8 mmol/L (3.5-5.1); Sodium Level 141 mmol/L (136-145)
[2018-12-12 18:13] LABS: Differential Indicated SCAN CRITERIA MET; POSITIVE COUNT NO; POSITIVE DIFFERENTIAL YES; POSITIVE MORPHOLOGY NO
[2018-12-12 18:28] LABS: Platelet Estimate MOD DEC (ADEQ); Red Cell Morphology NORM C+C NORMAL (NORM C&C)
[2018-12-12] MEDS: 0.9% Normal Saline 1,000 ML 15 ML IV (18:41)
[2018-12-12 18:50] VITALS: BP 137/99; PULSE 73; RESP 19; O2SAT 95
--- NOTE | 2018-12-12 19:06 | CT_ITS ---
STUDY: CT CHEST WITHOUT CONTRAST REASON FOR EXAM: Male, 68 years old. Shortness of breath RADIATION DOSAGE (If Supplied By Facility): DLP = ( 754.54 ) mGycm TECHNIQUE: Transaxial imaging was performed without the administration of intravenous contrast material. Coronal and sagittal reformatted images were created. Individualized dose optimization techniques were used for this CT. COMPARISON: CT chest September 06, 2018 FINDINGS: There has been an interval left upper lobectomy with removal of previously described mass. There is left hemithorax volume loss and scarring. Mild emphysema is present. There is a trace left effusion. The right lung and pleural space are clear. Coronary artery calcifications are present. The heart is normal in size. There is no thoracic lymphadenopathy. There is no evidence of thoracic aortic aneurysm. Images through the upper abdomen demonstrate no significant abnormality. There are no destructive osseous lesions. CT/Chest without Contrast IMPRESSION: Interval left upper lobectomy with removal of previously described mass. Left hemithorax volume loss and scarring with trace left effusion. Mild emphysema. Electronically Signed: Ha Mata, at 19:49 EDT Tel , Service support ,
--- NOTE | 2018-12-12 20:31 | ED.VISSUMM ---
- ER Visit Summary Date of Service: 12/12/18 Chief Complaint: Hypertension, chest pain, dyspnea History of Present Illness: The patient is a 68 M with a history of hypertension. Patient states he got out of his home wrist blood pressure monitor today. He had readings of 228 or 130 in his left wrist and 215/143 on his right wrist. When this is compared to his blood pressure reading in the hospital it appears his monitor is incorrect has not been calibrated. Patient also states he is been having chest pain and shortness of breath with exertion for the past 1 or 2 weeks. He reports having a heart cath 1-1/2 weeks ago that revealed no lesions. He was cardioverted from A. fib to sinus rhythm at that time. He is currently on Eliquis. Physical Examination: Vital signs unremarkable. Blood pressure here is 143/71. Patient sitting upright in bed no acute distress. Head and neck examination unremarkable. Heart is regular rate and rhythm. Lung sounds are clear. Abdomen is soft and nontender. Test Results: EKG is A. fib at 82 with a right bundle branch block. This appears similar to prior. Portable chest x-ray shows interval opacification of the left hemithorax consistent with edema and a small effusion. History of partial resection is noted. CBC was normal white count with hemoglobin 12.6 and platelet count of 108,000. Chemistry studies reveal BUN of 27 and creatinine 1.6 which appears chronic. Glucose is 167. Troponin is 0.030. Emergency Department Course and Treatment: Test results were discussed with the patient. Due to the changes noted on his chest x-ray a CT chest was obtained. There is been interval left upper lobectomy with removal of previously described mass. Left hemithorax volume loss and scarring is noted with trace pleural effusion. I discussed with patient that the changes noted on chest x-ray were simply from his surgery. Patient just had a heart cath less than 2 weeks ago that did not show significant lesions. He will contact his outside machinist supervisor in the morning regarding him being back in A. fib. He is already anticoagulated and his rate is controlled. Treatment Plan: [] Disposition: Discharge Impression: 1. chest pain 2. Atrial fibrillation 3. Erroneous blood pressure reading This note was generated with [employer] software. It may contain incorrect words, spelling, and punctuation that were not noted in review of the chart prior to signing ED Disposition - Plan for ED Patient: Disposition: Home or Assisted Living Instructions: ED Afib, ED Chest Pain Atypical Unkn Cause Referrals: Yuliet Owens DO [Primary Care Provider] - Additional Instructions: Follow-up with your outside machinist supervisor as soon as possible.
[2018-12-12 20:32] VITALS: BP 157/91; PULSE 72; RESP 26; O2SAT 94
== END 2018-12-12 20:47 | disposition home or self-care (01) ==
PROVIDERS: Emergency Provider Emergency Medicine; Family Provider Family Medicine; PCP Family Medicine
DX: R07.9 Chest pain, unspecified (principal); I48.91 Unspecified atrial fibrillation; I10 Essential (primary) hypertension; I45.10 Unspecified right bundle-branch block; Z79.01 Long term (current) use of anticoagulants; I25.10 Atherosclerotic heart disease of native coronary artery without angina pectoris; Z87.891 Personal history of nicotine dependence; Z85.72 Personal history of non-Hodgkin lymphomas
CPT/HCPCS: 36591; 71045; 71250; 80048; 84484; 85025; 85610; 85730; 93005; 99285; J7050; A4216

== ENCOUNTER 2018-12-31 16:42 | Inpatient (IN) | payer MEDICARE, OTHER, SELFPAY ==
[2018-12-26 14:51] VITALS: BMI 29.2
[2018-12-31] VITALS (18 sets, daily range): BP systolic 82–118; BP diastolic 49–84; PULSE 64–104; RESP 16–31; TEMP 36.7–37.4; O2SAT 82–99; BMI 27.8; BMI 28.1
--- NOTE | 2018-12-31 17:07 | EKG12_ITS ---
Test Reason : NAUSEA N VOMIT Blood Pressure : / mmHG Vent. Rate : 080 BPM Atrial Rate : 091 BPM P-R Int : 000 ms QRS Dur : 140 ms QT Int : 386 ms P-R-T Axes : 000 -25 -36 degrees QTc Int : 445 ms Atrial fibrillation Right bundle branch block Inferior infarct (cited on or before 23-JUL-2018), age undetermined T wave abnormality, consider lateral ischemia Abnormal ECG Confirmed by ES BRENNAN ([id number]), avid editor RONNA TREVINO ([id number]) on 01/06/2019 1:02:49 PM Referred By: Confirmed By:ES BRENNAN
--- NOTE | 2018-12-31 17:10 | ED.DCSUM_ITS ---
- ER Visit Summary Date of Service: 12/31/18 Chief Complaint: Nausea, vomiting History of Present Illness: The patient is a 68 M presenting with nausea, vomiting. He states the symptoms have been intermittent for the past 4 weeks. He states he was concerned over recent weight loss. He has lost 8 pounds in the past couple of days. Recently his Lasix was increased from 20 mg to 40 mg once a day. When he checked his weights it was on different scales. The first weight was checked in the doctor's office and he recently bought a new scale. He complains of nausea vomiting x2 today. He has had diarrhea x2. He denies blood in his stool or emesis. He also complains of shortness of breath with exertion and intermittent chest pain. These symptoms have also been ongoing for the past month. He recently completed chemotherapy for non-Hodgkin's lymphoma. His last chemotherapy was on . He has had subjective fever. Physical Examination: Vitals are stable. Patient is afebrile. Alert no acute distress. Pulse ox 82% on 4 L. HEENT exam is unremarkable. Neck is supple. Lungs are diminished bilaterally. Heart is irregularly irregular Abdomen is soft diffuse tenderness with no rebound or guarding Extremities are unremarkable. No edema Skin is warm and dry. No focal neurologic deficit. Remainder of exam is unremarkable. Emergency Department Course and Treatment: Patient was given morphine, Phenergan IV. EKG shows A. fib rate of 80, unchanged from previous. Chest x-ray shows there is an enlarging small to moderate left pleural effusion. New mild left basilar pulmonary opacities infiltrates versus subsegmental atelectasis. Mild prominence of the pulmonary vascularity, possible mild pulmonary venous congestion. Stable central venous catheter. CBC normal except hemoglobin 10.2. Chemistries show glucose 118, BUN 44, creatinine 2.33. Liver lipase are normal. Troponin is negative. Lactic acid normal. BNP 347.7. CT abdomen shows limited non-IV and nonoral contrast study. 2.3 x 2.2 cm soft tissue density within the left lower lobe along the pleural surface most likely atelectasis, cannot exclude mass. PET/CT follow-up is recommended. Small right pleural effusion, mild right basilar subsegmental atelectasis. Small left pleural effusion. Prior cholecystectomy, Wall thickening of the stomach, likely due to incomplete distention further evaluation with upper GI would be recommended to exclude pathologic wall thickening Scattered colonic diverticulosis. No diverticulitis. Stable old moderate compression fracture of L2 with prior kyphoplasty. Patient was given IV fluids with improvement of his blood pressure. Blood cultures were sent. He was given Levaquin IV. Discussed with hospitalist for admission. Disposition: Admission Impression: Left pleural effusion, hypoxia, possible pneumonia This note was generated with [employer] dictation software. It may contain incorrect words, spelling, and punctuation that were not noted in review of the chart prior to signing ED Disposition - Plan for ED Patient: Referrals: NOT,DEFINED [NON-STAFF] -
[2018-12-31] MEDS: Morphine 4 MG/ML Syringe IV (17:22)
[2018-12-31] MEDS: proMETHazine 25 MG/ML Syringe 6.25 MG IV (17:22)
[2018-12-31 17:24] LABS: Absolute Lymphocyte Count 0.17 X10^3/ul (0.83-4.51); Absolute Neutrophil Count 4.2 X10^3/uL (2.0-7.7); Basophil# 0.02 X10^3/uL; Basophil% 0.4 % (0-1); Eosinophil# 0.36 X10^3/uL; Eosinophils% 6.5 % (0-5); Hematocrit 30.4 % (40-54); Hemoglobin 10.2 g/dl (13.0-16.5); Lymphocyte # 0.17 X10^3/ul (4.0); Lymphocyte % 3.1 % (19-41); Mean Corp Hgb Conc 33.6 g/gl (32-36); Mean Corpuscular Hgb 29.4 pg (27.0-32.0); Mean Corpuscular Volume 87.6 fL (80-94); Monocyte% 12.6 % (0-10); Neutrophil # 4.22 X10^3/uL (2.7-7.7); Platelet Count 210 K/mm3 (150-450); RBC Distribution Width SD 46.3 fl (35.1-43.9); Red Blood Count 3.47 M/mm3 (4.6-6.2); White Blood Count 5.6 K/mm3 (4.4-11.0)
[2018-12-31 17:34] LABS: Differential Indicated SCAN CRITERIA MET; POSITIVE COUNT NO; POSITIVE DIFFERENTIAL YES; POSITIVE MORPHOLOGY NO
--- NOTE | 2018-12-31 17:35 | RAD_ITS ---
STUDY: X-RAY CHEST REASON FOR EXAM: Male, 68 years old. Short of breath, weight loss TECHNIQUE: Portable chest COMPARISON: 12/12/2018 FINDINGS: There is an enlarging small to moderate left pleural effusion. There are new left basilar pulmonary opacities. There is mild prominence of the pulmonary vascularity. There is stable central venous catheter.. Normal size heart. Normal mediastinum and lynn. Normal visualized pulmonary arteries. Normal visualized aortic arch and descending thoracic aorta. Normal visualized thoracic spine. Normal visualized ribs, clavicles, and shoulders. There is no demonstrated abnormality of the visualized soft tissue structures of the upper abdomen. RAD/Chest 1 View (Portable) IMPRESSION: There is an enlarging small to moderate left pleural effusion New mild left basilar pulmonary opacities infiltrates versus subsegmental atelectasis Mild prominence of the pulmonary vascularity, possible mild pulmonary venous congestion Stable central venous catheter Electronically Signed: Mike Wyman, at 17:52 EDT Tel , Service support ,
[2018-12-31 17:38] LABS: ALB/GLOB Ratio 0.8 RATIO (0.9-2.4); AST(SGOT) 13 U/L (15-37); Alanine Aminotransfer ALT/SGPT 15 U/L (16-61); Albumin, Serum 3.1 g/dL (3.2-5.0); Alkaline Phosphatase 44 U/L (45-117); Anion Gap 11 (5-15); BUN 44 mg/dL (7-18); BUN/Creat Ratio 18.9 RATIO (10-20); Calcium,Total 8.4 mg/dL (8.5-10.1); Chloride 102 mmol/L (98-107); Creatinine, Serum 2.33 mg/dL (0.70-1.30); EST Glomerular Filtration Rate 30 mL/min (>60); Est Glom Filt Rate - Afr Amer 36 mL/min (>60); Estimated Creatinine Clearance 33.34 ml/min; Globulin 3.8 g/dL (2.2-4.2); Glucose 118 mg/dL (74-106); Lipase 80 U/L (73-393); Magnesium 1.5 mg/dL (1.6-2.6); Potassium 4.4 mmol/L (3.5-5.1); Protein, Total 6.9 g/dL (6.4-8.2); Sodium Level 140 mmol/L (136-145)
--- NOTE | 2018-12-31 17:43 | CT_ITS ---
STUDY: CT ABDOMEN AND PELVIS WITHOUT CONTRAST REASON FOR EXAM: Male, 68 years old. Vomiting, weight loss RADIATION DOSAGE (If Supplied By Facility): CTDIvol = ( 16.34 ) mGy, DLP = ( 853.01 ) mGycm TECHNIQUE: Transaxial images were obtained from the dome of the diaphragm to the symphysis pubis without oral contrast, and without intravenous contrast. Sagittal and coronal images were reconstructed. Individualized dose optimization techniques were used for this CT. COMPARISON: Prior CT abdomen 04/21/2016. FINDINGS: This is a limited non-IV and nonoral contrast CT. There is 2.3 x 2.2 cm soft tissue density within left lower lobe along the pleural surface. There is small right pleural effusion with right basilar subsegmental atelectasis. There is a small left pleural effusion.. The visualized portions of the heart are within normal limits. Normal liver. There are surgical clips within the gallbladder fossa from prior cholecystectomy. Normal spleen. Normal pancreas. Normal bilateral adrenal glands. Normal right kidney. Normal left kidney. There is wall thickening of the stomach. The stomach is incompletely distended. Normal small intestine. There is scattered colonic diverticulosis no CT evidence for acute diverticulitis. Normal abdominal aorta. Normal inferior vena cava. Normal retroperitoneum. Normal urinary bladder. Normal abdominal wall. There is an old moderate compression fracture of L2 with prior kyphoplasty. CT/Abdomen/Pel W ORAL Cont Only IMPRESSION: Limited non-IV and nonoral contrast study 2.3 x 2.2 cm soft tissue density within the left lower lobe along the pleural surface most likely atelectasis, cannot exclude mass. PET/CT follow-up is recommended Small right pleural effusion, mild right basilar subsegmental atelectasis Small left pleural effusion Prior cholecystectomy, Wall thickening of the stomach, likely due to incomplete distention further evaluation with upper GI would be recommended to exclude pathologic wall thickening Scattered colonic diverticulosis. No diverticulitis Stable old moderate compression fracture of L2 with prior kyphoplasty Electronically Signed: Mike Wyman, at 20:21 EDT Tel , Service support ,
[2018-12-31 17:54] LABS: Lactic Acid 0.7 mmol/L (0.4-2.0)
[2018-12-31 18:02] LABS: Bacteria 0 SEEN /hpf (None Seen); Mucous, Urine 0 SEEN /hpf (<or=2+); Red Blood Cells-Urine 0 SEEN /hpf (0-5)
[2018-12-31 18:03] LABS: Platelet Estimate ADEQUATE (ADEQ); Red Cell Morphology NORM C+C NORMAL (NORM C&C)
[2018-12-31 18:05] LABS: BNP,B-Type NATRIURETIC PEPTIDE 347.7 pg/mL (0-100)
[2018-12-31 18:07] LABS: Color, Urine Yellow (Yellow); Glucose, Dipstick Normal (Normal); Ketone-Dipstick Negative (Negative); Leukocyte Esterase-Dipstick Negative /ul (Negative); Nitrite-Dipstick Negative (Negative); Occult Blood-Urine Negative /ul (Negative); Protein-Dipstick Negative (Negative); Specific Gravity, Urine 1.015 (1.002-1.030); Urine Bilirubin Dipstick Negative (Negative); Urine Clarity Clear (Clear); Urine Urobilinogen Normal (Normal)
[2018-12-31 18:17] LABS: Hyaline Cast 0-5 SEEN /lpf (0-5); Squamous Epithelial Cells - UA 0-5 SEEN /hpf (0-5); Transitional Epithelial - Ur 0 SEEN /hpf (0-5)
[2018-12-31 18:19] LABS: White Blood Cells 0-5 SEEN /hpf (0-5)
--- NOTE | 2018-12-31 20:44 | PCM.HP.STD ---
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 At baseline patient uses 4 L of nasal cannula at home. Reportedly at the emergency department on 4 L his oxygen saturation was in the 70s to 80s. Patient was placed on non rebreather mask at the emergency department. Patient last chemotherapy was 5 days before presentation. Associated with his symptoms is nausea with occasional vomiting for 4 weeks; diarrhea; weakness and loss of balance. Further he reports subjective fever and chills as well as low blood pressure while at home. Reportedly his blood pressure at home was 70s over 50s. Moreover patient reports weight loss. Reported recently he had an increased dose of Lasix and he was instructed that if he lose more than 3 pounds he should call a healthcare provider. His initial blood pressures in the emergency department was low with lowest reading 82/51. 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) Peripheral vascular disease (Chronic) Hypomagnesemia (Chronic) Inguinal hernia (Chronic) Diarrhea (Chronic) Paralysis of vocal cords and larynx, unilateral (Chronic) Dysphonia (Chronic) Acute on chronic respiratory failure with hypoxemia (Chronic) Essential (primary) hypertension (Chronic) Atherosclerotic heart disease of [place] coronary artery without angina pectoris (Chronic) CAD (coronary artery disease), [place] artery transplanted heart (Chronic) Medical History: Medical History (Last Reviewed 01/01/19 @ 04:23 by Jem Hamlin MD) Essential (primary) hypertension (Chronic) I10 Atherosclerotic heart disease of [place] coronary artery without angina pectoris (Chronic) I25.10 NSVT (nonsustained ventricular tachycardia) (Acute) I47.2 CAD (coronary artery disease), [place] artery transplanted heart (Chronic) I25.811 Cough R05 Dyspnea R06.00 Fever R50.9 Other malaise and fatigue R53.81, R53.83 Shortness of breath R06.[address] Parker, ENT October 2018 Hyperlipidemia E78.5 Palpitations R00.2 Pulmonary hypertension I27.20 Allergies magnesium Adverse Reaction (Severe, Verified 12/25/18 09:47) Diarrhea Home Medications: Ambulatory Orders Medication Instructions Recorded Aspirin [Aspirin, Baby] 81 mg PO DAILY@0800 01/22/14 Pantoprazole Sodium [Protonix] 20 mg PO DAILY 01/22/14 Cholecalciferol (Vitamin D3) 2,000 unit PO DAILY 02/09/15 [D3-2000] Sertraline HCl [Zoloft] 100 mg PO DAILY 12/03/15 Rosuvastatin Calcium [Crestor] 40 mg PO DAILY 05/21/17 treprostinil diolamine ER 1 mg 3 mg PO TID tab 08/03/17 tablet,extended release Carvedilol [Coreg] 12.5 mg PO BID 07/22/18 Tamsulosin HCl [Flomax] 0.4 mg PO QHS 07/22/18 Calcium Carbonate [Calcium] 1,200 mg PO DAILY 10/23/18 Isosorbide Mononitrate [Imdur] 60 mg PO DAILY 10/23/18 Apixaban [Eliquis] 5 mg PO BID 10/30/18 Fenofibrate 160 mg PO DAILY 11/04/18 Lidocaine/Prilocaine 1 applicatio TP DAILY 30 Days #1 11/04/18 [Lidocaine-Prilocaine Cream] tube Furosemide [Lasix] 40 mg PO DAILY 12/19/18 Lisinopril 5 mg PO DAILY 12/31/18 Surgical History: Surgical History (Last Reviewed 01/01/19 @ 04:23 by Jem Hamlin MD) H/O shoulder surgery (Resolved) Z98.890 bilateral shoulder tendon surgery (Resolved) left lower extremity surgery heel surgery (Resolved) Hx of cholecystectomy (Resolved) Z90.49 History of lumbar surgery (Resolved) Z98.890 L2 History of right inguinal hernia repair Onset Date: ~08/2018 Z98.890, Z87.19 S/P lobectomy of lung Z90.2 lap or robotic--NORI and mediastinal adenectomy 10/02/[address] [facility] [address] Remy S/P coronary artery stent placement Onset Date: ~2004 Z95.5 RCA 2005,2016 S/P nasal surgery Z98.890 Surgical History: cholecystectomy, - Lives: Spouse/ Significant Other Smoking Status: Former smoker - *Family History Paternal Family History: Family History (Last Reviewed 01/01/19 @ 04:23 by Jem Hamlin MD) Father Heart disease Hypertension Mother Heart disease CVA (cerebral vascular accident) Sister Diabetes Heart disease History Items: - - CAD Review of Systems Constitutional: Reports: Anorexia, Chills, Fever - subjective, Weakness. Denies: Weight Change HEENT: Denies: Head Aches, Sinus Congestion, Sinus Drainage Cardiovascular: Denies: Chest Pain, Palpitations Respiratory: Reports: Shortness of Breath. Denies: Cough, Sputum production Gastrointestinal: Reports: Diarrhea, Nausea, Vomiting. Denies: Abdominal Pain Genitourinary: Denies: Dysuria Musculoskeletal: Denies: Joint Pain, Joint Tenderness Skin: Denies: Rash, Wounds Neurological: Denies: Numbness, Tingling, Focal weakness Psychiatric: Denies: Anxiety, Depression, Homicidal Ideations, Suicidal Ideations Hematologic/ Lymphatic: Denies: Easy Bruising, Easy Bleeding VTE Information - Inpt Only VTE Present on Admission: No VTE Mechan Device Prophylaxis: None VTE Pharm Prophylaxis ordered?: No Reason prophylaxis not ordered:: Treatment Not Indicated - On Eliquis for Afib; continue - Physical Exam General: Alert, Oriented x3, Cooperative HEENT: Atraumatic, PERRLA, EOMI, Normocephalic Neck: Supple, No JVD, Negative Carotid Bruits Lungs: Clear to auscultation, Normal air movement, Tachypneic Cardiovascular: No murmurs, Irregular Rate Abdomen: Bowel Sounds Present, Soft, Non Tender Extremities: No edema, Capillary Refill Less than 3 Seconds Skin: No rashes, No breakdown Musculoskeletal: No Tenderness to Palpation of Joints or Extremities Neurological: Cranial nerves II-XII grossly intact Psych/Mental Status: Normal Affect, Appropriate Vital Signs Temp Pulse Resp BP Pulse Ox 98.3 F 88 25 H 88/51 L 94 12/31/18 20:02 12/31/18 20:29 12/31/18 20:29 12/31/18 20:29 12/31/18 20:29 Oxygen Flow Rate (L/min) 12 Oxygen Delivery Method Venturi Mask Weight: 95.708 kg Body Mass Index (BMI) 27.8 Finger Stick Blood Glucose 115 Laboratory Tests Past 24 Hrs 12/31/18 12/31/18 12/31/18 17:02 17:02 17:02 WBC 5.6 RBC 3.47 L Hgb 10.2 L Hct 30.4 L MCV 87.6 MCH 29.4 MCHC 33.6 RDW 15.0 H RDW Differential 46.3 H Plt Count 210 MPV 9.0 Immature Gran % (Auto) 1.400 H Neut % (Auto) 76.0 H Lymph % (Auto) 3.1 L [place] % (Auto) 12.6 H Eos % (Auto) 6.5 H Baso % (Auto) 0.4 Absolute Neuts (auto) 4.2 Absolute Lymphs (auto) 0.17 L Total Counted Not Reportable Differential Comment SEE COMMENT Platelet Estimate ADEQUATE RBC Morphology NORM C+C Sodium 140 Potassium 4.4 Chloride 102 Carbon Dioxide 27.0 Anion Gap 11 BUN 44 H Creatinine 2.33 H Estim Creat Clear Calc 33.34 Est GFR (MDRD) Af Amer 36 L Est GFR (MDRD) Non-Af 30 L BUN/Creatinine Ratio 18.9 Glucose 118 H Lactic Acid Calcium 8.4 L Magnesium 1.5 L Total Bilirubin 0.80 AST 13 L ALT 15 L Alkaline Phosphatase 44 L Troponin I < 0.015 B-Natriuretic Peptide 347.7 H Total Protein 6.9 Albumin 3.1 L Globulin 3.8 Albumin/Globulin Ratio 0.8 L Lipase 80 Urine Color Urine Clarity Urine pH Ur Specific [place] Urine Protein Urine Glucose (UA) Urine Ketones Urine Occult Blood Urine Nitrite Urine Bilirubin Urine Urobilinogen Ur Leukocyte Esterase Urine RBC Urine WBC Ur Squamous Epith Cells Ur Transition Epith Cell Urine Bacteria Hyaline Casts Urine Mucus 12/31/18 12/31/18 17:17 17:55 WBC RBC Hgb Hct MCV MCH MCHC RDW RDW Differential Plt Count MPV Immature Gran % (Auto) Neut % (Auto) Lymph % (Auto) [place] % (Auto) Eos % (Auto) Baso % (Auto) Absolute Neuts (auto) Absolute Lymphs (auto) Total Counted Differential Comment Platelet Estimate RBC Morphology Sodium Potassium Chloride Carbon Dioxide Anion Gap BUN Creatinine Estim Creat Clear Calc Est GFR (MDRD) Af Amer Est GFR (MDRD) Non-Af BUN/Creatinine Ratio Glucose Lactic Acid 0.7 Calcium Magnesium Total Bilirubin AST ALT Alkaline Phosphatase Troponin I B-Natriuretic Peptide Total Protein Albumin Globulin Albumin/Globulin Ratio Lipase Urine Color Yellow Urine Clarity Clear Urine pH 6.0 Ur Specific [place] 1.015 Urine Protein Negative Urine Glucose (UA) Normal Urine Ketones Negative Urine Occult Blood Negative Urine Nitrite Negative Urine Bilirubin Negative Urine Urobilinogen Normal Ur Leukocyte Esterase Negative Urine RBC 0 SEEN Urine WBC 0-5 SEEN Ur Squamous Epith Cells 0-5 SEEN Ur Transition Epith Cell 0 SEEN Urine Bacteria 0 SEEN Hyaline Casts 0-5 SEEN Urine Mucus 0 SEEN Assessment/Plan All Active Problems (Last Reviewed 12/31/18 @ 22:39 by Jem Hamlin MD) CAD S/P percutaneous coronary angioplasty (Acute) Thrombocytopenia (Acute) Lung nodule < 6cm on CT (Acute) Right inguinal hernia (Acute) NHL (non-Hodgkin's lymphoma) (Acute) Encounter for education (Acute) Chemotherapy management, encounter for (Acute) H/O shoulder surgery (Resolved) tendon surgery (Resolved) heel surgery (Resolved) Hx of cholecystectomy (Resolved) History of lumbar surgery (Resolved) NSVT (nonsustained ventricular tachycardia) (Acute) The patient is a 68 year old M with a significant history of CAD; congestive heart failure;pulmonary hypertension; non-Hodgkin's lymphoma status post chemotherapy; left lung resection because of 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 Acute on chronic hypoxemic respiratory failure Baseline patient uses 4 L of oxygen. Recorded oxygen saturation on 4 L at the emergency department was 82%. Upon examination I took his nonrebreather mask of and his oxygen saturation dropped to 77%. Chest x-ray showed enlarging [id number] left pleural effusion. New mild left basilar pulmonary opacities infiltrate versus segmental atelectasis as well as pulmonary congestion. Review of old records show that CXR on 12/12/2018 pretty much had the same radiographic findings if not worse. PET/CT tumor imaging on 12/16/[address] Abdomen showed 2.3 x 2.2 cm soft tissue density within left lower lobe along pleural surface ; as well as small right pleural effusion with right basilar subsegmental atelectasis. The patient is well known to Dr. Cedillo, oncologist; and Dr. Devlin, private mortgage banker safe. Other differential diagnosis includes exacerbation of his underlying pulmonary hypertension. Consider discussing case with specialist. In the meantime will continue supportive treatment with supplemental oxygen. Patient received Levaquin at the emergency department for probable pneumonia. Because of his creatinine clearance Levaquin could be dosed every 48 hours. Consider continuing Levaquin. Will get a comprehensive respiratory pathogen panel. Schedule DuoNeb and as needed albuterol ordered Consider CT Chest with contrast if creatinine improves Incentive spirometer and Chest Physiotherapy ordered. Blood cultures are pending. Strep pneumoniae antigen and legionella urinary antigen ordered Lactic acid was unremarkable ANI on CKD stage III On presentation his creatinine was at 2.33. His baseline creatinine is about 1.2. His BUN is elevated above his baseline. BUN over creatinine is 18.9. Cannot rule out prerenal azotemia with probable intrinsic renal azotemia Received normal saline at the emergency department. We will continue maintenance infusion of normal saline. Avoid nephrotoxins Lasix and lisinopril held. Trend BMP. Atrial fibrillation On presentation patient was in A. fib with a controlled rate. This is not new. Patient is on Xarelto; continue for now. Of note patient may need thoracentesis if he continues to be SOB. But for now will continue Xarelto Hypotension On presentation patient systolic blood pressure was in the 80s. Hold all home hypertensive medication at this time. Because of patient history of CHF consider resuming his medications when appropriate. Trend blood pressures. Nausea vomiting diarrhea Likely due to chemotherapy Order enteric pathogen panel. Non-Hodgkin Lymphoma Patient follows up with Dr. Cedillo oncologist Pulmonary Hypertension Treprostinil Diolamine continued DVT Prophylaxis Eliquis continue due to high risk of PE. Code Visit Inpatient E&M: 19521 Init Hosp L3
[2018-12-31] MEDS: Ipratropium/Albuterol Sulfate 3 ML AMPUL.NEB INHALATION ×2 (21:00→23:33)
[2018-12-31] MEDS: levoFLOXacin IV 750 MG/150 ML BAG 100 MG IV (21:27)
--- NOTE | 2018-12-31 22:04 | ED.RN ---
BLOOD CULTURE X 2 DRAWN AND SENT.
[2018-12-31] MEDS: APIXABAN 5 MG TABLET PO (22:41)
[2018-12-31] MEDS: Magnesium Sulfate 4gm/100mL 4 GM/100 ML IV.SOLN. IV (23:32)
--- NOTE | 2018-12-31 23:44 | CPS ---
pt wanted to eat- was placed on 6 l/m high flow nc-sat 96% no resp distress noted at this time
[2019-01-01] VITALS (28 sets, daily range): BP systolic 89–133; BP diastolic 44–75; PULSE 62–116; RESP 18–30; TEMP 36.5–38.7; O2SAT 92–100
[2019-01-01] MEDS: Ondansetron 4 MG/2 ML Vial IV ×2 (05:35→13:55)
[2019-01-01 05:45] LABS: Hematocrit 26.8 % (40-54); Hemoglobin 9.1 g/dl (13.0-16.5); Mean Corpuscular Hgb 29.7 pg (27.0-32.0); Mean Corpuscular Volume 87.6 fL (80-94); Mean Platelet Vol. 8.8 fl (6.2-12.0); Platelet Count 190 K/mm3 (150-450); RBC Distribution Width CV 15.1 % (11.6-14.6); RBC Distribution Width SD 47.1 fl (35.1-43.9); Red Blood Count 3.06 M/mm3 (4.6-6.2); White Blood Count 4.6 K/mm3 (4.4-11.0)
[2019-01-01 05:46] LABS: Scan Indicated on CBC? Y/N NO
[2019-01-01 05:49] LABS: Anion Gap 10 (5-15); BUN 43 mg/dL (7-18); BUN/Creat Ratio 21.8 RATIO (10-20); Calcium,Total 8.2 mg/dL (8.5-10.1); Chloride 104 mmol/L (98-107); Creatinine, Serum 1.97 mg/dL (0.70-1.30); EST Glomerular Filtration Rate 36 mL/min (>60); Est Glom Filt Rate - Afr Amer 43 mL/min (>60); Estimated Creatinine Clearance 39.43 ml/min; Glucose 123 mg/dL (74-106); Potassium 3.9 mmol/L (3.5-5.1); Sodium Level 142 mmol/L (136-145)
[2019-01-01] MEDS: Ipratropium/Albuterol Sulfate 3 ML AMPUL.NEB INHALATION ×5 (07:16→23:04)
[2019-01-01] MEDS: Calcium Carbonate 500 MG Tablet 1000 MG PO (08:53)
[2019-01-01] MEDS: Aspirin 81 MG TAB.CHEW PO (08:54)
[2019-01-01] MEDS: Pantoprazole Sodium 20 MG Tablet PO (08:54)
[2019-01-01] MEDS: Sertraline 100 MG Tablet PO (08:54)
[2019-01-01] MEDS: Fenofibrate 145 MG Tablet PO (08:54)
[2019-01-01] MEDS: APIXABAN 5 MG TABLET PO ×2 (08:55→21:57)
--- NOTE | 2019-01-01 11:47 | CASEMGMT ---
LW in echart, SW printed and placed the form in chart. SW spoke w/pt, let him know that LW in chart but not POA, asked pt to bring in a copy of POA when able. Pt states understanding. ZEV Coker
--- NOTE | 2019-01-01 12:07 | PN_ITS ---
Subjective: Patient is a 68-year-old gentleman with multiple comorbidities who presented with progressive shortness of breath and assessment of acute on chronic hypoxemic respiratory failure admitted admitted to monitored bed for subsequent management 01/01/2019: Patient seen complains of diarrhea which has apparently been ongoing for about a month ordered enteric stool pathogen as well as stool for C. difficile Objective: GENERAL: Patient appears dyspneic at rest HEENT: Atraumatic; EYES; Anicteric, NECK; supple, normal thyroid, RESPIRATORY: Diminished to auscultation CARDIOVASCULAR: Regular S1 S2, GI: soft, non-tender, normoactive bowel sounds, : No Renal angle tenderness; EXTREMITIES: No clubbing, no cyanosis. MUSCULOSKELETAL: No Joint Tenderness; NEURO: Awake; no lateralizing signs. SKIN: No Rash PSYCH; Normal affect Vitals/I&O's: Vital Signs Temp Pulse Resp BP Pulse Ox 99.4 F H 92 24 H 99/58 L 93 01/01/19 11:56 01/01/19 11:56 01/01/19 11:56 01/01/19 11:56 01/01/19 11:56 Oxygen Flow Rate (L/min) 7 Oxygen Delivery Method Nasal Cannula Weight: 97 kg Body Mass Index (BMI) 28.1 Finger Stick Blood Glucose 115 Intake and Output for Last 24 Hours 12/30/18 12/31/18 01/01/19 23:59 23:59 23:59 Intake Total 314 / 314 670 / 670 Balance 314 / 314 670 / 670 Microbiology Past 72 Hours 12/31/18 22:05 Stool Enteric Bacteriology - Preliminary 12/31/18 17:55 Urine, Random Streptococcus pneumoniae Antigen (M - Final 12/31/18 17:55 Urine, Random Legionella Antigen - Final Laboratory Results 12/31/18 17:02: WBC 5.6, RBC 3.47 L, Hgb 10.2 L, Hct 30.4 L, MCV 87.6, MCH 29.4, MCHC 33.6, RDW 15.0 H, RDW Differential 46.3 H, Plt Count 210, MPV 9.0, Immature Gran % (Auto) 1.400 H, Neut % (Auto) 76.0 H, Lymph % (Auto) 3.1 L, [place] % (Auto) 12.6 H, Eos % (Auto) 6.5 H, Baso % (Auto) 0.4, Absolute Neuts (auto) 4.2, Absolute Lymphs (auto) 0.17 L, Total Counted Not Reportable, Differential Comment SEE COMMENT, Platelet Estimate ADEQUATE, RBC Morphology NORM C+C 12/31/18 17:02: Sodium 140, Potassium 4.4, Chloride 102, Carbon Dioxide 27.0, Anion Gap 11, BUN 44 H, Creatinine 2.33 H, Estim Creat Clear Calc 33.34, Est GFR (MDRD) Af Amer 36 L, Est GFR (MDRD) Non-Af 30 L, BUN/Creatinine Ratio 18.9, Glucose 118 H, Calcium 8.4 L, Magnesium 1.5 L, Total Bilirubin 0.80, AST 13 L, ALT 15 L, Alkaline Phosphatase 44 L, Troponin I < 0.015, Total Protein 6.9, Albumin 3.1 L, Globulin 3.8, Albumin/Globulin Ratio 0.8 L, Lipase 80 12/31/18 17:02: B-Natriuretic Peptide 347.7 H 12/31/18 17:17: Lactic Acid 0.7 12/31/18 17:55: Urine Color Yellow, Urine Clarity Clear, Urine pH 6.0, Ur Specific [place] 1.015, Urine Protein Negative, Urine Glucose (UA) Normal, Urine Ketones Negative, Urine Occult Blood Negative, Urine Nitrite Negative, Urine Bilirubin Negative, Urine Urobilinogen Normal, Ur Leukocyte Esterase Negative, Urine RBC 0 SEEN, Urine WBC 0-5 SEEN, Ur Squamous Epith Cells 0-5 SEEN, Ur Tr ansition Epith Cell 0 SEEN, Urine Bacteria 0 SEEN, Hyaline Casts 0-5 SEEN, Urine Mucus 0 SEEN 12/31/18 22:05: Enterovirus RNA (PCR) Pending 01/01/19 05:28: WBC 4.6, RBC 3.06 L, Hgb 9.1 L, Hct 26.8 L, MCV 87.6, MCH 29.7, MCHC 34.0, RDW 15.1 H, RDW Differential 47.1 H, Plt Count 190, MPV 8.8 01/01/19 05:28: Sodium 142, Potassium 3.9, Chloride 104, Carbon Dioxide 28.0, Anion Gap 10, BUN 43 H, Creatinine 1.97 H, Estim Creat Clear Calc 39.43, Est GFR (MDRD) Af Amer 43 L, Est GFR (MDRD) Non-Af 36 L, BUN/Creatinine Ratio 21.8 H, Glucose 123 H, Calcium 8.2 L Current Medications Albuterol Sulfate (Ventolin Aerosols) 2.5 mg INHALATION Q2H PRN PRN PRN Reason: SOB/Wheezing Albuterol/Ipratropium (Duoneb) 3 ml INHALATION Q4H.RT [facility] Last Admin: 01/01/19 11:18 Dose: 3 ml Documented by: Apixaban (Eliquis) 5 mg PO BID [facility] Last Admin: 01/01/19 08:55 Dose: 5 mg Documented by: Aspirin (Aspirin, Baby) 81 mg PO DAILY@0800 [facility] Last Admin: 01/01/19 08:54 Dose: 81 mg Documented by: Atorvastatin Calcium (Lipitor) 80 mg PO DAILY@2200 [facility] Calcium Carbonate (Tums) 1,000 mg PO DAILY [facility] Last Admin: 01/01/19 08:53 Dose: 1,000 mg Documented by: Cholecalciferol (Vitamin D) 2,000 unit PO DAILY [facility] Last Admin: 01/01/19 08:54 Dose: 2,000 unit Documented by: Dextrose (D50w Syringe) 0 gm IV X1 PRN; Protocol PRN Reason: Hypoglycemia Fenofibrate (Tricor) 145 mg PO DAILY [facility] Last Admin: 01/01/19 08:54 Dose: 145 mg Documented by: Glucagon () 1 mg IM .X1 PRN PRN Reason: Hypoglycemia Heparin Sodium (Beef Lung) () 50 units IV UD PRN PRN Reason: HEPARIN FLUSH Ondansetron HCl (Zofran) 4 mg IV Q8H PRN PRN PRN Reason: NAUSEA/VOMITING Last Admin: 01/01/19 05:35 Dose: 4 mg Documented by: Pantoprazole Sodium (Protonix) 20 mg PO DAILY [facility] Last Admin: 01/01/19 08:54 Dose: 20 mg Documented by: Sertraline HCl (Zoloft) 100 mg PO DAILY [facility] Last Admin: 01/01/19 08:54 Dose: 100 mg Documented by: Sodium Chloride () 10 - 40 ml IV UD PRN PRN Reason: R PORT FLUSH Last Admin: 01/01/19 05:35 Dose: 10 ml Documented by: Medical Necessity - Tobacco Use Smoking Status: Former smoker Assessment/Plan All Active Problems (Last Reviewed 01/01/19 @ 04:23 by Jem Hamlin MD) CAD S/P percutaneous coronary angioplasty (Acute) Thrombocytopenia (Acute) Lung nodule < 6cm on CT (Acute) Right inguinal hernia (Acute) NHL (non-Hodgkin's lymphoma) (Acute) Encounter for education (Acute) Chemotherapy management, encounter for (Acute) H/O shoulder surgery (Resolved) tendon surgery (Resolved) heel surgery (Resolved) Hx of cholecystectomy (Resolved) History of lumbar surgery (Resolved) NSVT (nonsustained ventricular tachycardia) (Acute) Patient is a 68-year-old gentleman with multiple comorbidities who presented with progressive shortness of breath, low blood pressure as well as diarrhea. An assessment of acute on chronic hypoxemic respiratory failure admitted admitted to monitored bed for subsequent management 1. Acute on chronic hypoxemic respiratory failure: CAT scan obtained on admission demonstrated an enlarging small to moderate left pleural effusion; New mild left basilar pulmonary opacities infiltrates versus subsegmental atelectasis as well as Mild prominence of the pulmonary vascularity, possible mild pulmonary venous congestion patient was placed on noninvasive ventilation and admitted to a monitored bed with consultation placed to pulmonary medicine 2. Hypotension attributed to patient being on diuretics as well as Flomax suspected offending medications held on admission 3. Vascular congestion on chest x-ray. Given patient hypotension management with Lasix poses a challenge we will continue to monitor 4. Acute kidney injury patient was on both lisinopril and Lasix held 5. Chronic kidney disease with baseline creatinine of 1.5 on admission 2.33 6. Paroxysmal atrial fibrillation rate controlled on systemic anticoagulation with Eliquis 7. Pulmonary hypertension: Patient is on treprostinil Diolamine continued. Did explain to patient's over the side effect has been experiencing including low blood pressure and diarrhea could be a side effect of the above medication 8. Chronic diarrhea ordered stool studies to rule out infectious etiology prior to attributing the diarrhea to his medications 9. Coronary artery disease with previous [place] and RCA stenting 10. History of non-Hodgkin's lymphoma with previous chemo currently in remission 11. Chronic congestive heart failure 2D echo obtained on 07/05/2018 demonstrated preserved ejection fraction of 60% 12. Coronary artery disease 13. History of Left lung tumor resection 14. DVT prophylaxis on Eliquis Active Medications Albuterol Sulfate (Ventolin Aerosols) 2.5 mg INHALATION Q2H PRN PRN PRN Reason: SOB/Wheezing Albuterol/Ipratropium (Duoneb) 3 ml INHALATION Q4H.RT [facility] Last Admin: 01/01/19 11:18 Dose: 3 ml Documented by: Apixaban (Eliquis) 5 mg PO BID [facility] Last Admin: 01/01/19 08:55 Dose: 5 mg Documented by: Aspirin (Aspirin, Baby) 81 mg PO DAILY@0800 [facility] Last Admin: 01/01/19 08:54 Dose: 81 mg Documented by: Atorvastatin Calcium (Lipitor) 80 mg PO DAILY@2200 [facility] Calcium Carbonate (Tums) 1,000 mg PO DAILY [facility] Last Admin: 01/01/19 08:53 Dose: 1,000 mg Documented by: Cholecalciferol (Vitamin D) 2,000 unit PO DAILY [facility] Last Admin: 01/01/19 08:54 Dose: 2,000 unit Documented by: Dextrose (D50w Syringe) 0 gm IV X1 PRN; Protocol PRN Reason: Hypoglycemia Fenofibrate (Tricor) 145 mg PO DAILY [facility] Last Admin: 01/01/19 08:54 Dose: 145 mg Documented by: Glucagon () 1 mg IM .X1 PRN PRN Reason: Hypoglycemia Heparin Sodium (Beef Lung) () 50 units IV UD PRN PRN Reason: HEPARIN FLUSH Ondansetron HCl (Zofran) 4 mg IV Q8H PRN PRN PRN Reason: NAUSEA/VOMITING Last Admin: 01/01/19 13:55 Dose: 4 mg Documented by: Pantoprazole Sodium (Protonix) 20 mg PO DAILY [facility] Last Admin: 01/01/19 08:54 Dose: 20 mg Documented by: Sertraline HCl (Zoloft) 100 mg PO DAILY [facility] Last Admin: 01/01/19 08:54 Dose: 100 mg Documented by: Sodium Chloride () 10 - 40 ml IV UD PRN PRN Reason: R PORT FLUSH Last Admin: 01/01/19 05:35 Dose: 10 ml Documented by: Clinical Impression(s) from Imaging Studies Chest X-Ray 12/31/18 17:35 IMPRESSION: There is an enlarging small to moderate left pleural effusion New mild left basilar pulmonary opacities infiltrates versus subsegmental atelectasis Mild prominence of the pulmonary vascularity, possible mild pulmonary venous congestion Stable central venous catheter Electronically Signed: Mike Wyman, at 17:52 EDT Tel , Service support , Abdomen CT 12/31/18 17:43 IMPRESSION: Limited non-IV and nonoral contrast study 2.3 x 2.2 cm soft tissue density within the left lower lobe along the pleural surface most likely atelectasis, cannot exclude mass. PET/CT follow-up is recommended Small right pleural effusion, mild right basilar subsegmental atelectasis Small left pleural effusion Prior cholecystectomy, Wall thickening of the stomach, likely due to incomplete distention further evaluation with upper GI would be recommended to exclude pathologic wall thickening Scattered colonic diverticulosis. No diverticulitis Stable old moderate compression fracture of L2 with prior kyphoplasty Electronically Signed: Mike Wyman, at 20:21 EDT Tel , Service support , Code Visit Inpatient E&M: 96629 Subs Hosp L3
--- NOTE | 2019-01-01 12:45 | CASEMGMT ---
RN CM Assessment Presentation: Respiratory Failure with hypoxemia, pleural effusion. Intro role of CM and purpose of RN CM assessment to patient in room. Pt is awake, alert and able to participate in assessment. Demographics, PCP and Pharmacy verified. Pt states he is generally independent with ADL's. Wears oxygen at home continuous @ 5L [place]. PCP: Dr. Ayesha Owens Specialists: Dr. Leiva Preferred Pharmacy: [facility] Insurance: [facility] [employer] Prescription Benefit: yes LNOK: , Melissa Woodward Living Arrangements: Lives in one story home, 2 steps into home. Pt is independent in ADLs, ambulatory and denies care needs. Transportation: Drives or drives DME: walker, oxygen through [facility]. Concentrator (goes to 5L [place] only), nebulizer, portable tanks, portable concentrator (he owns) - Call to [facility] to verify prescription- if >5L flow is needed, will need new script, face to face, oxygen testing faxed to [facility] and they can provide 10L concentrator to pt. HHC: none. Pt declined need at this time. Patient DC goals: Home DC PLAN: anticipate home. May need review of current oxygen needs on dc. see above. Lina RICE RN ACM
--- NOTE | 2019-01-01 16:09 | PCM.CONS.GEN ---
Reason for Consult History of Present Illness: The patient is a 68 year old M presents with a chief complaint of diarrhea for 1 month culminating in dyspnea over the last few days The patient reports atrial fibrillation and a recent attempted cardioversion He has documented significant pulmonary hypertension and is on Orenitram 1 mg 3 times a day OPSUMIT 10 mg once daily He reports that he has been having diarrhea for 1 month. He has gas. The patient indicates no blood in the bowel movements. No recent antibiotics. He does have some discomfort to the abdomen. There is no acute pain and no radiation to the back. No blood in the urine. He indicates significant bloating of the abdomen, worsening shortness of breath and he denies fevers chills malaise The patient has been on 3 mg a day of Orenitram and has not backed down on the dosing He denies orthopnea pedal edema PND No chest pressure or pain He has no history of DVT He is on Eliquis for A. fib The patient has no URI symptomatology [] Past Medical History Past Medical History (Chronic Problems): Chronic Problems (Last Reviewed 01/01/19 @ 04:23 by Jem Hamlin MD) History of non-Hodgkin's lymphoma (Chronic) Ischemic cardiomyopathy (Chronic) Elevated serum creatinine (Chronic) Abnormal Holter monitor finding (Chronic) Orthostatic hypotension (Chronic) Left ventricular hypertrophy (Chronic) Other penitentiary (current) drug therapy (Chronic) Peripheral vascular disease (Chronic) Hypomagnesemia (Chronic) Inguinal hernia (Chronic) Diarrhea (Chronic) Paralysis of vocal cords and larynx, unilateral (Chronic) Dysphonia (Chronic) Acute on chronic respiratory failure with hypoxemia (Chronic) Essential (primary) hypertension (Chronic) Atherosclerotic heart disease of [place] coronary artery without angina pectoris (Chronic) CAD (coronary artery disease), [place] artery transplanted heart (Chronic) Medical History: Medical History (Last Reviewed 01/01/19 @ 04:23 by Jem Hamlin MD) Essential (primary) hypertension (Chronic) I10 Atherosclerotic heart disease of [place] coronary artery without angina pectoris (Chronic) I25.10 NSVT (nonsustained ventricular tachycardia) (Acute) I47.2 CAD (coronary artery disease), [place] artery transplanted heart (Chronic) I25.811 Cough R05 Dyspnea R06.00 Fever R50.9 Other malaise and fatigue R53.81, R53.83 Shortness of breath R06.[address] Parker, ENT October 2018 Hyperlipidemia E78.5 Palpitations R00.2 Pulmonary hypertension I27.20 Allergies magnesium Adverse Reaction (Severe, Verified 12/25/18 09:47) Diarrhea Home Medications: Ambulatory Orders Medication Instructions Recorded Aspirin [Aspirin, Baby] 81 mg PO DAILY@0800 01/22/14 Pantoprazole Sodium [Protonix] 20 mg PO DAILY 01/22/14 Cholecalciferol (Vitamin D3) 2,000 unit PO DAILY 02/09/15 [D3-2000] Sertraline HCl [Zoloft] 100 mg PO DAILY 12/03/15 Rosuvastatin Calcium [Crestor] 40 mg PO DAILY 05/21/17 treprostinil diolamine ER 1 mg 3 mg PO TID tab 08/03/17 tablet,extended release Carvedilol [Coreg] 12.5 mg PO BID 07/22/18 Tamsulosin HCl [Flomax] 0.4 mg PO QHS 07/22/18 Calcium Carbonate [Calcium] 1,200 mg PO DAILY 10/23/18 Isosorbide Mononitrate [Imdur] 60 mg PO DAILY 10/23/18 Apixaban [Eliquis] 5 mg PO BID 10/30/18 Fenofibrate 160 mg PO DAILY 11/04/18 Lidocaine/Prilocaine 1 applicatio TP DAILY 30 Days #1 11/04/18 [Lidocaine-Prilocaine Cream] tube Furosemide [Lasix] 40 mg PO DAILY 12/19/18 Lisinopril 5 mg PO DAILY 12/31/18 Surgical History: Surgical History (Last Reviewed 01/01/19 @ 04:23 by Jem Hamlin MD) H/O shoulder surgery (Resolved) Z98.890 bilateral shoulder tendon surgery (Resolved) left lower extremity surgery heel surgery (Resolved) Hx of cholecystectomy (Resolved) Z90.49 History of lumbar surgery (Resolved) Z98.890 L2 History of right inguinal hernia repair Onset Date: ~08/2018 Z98.890, Z87.19 S/P lobectomy of lung Z90.2 lap or robotic--NORI and mediastinal adenectomy 10/02/[address] [facility] [address] Remy S/P coronary artery stent placement Onset Date: ~2004 Z95.5 RCA 2004,2016 S/P nasal surgery Z98.890 Surgical History: cholecystectomy, - Lives: Spouse/ Significant Other Smoking Status: Former smoker - *Family History Paternal Family History: Family History (Last Reviewed 01/01/19 @ 04:23 by Jem Hamlin MD) Father Heart disease Hypertension Mother Heart disease CVA (cerebral vascular accident) Sister Diabetes Heart disease History Items: - - CAD Review of Systems Constitutional: Reports: Weakness. Denies: Chills, Fever, Weight Change Eyes: Reports: - - No vision changes no headaches HEENT: Reports: - - No dysphasia. Denies: Head Aches, Sinus Congestion, Sinus Drainage Cardiovascular: Denies: Chest Pain, Palpitations Respiratory: Reports: - - The patient reports no cough, no sputum production, he does feel some chest congestion, no night sweats, no chills, no malaise, no wheezing, no pleuritic pain. Denies: Cough, Shortness of breath at rest, Sputum production Gastrointestinal: Reports: - - No melena, diarrhea, substantial bloating. Denies: Abdominal Pain, Nausea, Vomiting Genitourinary: Denies: Dysuria Musculoskeletal: Denies: Joint Pain, Joint Tenderness Skin: Denies: Rash, Wounds Neurological: Denies: Numbness, Tingling, Focal weakness Psychiatric: Denies: Anxiety, Depression, Homicidal Ideations, Suicidal Ideations Hematologic/ Lymphatic: Denies: Easy Bruising, Easy Bleeding - Physical Exam General: Alert, Oriented x3, Cooperative, - - Looks dehydrated, lightheaded with Valsalva HEENT: Atraumatic, PERRLA, EOMI, Normocephalic Oral: Dry Mucosa Neck: Supple, No JVD, Negative Carotid Bruits, No Nodes, No Nuchal Rigidity, Trachea Midline Lungs: Clear to auscultation, Normal air movement, No rhonchi, No wheeze, No rales, Diminished, - - No wheezing, tachypnea, exertional dyspnea Cardiovascular: No murmurs, - - No murmur, rate controlled A. fib Abdomen: Bowel Sounds Present, Soft, - - Distended, tympanitic in the right lower quadrant otherwise still, nonrigid, no rebound, minimal tenderness to deep palpation no hepatosplenomegaly Extremities: No edema, No Calf Tenderness, - - Capillary refill is 5 seconds, no edema Skin: No rashes, No breakdown Musculoskeletal: No Tenderness to Palpation of Joints or Extremities Neurological: Cranial nerves II-XII grossly intact, Neuro grossly intact, Muscle tone normal Psych/Mental Status: Normal Affect, Appropriate, Alert and oriented to time, place, person, mood and affect Vital Signs Temp Pulse Resp BP Pulse Ox 100.1 F H 93 24 H 101/65 96 01/01/19 15:42 01/01/19 16:04 01/01/19 15:42 01/01/19 15:42 01/01/19 15:42 Oxygen Flow Rate (L/min) 7 Oxygen Delivery Method Nasal Cannula Weight: 97 kg Body Mass Index (BMI) 28.1 Finger Stick Blood Glucose 115 Intake and Output for Last 24 Hours 12/30/18 12/31/18 01/01/19 23:59 23:59 23:59 Intake Total 314 / 314 670 / 670 Balance 314 / 314 670 / 670 Microbiology Past 72 Hours 12/31/18 22:05 Enteric Bacteriology - Final Stool 12/31/18 21:40 Respiratory Panel (PCR) - Final Mucosa - Nasopharyngeal 12/31/18 17:55 Streptococcus pneumoniae Antigen (M - Final Urine, Random 12/31/18 17:55 Legionella Antigen - Final Urine, Random Laboratory Tests Past 24 Hrs 12/31/18 12/31/18 12/31/18 17:02 17:02 17:02 WBC 5.6 RBC 3.47 L Hgb 10.2 L Hct 30.4 L MCV 87.6 MCH 29.4 MCHC 33.6 RDW 15.0 H RDW Differential 46.3 H Plt Count 210 MPV 9.0 Immature Gran % (Auto) 1.400 H Neut % (Auto) 76.0 H Lymph % (Auto) 3.1 L Ponce % (Auto) 12.6 H Eos % (Auto) 6.5 H Baso % (Auto) 0.4 Absolute Neuts (auto) 4.2 Absolute Lymphs (auto) 0.17 L Total Counted Not Reportable Differential Comment SEE COMMENT Platelet Estimate ADEQUATE RBC Morphology NORM C+C Sodium 140 Potassium 4.4 Chloride 102 Carbon Dioxide 27.0 Anion Gap 11 BUN 44 H Creatinine 2.33 H Estim Creat Clear Calc 33.34 Est GFR (MDRD) Af Amer 36 L Est GFR (MDRD) Non-Af 30 L BUN/Creatinine Ratio 18.9 Glucose 118 H Lactic Acid Calcium 8.4 L Magnesium 1.5 L Total Bilirubin 0.80 AST 13 L ALT 15 L Alkaline Phosphatase 44 L Troponin I < 0.015 B-Natriuretic Peptide 347.7 H Total Protein 6.9 Albumin 3.1 L Globulin 3.8 Albumin/Globulin Ratio 0.8 L Lipase 80 Urine Color Urine Clarity Urine pH Ur Specific [place] Urine Protein Urine Glucose (UA) Urine Ketones Urine Occult Blood Urine Nitrite Urine Bilirubin Urine Urobilinogen Ur Leukocyte Esterase Urine RBC Urine WBC Ur Squamous Epith Cells Ur Transition Epith Cell Urine Bacteria Hyaline Casts Urine Mucus Enterovirus RNA (PCR) 12/31/18 12/31/18 12/31/18 17:17 17:55 22:05 WBC RBC Hgb Hct MCV MCH MCHC RDW RDW Differential Plt Count MPV Immature Gran % (Auto) Neut % (Auto) Lymph % (Auto) Ponce % (Auto) Eos % (Auto) Baso % (Auto) Absolute Neuts (auto) Absolute Lymphs (auto) Total Counted Differential Comment Platelet Estimate RBC Morphology Sodium Potassium Chloride Carbon Dioxide Anion Gap BUN Creatinine Estim Creat Clear Calc Est GFR (MDRD) Af Amer Est GFR (MDRD) Non-Af BUN/Creatinine Ratio Glucose Lactic Acid 0.7 Calcium Magnesium Total Bilirubin AST ALT Alkaline Phosphatase Troponin I B-Natriuretic Peptide Total Protein Albumin Globulin Albumin/Globulin Ratio Lipase Urine Color Yellow Urine Clarity Clear Urine pH 6.0 Ur Specific [place] 1.015 Urine Protein Negative Urine Glucose (UA) Normal Urine Ketones Negative Urine Occult Blood Negative Urine Nitrite Negative Urine Bilirubin Negative Urine Urobilinogen Normal Ur Leukocyte Esterase Negative Urine RBC 0 SEEN Urine WBC 0-5 SEEN Ur Squamous Epith Cells 0-5 SEEN Ur Transition Epith Cell 0 SEEN Urine Bacteria 0 SEEN Hyaline Casts 0-5 SEEN Urine Mucus 0 SEEN Enterovirus RNA (PCR) Pending 01/01/19 01/01/19 05:28 05:28 WBC 4.6 RBC 3.06 L Hgb 9.1 L Hct 26.8 L MCV 87.6 MCH 29.7 MCHC 34.0 RDW 15.1 H RDW Differential 47.1 H Plt Count 190 MPV 8.8 Immature Gran % (Auto) Neut % (Auto) Lymph % (Auto) Ponce % (Auto) Eos % (Auto) Baso % (Auto) Absolute Neuts (auto) Absolute Lymphs (auto) Total Counted Differential Comment Platelet Estimate RBC Morphology Sodium 142 Potassium 3.9 Chloride 104 Carbon Dioxide 28.0 Anion Gap 10 BUN 43 H Creatinine 1.97 H Estim Creat Clear Calc 39.43 Est GFR (MDRD) Af Amer 43 L Est GFR (MDRD) Non-Af 36 L BUN/Creatinine Ratio 21.8 H Glucose 123 H Lactic Acid Calcium 8.2 L Magnesium Total Bilirubin AST ALT Alkaline Phosphatase Troponin I B-Natriuretic Peptide Total Protein Albumin Globulin Albumin/Globulin Ratio Lipase Urine Color Urine Clarity Urine pH Ur Specific [place] Urine Protein Urine Glucose (UA) Urine Ketones Urine Occult Blood Urine Nitrite Urine Bilirubin Urine Urobilinogen Ur Leukocyte Esterase Urine RBC Urine WBC Ur Squamous Epith Cells Ur Transition Epith Cell Urine Bacteria Hyaline Casts Urine Mucus Enterovirus RNA (PCR) Assessment/Plan All Active Problems (Last Reviewed 01/01/19 @ 04:23 by Jem Hamlin MD) CAD S/P percutaneous coronary angioplasty (Acute) Thrombocytopenia (Acute) Lung nodule < 6cm on CT (Acute) Right inguinal hernia (Acute) NHL (non-Hodgkin's lymphoma) (Acute) Encounter for education (Acute) Chemotherapy management, encounter for (Acute) H/O shoulder surgery (Resolved) tendon surgery (Resolved) heel surgery (Resolved) Hx of cholecystectomy (Resolved) History of lumbar surgery (Resolved) NSVT (nonsustained ventricular tachycardia) (Acute) Problem #1 is dehydration poor capillary refill right heart failure in association with chronic diarrhea I do recommend stool for O&P and C. difficile, white cells I would reduce the Orenitram, 1/2 mg 3 times a day I would continue OPSUMIT CT scan of the abdomen is reviewed If the patient continues with bloating and diarrhea consider GI consultation, the patient does not have an acute surgical abdomen The second problem is dyspnea, the CT of the abdomen shows one third of the chest which is unchanged from the 12/12 CT scan of the chest, residual emphysema and left upper lobe volume loss with shift of the mediastinum The patient also reports hypoxemia, needing increase in O2, I would obtain a sputum culture if the patient does advance secretions I would have some caution about the use of Pap therapy given the fact that he may bloat and be more short of breath He does not exhibit features of acute exacerbation of COPD or asthma I would consider obtaining an echocardiogram for the dyspnea, advance supplemental O2, if the patient fails noninvasive ventilation then ICU evaluation With respect to his non-Hodgkin's lymphoma in the left upper lobe, there is no evidence to suggest that this is active Even in the context of anticoagulation malignancy can produce DVT and PE, consider d-dimer and a leg scan if dyspnea continues after decompressing the abdomen With respect to the dehydration this patient has very poor capillary refill, although sepsis is in the differential right heart disease with dehydration is a significant concern and hydration should be instituted throughout the day today. Last blood gas pH 739 PCO2 40 PO2 54 On his heart cath he had a preserved left heart ejection fraction with a normal wedge He had a perfusion scan to look for chronic thromboembolic pulmonary embolus, this was negative Thank you for the opportunity to evaluate this patient
[2019-01-01] MEDS: Acetaminophen 325 MG Tablet 650 MG PO (18:42)
--- NOTE | 2019-01-01 19:38 | CPS ---
pt brought own cpap machine in-set up and distilled water added with 6 l/m o2 bleed
[2019-01-01] MEDS: Atorvastatin Calcium 80 MG Tablet PO (21:57)
[2019-01-01] MEDS: MELATONIN 3 MG TABLET PO (21:57)
[2019-01-02] VITALS (27 sets, daily range): BP systolic 81–126; BP diastolic 51–74; PULSE 81–101; RESP 16–31; TEMP 36.8–38.6; O2SAT 90–100
[2019-01-02] MEDS: Ipratropium/Albuterol Sulfate 3 ML AMPUL.NEB INHALATION ×6 (03:27→22:40)
[2019-01-02] MEDS: Aspirin 81 MG TAB.CHEW PO (08:27)
[2019-01-02] MEDS: APIXABAN 5 MG TABLET PO ×2 (08:27→21:23)
[2019-01-02] MEDS: Sertraline 100 MG Tablet PO (08:28)
[2019-01-02] MEDS: Fenofibrate 145 MG Tablet PO (08:28)
[2019-01-02] MEDS: Pantoprazole Sodium 20 MG Tablet PO (08:28)
[2019-01-02] MEDS: Calcium Carbonate 500 MG Tablet 1000 MG PO (08:28)
[2019-01-02 09:51] LABS: Magnesium 1.6 mg/dL (1.6-2.6)
--- NOTE | 2019-01-02 10:56 | PN_ITS ---
Subjective: Patient seen admitted to some improvement in his overall condition. Still complains of intermittent nausea but diarrhea has subsided. Stool for enteric pathogens as well as C. difficile came back negative. Objective: GENERAL: Patient is cooperative HEENT: Atraumatic; EYES; Anicteric, NECK; supple, normal thyroid, RESPIRATORY: Diminished to auscultation CARDIOVASCULAR: Regular S1 S2, GI: soft, non-tender, normoactive bowel sounds, : No Renal angle tenderness; EXTREMITIES: No clubbing, no cyanosis. MUSCULOSKELETAL: No Joint Tenderness; NEURO: Awake; no lateralizing signs. SKIN: No Rash PSYCH; Normal affect Vitals/I&O's: Vital Signs Temp Pulse Resp BP Pulse Ox 99.4 F H 89 19 H 108/65 96 01/02/19 09:23 01/02/19 09:23 01/02/19 09:23 01/02/19 09:23 01/02/19 09:23 Oxygen Flow Rate (L/min) 5 Oxygen Delivery Method CPAP Weight: 98 kg Body Mass Index (BMI) 28.1 Finger Stick Blood Glucose 115 Intake and Output for Last 24 Hours 12/31/18 01/01/19 01/02/19 23:59 23:59 23:59 Intake Total 314 / 314 1477 / 1477 240 / 240 Balance 314 / 314 1477 / 1477 240 / 240 Microbiology Past 72 Hours 01/01/19 13:20 Stool C. difficile DNA Amplification - Final 12/31/18 22:05 Stool Enteric Bacteriology - Final 12/31/18 21:40 Mucosa - Nasopharyngeal Respiratory Panel (PCR) - Final 12/31/18 17:55 Urine, Random Streptococcus pneumoniae Antigen (M - Final 12/31/18 17:55 Urine, Random Legionella Antigen - Final Laboratory Results 01/02/19 09:34: Magnesium 1.6 Current Medications Acetaminophen (Tylenol) 650 mg PO Q6H PRN PRN PRN Reason: FEVER Last Admin: 01/01/19 18:42 Dose: 650 mg Documented by: Albuterol Sulfate (Ventolin Aerosols) 2.5 mg INHALATION Q2H PRN PRN PRN Reason: SOB/Wheezing Albuterol/Ipratropium (Duoneb) 3 ml INHALATION Q4H.RT EMERY Last Admin: 01/02/19 07:22 Dose: 3 ml Documented by: Apixaban (Eliquis) 5 mg PO BID [facility] Last Admin: 01/02/19 08:27 Dose: 5 mg Documented by: Aspirin (Aspirin, Baby) 81 mg PO DAILY@0800 [facility] Last Admin: 01/02/19 08:27 Dose: 81 mg Documented by: Atorvastatin Calcium (Lipitor) 80 mg PO DAILY@2200 [facility] Last Admin: 01/01/19 21:57 Dose: 80 mg Documented by: Calcium Carbonate (Tums) 1,000 mg PO DAILY [facility] Last Admin: 01/02/19 08:28 Dose: 1,000 mg Documented by: Cholecalciferol (Vitamin D) 2,000 unit PO DAILY [facility] Last Admin: 01/02/19 08:28 Dose: 2,000 unit Documented by: Dextrose (D50w Syringe) 0 gm IV X1 PRN; Protocol PRN Reason: Hypoglycemia Fenofibrate (Tricor) 145 mg PO DAILY [facility] Last Admin: 01/02/19 08:28 Dose: 145 mg Documented by: Glucagon () 1 mg IM .X1 PRN PRN Reason: Hypoglycemia Heparin Sodium (Beef Lung) () 50 units IV UD PRN PRN Reason: HEPARIN FLUSH Melatonin (Melatonin) 3 mg PO QHS PRN PRN Reason: SLEEP Last Admin: 01/01/19 21:57 Dose: 3 mg Documented by: Nutritional Formula (Lactose Free) (Ensure Enlive) 120 ml PO 4X/DAY [facility] Last Admin: 01/02/19 08:28 Dose: Not Given Documented by: Ondansetron HCl (Zofran) 4 mg IV Q8H PRN PRN PRN Reason: NAUSEA/VOMITING Last Admin: 01/01/19 13:55 Dose: 4 mg Documented by: Pantoprazole Sodium (Protonix) 20 mg PO DAILY [facility] Last Admin: 01/02/19 08:28 Dose: 20 mg Documented by: Sertraline HCl (Zoloft) 100 mg PO DAILY [facility] Last Admin: 01/02/19 08:28 Dose: 100 mg Documented by: Sodium Chloride () 10 - 40 ml IV UD PRN PRN Reason: R PORT FLUSH Last Admin: 01/02/19 10:10 Dose: 20 ml Documented by: Tamsulosin HCl (Flomax) 0.4 mg PO DAILY@1730 [facility] Medical Necessity - Tobacco Use Smoking Status: Former smoker Assessment/Plan All Active Problems (Last Reviewed 01/01/19 @ 04:23 by Jem Hamlin MD) CAD S/P percutaneous coronary angioplasty (Acute) Thrombocytopenia (Acute) Lung nodule < 6cm on CT (Acute) Right inguinal hernia (Acute) NHL (non-Hodgkin's lymphoma) (Acute) Encounter for education (Acute) Chemotherapy management, encounter for (Acute) H/O shoulder surgery (Resolved) tendon surgery (Resolved) heel surgery (Resolved) Hx of cholecystectomy (Resolved) History of lumbar surgery (Resolved) NSVT (nonsustained ventricular tachycardia) (Acute) Patient is a 68-year-old gentleman with multiple comorbidities who presented with progressive shortness of breath, low blood pressure as well as diarrhea. An assessment of acute on chronic hypoxemic respiratory failure admitted admitted to monitored bed for subsequent management 1. Acute on chronic hypoxemic respiratory failure: CAT scan obtained on admission demonstrated an enlarging small to moderate left pleural effusion; New mild left basilar pulmonary opacities infiltrates versus subsegmental atelectasis as well as Mild prominence of the pulmonary vascularity, possible mild pulmonary venous congestion patient was placed on noninvasive ventilation and admitted to a monitored bed with consultation placed to pulmonary medicine ~ 01/02/2019; patient was seen in consultation by Dr. Leiva with pulmonary medicine. Case was discussed with him his recommendation also reviewed 2. Hypotension attributed to patient being on diuretics as well as Flomax suspected offending medications held on admission ~ 01/02/2019 patient blood pressure fairly stable 3. Vascular congestion on chest x-ray. Given patient hypotension management with Lasix poses a challenge we will continue to monitor 4. Acute kidney injury patient was on both lisinopril and Lasix held 5. Chronic kidney disease with baseline creatinine of 1.5 on admission 2.33 6. Paroxysmal atrial fibrillation rate controlled on systemic anticoagulation with Eliquis 7. Pulmonary hypertension: Patient is on treprostinil Diolamine continued. Did explain to patient's over the side effect has been experiencing including low blood pressure and diarrhea could be a side effect of the above medication 8. Chronic diarrhea ordered stool studies to rule out infectious etiology prior to attributing the diarrhea to his medications. ~01/02/2019; infectious etiology ruled out plan is to treat patient with Imodium if needed 9. Coronary artery disease with previous MT and RCA stenting 10. History of non-Hodgkin's lymphoma with previous chemo currently in remission 11. Chronic congestive heart failure 2D echo obtained on 07/05/2018 demonstrated preserved ejection fraction of 60% 12. Coronary artery disease 13. History of Left lung tumor resection 14. DVT prophylaxis on Eliquis Code Visit Inpatient E&M: 05944 Subs Hosp L2
[2019-01-02] MEDS: Acetaminophen 325 MG Tablet 650 MG PO (16:08)
[2019-01-02] MEDS: Tamsulosin HCl 0.4 MG Capsule PO (16:10)
--- NOTE | 2019-01-02 16:54 | EKG12_ITS ---
Test Reason : TACHYCARDIA Blood Pressure : / mmHG Vent. Rate : 090 BPM Atrial Rate : 202 BPM P-R Int : 000 ms QRS Dur : 146 ms QT Int : 372 ms P-R-T Axes : 000 -23 -44 degrees QTc Int : 455 ms Atrial fibrillation with premature ventricular or aberrantly conducted complexes Right bundle branch block Inferior infarct , age undetermined Abnormal ECG Confirmed by SARAHY LEAL, KEATON ([id number]), editor sound RONNA TREVINO ([id number]) on 01/06/2019 1:44:17 PM Referred By: MARIKA Confirmed By:KEATON WEATHERS MD
[2019-01-02 17:31] LABS: Anion Gap 3 (5-15); BUN 24 mg/dL (7-18); BUN/Creat Ratio 15.3 RATIO (10-20); Calcium,Total 8.6 mg/dL (8.5-10.1); Chloride 107 mmol/L (98-107); Creatinine, Serum 1.57 mg/dL (0.70-1.30); EST Glomerular Filtration Rate 47 mL/min (>60); Est Glom Filt Rate - Afr Amer 56 mL/min (>60); Estimated Creatinine Clearance 49.48 ml/min; Glucose 142 mg/dL (74-106); Potassium 4.1 mmol/L (3.5-5.1); Sodium Level 138 mmol/L (136-145)
[2019-01-02 17:41] LABS: Absolute Lymphocyte Count 0.29 X10^3/ul (0.83-4.51); Absolute Neutrophil Count 3.7 X10^3/uL (2.0-7.7); Basophil# 0.01 X10^3/uL; Basophil% 0.2 % (0-1); Eosinophil# 0.22 X10^3/uL; Eosinophils% 4.8 % (0-5); Hemoglobin 9.3 g/dl (13.0-16.5); Lymphocyte # 0.29 X10^3/ul (4.0); Lymphocyte % 6.3 % (19-41); Mean Corp Hgb Conc 33.2 g/gl (32-36); Mean Corpuscular Hgb 29.2 pg (27.0-32.0); Mean Corpuscular Volume 88.1 fL (80-94); Monocyte% 8.7 % (0-10); Neutrophil # 3.66 X10^3/uL (2.7-7.7); Neutrophil % 79.6 % (47-70); POSITIVE COUNT NO; POSITIVE DIFFERENTIAL YES; POSITIVE MORPHOLOGY NO; Platelet Count 175 K/mm3 (150-450); RBC Distribution Width CV 14.9 % (11.6-14.6); Red Blood Count 3.18 M/mm3 (4.6-6.2); White Blood Count 4.6 K/mm3 (4.4-11.0)
[2019-01-02 17:42] LABS: Differential Indicated SCAN CRITERIA MET
--- NOTE | 2019-01-02 18:03 | PCM.PN.BLA ---
Progress Note Asked to see a pt with a wide complex tachycardia......rate increased to 140's when he was up to the BR and he got more SOB and felt fatigued. The tachycardia is irregular and looks like the RBBB he had on a previous EKG. The blood pressure is within normal limits and he denies CP. Mag was low this AM and it was supplemented. He has a hx of AF and has seen Dr. Higuera at [facility]. He was at one time on Amiodarone but, this was stopped by Dr. Higuera. EKG was obtained and since the rate has slowed down he now has narrow complexes. Stat lab showed a stable hemoglobin at 9.3. Blood cell count is within normal limits. Potassium is 4.1 and his creatinine has improved and is currently 1.57, down from 2.33 at admission. Magnesium is up to 2 following supplementation this morning. Amiodarone bolus and infusion were ordered. Dr. Rouse has been placed on consult and I cortext the rhythm strips and EKG to him.
[2019-01-02 18:06] LABS: Differential Comment SCANNED
[2019-01-02] MEDS: MELATONIN 3 MG TABLET PO (21:22)
[2019-01-02] MEDS: Atorvastatin Calcium 80 MG Tablet PO (21:22)
--- NOTE | 2019-01-02 21:41 | CON.PCM_ITS ---
Problem List (1) Atrial fibrillation Status: Acute (2) NSVT (nonsustained ventricular tachycardia) Status: Acute (3) CAD S/P percutaneous coronary angioplasty Status: Chronic Comment: C with bare metal stent to RCA 2004; [facility] with IVUS & FFR to mid RCA 02/14/13 (4) Ischemic cardiomyopathy Status: Chronic (5) HLD (hyperlipidemia) Status: Acute (6) Essential (primary) hypertension Status: Chronic (7) Pulmonary hypertension Status: Acute (8) NHL (non-Hodgkin's lymphoma) Status: Acute Qualifiers: Non-Hodgkin lymphoma type: B-cell B-cell lymphoma type: diffuse large B- cell Lymphoma site: extranodal excluding spleen and other solid organs Qualified Code(s): C83.39 - Diffuse large B-cell lymphoma, extranodal and solid organ sites (9) Pleural effusion Status: Acute (10) Elevated serum creatinine Status: Chronic Reason for Consult Date of Consultation: 01/02/19 History of Present Illness: The patient is a 68 year old white male with a past medical history of atrial fibrillation, and sustained wide-complex tachycardia concerning for nonsustained VT, CAD, status post PCI, ischemic mediated cardiomyopathy, hyperlipidemia, hypertension, pulmonary hypertension, non-Hodgkin's lymphoma, who now presents for evaluation of recurrent atrial fibrillation with rapid ventricular response superimposed upon concerns of elevated creatinine level and a left-sided pleural effusion. The patient states he has not been feeling well recently. He has had a combination of symptoms with respect to concerning shortness of breath/dyspnea, nausea, emesis, loose bowel movements, diminished oral intake, and generally not feeling well. He states that the best of his knowledge he has had no recent definitive a cardiovascular event occur. He states his last chemotherapy was on 12-26-18. To the best of his knowledge his non-Hodgkin's lymphoma is in remission. Based upon his aforementioned concerns he presented to the hospital for further evaluation. From a cardiac standpoint he was noted to have evidence of atrial fibrillation. He was also noted by radiologic studies to have evidence of a left-sided pleural effusion. His troponin I l evels have been negative thus far. Based upon his atrial fibrillation and concerns of rapid ventricular response with wide QRS complexes potentially being compatible with aberrancy based upon his underlying right IVCD pattern he has been placed on additional medical management with IV amiodarone. He has undergone previous noninvasive and invasive evaluation in the past. Most recently on 07-05-18 he had a transthoracic echocardiogram performed. At that time he had left ventricular regional wall motion abnormalities with overall preserved LVEF of 60% with findings compatible with mild MR, trivial TR, mild focal aortic valve thickening, and trivial [place]. His estimated RV systolic pressure was 60 mmHg and there was evidence of decreased diastolic compliance. He had a pharmacologic stress nuclear imaging study performed on 07-23-18. Based upon that study his myocardial perfusion changes were compatible with physiologic apical thinning with no myocardial perfusion changes consider diagnostic for associated stress-induced myocardial ischemia. His gated LVEF was 55%. He has undergone cardiac catheterization procedure on more than one occasion in the past. His most recent procedure appears to have been on 05-22-2017 at [facility]. At that time his left ventricle was thought to demonstrate inferior basilar hypokinesis with an LVEF of 40 to 45%, the left main coronary arteries normal, the LAD had mild calcification and mild luminal irregularities less than 30%, the LCx had mild luminal irregularities less than 30%, the RCA had a proximal 75% stenosis and he subsequently went on to receive a PCI/LATOSHA with a 4.0?16 Promus stent to the RCA distribution. He is also had based on concerns of his cardiac dysrhythmias and electrophysiology study performed at [facility]. At that bvco-0-20-2018-his study was reported as demonstrating a no inducible SVT and no inducible VT, nonsustained VT, VF, with and without isoproterenol with an S5 protocol at 2 RV sites. The recommendation at that time was to continue medical therapy, discontinuation of antiarrhythmic therapy with amiodarone, and no indication for ICD placement. [] Past Medical History Allergies/Adverse Reactions: Allergies magnesium Adverse Reaction (Severe, Verified 12/25/18 09:47) Diarrhea Home Medications: Ambulatory Orders Medication Instructions Recorded Aspirin [Aspirin, Baby] 81 mg PO DAILY@0800 01/22/14 Pantoprazole Sodium [Protonix] 20 mg PO DAILY 01/22/14 Cholecalciferol (Vitamin D3) 2,000 unit PO DAILY 02/09/15 [D3-2000] Sertraline HCl [Zoloft] 100 mg PO DAILY 12/03/15 Rosuvastatin Calcium [Crestor] 40 mg PO DAILY 05/21/17 treprostinil diolamine ER 1 mg 3 mg PO TID tab 08/03/17 tablet,extended release Carvedilol [Coreg] 12.5 mg PO BID 07/22/18 Tamsulosin HCl [Flomax] 0.4 mg PO QHS 07/22/18 Calcium Carbonate [Calcium] 1,200 mg PO DAILY 10/23/18 Isosorbide Mononitrate [Imdur] 60 mg PO DAILY 10/23/18 Apixaban [Eliquis] 5 mg PO BID 10/30/18 Fenofibrate 160 mg PO DAILY 11/04/18 Lidocaine/Prilocaine 1 applicatio TP DAILY 30 Days #1 11/04/18 [Lidocaine-Prilocaine Cream] tube Furosemide [Lasix] 40 mg PO DAILY 12/19/18 Lisinopril 5 mg PO DAILY 12/31/18 Past Medical History (Chronic Problems): Chronic Problems (Last Reviewed 01/01/19 @ 04:23 by Jem Hamlin MD) History of non-Hodgkin's lymphoma (Chronic) CAD S/P percutaneous coronary angioplasty (Chronic) [facility] with bare metal stent to RCA 2004; [facility] with IVUS & FFR to mid RCA 02/14/13 Ischemic cardiomyopathy (Chronic) Elevated serum creatinine (Chronic) Abnormal Holter monitor finding (Chronic) Orthostatic hypotension (Chronic) Left ventricular hypertrophy (Chronic) Other intermediate accountant (current) drug therapy (Chronic) Peripheral vascular disease (Chronic) Hypomagnesemia (Chronic) Inguinal hernia (Chronic) Diarrhea (Chronic) Paralysis of vocal cords and larynx, unilateral (Chronic) Dysphonia (Chronic) Acute on chronic respiratory failure with hypoxemia (Chronic) Essential (primary) hypertension (Chronic) Atherosclerotic heart disease of [place] coronary artery without angina pectoris (Chronic) CAD (coronary artery disease), [place] artery transplanted heart (Chronic) Surgical History: cholecystectomy, - - *Family History Paternal Family History: Family History (Last Reviewed 01/01/19 @ 04:23 by Jem Hamlin MD) Father Heart disease Hypertension Mother Heart disease CVA (cerebral vascular accident) Sister Diabetes Heart disease History Items: - - CAD Lives: Spouse/ Significant Other Smoking Status: Former smoker Alcohol: None Drugs: None Review of Systems - Review of Systems General: Reports: Fatigue. Denies: Fever, Night Sweats Cardiovascular: Reports: Shortness of Breath. Denies: Chest Discomfort, Orthopnea, PND, Peripheral Edema, Palpitations, Lightheadedness, Dizziness, Near Syncope, Syncope Respiratory: Reports: Shortness of Breath. Denies: Cough, Sputum Production, Hemoptysis Gastrointestinal: Reports: Nausea, Emesis, Diarrhea. Denies: Hematemesis, Hematochezia, Melena Genitourinary: Denies: Dysuria, Hematuria Skin: Denies: Rash Subjectve: She is a 68-year-old white male who appears to be resting comfortably at the moment in no acute distress. Objective: Vital Signs Temp Pulse Resp BP Pulse Ox 99.9 F H 88 20 H 103/59 L 99 01/02/19 17:24 01/02/19 19:12 01/02/19 19:12 01/02/19 19:00 01/02/19 19:00 Oxygen Flow Rate (L/min) 4 Oxygen Delivery Method Nasal Cannula Weight: 216 lb 0.848 oz Body Mass Index (BMI) 28.1 Finger Stick Blood Glucose 115 Intake and Output for Last 24 Hours 12/31/18 01/01/19 01/02/19 23:59 23:59 23:59 Intake Total 314 / 314 1477 / 1477 1101.4 / 1101.4 Balance 314 / 314 1477 / 1477 1101.4 / 1101.4 General: Awake, Alert, Oriented x 3, Cooperative, No Acute Distress HEENT: Atraumatic, Normocephalic, PERRL, EOMI, Sclera Non Icteric Oral: Moist Mucosa Neck: Supple, Good ROM, No JVD Lungs: Diminished Left Base Cardiovascular: Irregular Rhythm, Normal S1, Normal S2 Vascular: No Carotid Bruits Abdomen: Bowel Sounds Present, Soft, Non Tender Extremities: No Cyanosis, No Clubbing, No edema Neurological: No Focal Motor or Sensory Deficit Psych/Mental Status: Appropriate 01/02/19 09:34: Magnesium 1.6 01/02/19 17:15: WBC 4.6, RBC 3.18 L, Hgb 9.3 L, Hct 28.0 L, MCV 88.1, MCH 29.2, MCHC 33.2, RDW 14.9 H, RDW Differential 48.0 H, Plt Count 175, MPV 9.0, Immature Gran % (Auto) 0.400, Neut % (Auto) 79.6 H, Lymph % (Auto) 6.3 L, [place] % (Auto) 8.7, Eos % (Auto) 4.8, Baso % (Auto) 0.2, Absolute Neuts (auto) 3.7, Total Counted Not Reportable 01/02/19 17:15: Sodium 138, Potassium 4.1, Chloride 107, Carbon Dioxide 28.0, Anion Gap 3 L, BUN 24 H, Creatinine 1.57 H, Est GFR (MDRD) Af Amer 56 L, Est GFR (MDRD) Non-Af 47 L, BUN/Creatinine Ratio 15.3, Glucose 142 H, Calcium 8.6, Magnesium 2.0 01/02/19 17:15: Troponin I 0.018 Rhythm: Atrial fibrillation EKG: Atrial fibrillation; leftward axis; right bundle branch block pattern; inferior MO of indeterminate age; nonspecific T wave abnormality; repeat ECG demonstrating similar type findings. ECHO: As noted above Stress Test: As noted above Cardiac Cath: As noted above PCI: As noted above EPS: As noted above CXR: As noted above Assessment/Plan 1. Atrial fibrillation The patient has atrial fibrillation. He has had episodes of RVR. His atrial fibrillation may be secondary to a complex scenario with respect to his cardiovascular disease, pulmonary disease, etc. The present time he does need to continue rate control therapy. He has been placed back on antiarrhythmic therapy with the hopes of assisting with rate control and regaining sinus rhythm. He is currently on anticoagulant therapy. He will also have a transthoracic echocardiogram to reassess his left atrial size as well as his ventricular wall motion and systolic function. Depending upon his clinical course he may need additional evaluation care of his atrial dysrhythmia. 2. Nonsustained wide-complex tachycardia/nonsustained VT The patient has had a history of the aforementioned diagnosis. He is undergone noninvasive and invasive studies including an electrophysiology study at [facility]. The results are as noted above. At the present time he will continue to be monitored for any obvious wide- complex dysrhythmias secondary to his underlying atrial dysrhythmia with aberrancy/relationship to his underlying IVCD pattern. In the meantime he will continue medical therapy. This includes his beta- rodger therapy. His dose can be adjusted based upon his heart rate and blood pressure. He is being placed on antiarrhythmic therapy with amiodarone based upon concerns of his atrial dysrhythmia. 3. CAD status post PCI The patient has a history of CAD and is undergone PCI in the past. At the moment he appears to be without acute symptoms. His cardiac enzymes have been negative thus far. His ECG is not demonstrated any new acute changes. He has been on medical therapy. His medications are being adjusted based on his low blood pressure at this time and his renal insufficiency. Hopefully he can resume his combination medical therapy in the future. 4. Ischemic mediated cardiomyopathy The patient appears without acute symptoms of CHF or pulmonary edema at this time. He does have an underlying left-sided pleural effusion which may be concerning for a more noncardiac etiology. It would not be unreasonable noting his cardiac history and his atrial dysrhythmia to reassess his cardiovascular status. This will include an echocardiogram to reevaluate his left ventricular wall motion and systolic function. Depending upon the findings he may need further adjustment of his medications as well as additional diagnostic studies. 5. Hyperlipidemia He can resume lipid-lowering therapy when deemed appropriate. 6. Hypertension He can continue antihypertensive therapy with adjustment as deemed appropriate based upon his initial low blood pressure and his elevated creatinine level. 7. Pulmonary hypertension An estimate of his pulmonary pressures hopefully can be obtained with respect to a repeat transthoracic echocardiogram. He has undergone previous invasive evaluation the past with cardiac catheterization with right heart catheterization as well. This was performed in 2016. At that time he evidence of pulmonary hypertension which appear to be out of proportion to what was a baseline normal-appearing pulmonary capillary wedge pressure. 8. Non-Hodgkin's lymphoma He states he recently completed chemotherapy. He believes he is in remission at this time. It is unclear as to the status of his non-Hodgkin's lymphoma at this time. It is unclear whether this is related to his left-sided pleural effusion. He may need reassessment by his hematology/oncology team. 9. Pleural effusion He does have a left-sided pleural effusion. This raises concern that this may be noncardiac in etiology. At the present time he will continue his cardiovascular evaluation and care. However it may be reasonable to consider a left-sided thoracentesis, once his anticoagulation is put on hold, and attempt to assist with diagnosis as well as potentially therapy to assist with his underlying shortness of breath/dyspnea. 10. Elevated creatinine level The patient's creatinine level is elevated. This may be related to decreased intravascular volume. He is being treated. His creatinine level is declining. Comment: The above was discussed and reviewed with the patient and Dr. Nelson. This note was generated with [employer] software. It may contain incorrect words, spelling, and punctuation that were not noted in checking the note before signing.
[2019-01-02] MEDS: Carvedilol 3.125 MG TABLET PO (23:49)
[2019-01-03] VITALS (29 sets, daily range): BP systolic 82–125; BP diastolic 53–72; PULSE 77–98; RESP 15–33; TEMP 36.8–37.6; O2SAT 92–100
[2019-01-03] MEDS: MELATONIN 3 MG TABLET PO (00:17)
--- NOTE | 2019-01-03 05:55 | EKG12_ITS ---
Test Reason : AM EKG Blood Pressure : / mmHG Vent. Rate : 077 BPM Atrial Rate : 416 BPM P-R Int : 000 ms QRS Dur : 148 ms QT Int : 412 ms P-R-T Axes : 000 -09 -42 degrees QTc Int : 466 ms Atrial fibrillation Right bundle branch block Inferior infarct , age undetermined Abnormal ECG Confirmed by SARAHY LEAL, KEATON ([id number]), graphic editor RONNA TREVINO ([id number]) on 01/06/2019 1:43:07 PM Referred By: DR OBRIEN Confirmed By:KEATON WEATHERS MD
--- NOTE | 2019-01-03 05:55 | ECHOD_ITS ---
Reason For Study: Dyspnea/SOB Procedure This was a 2D Doppler, Color Flow transthoracic echocardiogram. The exam was of adequate technical quality. Exam performed portable in patient room. Left Ventricle Mildly dilated left ventricle. Segmental dysfunction with preserved ejection fraction (see wall motion). The estimated ejection fraction is 55 %. Unable to assess diastolic dysfunction. Posterior- Basal: Hypokinetic. Infero-Basal: Akinetic. Mid-Posterior: Akinetic. Mid-Inferior: Hypokinetic. Right Ventricle Mildly dilated right ventricle. Normal systolic function. Atria The left atrium is moderately enlarged. The right atrium is mildly enlarged. No doppler evidence for ASD. Mitral Valve There is mild to moderate mitral annular calcification. Extension of the mitral annular calcification onto the posterior mitral valve leaflet. Mild diffuse mitral valve thickening. Mild- Moderate (1-2+) mitral valve insufficiency. Tricuspid Valve Normal tricuspid valve. Mild (1+) tricuspid valve insufficiency. Right ventricular systolic pressure estimated to be 53 mmHg. Aortic Valve Trisinus/trileaflet aortic valve. Mild diffuse aortic valve thickening. Mild focal aortic valve calcification. Pulmonic Valve The pulmonic valve is not well visualized. Great Vessels Normal sized aortic root. Pericardium/Pleural No pericardial effusion. MMode/2D Measurements & Calculations LVIDd: 6.1 cm IVSd: 1.2 cm Ao root diam: 3.3 cm LVIDs: 5.2 cm LVPWd: 1.3 cm RVDd: 4.9 cm FS: 14.6 % LAV(MOD-bp): 103.4 ml LVAd ap4: 31.2 cm2 SV(MOD-sp4): 53.6 ml LAV(MOD-bp) Indexed: 45.4 ml/m2 EDV(MOD-sp4): 109.5 ml LAV(MOD-sp2): 109.5 ml EDV(sp4-el): 111.2 ml LAV(MOD-sp4): 97.1 ml LVAs ap4: 20.6 cm2 ESV(MOD-sp4): 55.8 ml ESV(sp4-el): 56.0 ml EF(MOD-sp4): 49.0 % EF(sp4-el): 49.6 % SV(sp4-el): 55.2 ml LA A4 area: 27.4 cm2 LA dimension(2D): 5.7 cm RA A4 area: 21.1 cm2 Doppler Measurements & Calculations MV E max erna: 107.5 cm/sec Ao V2 max: 140.7 cm/sec LV V1 max: 102.3 cm/sec Ao max P.0 mmHg LV V1 max P.2 mmHg Ao V2 mean: 102.4 cm/sec Ao mean P.5 mmHg Ao V2 VTI: 23.6 cm PA V2 max: 89.9 cm/sec TR max erna: 334.9 cm/sec TR max P.9 mmHg Interpretation Summary Mildly dilated left ventricle. Segmental dysfunction with preserved ejection fraction (see wall motion). The estimated ejection fraction is 55 %. Mildly dilated right ventricle. The left atrium is moderately enlarged. The right atrium is mildly enlarged. There is mild to moderate mitral annular calcification. Extension of the mitral annular calcification onto the posterior mitral valve leaflet. Mild diffuse mitral valve thickening. Mild-Moderate (1-2+) mitral valve insufficiency. Mild (1+) tricuspid valve insufficiency. Mild diffuse aortic valve thickening. Mild focal aortic valve calcification. Right ventricular systolic pressure estimated to be 53 mmHg. Unable to assess diastolic dysfunction. Ordering Physician: Justin Douglas Referring Physician: Yuliet Owens Performed By: Abbi Rodriguez, BAUTISTA, RVT
[2019-01-03] MEDS: Ipratropium/Albuterol Sulfate 3 ML AMPUL.NEB INHALATION ×4 (07:29→22:50)
--- NOTE | 2019-01-03 07:29 | PCM.PN.HOSP ---
Patient Problems: Active and Suspected Problems (Last Reviewed 01/01/19 @ 04:23 by Jem Hamlin MD) Atrial fibrillation (Acute) Pleural effusion (Acute) Pulmonary hypertension (Acute) HLD (hyperlipidemia) (Acute) Subjective: Patient seen complains of feeling flushed. Still complains of recurrence of his diarrhea with significant nausea, went into A. fib with RVR. EKG demonstrated A. fib with aberrancy. Seen in consultation by Dr. Rouse his note and recommendations reviewed. Objective: GENERAL: Seen appears ill looking and dyspneic at rest HEENT: Atraumatic; EYES; Anicteric, NECK; supple, normal thyroid, RESPIRATORY: Diminished to auscultation CARDIOVASCULAR: Regular S1-S2 GI: soft, non-tender, normoactive bowel sounds, : No Renal angle tenderness; EXTREMITIES: No clubbing, no cyanosis. MUSCULOSKELETAL: No Joint Tenderness; NEURO: Awake; no lateralizing signs. SKIN: No Rash PSYCH; Normal affect Vitals/I&O's: Vital Signs Temp Pulse Resp BP Pulse Ox 98.3 F 85 21 H 124/60 H 100 01/03/19 07:00 01/03/19 07:00 01/03/19 07:00 01/03/19 07:00 01/03/19 07:00 Oxygen Flow Rate (L/min) 5 Oxygen Delivery Method Nasal Cannula Weight: 97.4 kg Body Mass Index (BMI) 28.1 Finger Stick Blood Glucose 115 Intake and Output for Last 24 Hours 01/01/19 01/02/19 01/03/19 23:59 23:59 23:59 Intake Total 1477 / 1477 1101.4 / 1101.4 708 / 708 Output Total 400 / 400 Balance 1477 / 1477 1101.4 / 1101.4 308 / 308 Microbiology Past 72 Hours 01/01/19 13:20 Stool C. difficile DNA Amplification - Final 12/31/18 22:05 Stool Enteric Bacteriology - Final 12/31/18 21:40 Mucosa - Nasopharyngeal Respiratory Panel (PCR) - Final 12/31/18 17:55 Urine, Random Streptococcus pneumoniae Antigen (M - Final 12/31/18 17:55 Urine, Random Legionella Antigen - Final Laboratory Results 01/02/19 09:34: Magnesium 1.6 01/02/19 17:15: WBC 4.6, RBC 3.18 L, Hgb 9.3 L, Hct 28.0 L, MCV 88.1, MCH 29.2, MCHC 33.2, RDW 14.9 H, RDW Differential 48.0 H, Plt Count 175, MPV 9.0, Immature Gran % (Auto) 0.400, Neut % (Auto) 79.6 H, Lymph % (Auto) 6.3 L, [place] % (Auto) 8.7, Eos % (Auto) 4.8, Baso % (Auto) 0.2, Absolute Neuts (auto) 3.7, Absolute Lymphs (auto) 0.29 L, Total Counted Not Reportable, Differential Comment SCANNED 01/02/19 17:15: Sodium 138, Potassium 4.1, Chloride 107, Carbon Dioxide 28.0, Anion Gap 3 L, BUN 24 H, Creatinine 1.57 H, Estim Creat Clear Calc 49.48, Est GFR (MDRD) Af Amer 56 L, Est GFR (MDRD) Non-Af 47 L, BUN/Creatinine Ratio 15.3, Glucose 142 H, Calcium 8.6, Magnesium 2.0 01/02/19 17:15: Troponin I 0.018 01/02/19 21:00: Troponin I 0.022 01/03/19 00:05: Troponin I 0.021 Current Medications Acetaminophen (Tylenol) 650 mg PO Q6H PRN PRN PRN Reason: FEVER Last Admin: 01/02/19 16:08 Dose: 650 mg Documented by: Albuterol Sulfate (Ventolin Aerosols) 2.5 mg INHALATION Q2H PRN PRN PRN Reason: SOB/Wheezing Albuterol/Ipratropium (Duoneb) 3 ml INHALATION Q4H.RT [facility] Last Admin: 01/03/19 03:23 Dose: Not Given Documented by: Apixaban (Eliquis) 5 mg PO BID [facility] Last Admin: 01/02/19 21:23 Dose: 5 mg Documented by: Aspirin (Aspirin, Baby) 81 mg PO DAILY@0800 [facility] Last Admin: 01/02/19 08:27 Dose: 81 mg Documented by: Atorvastatin Calcium (Lipitor) 80 mg PO DAILY@2200 [facility] Last Admin: 01/02/19 21:22 Dose: 80 mg Documented by: Calcium Carbonate (Tums) 1,000 mg PO DAILY [facility] Last Admin: 01/02/19 08:28 Dose: 1,000 mg Documented by: Carvedilol (Coreg) 3.125 mg PO BID [facility] Last Admin: 01/02/19 23:49 Dose: 3.125 mg Documented by: Cholecalciferol (Vitamin D) 2,000 unit PO DAILY [facility] Last Admin: 01/02/19 08:28 Dose: 2,000 unit Documented by: Dextrose (D50w Syringe) 0 gm IV X1 PRN; Protocol PRN Reason: Hypoglycemia Fenofibrate (Tricor) 145 mg PO DAILY [facility] Last Admin: 01/02/19 08:28 Dose: 145 mg Documented by: Glucagon () 1 mg IM .X1 PRN PRN Reason: Hypoglycemia Heparin Sodium (Beef Lung) () 50 units IV UD PRN PRN Reason: HEPARIN FLUSH Amiodarone HCl/Dextrose (Nexterone 360 Mg/200 Ml Bag) 360 mg in 200 mls @ 16.667 mls/hr CONT INF .Q12H [facility] Stop: 01/03/19 17:59 Last Admin: 01/02/19 23:50 Dose: 16.667 mls/hr Documented by: Melatonin (Melatonin) 6 mg PO QHS PRN PRN Reason: SLEEP Nutritional Formula (Lactose Free) (Ensure Enlive) 120 ml PO 4X/DAY [facility] Last Admin: 01/02/19 21:22 Dose: 120 ml Documented by: Ondansetron HCl (Zofran) 4 mg IV Q8H PRN PRN PRN Reason: NAUSEA/VOMITING Last Admin: 01/01/19 13:55 Dose: 4 mg Documented by: Pantoprazole Sodium (Protonix) 20 mg PO DAILY [facility] Last Admin: 01/02/19 08:28 Dose: 20 mg Documented by: Sertraline HCl (Zoloft) 100 mg PO DAILY [facility] Last Admin: 01/02/19 08:28 Dose: 100 mg Documented by: Sodium Chloride () 10 - 40 ml IV UD PRN PRN Reason: R PORT FLUSH Last Admin: 01/03/19 00:07 Dose: 20 ml Documented by: Tamsulosin HCl (Flomax) 0.4 mg PO DAILY@1730 [facility] Last Admin: 01/02/19 16:10 Dose: 0.4 mg Documented by: Medical Necessity - Tobacco Use Smoking Status: Former smoker Assessment/Plan All Active Problems (Last Reviewed 01/01/19 @ 04:23 by Jem Hamlin MD) Thrombocytopenia (Acute) Lung nodule < 6cm on CT (Acute) Right inguinal hernia (Acute) NHL (non-Hodgkin's lymphoma) (Acute) Encounter for education (Acute) Chemotherapy management, encounter for (Acute) Atrial fibrillation (Acute) Pleural effusion (Acute) Pulmonary hypertension (Acute) HLD (hyperlipidemia) (Acute) H/O shoulder surgery (Resolved) tendon surgery (Resolved) heel surgery (Resolved) Hx of cholecystectomy (Resolved) History of lumbar surgery (Resolved) NSVT (nonsustained ventricular tachycardia) (Acute) Patient is a 68-year-old gentleman with multiple comorbidities who presented with progressive shortness of breath, low blood pressure as well as diarrhea. An assessment of acute on chronic hypoxemic respiratory failure admitted admitted to monitored bed for subsequent management 1. Acute on chronic hypoxemic respiratory failure: CAT scan obtained on admission demonstrated an enlarging small to moderate left pleural effusion; New mild left basilar pulmonary opacities infiltrates versus subsegmental atelectasis as well as Mild prominence of the pulmonary vascularity, possible mild pulmonary venous congestion patient was placed on noninvasive ventilation and admitted to a monitored bed with consultation placed to pulmonary medicine ~ 01/02/2019; patient was seen in consultation by Dr. Leiva with pulmonary medicine. Case was discussed with him his recommendation also reviewed ~CT of the chest without contrast ordered for subsequent evaluation in if it does demonstrate significant pleural effusion plan will be to hold patient Eliquis for patient to undergo therapeutic as well as diagnostic thoracocentesis 2. Paroxysmal A. fib with aberrancy. Patient went into A. fib with RVR on 01/02/2019 seen in consultation by Dr. Rouse patient started on amiodarone drip. Dr. Rouse subsequent recommendations reviewed. 3. Vascular congestion on chest x-ray. Given patient hypotension management with Lasix poses a challenge we will continue to monitor 4. Acute kidney injury patient was on both lisinopril and Lasix held 5. Chronic kidney disease with baseline creatinine of 1.5 on admission 2.33 6. 2. Hypotension attributed to patient being on diuretics as well as Flomax suspected offending medications held on admission ~ 01/02/2019 patient blood pressure fairly stable 7. Pulmonary hypertension: Patient is on treprostinil Diolamine continued. Did explain to patient's over the side effect has been experiencing including low blood pressure and diarrhea could be a side effect of the above medication 8. Chronic diarrhea ordered stool studies to rule out infectious etiology prior to attributing the diarrhea to his medications. ~01/02/2019; infectious etiology ruled out; patient is on Imodium as needed 9. Coronary artery disease with previous MT and RCA stenting 10. History of non-Hodgkin's lymphoma with previous chemo currently in remission 11. Chronic congestive heart failure 2D echo obtained on 07/05/2018 demonstrated preserved ejection fraction of 60% 12. Coronary artery disease 13. History of Left lung tumor resection 14. DVT prophylaxis on Eliquis Code Visit Inpatient E&M: 94053 Subs Hosp L3
[2019-01-03] MEDS: Aspirin 81 MG TAB.CHEW PO (09:08)
[2019-01-03] MEDS: Fenofibrate 145 MG Tablet PO (09:09)
[2019-01-03] MEDS: APIXABAN 5 MG TABLET PO ×2 (09:09→21:03)
[2019-01-03] MEDS: Pantoprazole Sodium 20 MG Tablet PO (09:09)
[2019-01-03] MEDS: Calcium Carbonate 500 MG Tablet 1000 MG PO (09:09)
[2019-01-03] MEDS: Sertraline 100 MG Tablet PO (09:10)
--- NOTE | 2019-01-03 09:41 | CT_ITS ---
STUDY: CT CHEST WITHOUT CONTRAST REASON FOR EXAM: Male, 68 years old. Dyspnea/effusion. History of prior left upper lobectomy. RADIATION DOSAGE (If Supplied By Facility): CTDIvol = ( 18.28 ) mGy, DLP = ( 703.42 ) mGycm TECHNIQUE: Transaxial imaging was performed without the administration of intravenous contrast material. Multiplanar coronal and sagittal images were reformatted. Individualized dose optimization techniques were used for this CT. COMPARISON: Comparison is made with prior study dated December 12, 2018. FINDINGS: A right-sided portacatheter is seen. The patient is status post left upper lobectomy with resultant postoperative changes. Small left pleural effusion with mild left basilar atelectasis. Loss of volume in the left hemithorax. There are calcifications of the coronary arteries. There is mild cardiac enlargement. There are multiple small lymph nodes within the mediastinum, which are normal in size and morphology most compatible with reactive lymph hyperplasia. Normal hilar regions. Normal unenhanced pulmonary arteries. There is atherosclerotic calcification of the aortic arch with tortuosity and elongation of the aortic arch and descending thoracic aorta.. There are multi-level degenerative changes of the thoracic spine. There is no demonstrated abnormality of the visualized upper abdomen. CT/Chest without Contrast IMPRESSION: Stable examination. Electronically Signed: Zane Doherty, at 13:37 EDT , Service support ,
[2019-01-03] MEDS: proMETHazine 25 MG/ML Syringe 12.5 MG IM (10:17)
[2019-01-03] MEDS: Carvedilol 3.125 MG TABLET PO ×2 (10:17→21:03)
[2019-01-03] MEDS: Loperamide 2 MG Capsule PO (10:17)
[2019-01-03 10:31] LABS: Thyroid Stim Hormone (TSH) 0.72 uIU/mL (0.358-3.74)
[2019-01-03] MEDS: Tamsulosin HCl 0.4 MG Capsule PO (16:03)
--- NOTE | 2019-01-03 16:12 | PCM.PN.CARD ---
Subjectve: The patient denies ongoing chest discomfort. Also denies ongoing worsening shortness of breath/dyspnea. His main concerns appear to be nausea and loose bowel movements/diarrhea. Objective: Vital Signs Temp Pulse Resp BP Pulse Ox 98.4 F 87 20 H 112/62 97 01/03/19 15:00 01/03/19 16:03 01/03/19 16:03 01/03/19 16:03 01/03/19 16:03 Oxygen Flow Rate (L/min) 5 Oxygen Delivery Method CPAP Weight: 214 lb 11.684 oz Body Mass Index (BMI) 28.1 Finger Stick Blood Glucose 115 Intake and Output for Last 24 Hours 01/01/19 01/02/19 01/03/19 23:59 23:59 23:59 Intake Total 1477 / 1477 1101.4 / 1101.4 1141.5 / 1141.5 Output Total 400 / 400 Balance 1477 / 1477 1101.4 / 1101.4 741.5 / 741.5 General: Awake, Alert, Oriented x 3, Cooperative, No Acute Distress HEENT: Atraumatic, Normocephalic, PERRL, EOMI, Sclera Non Icteric Oral: Moist Mucosa Neck: Supple, Good ROM, No JVD Lungs: Diminished Left Base Cardiovascular: Irregular Rhythm, Normal S1, Normal S2 Abdomen: Bowel Sounds Present, Soft, Non Tender Extremities: No edema Psych/Mental Status: Depressed 01/02/19 17:15: WBC 4.6, RBC 3.18 L, Hgb 9.3 L, Hct 28.0 L, MCV 88.1, MCH 29.2, MCHC 33.2, RDW 14.9 H, RDW Differential 48.0 H, Plt Count 175, MPV 9.0, Immature Gran % (Auto) 0.400, Neut % (Auto) 79.6 H, Lymph % (Auto) 6.3 L, [place] % (Auto) 8.7, Eos % (Auto) 4.8, Baso % (Auto) 0.2, Absolute Neuts (auto) 3.7, Total Counted Not Reportable 01/02/19 17:15: Sodium 138, Potassium 4.1, Chloride 107, Carbon Dioxide 28.0, Anion Gap 3 L, BUN 24 H, Creatinine 1.57 H, Est GFR (MDRD) Af Amer 56 L, Est GFR (MDRD) Non-Af 47 L, BUN/Creatinine Ratio 15.3, Glucose 142 H, Calcium 8.6, Magnesium 2.0 01/02/19 17:15: Troponin I 0.018 01/02/19 21:00: Troponin I 0.022 01/03/19 00:05: Troponin I 0.021 Rhythm: Atrial fibrillation ECHO: Pending Chest CT scan: Reviewed: Please see official report Medical Necessity - Tobacco Use Smoking Status: Former smoker Assessment/Plan 1. Atrial fibrillation The patient has atrial fibrillation. He has had episodes of RVR. His atrial fibrillation may be secondary to a complex scenario with respect to his cardiovascular disease, pulmonary disease, etc. The present time he does need to continue rate control therapy. He has been placed back on antiarrhythmic therapy with the hopes of assisting with rate control and regaining sinus rhythm. An attempt will be made to transition his IV amiodarone to oral amiodarone therapy. He is currently on anticoagulant therapy. His transthoracic echocardiogram is pending. Depending upon his clinical course he may need a future attempt, on antiarrhythmic therapy, to regain sinus rhythm with a synchronized DC cardioversion. 2. Nonsustained wide-complex tachycardia/nonsustained VT The patient has had a history of the aforementioned diagnosis. He is undergone noninvasive and invasive studies including an electrophysiology study at [facility]. This was considered negative for inducible SVT or VT. In the meantime he will continue medical therapy. This includes his beta-rodger therapy. His dose can be adjusted based upon his heart rate and blood pressure. He is being placed on antiarrhythmic therapy with amiodarone based upon concerns of his atrial dysrhythmia. 3. CAD status post PCI The patient has a history of CAD and is undergone PCI in the past. At the moment he appears to be without acute symptoms. His cardiac enzymes have been negative thus far. His ECG is not demonstrated any new acute changes. He has been on medical therapy. His medications are being adjusted based on his low blood pressure at this time and his renal insufficiency. Hopefully he can resume his combination medical therapy in the future. 4. Ischemic mediated cardiomyopathy The patient appears without acute symptoms of CHF or pulmonary edema at this time. He does have an underlying left-sided pleural effusion which may be concerning for a more noncardiac etiology. 5. Hyperlipidemia He can resume lipid-lowering therapy when deemed appropriate. 6. Hypertension He can continue antihypertensive therapy with adjustment as deemed appropriate based upon his initial low blood pressure and his elevated creatinine level. 7. Pulmonary hypertension An estimate of his pulmonary pressures hopefully can be obtained with respect to a repeat transthoracic echocardiogram. He has undergone previous invasive evaluation the past with cardiac catheterization with right heart catheterization as well. This was performed in 2016. At that time he evidence of pulmonary hypertension which appear to be out of proportion to what was a baseline normal-appearing pulmonary capillary wedge pressure. 8. Non-Hodgkin's lymphoma He states he recently completed chemotherapy. He believes he is in remission at this time. It is unclear as to the status of his non-Hodgkin's lymphoma at this time. It is unclear whether this is related to his left-sided pleural effusion. He may need reassessment by his hematology/oncology team. 9. Pleural effusion He does have a left-sided pleural effusion. This raises concern that this may be noncardiac in etiology. At the present time he will continue his cardiovascular evaluation and care. He has undergone evaluation with a chest CT scan. At the present time the decision to proceed or not proceed with an attempt at a left-sided thoracentesis is being considered by internal medicine. 10. Elevated creatinine level The patient's creatinine level is elevated. This may be related to decreased intravascular volume. He is being treated. His creatinine level was declining based upon his most recent laboratory studies. This note was generated with [employer] software. It may contain incorrect words, spelling, and punctuation that were not noted in checking the note before signing.
[2019-01-03] MEDS: Atorvastatin Calcium 80 MG Tablet PO (21:04)
[2019-01-03] MEDS: Amiodarone 200 MG Tablet PO (21:09)
[2019-01-03] MEDS: MELATONIN 3 MG TABLET 6 MG PO (21:28)
[2019-01-04] VITALS (16 sets, daily range): BP systolic 90–120; BP diastolic 49–69; PULSE 74–107; RESP 18–20; TEMP 36.7–38.4; O2SAT 92–99
[2019-01-04] MEDS: Amiodarone 200 MG Tablet PO ×3 (06:54→21:34)
[2019-01-04] MEDS: Ipratropium/Albuterol Sulfate 3 ML AMPUL.NEB INHALATION ×4 (07:10→19:33)
[2019-01-04] MEDS: Acetaminophen 325 MG Tablet 650 MG PO (09:04)
[2019-01-04] MEDS: Carvedilol 3.125 MG TABLET PO ×2 (09:05→21:33)
[2019-01-04] MEDS: Aspirin 81 MG TAB.CHEW PO (09:05)
[2019-01-04] MEDS: APIXABAN 5 MG TABLET PO ×2 (09:06→21:33)
[2019-01-04] MEDS: Pantoprazole Sodium 20 MG Tablet PO (09:06)
[2019-01-04] MEDS: Fenofibrate 145 MG Tablet PO (09:07)
[2019-01-04] MEDS: Calcium Carbonate 500 MG Tablet 1000 MG PO (09:07)
[2019-01-04] MEDS: Sertraline 100 MG Tablet PO (09:08)
--- NOTE | 2019-01-04 10:06 | PCM.PN.HOSP ---
Patient Problems: Active and Suspected Problems (Last Reviewed 01/01/19 @ 04:23 by Jem Hamlin MD) Atrial fibrillation (Acute) Pleural effusion (Acute) Pulmonary hypertension (Acute) HLD (hyperlipidemia) (Acute) Subjective: Patient seen spiking low-grade fever. Was started on Imodium the day prior and denies any diarrhea this a.m. Still has nausea. CT of the chest was performed on 12/04/2018 to evaluate for pleural effusion none was found on the CAT scan. Objective: GENERAL: ill looking HEENT: Atraumatic; EYES; Anicteric, NECK; supple, normal thyroid, RESPIRATORY: Diminished to auscultation CARDIOVASCULAR: Regular S1-S2 GI: soft, non-tender, normoactive bowel sounds, : No Renal angle tenderness; EXTREMITIES: No clubbing, no cyanosis. MUSCULOSKELETAL: No Joint Tenderness; NEURO: Awake; no lateralizing signs. SKIN: No Rash PSYCH; Flat affect Vitals/I&O's: Vital Signs Temp Pulse Resp BP Pulse Ox 99.6 F H 88 18 93/49 L 92 01/04/19 10:00 01/04/19 10:00 01/04/19 10:00 01/04/19 10:00 01/04/19 10:00 Oxygen Flow Rate (L/min) 5 Oxygen Delivery Method Nasal Cannula Weight: 96.9 kg Body Mass Index (BMI) 28.1 Finger Stick Blood Glucose 115 Intake and Output for Last 24 Hours 01/02/19 01/03/19 01/04/19 23:59 23:59 23:59 Intake Total 1101.4 / 1101.4 1141.5 / 1141.5 720 / 720 Output Total 400 / 400 Balance 1101.4 / 1101.4 741.5 / 741.5 720 / 720 Microbiology Past 72 Hours 12/31/18 21:20 Blood Culture (Wb) - Right Hand Blood Culture - Preliminary No growth in 48 hours. 12/31/18 17:02 Blood Culture (Wb) - Port Blood Culture - Preliminary No growth in 48 hours. 01/01/19 13:20 Stool C. difficile DNA Amplification - Final 12/31/18 22:05 Stool Enteric Bacteriology - Final 12/31/18 21:40 Mucosa - Nasopharyngeal Respiratory Panel (PCR) - Final Laboratory Results 01/03/19 00:05: TSH 0.72 Current Medications Acetaminophen (Tylenol) 650 mg PO Q6H PRN PRN PRN Reason: FEVER Last Admin: 01/04/19 09:04 Dose: 650 mg Documented by: Albuterol Sulfate (Ventolin Aerosols) 2.5 mg INHALATION Q2H PRN PRN PRN Reason: SOB/Wheezing Albuterol/Ipratropium (Duoneb) 3 ml INHALATION Q4H.RT [facility] Last Admin: 01/04/19 07:10 Dose: 3 ml Documented by: Amiodarone HCl (Cordarone) 200 mg PO TID [facility] Last Admin: 01/04/19 06:54 Dose: 200 mg Documented by: Apixaban (Eliquis) 5 mg PO BID [facility] Last Admin: 01/04/19 09:06 Dose: 5 mg Documented by: Aspirin (Aspirin, Baby) 81 mg PO DAILY@0800 [facility] Last Admin: 01/04/19 09:05 Dose: 81 mg Documented by: Atorvastatin Calcium (Lipitor) 80 mg PO DAILY@2200 [facility] Last Admin: 01/03/19 21:04 Dose: 80 mg Documented by: Calcium Carbonate (Tums) 1,000 mg PO DAILY [facility] Last Admin: 01/04/19 09:07 Dose: 1,000 mg Documented by: Carvedilol (Coreg) 3.125 mg PO BID [facility] Last Admin: 01/04/19 09:05 Dose: 3.125 mg Documented by: Cholecalciferol (Vitamin D) 2,000 unit PO DAILY [facility] Last Admin: 01/04/19 09:07 Dose: 2,000 unit Documented by: Dextrose (D50w Syringe) 0 gm IV X1 PRN; Protocol PRN Reason: Hypoglycemia Fenofibrate (Tricor) 145 mg PO DAILY [facility] Last Admin: 01/04/19 09:07 Dose: 145 mg Documented by: Glucagon () 1 mg IM .X1 PRN PRN Reason: Hypoglycemia Heparin Sodium (Beef Lung) () 50 units IV UD PRN PRN Reason: HEPARIN FLUSH Loperamide HCl (Imodium) 2 mg PO Q6H PRN PRN PRN Reason: DIARRHEA/LOOSE STOOLS Last Admin: 01/03/19 10:17 Dose: 2 mg Documented by: Melatonin (Melatonin) 6 mg PO QHS PRN PRN Reason: SLEEP Last Admin: 01/03/19 21:28 Dose: 6 mg Documented by: Nutritional Formula (Lactose Free) (Ensure Enlive) 120 ml PO 4X/DAY [facility] Last Admin: 01/04/19 09:06 Dose: 120 ml Documented by: Pantoprazole Sodium (Protonix) 20 mg PO DAILY [facility] Last Admin: 01/04/19 09:06 Dose: 20 mg Documented by: Promethazine HCl (Phenergan) 12.5 mg IM Q4H PRN PRN PRN Reason: NAUSEA/VOMITING Last Admin: 01/03/19 10:17 Dose: 12.5 mg Documented by: Sertraline HCl (Zoloft) 100 mg PO DAILY [facility] Last Admin: 01/04/19 09:08 Dose: 100 mg Documented by: Sodium Chloride () 10 - 40 ml IV UD PRN PRN Reason: R PORT FLUSH Last Admin: 01/03/19 00:07 Dose: 20 ml Documented by: Tamsulosin HCl (Flomax) 0.4 mg PO DAILY@1730 [facility] Last Admin: 01/03/19 16:03 Dose: 0.4 mg Documented by: Medical Necessity - Tobacco Use Smoking Status: Former smoker Assessment/Plan All Active Problems (Last Reviewed 01/01/19 @ 04:23 by Jem Hamlin MD) Thrombocytopenia (Acute) Lung nodule < 6cm on CT (Acute) Right inguinal hernia (Acute) NHL (non-Hodgkin's lymphoma) (Acute) Encounter for education (Acute) Chemotherapy management, encounter for (Acute) Atrial fibrillation (Acute) Pleural effusion (Acute) Pulmonary hypertension (Acute) HLD (hyperlipidemia) (Acute) H/O shoulder surgery (Resolved) tendon surgery (Resolved) heel surgery (Resolved) Hx of cholecystectomy (Resolved) History of lumbar surgery (Resolved) NSVT (nonsustained ventricular tachycardia) (Acute) Patient is a 68-year-old gentleman with multiple comorbidities who presented with progressive shortness of breath, low blood pressure as well as diarrhea. An assessment of acute on chronic hypoxemic respiratory failure admitted admitted to monitored bed for subsequent management 1. Acute on chronic hypoxemic respiratory failure: CAT scan obtained on admission demonstrated an enlarging small to moderate left pleural effusion; New mild left basilar pulmonary opacities infiltrates versus subsegmental atelectasis as well as Mild prominence of the pulmonary vascularity, possible mild pulmonary venous congestion patient was placed on noninvasive ventilation and admitted to a monitored bed with consultation placed to pulmonary medicine ~ 01/02/2019; patient was seen in consultation by Dr. Leiva with pulmonary medicine. Case was discussed with him his recommendation also reviewed ~01/03/2019 CT of the chest without contrast ordered for subsequent evaluation in if it does demonstrate significant pleural effusion plan will be to hold patient Eliquis for patient to undergo therapeutic as well as diagnostic thoracocentesis ~ 01/04/2019: CT of the chest performed the day prior was unremarkable. 2. Paroxysmal A. fib with aberrancy. Patient went into A. fib with RVR on 01/02/2019 seen in consultation by Dr. Rouse patient started on amiodarone drip. Dr. Rouse subsequent recommendations reviewed. 01/04/2019: Case was discussed with Dr. Rouse regarding management options including possible cardioversion prior to discharge. 3. Low-grade fever of undetermined etiology patient infectious work-up so far negative to date added acute respiratory panel 4. 112. Chronic congestive heart failure 2D echo obtained on 07/05/2018 demonstrated preserved ejection fraction of 60%. Patient was noted to have vascular congestion on chest x-ray. Given patient hypotension management with Lasix poses a challenge we will continue to monitor 5. Acute kidney injury patient was on both lisinopril and Lasix held. Repeat labs ordered this a.m. 6. Chronic kidney disease with baseline creatinine of 1.5 on admission 2.33 7. Hypotension attributed to patient being on diuretics as well as Flomax suspected offending medications held on admission ~ 01/02/2019 patient blood pressure fairly stable 8. Pulmonary hypertension: Patient is on treprostinil Diolamine continued. Did explain to patient's over the side effect has been experiencing including low blood pressure and diarrhea could be a side effect of the above medication. Dr. Leiva patient's vibration analyst recommended adjustment of patient medications 9. Chronic diarrhea ordered stool studies to rule out infectious etiology prior to attributing the diarrhea to his medications. ~01/02/2019; infectious etiology ruled out; patient is on Imodium as needed 10. Coronary artery disease with previous NV and RCA stenting 11. History of non-Hodgkin's lymphoma with previous chemo currently in remission 12. Coronary artery disease 13. History of Left lung tumor resection 14. DVT prophylaxis on Eliquis Clinical Impression(s) from Imaging Studies Chest CT 01/03/19 09:41 IMPRESSION: Stable examination. Electronically Signed: Zane Doherty, at 13:37 EDT , Service support , Code Visit Inpatient E&M: [id number] Subs Hosp L2
[2019-01-04 10:36] LABS: Absolute Lymphocyte Count 0.31 X10^3/ul (0.83-4.51); Absolute Neutrophil Count 5.9 X10^3/uL (2.0-7.7); Basophil# 0.01 X10^3/uL; Basophil% 0.1 % (0-1); Eosinophil# 0.18 X10^3/uL; Eosinophils% 2.7 % (0-5); Hematocrit 30.3 % (40-54); Lymphocyte # 0.31 X10^3/ul (4.0); Lymphocyte % 4.6 % (19-41); Mean Corpuscular Hgb 28.9 pg (27.0-32.0); Mean Corpuscular Volume 87.6 fL (80-94); Mean Platelet Vol. 8.6 fl (6.2-12.0); Monocyte# 0.32 X10^3/uL; Monocyte% 4.8 % (0-10); Neutrophil # 5.85 X10^3/uL (2.7-7.7); Neutrophil % 87.5 % (47-70); Platelet Count 196 K/mm3 (150-450); RBC Distribution Width CV 14.8 % (11.6-14.6); RBC Distribution Width SD 47.9 fl (35.1-43.9); Red Blood Count 3.46 M/mm3 (4.6-6.2); White Blood Count 6.7 K/mm3 (4.4-11.0)
[2019-01-04 10:39] LABS: Differential Indicated SCAN CRITERIA MET; POSITIVE COUNT NO; POSITIVE DIFFERENTIAL YES; POSITIVE MORPHOLOGY NO
[2019-01-04 10:50] LABS: Anion Gap 7 (5-15); BUN 20 mg/dL (7-18); BUN/Creat Ratio 12.3 RATIO (10-20); Chloride 103 mmol/L (98-107); Creatinine, Serum 1.63 mg/dL (0.70-1.30); EST Glomerular Filtration Rate 45 mL/min (>60); Est Glom Filt Rate - Afr Amer 54 mL/min (>60); Estimated Creatinine Clearance 47.66 ml/min; Glucose 198 mg/dL (74-106); Magnesium 1.4 mg/dL (1.6-2.6); Potassium 4.1 mmol/L (3.5-5.1); Sodium Level 139 mmol/L (136-145)
[2019-01-04 10:53] LABS: Differential Comment SCANNED
--- NOTE | 2019-01-04 17:22 | PCM.PN.CARD ---
Subjectve: The patient has had waxing and waning nausea and diarrhea. He states his symptoms have worsened since his pulmonary hypertension medication dose was increased. He notes despite decreasing the dose his symptoms have not yet improved. He denies any ongoing chest discomfort. He has had no acute shortness of breath or dyspnea. Objective: Vital Signs Temp Pulse Resp BP Pulse Ox 98.4 F 107 H 20 H 114/69 94 01/04/19 14:00 01/04/19 15:00 01/04/19 14:37 01/04/19 14:00 01/04/19 14:00 Oxygen Flow Rate (L/min) 5 Oxygen Delivery Method Nasal Cannula Weight: 213 lb 10.047 oz Body Mass Index (BMI) 28.1 Finger Stick Blood Glucose 115 Intake and Output for Last 24 Hours 01/02/19 01/03/19 01/04/19 23:59 23:59 23:59 Intake Total 1101.4 / 1101.4 1141.5 / 1141.5 1675 / 1675 Output Total 400 / 400 100 / 100 Balance 1101.4 / 1101.4 741.5 / 741.5 1575 / 1575 General: Awake, Alert, Oriented x 3, Cooperative, No Acute Distress HEENT: Atraumatic, Normocephalic, PERRL, EOMI, Sclera Non Icteric Oral: Moist Mucosa Neck: Supple, Good ROM, No JVD Lungs: Clear to auscultation Cardiovascular: Irregular Rhythm, Normal S1, Normal S2 Abdomen: Bowel Sounds Present, Soft Extremities: No edema Psych/Mental Status: Appropriate 01/04/19 10:25: WBC 6.7, RBC 3.46 L, Hgb 10.0 L, Hct 30.3 L, MCV 87.6, MCH 28.9, MCHC 33.0, RDW 14.8 H, RDW Differential 47.9 H, Plt Count 196, MPV 8.6, Immature Gran % (Auto) 0.300, Neut % (Auto) 87.5 H, Lymph % (Auto) 4.6 L, [place] % (Auto) 4.8, Eos % (Auto) 2.7, Baso % (Auto) 0.1, Absolute Neuts (auto) 5.9, Total Counted Not Reportable 01/04/19 10:25: Sodium 139, Potassium 4.1, Chloride 103, Carbon Dioxide 29.0, Anion Gap 7, BUN 20 H, Creatinine 1.63 H, Est GFR (MDRD) Af Amer 54 L, Est GFR (MDRD) Non-Af 45 L, BUN/Creatinine Ratio 12.3, Glucose 198 H, Calcium 9.0, Magnesium 1.4 L Rhythm: Atrial fibrillation ECHO: Interpretation Summary Mildly dilated left ventricle. Segmental dysfunction with preserved ejection fraction (see wall motion). The estimated ejection fraction is 55 %. Mildly dilated right ventricle. The left atrium is moderately enlarged. The right atrium is mildly enlarged. There is mild to moderate mitral annular calcification. Extension of the mitral annular calcification onto the posterior mitral valve leaflet. Mild diffuse mitral valve thickening. Mild-Moderate (1-2+) mitral valve insufficiency. Mild (1+) tricuspid valve insufficiency. Mild diffuse aortic valve thickening. Mild focal aortic valve calcification. Right ventricular systolic pressure estimated to be 53 mmHg. Unable to assess diastolic dysfunction. Medical Necessity - Tobacco Use Smoking Status: Former smoker Assessment/Plan 1. Atrial fibrillation The patient has atrial fibrillation. He has had episodes of RVR. His atrial fibrillation may be secondary to a complex scenario with respect to his cardiovascular disease, pulmonary disease, etc. The present time he does need to continue rate control therapy. He has been placed back on antiarrhythmic therapy with the hopes of assisting with rate control and regaining sinus rhythm. His IV antiarrhythmic has now been changed to oral. His transthoracic echocardiogram is as noted above. Depending upon his clinical course he may need a future attempt, on antiarrhythmic therapy, to regain sinus rhythm with a synchronized DC cardioversion. 2. Nonsustained wide-complex tachycardia/nonsustained VT The patient has had a history of the aforementioned diagnosis. He is undergone noninvasive and invasive studies including an electrophysiology study at [facility]. This was considered negative for inducible SVT or VT. In the meantime he will continue medical therapy. This includes his beta-rodger therapy. His dose can be adjusted based upon his heart rate and blood pressure. He is being placed on antiarrhythmic therapy with amiodarone based upon concerns of his atrial dysrhythmia. 3. CAD status post PCI The patient has a history of CAD and is undergone PCI in the past. At the moment he appears to be without acute symptoms. His cardiac enzymes have been negative thus far. His ECG is not demonstrated any new acute changes. He has been on medical therapy. His medications are being adjusted based on his low blood pressure at this time and his renal insufficiency. Hopefully he can resume his combination medical therapy in the future. 4. Ischemic mediated cardiomyopathy The patient appears without acute symptoms of CHF or pulmonary edema at this time. He does have an underlying left-sided pleural effusion which may be concerning for a more noncardiac etiology. 5. Hyperlipidemia He can resume lipid-lowering therapy when deemed appropriate. 6. Hypertension He can continue antihypertensive therapy with adjustment as deemed appropriate based upon his initial low blood pressure and his elevated creatinine level. 7. Pulmonary hypertension He has undergone previous invasive evaluation the past with cardiac catheterization with right heart catheterization as well. This was performed in 2016. At that time he evidence of pulmonary hypertension which appear to be out of proportion to what was a baseline normal-appearing pulmonary capillary wedge pressure. He states his symptoms have worsened as his pulmonary hypertension medication dose has been adjusted upwards. Thus it may be reasonable to consider adjusting his dose down and/or altering his medications to see if his symptoms improve. This would require input from his instructor physical. 8. Non-Hodgkin's lymphoma He states he recently completed chemotherapy. He believes he is in remission at this time. It is unclear as to the status of his non-Hodgkin's lymphoma at this time. It is unclear whether this is related to his left-sided pleural effusion. He may need reassessment by his hematology/oncology team. 9. Pleural effusion He does have a left-sided pleural effusion. This raises concern that this may be noncardiac in etiology. At the present time he will continue his cardiovascular evaluation and care. He has undergone evaluation with a chest CT scan. It does not appear there is any immediate plans for attempted thoracentesis. 10. Elevated creatinine level The patient's creatinine level is elevated. This may be related to decreased intravascular volume. He is being treated. His creatinine level is being followed. Comment: The case was discussed with the patient and Dr. Douglas. This note was generated with [employer] EDIation software. It may contain incorrect words, spelling, and punctuation that were not noted in checking the note before signing.
[2019-01-04] MEDS: Tamsulosin HCl 0.4 MG Capsule PO (17:41)
[2019-01-04] MEDS: MELATONIN 3 MG TABLET 6 MG PO (21:33)
[2019-01-04] MEDS: Atorvastatin Calcium 80 MG Tablet PO (21:33)
[2019-01-05] VITALS (17 sets, daily range): BP systolic 98–120; BP diastolic 48–61; PULSE 77–98; RESP 15–24; TEMP 36.7–37.1; O2SAT 91–97
[2019-01-05 05:05] LABS: Absolute Lymphocyte Count 0.18 X10^3/ul (0.83-4.51); Absolute Neutrophil Count 4.6 X10^3/uL (2.0-7.7); Basophil# 0.01 X10^3/uL; Basophil% 0.2 % (0-1); Differential Indicated SCAN CRITERIA MET; Eosinophil# 0.21 X10^3/uL; Eosinophils% 3.8 % (0-5); Hematocrit 27.7 % (40-54); Hemoglobin 8.8 g/dl (13.0-16.5); Lymphocyte # 0.18 X10^3/ul (4.0); Lymphocyte % 3.2 % (19-41); Mean Corp Hgb Conc 31.8 g/gl (32-36); Mean Corpuscular Hgb 28.2 pg (27.0-32.0); Mean Corpuscular Volume 88.8 fL (80-94); Mean Platelet Vol. 9.2 fl (6.2-12.0); Monocyte# 0.54 X10^3/uL; Monocyte% 9.7 % (0-10); Neutrophil # 4.59 X10^3/uL (2.7-7.7); Neutrophil % 82.7 % (47-70); POSITIVE COUNT NO; POSITIVE DIFFERENTIAL YES; POSITIVE MORPHOLOGY NO; Platelet Count 237 K/mm3 (150-450); RBC Distribution Width CV 14.4 % (11.6-14.6); RBC Distribution Width SD 45.5 fl (35.1-43.9); Red Blood Count 3.12 M/mm3 (4.6-6.2); White Blood Count 5.6 K/mm3 (4.4-11.0)
[2019-01-05 05:17] LABS: Anion Gap 5 (5-15); BUN 20 mg/dL (7-18); BUN/Creat Ratio 14.4 RATIO (10-20); Calcium,Total 8.7 mg/dL (8.5-10.1); Chloride 106 mmol/L (98-107); Creatinine, Serum 1.39 mg/dL (0.70-1.30); EST Glomerular Filtration Rate 54 mL/min (>60); Est Glom Filt Rate - Afr Amer 65 mL/min (>60); Estimated Creatinine Clearance 55.89 ml/min; Glucose 110 mg/dL (74-106); Potassium 4.1 mmol/L (3.5-5.1); Sodium Level 140 mmol/L (136-145)
[2019-01-05 05:37] LABS: Differential Comment SCANNED; Microcytosis 2+
[2019-01-05] MEDS: Amiodarone 200 MG Tablet PO ×3 (06:11→22:02)
[2019-01-05] MEDS: Ipratropium/Albuterol Sulfate 3 ML AMPUL.NEB INHALATION ×4 (06:43→19:14)
[2019-01-05] MEDS: Aspirin 81 MG TAB.CHEW PO (08:24)
[2019-01-05] MEDS: APIXABAN 5 MG TABLET PO ×2 (08:24→22:02)
[2019-01-05] MEDS: Carvedilol 3.125 MG TABLET PO ×2 (08:24→22:02)
[2019-01-05] MEDS: Fenofibrate 145 MG Tablet PO (08:25)
[2019-01-05] MEDS: Calcium Carbonate 500 MG Tablet 1000 MG PO (08:26)
[2019-01-05] MEDS: Pantoprazole Sodium 20 MG Tablet PO (08:26)
[2019-01-05] MEDS: Sertraline 100 MG Tablet PO (08:27)
[2019-01-05] MEDS: Loperamide 2 MG Capsule PO ×2 (08:33→14:37)
[2019-01-05 09:50] LABS: Magnesium 1.7 mg/dL (1.6-2.6)
--- NOTE | 2019-01-05 10:06 | PN_ITS ---
Patient Problems: Active and Suspected Problems (Last Reviewed 01/01/19 @ 04:23 by Jem Hamlin MD) Atrial fibrillation (Acute) Pleural effusion (Acute) Pulmonary hypertension (Acute) HLD (hyperlipidemia) (Acute) Subjective: Patient seen stating there is no change in his condition. Had 2 loose bowel movement this a.m. Telemetry monitoring did reveal runs of nonsustained VT. Magnesium 1.7. Objective: GENERAL: ill looking HEENT: Atraumatic; EYES; Anicteric, NECK; supple, normal thyroid, RESPIRATORY: Diminished to auscultation CARDIOVASCULAR: Regular S1-S2 GI: soft, non-tender, normoactive bowel sounds, : No Renal angle tenderness; EXTREMITIES: No clubbing, no cyanosis. MUSCULOSKELETAL: No Joint Tenderness; NEURO: Awake; no lateralizing signs. SKIN: No Rash PSYCH; Flat affect Vitals/I&O's: Vital Signs Temp Pulse Resp BP Pulse Ox 98.5 F 98 18 102/60 94 01/05/19 08:25 01/05/19 08:25 01/05/19 08:25 01/05/19 08:25 01/05/19 08:25 Oxygen Flow Rate (L/min) 5 Oxygen Delivery Method Nasal Cannula Weight: 97 kg Body Mass Index (BMI) 28.1 Finger Stick Blood Glucose 115 Intake and Output for Last 24 Hours 01/03/19 01/04/19 01/05/19 23:59 23:59 23:59 Intake Total 1141.5 / 1141.5 2235 / 2235 300 / 300 Output Total 400 / 400 100 / 100 Balance 741.5 / 741.5 2135 / 2135 300 / 300 Microbiology Past 72 Hours 01/04/19 10:40 Mucosa - Nose Respiratory Panel (PCR) - Final 12/31/18 21:20 Blood Culture (Wb) - Right Hand Blood Culture - Preliminary No growth in 48 hours. 12/31/18 17:02 Blood Culture (Wb) - Port Blood Culture - Preliminary No growth in 48 hours. Laboratory Results 01/04/19 10:25: WBC 6.7, RBC 3.46 L, Hgb 10.0 L, Hct 30.3 L, MCV 87.6, MCH 28.9, MCHC 33.0, RDW 14.8 H, RDW Differential 47.9 H, Plt Count 196, MPV 8.6, Immature Gran % (Auto) 0.300, Neut % (Auto) 87.5 H, Lymph % (Auto) 4.6 L, Humphreys % (Auto) 4.8, Eos % (Auto) 2.7, Baso % (Auto) 0.1, Absolute Neuts (auto) 5.9, Absolute Lymphs (auto) 0.31 L, Total Counted Not Reportable, Differential Comment SCANNED 01/04/19 10:25: Sodium 139, Potassium 4.1, Chloride 103, Carbon Dioxide 29.0, Anion Gap 7, BUN 20 H, Creatinine 1.63 H, Estim Creat Clear Calc 47.66, Est GFR (MDRD) Af Amer 54 L, Est GFR (MDRD) Non-Af 45 L, BUN/Creatinine Ratio 12.3, Glucose 198 H, Calcium 9.0, Magnesium 1.4 L 01/05/19 04:40: WBC 5.6, RBC 3.12 L, Hgb 8.8 L, Hct 27.7 L, MCV 88.8, MCH 28.2, MCHC 31.8 L, RDW 14.4, RDW Differential 45.5 H, Plt Count 237, MPV 9.2, Immature Gran % (Auto) 0.400, Neut % (Auto) 82.7 H, Lymph % (Auto) 3.2 L, Humphreys % (Auto) 9.7, Eos % (Auto) 3.8, Baso % (Auto) 0.2, Absolute Neuts (auto) 4.6, Absolute Lymphs (auto) 0.18 L, Total Counted Not Reportable, Differential Comment SCANNED, Microcytosis 2+ 01/05/19 04:40: Sodium 140, Potassium 4.1, Chloride 106, Carbon Dioxide 29.0, Anion Gap 5, BUN 20 H, Creatinine 1.39 H, Estim Creat Clear Calc 55.89, Est GFR (MDRD) Af Amer 65, Est GFR (MDRD) Non-Af 54 L, BUN/Creatinine Ratio 14.4, Glucose 110 H, Calcium 8.7 01/05/19 04:40: Magnesium 1.7 Current Medications Acetaminophen (Tylenol) 650 mg PO Q6H PRN PRN PRN Reason: FEVER Last Admin: 01/04/19 09:04 Dose: 650 mg Documented by: Albuterol Sulfate (Ventolin Aerosols) 2.5 mg INHALATION Q2H PRN PRN PRN Reason: SOB/Wheezing Albuterol/Ipratropium (Duoneb) 3 ml INHALATION Q4H.RT [facility] Last Admin: 01/05/19 06:43 Dose: 3 ml Documented by: Amiodarone HCl (Cordarone) 200 mg PO TID [facility] Last Admin: 01/05/19 06:11 Dose: 200 mg Documented by: Apixaban (Eliquis) 5 mg PO BID [facility] Last Admin: 01/05/19 08:24 Dose: 5 mg Documented by: Aspirin (Aspirin, Baby) 81 mg PO DAILY@0800 [facility] Last Admin: 01/05/19 08:24 Dose: 81 mg Documented by: Atorvastatin Calcium (Lipitor) 80 mg PO DAILY@2200 [facility] Last Admin: 01/04/19 21:33 Dose: 80 mg Documented by: Calcium Carbonate (Tums) 1,000 mg PO DAILY [facility] Last Admin: 01/05/19 08:26 Dose: 1,000 mg Documented by: Carvedilol (Coreg) 3.125 mg PO BID [facility] Last Admin: 01/05/19 08:24 Dose: 3.125 mg Documented by: Cholecalciferol (Vitamin D) 2,000 unit PO DAILY [facility] Last Admin: 01/05/19 08:26 Dose: 2,000 unit Documented by: Dextrose (D50w Syringe) 0 gm IV X1 PRN; Protocol PRN Reason: Hypoglycemia Fenofibrate (Tricor) 145 mg PO DAILY [facility] Last Admin: 01/05/19 08:25 Dose: 145 mg Documented by: Glucagon () 1 mg IM .X1 PRN PRN Reason: Hypoglycemia Heparin Sodium (Beef Lung) () 50 units IV UD PRN PRN Reason: HEPARIN FLUSH Loperamide HCl (Imodium) 2 mg PO Q6H PRN PRN PRN Reason: DIARRHEA/LOOSE STOOLS Last Admin: 01/05/19 08:33 Dose: 2 mg Documented by: Melatonin (Melatonin) 6 mg PO QHS PRN PRN Reason: SLEEP Last Admin: 01/04/19 21:33 Dose: 6 mg Documented by: Nutritional Formula (Lactose Free) (Ensure Enlive) 120 ml PO 4X/DAY [facility] Last Admin: 01/05/19 08:23 Dose: 120 ml Documented by: Pantoprazole Sodium (Protonix) 20 mg PO DAILY [facility] Last Admin: 01/05/19 08:26 Dose: 20 mg Documented by: Promethazine HCl (Phenergan) 12.5 mg IM Q4H PRN PRN PRN Reason: NAUSEA/VOMITING Last Admin: 01/03/19 10:17 Dose: 12.5 mg Documented by: Sertraline HCl (Zoloft) 100 mg PO DAILY [facility] Last Admin: 01/05/19 08:27 Dose: 100 mg Documented by: Sodium Chloride () 10 - 40 ml IV UD PRN PRN Reason: R PORT FLUSH Last Admin: 01/05/19 04:43 Dose: 20 ml Documented by: Tamsulosin HCl (Flomax) 0.4 mg PO DAILY@1730 [facility] Last Admin: 01/04/19 17:41 Dose: 0.4 mg Documented by: Medical Necessity - Tobacco Use Smoking Status: Former smoker Assessment/Plan All Active Problems (Last Reviewed 01/01/19 @ 04:23 by Jem Hamlin MD) Thrombocytopenia (Acute) Lung nodule < 6cm on CT (Acute) Right inguinal hernia (Acute) NHL (non-Hodgkin's lymphoma) (Acute) Encounter for education (Acute) Chemotherapy management, encounter for (Acute) Atrial fibrillation (Acute) Pleural effusion (Acute) Pulmonary hypertension (Acute) HLD (hyperlipidemia) (Acute) H/O shoulder surgery (Resolved) tendon surgery (Resolved) heel surgery (Resolved) Hx of cholecystectomy (Resolved) History of lumbar surgery (Resolved) NSVT (nonsustained ventricular tachycardia) (Acute) Patient is a 68-year-old gentleman with multiple comorbidities who presented with progressive shortness of breath, low blood pressure as well as diarrhea. An assessment of acute on chronic hypoxemic respiratory failure admitted admitted to monitored bed for subsequent management 1. Acute on chronic hypoxemic respiratory failure: CAT scan obtained on admission demonstrated an enlarging small to moderate left pleural effusion; New mild left basilar pulmonary opacities infiltrates versus subsegmental atelectasis as well as Mild prominence of the pulmonary vascularity, possible mild pulmonary venous congestion patient was placed on noninvasive ventilation and admitted to a monitored bed with consultation placed to pulmonary medicine ~ 01/02/2019; patient was seen in consultation by Dr. Leiva with pulmonary medicine. Case was discussed with him his recommendation also reviewed ~01/03/2019 CT of the chest without contrast ordered for subsequent evaluation in if it does demonstrate significant pleural effusion plan will be to hold patient Eliquis for patient to undergo therapeutic as well as diagnostic thoracocentesis ~ 01/04/2019: CT of the chest performed the day prior was unremarkable. 2. Paroxysmal A. fib with aberrancy. Patient went into A. fib with RVR on 01/02/2019 seen in consultation by Dr. Rouse patient started on amiodarone drip. Dr. Rouse subsequent recommendations reviewed. ~01/04/2019: Case was discussed with Dr. Rouse regarding management options including possible cardioversion prior to discharge. ~01/05/2019. Patient amiodarone drip switched to p.o. the day prior 3. Runs of nonsustained VT patient is on continuous telemetry monitoring electrolytes as significant for magnesium of 1.7 in order was given for patient to receive 2 g of magnesium sulfate 4. 112. Chronic congestive heart failure 2D echo obtained on 07/05/2018 demonstrated preserved ejection fraction of 60%. Patient was noted to have vascular congestion on chest x-ray. Given patient hypotension management with Lasix poses a challenge we will continue to monitor 5. Acute kidney injury patient was on both lisinopril and Lasix held. Repeat labs ordered this a.m. 6. Chronic kidney disease with baseline creatinine of 1.5 on admission 2.33 7. Hypotension attributed to patient being on diuretics as well as Flomax suspected offending medications held on admission ~ 01/02/2019 patient blood pressure fairly stable 8. Pulmonary hypertension: Patient is on treprostinil Diolamine continued. Did explain to patient's over the side effect has been experiencing including low blood pressure and diarrhea could be a side effect of the above medication. Dr. Leiva patient's senior java web application developer recommended adjustment of patient m edications 9. Chronic diarrhea ordered stool studies to rule out infectious etiology prior to attributing the diarrhea to his medications. ~01/02/2019; infectious etiology ruled out; patient is on Imodium as needed 10. Coronary artery disease with previous [place] and RCA stenting 11. History of non-Hodgkin's lymphoma with previous chemo currently in remission 12. Coronary artery disease 13. History of Left lung tumor resection 14. DVT prophylaxis on Eliquis 15. Low-grade fever of undetermined etiology patient infectious work-up so far negative Code Visit Inpatient E&M: 04899 Subs Hosp L2
[2019-01-05] MEDS: Tamsulosin HCl 0.4 MG Capsule PO (16:49)
[2019-01-05] MEDS: MELATONIN 3 MG TABLET 6 MG PO (22:02)
[2019-01-05] MEDS: Atorvastatin Calcium 80 MG Tablet PO (22:02)
[2019-01-05 23:41] LABS: Bedside Glucose 187 mg/dL (70-110)
[2019-01-06] VITALS (10 sets, daily range): BP systolic 103–111; BP diastolic 56–59; PULSE 76–95; RESP 16–21; TEMP 36.6–36.8; O2SAT 90–94
[2019-01-06] MEDS: Amiodarone 200 MG Tablet PO ×2 (05:42→14:01)
[2019-01-06 05:55] LABS: Anion Gap 8 (5-15); BUN 20 mg/dL (7-18); BUN/Creat Ratio 13.2 RATIO (10-20); Calcium,Total 8.7 mg/dL (8.5-10.1); Chloride 105 mmol/L (98-107); Creatinine, Serum 1.52 mg/dL (0.70-1.30); EST Glomerular Filtration Rate 48 mL/min (>60); Est Glom Filt Rate - Afr Amer 59 mL/min (>60); Estimated Creatinine Clearance 51.11 ml/min; Glucose 114 mg/dL (74-106); Potassium 4.2 mmol/L (3.5-5.1); Sodium Level 142 mmol/L (136-145)
[2019-01-06 06:35] LABS: Absolute Lymphocyte Count 0.22 X10^3/ul (0.83-4.51); Absolute Neutrophil Count 4.7 X10^3/uL (2.0-7.7); Basophil# 0.01 X10^3/uL; Basophil% 0.2 % (0-1); Eosinophil# 0.26 X10^3/uL; Eosinophils% 4.5 % (0-5); Hemoglobin 9.1 g/dl (13.0-16.5); Lymphocyte # 0.22 X10^3/ul (4.0); Lymphocyte % 3.8 % (19-41); Mean Corp Hgb Conc 32.5 g/gl (32-36); Mean Corpuscular Hgb 28.8 pg (27.0-32.0); Mean Corpuscular Volume 88.6 fL (80-94); Mean Platelet Vol. 9.4 fl (6.2-12.0); Monocyte# 0.63 X10^3/uL; Monocyte% 10.8 % (0-10); Neutrophil # 4.67 X10^3/uL (2.7-7.7); Neutrophil % 80.2 % (47-70); Platelet Count 265 K/mm3 (150-450); RBC Distribution Width CV 14.4 % (11.6-14.6); RBC Distribution Width SD 45.3 fl (35.1-43.9); Red Blood Count 3.16 M/mm3 (4.6-6.2); White Blood Count 5.8 K/mm3 (4.4-11.0)
[2019-01-06 06:53] LABS: Differential Indicated SCAN CRITERIA MET; POSITIVE COUNT NO; POSITIVE DIFFERENTIAL YES; POSITIVE MORPHOLOGY NO
[2019-01-06 07:04] LABS: Differential Comment SCANNED
[2019-01-06] MEDS: Ipratropium/Albuterol Sulfate 3 ML AMPUL.NEB INHALATION ×2 (07:18→14:22)
[2019-01-06] MEDS: APIXABAN 5 MG TABLET PO (10:24)
[2019-01-06] MEDS: Carvedilol 3.125 MG TABLET PO (10:24)
[2019-01-06] MEDS: Pantoprazole Sodium 20 MG Tablet PO (10:24)
[2019-01-06] MEDS: Sertraline 100 MG Tablet PO (10:24)
[2019-01-06] MEDS: Aspirin 81 MG TAB.CHEW PO (10:24)
[2019-01-06] MEDS: Fenofibrate 145 MG Tablet PO (10:24)
[2019-01-06] MEDS: Calcium Carbonate 500 MG Tablet 1000 MG PO (10:24)
--- NOTE | 2019-01-06 12:17 | DCINST_ITS ---
- Discharge Diagnoses Current Active Problems: Current Active and Chronic Problems (Last Reviewed 01/01/19 @ 04:23 by Jem Hamlin MD) Acute on chronic respiratory failure with hypoxemia (Chronic) Atrial fibrillation (Acute) Pleural effusion (Acute) Pulmonary hypertension (Acute) HLD (hyperlipidemia) (Acute) You will use the following diet at home:: No restrictions Your food should be the consistency of: Regular Your liquids should be the consistency of: Regular/Thin Discharge Activity: Return to Normal Activity Weight Bearing Status: Full weight bearing Allergies/Adverse Reactions: Allergies magnesium Adverse Reaction (Severe, Verified 12/25/18 09:47) Diarrhea Medications to take at Discharge Aspirin [Aspirin, Baby] 81 mg PO DAILY@0800 01/22/14 Pantoprazole Sodium [Protonix] 20 mg PO DAILY 01/22/14 Cholecalciferol (Vitamin D3) [D3-2000] 2,000 unit PO DAILY 02/09/15 Sertraline HCl [Zoloft] 100 mg PO DAILY 12/03/15 Rosuvastatin Calcium [Crestor] 40 mg PO DAILY 05/21/17 treprostinil diolamine ER 1 mg tablet,extended release 3 mg PO TID tab 08/03/17 Tamsulosin HCl [Flomax] 0.4 mg PO QHS 07/22/18 Calcium Carbonate [Calcium] 1,200 mg PO DAILY 10/23/18 Apixaban [Eliquis] 5 mg PO BID 10/30/18 Fenofibrate 160 mg PO DAILY 11/04/18 Lidocaine/Prilocaine [Lidocaine-Prilocaine Cream] 1 applicatio TP DAILY 30 Days #1 tube 11/04/18 Amiodarone HCl [Cordarone] 200 mg PO UD #60 tab 01/06/19 Carvedilol [Coreg (Beta Jose Luis)] 3.125 mg PO BID #60 tab 01/06/19 The following prescriptions were given: Amiodarone HCl [Cordarone] 200 mg PO UD #60 tab Transmission Status: Pending to [id number] Carvedilol [Coreg (Beta Jose Luis)] 3.125 mg PO BID #60 tab Transmission Status: Pending to [id number] Primary Care Physician: NOT,DEFINED [NON-STAFF] - Please follow up with your Primary Care Physician in: in 2 weeks Test Results: Test results from this visit will be discussed in further detail at your follow- up appointment, if applicable. Please Follow Up With: Micheal Rouse MD When: as directed
--- NOTE | 2019-01-07 15:02 | CASEMGMT ---
[facility] DC PHONE CALL DC DATE: 01/06/19 DC Disposition: Home Diagnosis on Discharge: Resp failure with hypoxemia LACE/STRATA: 12/10 Attempted call to home. No answer. Lina RICE RN [facility]
[2019-01-08 17:06] LABS: Enterovirus By PCR Negative (Negative)
--- NOTE | 2019-01-08 18:36 | DS.PCM_ITS ---
Discharge Date and Diagnosis Date of Admission: 12/31/18 Date of Discharge: 01/06/19 - Primary Discharge Diagnosis #1 acute on chronic hypoxic respiratory failure #2 hypotension secondary to diuretic usage #3 acute kidney injury #4 chronic kidney disease stage III #5 paroxysmal atrial fibrillation #6 pulmonary hypertension #7 coronary artery disease #8 ischemic cardiomyopathy - Secondary Discharge Diagnosis Chronic Problems (Last Reviewed 01/08/19 @ 15:07 by Melissa Landa) History of non-Hodgkin's lymphoma (Chronic) CAD S/P percutaneous coronary angioplasty (Chronic) [facility] with bare metal stent to RCA 2004; [facility] with IVUS & FFR to mid RCA 02/14/13 Ischemic cardiomyopathy (Chronic) Elevated serum creatinine (Chronic) Abnormal Holter monitor finding (Chronic) Orthostatic hypotension (Chronic) Left ventricular hypertrophy (Chronic) Other long term care social worker (current) drug therapy (Chronic) Peripheral vascular disease (Chronic) Hypomagnesemia (Chronic) Inguinal hernia (Chronic) Diarrhea (Chronic) Paralysis of vocal cords and larynx, unilateral (Chronic) Dysphonia (Chronic) Acute on chronic respiratory failure with hypoxemia (Chronic) Essential (primary) hypertension (Chronic) Atherosclerotic heart disease of [place] coronary artery without angina pectoris (Chronic) CAD (coronary artery disease), [place] artery transplanted heart (Chronic) Hospital Course and Treatment Operations: None Procedures: 2-D Echocardiogram Summary of Care Provided: The patient is a 68 year old M was seen in the emergency room at [facility] with a chief complaint of shortness of breath. Patient is on chronic oxygen therapy at home at 4 L but he was hypoxic in the emergency room and was placed on a nonrebreather mask. Work-up in the emergency room included a chest x-ray which showed a small to moderate left pleural effusion and new mild left basilar pulmonary opacities as well as pulmonary congestion. Review of old records showed that his chest x-ray on 12/12/2018 was read out similar. Patient CBC showed a normal white blood cell count, patient's hemoglobin was 10.2, his creatinine was elevated at 2.33. Patient was admitted for acute on chronic hypoxic respiratory failure, he was seen in consultation by Dr. Leiva of pulmonology, he was given aerosol treatments and his Lasix and lisinopril was held due to elevated creatinine. Patient was noted to be in atrial fibrillation, he was seen in consultation by cardiology, cardiac medications were adjusted and he was placed on amiodarone. Echocardiogram was obtained which showed an ejection fraction of 55% and moderate pulmonary hypertension. Patient's labs were monitored and his creatinine returned toward his baseline creatinine. His oxygen was weaned to 5 L nasal cannula at the time of discharge. His medical status improved during his hospitalization. On 01/06/2019, patient was seen and examined: On examination he appeared in good health and spirits. Vital signs as documented. Skin warm and dry and without overt rashes. Neck without JVD. Lungs-distant breath sounds bilaterally. Heart exam notable for irregular rhythm, no rub was noted.. Abdomen unremarkable and without evidence of organomegaly, masses, or abdominal aortic enlargement. Extremities nonedematous. Neuro: Cranial nerves II through XII are grossly intact, no focal motor deficits were noted, sensation to light touch and pinprick intact. Psych: Patient is alert and oriented x3, he does not appear anxious or depressed On 01/06/2019, patient was seen and examined and felt to be in stable condition fo r discharge home. - Physical Exam Vital Signs Temp Pulse Resp BP Pulse Ox 98 F 88 21 H 103/56 L 90 01/06/19 10:16 01/06/19 15:15 01/06/19 14:52 01/06/19 10:16 01/06/19 13:43 Oxygen Flow Rate (L/min) [ 5 AMBULATION with Oxygen] Oxygen Flow Rate (L/min) 5 Oxygen Delivery Method Nasal Cannula Weight: 99.7 kg Body Mass Index (BMI) 28.1 Finger Stick Blood Glucose 115 Intake and Output for Last 24 Hours 01/06/19 01/07/19 01/08/19 23:59 23:59 23:59 Intake Total 480 / 480 Balance 480 / 480 Microbiology Past 72 Hours 12/31/18 21:20 Blood Culture - Final Blood Culture (Wb) - Right Hand No growth in 5 days. 12/31/18 17:02 Blood Culture - Final Blood Culture (Wb) - Port No growth in 5 days. Laboratory Tests Past 24 Hrs 12/31/18 22:05 Enterovirus RNA (PCR) Negative Discharge Activity: Return to Normal Activity Weight Bearing Status: Full weight bearing Home Medications: Medications to take at Discharge Aspirin [Aspirin, Baby] 81 mg PO DAILY@0800 01/22/14 Pantoprazole Sodium [Protonix] 20 mg PO DAILY 01/22/14 Cholecalciferol (Vitamin D3) [D3-2000] 2,000 unit PO DAILY 02/09/15 Sertraline HCl [Zoloft] 100 mg PO DAILY 12/03/15 Rosuvastatin Calcium [Crestor] 40 mg PO DAILY 05/21/17 treprostinil diolamine ER 1 mg tablet,extended release 3 mg PO TID tab 08/03/17 Tamsulosin HCl [Flomax] 0.4 mg PO QHS 07/22/18 Calcium Carbonate [Calcium] 1,200 mg PO DAILY 10/23/18 Apixaban [Eliquis] 5 mg PO BID 10/30/18 Fenofibrate 160 mg PO DAILY 11/04/18 Lidocaine/Prilocaine [Lidocaine-Prilocaine Cream] 1 applicatio TP DAILY 30 Days #1 tube 11/04/18 Amiodarone HCl [Cordarone] 200 mg PO UD #60 tab 01/06/19 Carvedilol [Coreg (Beta Jose Lius)] 3.125 mg PO BID #60 tab 01/06/19 Following Prescrptions Were Given to Patient: Amiodarone HCl [Cordarone] 200 mg PO UD #60 tab Transmission Status: Received by [facility] #[id number] Carvedilol [Coreg (Beta Jose Luis)] 3.125 mg PO BID #60 tab Transmission Status: Received by [facility] #[id number] Primary Care Physician: NOT,DEFINED [NON-STAFF] - Please follow up with your Primary Care Physician in: in 2 weeks Please Follow Up With: Micheal Rouse MD When: as directed Please Follow Up With: Yuliet Owens DO Disposition: Home Minutes spent on discharge:: 32 Patient Condition:: Stable Medical Necessity - Tobacco Use Smoking Status: Former smoker Meaningful Use Info Meaningful Use Diagnoses (Choose all that apply): None applicable Code Visit Inpatient E&M: 22108 Disch Hosp
== END 2019-01-06 16:19 | disposition home or self-care (01) | DRG 189 ==
LOC: ED 17:48 → PCU 21:30
PROVIDERS: Internal Medicine; Admitting Provider Hospitalist; Emergency Provider Emergency Medicine; Family Provider Family Medicine; PCP Family Medicine; Visit Provider Internal Medicine
DX: J96.21 Acute and chronic respiratory failure with hypoxia (principal); N17.9 Acute kidney failure, unspecified; C85.90 Non-Hodgkin lymphoma, unspecified, unspecified site; J90 Pleural effusion, not elsewhere classified; I13.0 Hypertensive heart and chronic kidney disease with heart failure and stage 1 through stage 4 chronic kidney disease, or unspecified chronic kidney disease; I50.32 Chronic diastolic (congestive) heart failure; I95.2 Hypotension due to drugs; T50.2X5A Adverse effect of carbonic-anhydrase inhibitors, benzothiadiazides and other diuretics, initial encounter; Z99.81 Dependence on supplemental oxygen; N18.3 Chronic kidney disease, stage 3 (moderate); I25.10 Atherosclerotic heart disease of native coronary artery without angina pectoris; I27.20 Pulmonary hypertension, unspecified; E78.5 Hyperlipidemia, unspecified; I48.0 Paroxysmal atrial fibrillation; I25.5 Ischemic cardiomyopathy; Z95.5 Presence of coronary angioplasty implant and graft; Z90.2 Acquired absence of lung [part of]; Z87.891 Personal history of nicotine dependence; Z79.01 Long term (current) use of anticoagulants; I25.2 Old myocardial infarction
CPT/HCPCS: 36415; 36591; 71045; 71250; 74176; 80048; 80053; 81001; 82962; 83605; 83690; 83735; 83880; 84443; 84484; 85025; 85027; 87040; 87449; 87493; 87498; 87506; 87633; 93005; 93306; 94640; 94660; 94667; 94668; 97802; 99251; 99285; J7030; J7040; A4216; G0463; J2405

== ENCOUNTER 2019-01-31 10:48 | Day surgery (SDC) | payer MEDICARE, OTHER, SELFPAY ==
[2019-01-08 15:08] VITALS: BMI 28.7
[2019-01-22 13:03] VITALS: BMI 29.0
--- NOTE | 2019-01-31 07:43 | PCM.HP.BLA ---
Problem List (1) Atrial fibrillation Status: Chronic Qualifiers: Atrial fibrillation type: persistent Qualified Code(s): I48.1 - Persistent atrial fibrillation (2) NSVT (nonsustained ventricular tachycardia) Status: Acute (3) CAD S/P percutaneous coronary angioplasty Status: Chronic Comment: LHC with bare metal stent to RCA 2004; LHC with IVUS & FFR to mid RCA 02/14/13 (4) Ischemic cardiomyopathy Status: Chronic (5) HLD (hyperlipidemia) Status: Acute (6) HTN (hypertension) Status: Chronic (7) Pulmonary hypertension Status: Acute (8) History of non-Hodgkin's lymphoma Status: Chronic History and Physical Date of Admission: 01/31/19 Problem List (1) Atrial fibrillation Status: Acute (2) NSVT (nonsustained ventricular tachycardia) Status: Acute (3) CAD S/P percutaneous coronary angioplasty Status: Chronic Comment: C with bare metal stent to RCA 2004; LHC with IVUS & FFR to mid RCA 02/14/13 (4) Ischemic cardiomyopathy Status: Chronic (5) HLD (hyperlipidemia) Status: Acute (6) Essential (primary) hypertension Status: Chronic (7) Pulmonary hypertension Status: Acute (8) NHL (non-Hodgkin's lymphoma) Status: Acute Qualifiers: Non-Hodgkin lymphoma type: B-cell B-cell lymphoma type: diffuse large B-cell Lymphoma site: extranodal excluding spleen and other solid organs Qualified Code(s): C83.39 - Diffuse large B-cell lymphoma, extranodal and solid organ sites (9) Pleural effusion Status: Acute (10) Elevated serum creatinine Status: Chronic Reason for Consult Date of Consultation: 01/02/19 History of Present Illness: The patient is a 68 year old white male with a past medical history of atrial fibrillation, and sustained wide-complex tachycardia concerning for nonsustained VT, CAD, status post PCI, ischemic mediated cardiomyopathy, hyperlipidemia, hypertension, pulmonary hypertension, non-Hodgkin's lymphoma, who now presents for evaluation of recurrent atrial fibrillation with rapid ventricular response superimposed upon concerns of elevated creatinine level and a left-sided pleural effusion. The patient states he has not been feeling well recently. He has had a combination of symptoms with respect to concerning shortness of breath/dyspnea, nausea, emesis, loose bowel movements, diminished oral intake, and generally not feeling well. He states that the best of his knowledge he has had no recent definitive a cardiovascular event occur. He states his last chemotherapy was on 12-26-18. To the best of his knowledge his non-Hodgkin's lymphoma is in remission. Based upon his aforementioned concerns he presented to the hospital for further evaluation. From a cardiac standpoint he was noted to have evidence of atrial fibrillation. He was also noted by radiologic studies to have evidence of a left-sided pleural effusion. His troponin I levels have been negative thus far. Based upon his atrial fibrillation and concerns of rapid ventricular response with wide QRS complexes potentially being compatible with aberrancy based upon his underlying right IVCD pattern he has been placed on additional medical management with IV amiodarone. He has undergone previous noninvasive and invasive evaluation in the past. Most recently on 07-05-18 he had a transthoracic echocardiogram performed. At that time he had left ventricular regional wall motion abnormalities with overall preserved LVEF of 60% with findings compatible with mild MR, trivial TR, mild focal aortic valve thickening, and trivial [place]. His estimated RV systolic pressure was 60 mmHg and there was evidence of decreased diastolic compliance. He had a pharmacologic stress nuclear imaging study performed on 07-23-18. Based upon that study his myocardial perfusion changes were compatible with physiologic apical thinning with no myocardial perfusion changes consider diagnostic for associated stress-induced myocardial ischemia. His gated LVEF was 55%. He has undergone cardiac catheterization procedure on more than one occasion in the past. His most recent procedure appears to have been on 05-22-2017 at [facility]. At that time his left ventricle was thought to demonstrate inferior basilar hypokinesis with an LVEF of 40 to 45%, the left main coronary arteries normal, the LAD had mild calcification and mild luminal irregularities less than 30%, the LCx had mild luminal irregularities less than 30%, the RCA had a proximal 75% stenosis and he subsequently went on to receive a PCI/LATOSHA with a 4.0?16 Promus stent to the RCA distribution. He is also had based on concerns of his cardiac dysrhythmias and electrophysiology study performed at [facility]. At that [id number]-his study was reported as demonstrating a no inducible SVT and no inducible VT, nonsustained VT, VF, with and without isoproterenol with an S5 protocol at 2 RV sites. The recommendation at that time was to continue medical therapy, discontinuation of antiarrhythmic therapy with amiodarone, and no indication for ICD placement. [] Past Medical History Allergies/Adverse Reactions: Allergies magnesium Adverse Reaction (Severe, Verified 12/25/18 09:47) Diarrhea Home Medications: Ambulatory Orders Medication Instructions Recorded Aspirin [Aspirin, Baby] 81 mg PO DAILY@0800 01/22/14 Pantoprazole Sodium [Protonix] 20 mg PO DAILY 01/22/14 Cholecalciferol (Vitamin D3) 2,000 unit PO DAILY 02/09/15 [D3-2000] Sertraline HCl [Zoloft] 100 mg PO DAILY 12/03/15 Rosuvastatin Calcium [Crestor] 40 mg PO DAILY 05/21/17 treprostinil diolamine ER 1 mg 3 mg PO TID tab 08/03/17 tablet,extended release Carvedilol [Coreg] 12.5 mg PO BID 07/22/18 Tamsulosin HCl [Flomax] 0.4 mg PO QHS 07/22/18 Calcium Carbonate [Calcium] 1,200 mg PO DAILY 10/23/18 Isosorbide Mononitrate [Imdur] 60 mg PO DAILY 10/23/18 Apixaban [Eliquis] 5 mg PO BID 10/30/18 Fenofibrate 160 mg PO DAILY 11/04/18 Lidocaine/Prilocaine 1 applicatio TP DAILY 30 Days #1 11/04/18 [Lidocaine-Prilocaine Cream] tube Furosemide [Lasix] 40 mg PO DAILY 12/19/18 Lisinopril 5 mg PO DAILY 12/31/18 Past Medical History (Chronic Problems): Chronic Problems (Last Reviewed 01/01/19 @ 04:23 by Jem Hamlin MD) History of non-Hodgkin's lymphoma (Chronic) CAD S/P percutaneous coronary angioplasty (Chronic) [facility] with bare metal stent to RCA 2004; [facility] with IVUS & FFR to mid RCA 02/14/13 Ischemic cardiomyopathy (Chronic) Elevated serum creatinine (Chronic) Abnormal Holter monitor finding (Chronic) Orthostatic hypotension (Chronic) Left ventricular hypertrophy (Chronic) Other group home (current) drug therapy (Chronic) Peripheral vascular disease (Chronic) Hypomagnesemia (Chronic) Inguinal hernia (Chronic) Diarrhea (Chronic) Paralysis of vocal cords and larynx, unilateral (Chronic) Dysphonia (Chronic) Acute on chronic respiratory failure with hypoxemia (Chronic) Essential (primary) hypertension (Chronic) Atherosclerotic heart disease of [place] coronary artery without angina pectoris (Chronic) CAD (coronary artery disease), [place] artery transplanted heart (Chronic) Surgical History: cholecystectomy, - - *Family History Paternal Family History: Family History (Last Reviewed 01/01/19 @ 04:23 by Jem Hamlin MD) Father Heart disease Hypertension Mother Heart disease CVA (cerebral vascular accident) Sister Diabetes Heart disease History Items: - - CAD Lives: Spouse/ Significant Other Smoking Status: Former smoker Alcohol: None Drugs: None Review of Systems - Review of Systems General: Reports: Fatigue. Denies: Fever, Night Sweats Cardiovascular: Reports: Shortness of Breath. Denies: Chest Discomfort, Orthopnea, PND, Peripheral Edema, Palpitations, Lightheadedness, Dizziness, Near Syncope, Syncope Respiratory: Reports: Shortness of Breath. Denies: Cough, Sputum Production, Hemoptysis Gastrointestinal: Reports: Nausea, Emesis, Diarrhea. Denies: Hematemesis, Hematochezia, Melena Genitourinary: Denies: Dysuria, Hematuria Skin: Denies: Rash Subjectve: She is a 68-year-old white male who appears to be resting comfortably at the moment in no acute distress. Objective: Vital Signs Temp Pulse Resp BP Pulse Ox 99.9 F H 88 20 H 103/59 L 99 01/02/19 17:24 01/02/19 19:12 01/02/19 19:12 01/02/19 19:00 01/02/19 19:00 Oxygen Flow Rate (L/min) 4 Oxygen Delivery Method Nasal Cannula Weight: 216 lb 0.848 oz Body Mass Index (BMI) 28.1 Finger Stick Blood Glucose 115 Intake and Output for Last 24 Hours 12/31/18 01/01/19 01/02/19 23:59 23:59 23:59 Intake Total 314 / 314 1477 / 1477 1101.4 / 1101.4 Balance 314 / 314 1477 / 1477 1101.4 / 1101.4 General: Awake, Alert, Oriented x 3, Cooperative, No Acute Distress HEENT: Atraumatic, Normocephalic, PERRL, EOMI, Sclera Non Icteric Oral: Moist Mucosa Neck: Supple, Good ROM, No JVD Lungs: Diminished Left Base Cardiovascular: Irregular Rhythm, Normal S1, Normal S2 Vascular: No Carotid Bruits Abdomen: Bowel Sounds Present, Soft, Non Tender Extremities: No Cyanosis, No Clubbing, No edema Neurological: No Focal Motor or Sensory Deficit Psych/Mental Status: Appropriate 01/02/19 09:34: Magnesium 1.6 01/02/19 17:15: WBC 4.6, RBC 3.18 L, Hgb 9.3 L, Hct 28.0 L, MCV 88.1, MCH 29.2, MCHC 33.2, RDW 14.9 H, RDW Differential 48.0 H, Plt Count 175, MPV 9.0, Immature Gran % (Auto) 0.400, Neut % (Auto) 79.6 H, Lymph % (Auto) 6.3 L, [place] % (Auto) 8.7, Eos % (Auto) 4.8, Baso % (Auto) 0.2, Absolute Neuts (auto) 3.7, Total Counted Not Reportable 01/02/19 17:15: Sodium 138, Potassium 4.1, Chloride 107, Carbon Dioxide 28.0, Anion Gap 3 L, BUN 24 H, Creatinine 1.57 H, Est GFR (MDRD) Af Amer 56 L, Est GFR (MDRD) Non-Af 47 L, BUN/Creatinine Ratio 15.3, Glucose 142 H, Calcium 8.6, Magnesium 2.0 01/02/19 17:15: Troponin I 0.018 Rhythm: Atrial fibrillation EKG: Atrial fibrillation; leftward axis; right bundle branch block pattern; inferior MA of indeterminate age; nonspecific T wave abnormality; repeat ECG demonstrating similar type findings. ECHO: As noted above Stress Test: As noted above Cardiac Cath: As noted above PCI: As noted above EPS: As noted above CXR: As noted above Assessment/Plan 1. Atrial fibrillation The patient has atrial fibrillation. He has had episodes of RVR. His atrial fibrillation may be secondary to a complex scenario with respect to his cardiovascular disease, pulmonary disease, etc. The present time he does need to continue rate control therapy. He has been placed back on antiarrhythmic therapy with the hopes of assisting with rate control and regaining sinus rhythm. He is currently on anticoagulant therapy. He will also have a transthoracic echocardiogram to reassess his left atrial size as well as his ventricular wall motion and systolic function. Depending upon his clinical course he may need additional evaluation care of his atrial dysrhythmia. 2. Nonsustained wide-complex tachycardia/nonsustained VT The patient has had a history of the aforementioned diagnosis. He is undergone noninvasive and invasive studies including an electrophysiology study at [facility]. The results are as noted above. At the present time he will continue to be monitored for any obvious wide-complex dysrhythmias secondary to his underlying atrial dysrhythmia with aberrancy/relationship to his underlying IVCD pattern. In the meantime he will continue medical therapy. This includes his beta-rodger therapy. His dose can be adjusted based upon his heart rate and blood pressure. He is being placed on antiarrhythmic therapy with amiodarone based upon concerns of his atrial dysrhythmia. 3. CAD status post PCI The patient has a history of CAD and is undergone PCI in the past. At the moment he appears to be without acute symptoms. His cardiac enzymes have been negative thus far. His ECG is not demonstrated any new acute changes. He has been on medical therapy. His medications are being adjusted based on his low blood pressure at this time and his renal insufficiency. Hopefully he can resume his combination medical therapy in the future. 4. Ischemic mediated cardiomyopathy The patient appears without acute symptoms of CHF or pulmonary edema at this time. He does have an underlying left-sided pleural effusion which may be concerning for a more noncardiac etiology. It would not be unreasonable noting his cardiac history and his atrial dysrhythmia to reassess his cardiovascular status. This will include an echocardiogram to reevaluate his left ventricular wall motion and systolic function. Depending upon the findings he may need further adjustment of his medications as well as additional diagnostic studies. 5. Hyperlipidemia He can resume lipid-lowering therapy when deemed appropriate. 6. Hypertension He can continue antihypertensive therapy with adjustment as deemed appropriate based upon his initial low blood pressure and his elevated creatinine level. 7. Pulmonary hypertension An estimate of his pulmonary pressures hopefully can be obtained with respect to a repeat transthoracic echocardiogram. He has undergone previous invasive evaluation the past with cardiac catheterization with right heart catheterization as well. This was performed in 2016. At that time he evidence of pulmonary hypertension which appear to be out of proportion to what was a baseline normal-appearing pulmonary capillary wedge pressure. 8. Non-Hodgkin's lymphoma He states he recently completed chemotherapy. He believes he is in remission at this time. It is unclear as to the status of his non-Hodgkin's lymphoma at this time. It is unclear whether this is related to his left-sided pleural effusion. He may need reassessment by his hematology/oncology team. 9. Pleural effusion He does have a left-sided pleural effusion. This raises concern that this may be noncardiac in etiology. At the present time he will continue his cardiovascular evaluation and care. However it may be reasonable to consider a left-sided thoracentesis, once his anticoagulation is put on hold, and attempt to assist with diagnosis as well as potentially therapy to assist with his underlying shortness of breath/dyspnea. 10. Elevated creatinine level The patient's creatinine level is elevated. This may be related to decreased intravascular volume. He is being treated. His creatinine level is declining. Comment: The above was discussed and reviewed with the patient and Dr. Nelson. This note was generated with [employer] software. It may contain incorrect words, spelling, and punctuation that were not noted in checking the note before signing. 01/02/19 [id number] <Electronically signed by Micheal Rouse MD> Date Micheal Rouse MD I have examined the patient the following changes are noted: The patient continues with atrial fibrillation. The patient has remained on medical management. The patient is scheduled for outpatient synchronized biphasic DC cardioversion on 01-31-19 at [facility]. The procedure and risks have been discussed with the patient. He is agreeable to the plan.
[2019-01-31 10:27] VITALS: BMI 28.0
--- NOTE | 2019-01-31 12:28 | PCM.OP.PRO ---
Procedure Report Date of Procedure: 01/31/19 CONSCIOUS SEDATION REPORT DATE OF SERVICE: January 31, 2019 BRIEF HISTORY OF PRESENT ILLNESS: The patient is a 68-year-old male who presents to [facility] for an elective outpatient cardioversion due to underlying atrial fibrillation. The patient has undergone a prior cardioversion through the [facility]. He does report a history of both COPD and obstructive sleep apnea. The patient is currently anticoagulated on Eliquis. His last known ejection fraction was approximately 60%. PHYSICAL EXAMINATION: VITAL SIGNS: Reviewed and were acceptable. GENERAL: The patient is a male, in no apparent distress, speaking in full sentences. HEENT: Normocephalic, atraumatic. Mucous membranes are moist and pink. Good mouth opening noted. Trachea is midline. Good neck mobility. CHEST: S1, S2 irregularly irregular. No murmurs, rubs or gallops were noted. LUNGS: Clear to auscultation bilaterally without appreciable wheezes, rales or rhonchi. ABDOMEN: Soft, nontender, nondistended. Positive bowel sounds. EXTREMITIES: There is no clubbing, cyanosis or edema. ASA Class: II DESCRIPTION OF PROCEDURE: After confirmation of informed consent, the patient's anesthesia plan was reviewed in detail. Propofol was chosen. Risks and benefits were reviewed and the patient agreed to proceed. At 1214, the patient was given 40 mg of propofol. The patient achieved an appropriate level of sedation and was given a 200 joule synchronized cardioversion by Dr. Rouse at the bedside. This was successful in achieving normal sinus rhythm. The patient was monitored until 1220, at which time he reached his baseline mental status and function. The patient tolerated the procedure well. COMPLICATIONS: None ESTIMATED BLOOD LOSS: None RECOMMENDATIONS: Okay to recover in usual fashion. Code Visit [id number]: Other Procedure See Report - [id number]
--- NOTE | 2019-01-31 12:52 | CARDIOVERS_ITS ---
Cardioversion Cardioversion: Procedure: Synchronized Biphasic DC Cardioversion Indications: Atrial fibrillation Consent: Per the Patient Anesthesia: per Dr. Cisneros of pulmonology and critical care medicine with propofol 40 mg IV push total Procedure: Synchronized Biphasic DC Cardioversion: 200 J x1: Result: Sinus rhythm; PACs Complications: no apparent complications This note was generated with [employer] dictation software. It may contain incorrect words, spelling, and punctuation that were not noted in checking the note before signing.
== END 2019-01-31 13:20 | disposition home or self-care (01) ==
LOC: CLSP 10:48
PROVIDERS: Family Provider Family Medicine; PCP Family Medicine; Referring Provider Internal Medicine Cardiovascular Disease; Visit Provider Internal Medicine Cardiovascular Disease
DX: I48.1 Persistent atrial fibrillation (principal); I25.10 Atherosclerotic heart disease of native coronary artery without angina pectoris; I25.5 Ischemic cardiomyopathy; E78.5 Hyperlipidemia, unspecified; I10 Essential (primary) hypertension; I27.20 Pulmonary hypertension, unspecified; Z85.72 Personal history of non-Hodgkin lymphomas; J90 Pleural effusion, not elsewhere classified; Z79.82 Long term (current) use of aspirin; Z87.891 Personal history of nicotine dependence; Z90.49 Acquired absence of other specified parts of digestive tract; J44.9 Chronic obstructive pulmonary disease, unspecified; G47.33 Obstructive sleep apnea (adult) (pediatric); Z79.01 Long term (current) use of anticoagulants; Z82.3 Family history of stroke; Z79.899 Other long term (current) drug therapy; Z95.5 Presence of coronary angioplasty implant and graft; I47.2 Ventricular tachycardia
CPT/HCPCS: 92960; 93005; J7040

== ENCOUNTER → 2019-03-14 08:14 | Outpatient (CLI) | payer MEDICARE, OTHER, SELFPAY ==
[2019-02-25 13:39] VITALS: BMI 29.7
[2019-03-10 15:30] VITALS: BMI 29.7
--- NOTE | 2019-03-14 08:24 | CT_ITS ---
STUDY: CT CHEST WITH CONTRAST REASON FOR EXAM: Male, 68 years old. Lung nodule, prior left upper lobe lung resection, lymphoma RADIATION DOSAGE (If Supplied By Facility): CTDIvol = ( 17.34 ) mGy, DLP = ( 813.30 ) mGycm TECHNIQUE: Transaxial imaging was performed following intravenous administration of 100 IV Isovue 300. Individualized dose optimization techniques were used for this CT. COMPARISON: 03 January 2019, November 2018, 12 December 2018 FINDINGS: There is a left upper lobectomy. There is a small amount of fluid in the left apex and left base. Lungs are clear. Central airways are patent. Right pleural cavity is clear. There is coronary artery disease. Cardiac chambers are normal in size and shape. Pericardial is normal. There are benign appearing mediastinal lymph nodes. The largest one is located in the precarinal station and has a normal central fatty hilum. Osseous structures are intact without lytic or blastic lesions. Upper abdominal images are unremarkable. Infusion catheter is present in the right upper chest entering the jugular and terminating with its tip at the junction of right atrium and SVC. Appearance is similar to prior. CT/Chest WITH Contrast IMPRESSION: 1. Left upper lobectomy, small left pleural effusion. 2. No intrathoracic neoplasm. Electronically Signed: Stacie Chun, at 17:33 EDT Tel , Service support ,
== END ==
PROVIDERS: Family Provider Family Medicine; PCP Family Medicine; Referring Provider Internal Medicine Medical Oncology; Visit Provider Internal Medicine Medical Oncology
DX: Z01.812 Encounter for preprocedural laboratory examination (principal); R91.1 Solitary pulmonary nodule; Z85.72 Personal history of non-Hodgkin lymphomas
CPT/HCPCS: 71260; Q9967; A4216

== ENCOUNTER → 2019-03-21 15:34 | Outpatient (CLI) | payer MEDICARE, OTHER, SELFPAY ==
[2019-03-19 16:32] VITALS: BMI 30.1
[2019-03-21 17:12] LABS: Absolute Neutrophil Count 6.1 X10^3/uL (2.0-7.7); Basophil# 0.04 X10^3/uL; Basophil% 0.5 % (0-1); Eosinophil# 0.42 X10^3/uL; Eosinophils% 5.4 % (0-5); Hematocrit 37.8 % (40-54); Hemoglobin 12.8 g/dL (13.0-16.5); Lymphocyte % 5.1 % (19-41); Mean Corp Hgb Conc 33.9 g/dL (32-36); Mean Corpuscular Hgb 30.7 pg (27.0-32.0); Mean Corpuscular Volume 90.6 fL (80-94); Mean Platelet Vol. 8.9 fl (6.2-12.0); Monocyte# 0.72 X10^3/uL; Monocyte% 9.2 % (0-10); NRBC Flagged by Analyzer 0 % (0-5); Neutrophil # 6.14 X10^3/uL (2.7-7.7); Neutrophil % 78.9 % (47-70); POSITIVE DIFFERENTIAL YES; Platelet Count 145 K/mm3 (150-450); RBC Distribution Width CV 16.6 % (11.6-14.6); RBC Distribution Width SD 54.7 fl (35.1-43.9); Red Blood Count 4.17 M/mm3 (4.6-6.2); White Blood Count 7.8 K/mm3 (4.4-11.0)
[2019-03-21 17:20] LABS: International Normalized Ratio 1.3; Partial Thromboplast Time 31.8 Seconds (24.1-36.2); Prothrombin Time (Protime)PT. 16.3 SECONDS (11.7-14.9)
[2019-03-21 17:25] LABS: Anion Gap 10 (5-15); BUN 32 mg/dL (7-18); BUN/Creat Ratio 21.8 RATIO (10-20); Calcium,Total 8.8 mg/dL (8.5-10.1); Chloride 107 mmol/L (98-107); Creatinine, Serum 1.47 mg/dL (0.70-1.30); EST Glomerular Filtration Rate 50 mL/min (>60); Est Glom Filt Rate - Afr Amer 61 mL/min (>60); Glucose 122 mg/dL (74-106); Potassium 3.9 mmol/L (3.5-5.1); Sodium Level 145 mmol/L (136-145)
[2019-03-21 17:29] LABS: Differential Indicated SCAN CRITERIA MET
[2019-03-21 17:33] LABS: Differential Comment SCANNED
== END ==
PROVIDERS: Family Provider Family Medicine; PCP Family Medicine; Referring Provider Internal Medicine Cardiovascular Disease; Visit Provider Internal Medicine Cardiovascular Disease
DX: I25.10 Atherosclerotic heart disease of native coronary artery without angina pectoris (principal); I25.5 Ischemic cardiomyopathy; Z95.5 Presence of coronary angioplasty implant and graft
CPT/HCPCS: 36415; 80048; 85025; 85610; 85730

== ENCOUNTER 2019-03-25 08:58 | Day surgery (SDC) | payer MEDICARE, OTHER, SELFPAY ==
[2019-03-19 16:32] VITALS: BMI 30.1
[2019-03-24 11:31] VITALS: BMI 30.1
--- NOTE | 2019-03-25 08:02 | PCM.HP.BLA ---
Problem List (1) Angina pectoris Status: Acute (2) CAD in [place] artery Status: Chronic (3) Presence of stent in coronary artery Status: Chronic Comment: [facility] with bare metal stent to RCA 2004; [facility] with IVUS & FFR to mid RCA 02/14/13 (4) Ischemic cardiomyopathy Status: Chronic (5) Persistent atrial fibrillation Status: Chronic (6) NSVT (nonsustained ventricular tachycardia) Status: Chronic (7) HLD (hyperlipidemia) Status: Chronic Qualifiers: (8) Essential (primary) hypertension Status: Chronic (9) Pulmonary hypertension Status: Chronic (10) History of non-Hodgkin's lymphoma Status: Chronic History and Physical Date of Admission: 03/25/19 [facility] [address] [place] [address] OFFICE VISIT Date of Service: 03/19/19 MR#: [id number] Acct: [id number] Name: ASAF HERRERA Rep #: [id number] : 1950 Provider: Micheal Rouse MD Age/Sex: 68/M Location: [facility] Status: Signed [facility] History of Present Illness Details: ASAF HERRERA, is a 68 M who presents to the office today for cardiovascular outpatient follow-up. He has a history of coronary artery disease status post stenting with drug-eluting stent to RCA in May 2017. He also has a history of remote stenting with a bare metal stent to the RCA, ischemic mediated cardiomyopathy, pulmonary hypertension, hyperlipidemia, and nonsustained ventricular tachycardia, as well as his diagnosis of underlying atrial fibrillation for which she is undergone recent synchronized biphasic DC cardioversion. As you recall, he referred to Dr. Higuera of [facility] electrophysiology for further evaluation of his nonsustained ventricular tachycardia after recent RCA stenting. He was on amiodarone but this has been discontinued by Dr. Higuera. He is being evaluated both locally and now at the [facility] for his underlying pulmonary disease process. As part of his recent evaluation locally he underwent synchronized biphasic DC cardioversion to regain sinus rhythm. This was performed on 01-31-19. An ECG was performed today. He is in sinus rhythm with an underlying right bundle branch block pattern and a nonspecific T wave abnormality. He also has had a previous right heart cardiac catheterization at [facility]. According to the report his RA mean pressure was 10, his RV/PA systolic pressures were 78 mmHg, his PA mean pressure was 44 mmHg, his pulmonary capillary wedge pressure mean was reported at 28 mmHg. He was recommended for continued medical therapy at that time including his diuretic therapy. He has had a transthoracic echocardiogram performed at [facility] on 01-03-19. He had a previous pharmacologic stress nuclear imaging study performed at [facility] on 07-23-18. The results are as noted below. He states he felt better after his recent DC cardioversion. This is with respect to his breathing. However he states his breathing seems to be regressing to what it was before. He also notes he has had intermittent episodes of bilateral upper extremity discomfort/aching sensation. He notes that this is similar to symptoms he had before his previous coronary artery disease diagnosis/event leading to his PCI. He has not had any near-syncope or syncope. 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 Accompanied by: Allergies magnesium Adverse Reaction (Severe, Verified 03/19/19 16:33) Diarrhea Medications Aspirin [Aspirin, Baby] 81 mg PO DAILY@0800 01/22/14 [History Confirmed 03/19/19] Pantoprazole Sodium [Protonix] 20 mg PO DAILY 01/22/14 [History Confirmed 03/19/19] Rosuvastatin Calcium [Crestor] 40 mg PO DAILY 05/21/17 [History Confirmed 03/19/19] treprostinil diolamine ER 1 mg tablet,extended release 3 mg PO TID tab 08/03/17 [History Confirmed 03/19/19] Tamsulosin HCl [Flomax] 0.4 mg PO QHS 07/22/18 [History Confirmed 03/19/19] Calcium Carbonate [Calcium] 1,200 mg PO DAILY 10/23/18 [History Confirmed 03/19/19] Apixaban [Eliquis] 5 mg PO BID 10/30/18 [History Confirmed 03/19/19] Iron Polysaccharide Complex [Ferrex 150] 150 mg PO DAILYCM #90 cap 01/22/19 [Rx Confirmed 03/19/19] sertraline 100 mg tablet 100 mg PO DAILY tab 02/07/19 [History Confirmed 03/19/19] carvedilol 3.125 mg tablet 3.125 mg PO BID #60 tab 02/11/19 [Rx Confirmed 03/19/19] amiodarone 200 mg tablet 200 mg PO DAILY tab 03/19/19 [History Confirmed 03/19/19] cholecalciferol (vitamin D3) 5,000 unit tablet 5,000 unit PO DAILY 03/19/19 [History Confirmed 03/19/19] clopidogrel 75 mg tablet 75 mg PO DAILY #30 tab 03/19/19 [Rx Confirmed 03/19/19] furosemide 20 mg tablet 20 mg PO BID tab 03/19/19 [History Confirmed 03/19/19] isosorbide mononitrate ER 30 mg tablet,extended release 24 hr 30 mg PO QAM #30 tab 03/19/19 [Rx Confirmed 03/19/19] [facility] Medical History Persistent atrial fibrillation (Chronic) Presence of stent in coronary artery (Chronic ~2004) History of non-Hodgkin's lymphoma (Chronic) Ischemic cardiomyopathy (Chronic) Elevated serum creatinine (Chronic) Abnormal Holter monitor finding (Chronic) Orthostatic hypotension (Chronic) Left ventricular hypertrophy (Chronic) Other terminal superintendent (current) drug therapy (Chronic) Peripheral vascular disease (Chronic) Lung nodule < 6cm on CT (Chronic) Paralysis of vocal cords and larynx, unilateral (Chronic) Dysphonia (Chronic) Acute on chronic respiratory failure with hypoxemia (Chronic) Pleural effusion (Acute) Pulmonary hypertension (Acute) HLD (hyperlipidemia) (Chronic) Essential (primary) hypertension (Chronic) Atherosclerotic heart disease of [place] coronary artery without angina pectoris (Chronic) NSVT (nonsustained ventricular tachycardia) (Acute) Chemotherapy management, encounter for (Acute) Cough (Acute) Dyspnea (Acute) Encounter for education (Acute) Fever (Acute) 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) Other malaise and fatigue (Acute) Shortness of breath (Acute) Thrombocytopenia (Acute) Diarrhea (Chronic) Hyperlipidemia (Chronic) Inguinal hernia (Chronic) Palpitations (Chronic) Pulmonary hypertension (Chronic) Right inguinal hernia (Chronic) History of cardioversion (Resolved ~01/31/19) Surgical History H/O shoulder surgery (Resolved) History of lumbar surgery (Resolved) History of right heart catheterization (RHC) (Resolved ~02/04/19) History of right inguinal hernia repair (Resolved ~08/2018) Hx of cholecystectomy (Resolved) Presence of coronary angioplasty implant and graft (Resolved) S/P lobectomy of lung (Resolved) S/P nasal surgery (Resolved) heel surgery (Resolved) tendon surgery (Resolved) vocal cord repair (Resolved) Family History Father Heart disease Hypertension Mother Heart disease CVA (cerebral vascular accident) Sister Diabetes Heart disease Social History (Updated 03/19/19 @ 17:49 by Micheal Rouse MD) Smoking Status: Former smoker how long ago did patient quit smokin alcohol intake: current Alcohol type: beer, hard liquor substance use type: does not use caffeine: Yes Type: coffee what type of physical activity do you participate in: none seatbelt use: always do you feel safe at home: Yes ROS Const Const: Positive for fatigue (increased); negative for weakness, frequent falls, excessive sweating, weight gain or weight loss Eyes Eyes: Negative for transient loss of vision, blurry vision or change in vision ENT ENT: Negative for dizziness or balance problems Cardio Chest Pain: Yes Character: tightness Onset: exercise Location: mid sternal (radiates to bilat UE) Duration: minutes (5) Relieving: rest (breathing) Palpitations: No Edema: None Muscle aches with walking: None Resp Respiratory: Positive for SOB with activity (increased since DCCV); negative for SOB at rest GI GI: Negative vomiting or vomiting blood/hematemesis : Negative for hematuria Musc Musc: Negative for muscle aches/ myalgia, muscle weakness, joint pain or balance problems Skin Skin: Negative non-healing lesions or rash Neuro Neuro: Positive for lightheadedness (ambulating too far or strenuous activity); negative for dizziness, orthostatic symptoms, frequent falls, weakness or blurry vision Morgan Hematologic/Lymphatic: Negative for easy bleeding Endo Endo: Positive for fatigue (increased); negative for excessive sweating Psych Psych: Negative for anxiety or depression Allergy Allergy/Immunology: Negative for hives, Negative for rash Cardiology Exam Const Appearance: cooperative, healthy appearing, comfortable, no acute distress, well developed and well groomed Nutritional Appearance: overweight Orientation: alert, awake and oriented x3 Head Head: normal to inspection, normocephalic and atraumatic Ears: hearing grossly normal bilaterally Nose: external nose normal Face and Sinus: face symmetric Mouth: oral mucosae normal Teeth and gingiva: fair dentition Eyes Eyelids: eyelids normal Conjunctivae: conjunctivae normal Pupils: PERRL EOM: EOM intact bilaterally Neck Neck: normal visual inspection, full ROM and no JVD Carotids: normal carotid upstroke Chest Chest inspection: normal inspection of the chest, symmetric chest movement and normal respiratory effort Auscultation: Bilateral: Clear to Auscultation Cardio Rate: regular rate Rhythm: regular rhythm Heart sounds: S1 normal and S2 normal; negative rub or gallop GI GI: normal to inspection, soft and bowel sounds present Neuro General: alert, awake, oriented x3 and moves all extremities Skin Skin: no rashes or lesions noted Extremities Pulses: Normal: Right Posterior Tibial Pulse, Left Posterior Tibial Pulse, Right Radial Pulse, Left Radial Pulse Lower Extremity Edema: None: Bilateral Psych Psychological: normal affect Assessment & Plan 1. Angina pectoris I20.9 Plan At the present time there are concerns that he is experiencing episodes of angina pectoris. Based upon his history, his clinical course, etc., despite his previous pharmacologic stress nuclear imaging study earlier this year suggesting no obvious evidence of myocardial ischemia, there is concern about the status of his coronary arteries. Thus a discussion was held with him with respect to further evaluation with diagnostic cardiac catheterization. The procedure and risks were discussed with him. He was agreeable to this. In preparation for that he will be placed on additional antiplatelet therapy with clopidogrel/Plavix. He will be instructed as to when to interrupt his anticoagulant therapy prior to such a procedure. He will also be placed on additional antianginal therapy with isosorbide mononitrate at 30 mg a day. 2. Atherosclerosis of [place] coronary artery of [place] heart without angina pectoris I25.10 Plan Again there are concerns based upon his history, etc., with respect to having angina pectoris and concerns about his underlying CAD status. Thus he will continue evaluation and care as noted above. Orders Orders: Left & Right Heart Cath Today Basic Metabolic Profile (BMP) Today Partial Thromboplast Time Today Prothrombin Time w/INR Today CBC W/Diff, Automated Today 3. Presence of stent in coronary artery Z95.5 [facility] with bare metal stent to RCA 2004; [facility] with IVUS & FFR to mid RCA 02/14/13 Plan He does have a history of previous PCI as described above. Again he will proceed with medical therapy and further evaluation with cardiac catheterization. Orders Orders: Left & Right Heart Cath Today Basic Metabolic Profile (BMP) Today Partial Thromboplast Time Today Prothrombin Time w/INR Today CBC W/Diff, Automated Today 4. Cardiomyopathy, ischemic I25.5 Plan He does have an underlying history of ischemic cardia myopathy with based upon his studies overall preserved LV systolic function. He appears to be without symptoms of acute CHF at this time. He will continue medical management. Orders Orders: Left & Right Heart Cath Today Basic Metabolic Profile (BMP) Today Partial Thromboplast Time Today Prothrombin Time w/INR Today CBC W/Diff, Automated Today 5. Persistent atrial fibrillation I48.1 Plan He is remaining in sinus rhythm at this time. He will continue medical therapy. He will be allowed to decrease his amiodarone dose to 200 mg once a day. He will continue anticoagulant therapy barring temporary interruption for invasive procedures, etc. Orders Orders: 12 Lead EKG performed by [facility] Today 6. NSVT (nonsustained ventricular tachycardia) I47.2 Plan He has had no obvious ongoing ventricular dysrhythmia. He will continue beta-rodger therapy and antiarrhythmic therapy. 7. Hyperlipidemia, unspecified hyperlipidemia type E78.5 Plan He will continue risk factor evaluation care as deemed appropriate peer 8. Essential (primary) hypertension I10 Plan He will continue antihypertensive therapy with adjustment as needed. Plan Detail Other Medications New: amiodarone 200 mg PO DAILY clopidogrel (Plavix) 75 mg PO DAILY 30 tabs 1RF isosorbide mononitrate ER 30 mg PO QAM 30 tabs 3RF Additional Comments He will need to continue to follow with his rn first assist for his extensive underlying pulmonary disease process. The above was discussed with the patient and his spouse. He was agreeable to this approach. Thank you for allowing me to participate in the care of your patient. Please don't hesitate to call if any issues arise. This note was generated using a voice recognition system and there may be incorrect words, spelling or punctuation that were not noted when reviewing the office note prior to saving. Follow Up 3 Months (PFM) Coding Level of Care Code Off vis,est,level 5 Diagnoses Angina pectoris I20.9 Atherosclerosis of [place] coronary artery of [place] heart without angina pectoris I25.10 ??[place] vs. transplanted heart: [place] heart Presence of stent in coronary artery Z95.5 Cardiomyopathy, ischemic I25.5 Persistent atrial fibrillation I48.1 NSVT (nonsustained ventricular tachycardia) I47.2 Hyperlipidemia, unspecified hyperlipidemia type E78.5 ??Hyperlipidemia type: unspecified Essential (primary) hypertension I10 Coding Level of Care Code Off vis,est,level 5 Diagnoses Angina pectoris I20.9 Atherosclerosis of [place] coronary artery of [place] heart without angina pectoris I25.10 ??[place] vs. transplanted heart: [place] heart Presence of stent in coronary artery Z95.5 Cardiomyopathy, ischemic I25.5 Persistent atrial fibrillation I48.1 NSVT (nonsustained ventricular tachycardia) I47.2 Hyperlipidemia, unspecified hyperlipidemia type E78.5 ??Hyperlipidemia type: unspecified Essential (primary) hypertension I10 Supplemental Info Supplemental Information Transthoracic echocardiogram: 01-03-19 Interpretation Summary Mildly dilated left ventricle. Segmental dysfunction with preserved ejection fraction (see wall motion). The estimated ejection fraction is 55 %. Mildly dilated right ventricle. The left atrium is moderately enlarged. The right atrium is mildly enlarged. There is mild to moderate mitral annular calcification. Extension of the mitral annular calcification onto the posterior mitral valve leaflet. Mild diffuse mitral valve thickening. Mild-Moderate (1-2+) mitral valve insufficiency. Mild (1+) tricuspid valve insufficiency. Mild diffuse aortic valve thickening. Mild focal aortic valve calcification. Right ventricular systolic pressure estimated to be 53 mmHg. Unable to assess diastolic dysfunction. Stress Test Report : 07/23/2017 Procedure: Pharmacologic (-) evaluation Indications: CAD; PCI; preoperative cardiovascular evaluation Consent: The patient Procedure: The patient underwent pharmacologic (Regadenoson) evaluation with a peak heart rate of 87 beats per minute (58% predicted maximal heart rate) with peak blood pressure was 160/88 mmHg. The baseline ECG demonstrated normal sinus rhythm with a right bundle branch block pattern. The peak pharmacologic ECG continuous demonstrating a right bundle branch block pattern with no obvious ECG changes. There was not occasional PVC pretest. There was no complaints of chest discomfort during pharmacologic infusion or recovery. The examination was discontinued secondary to complete the protocol. Impression: 1. Pharmacologic (regadenoson) evaluation 2. Peak pharmacological ECG will continue right bundle branch block pattern with no obvious ECG changes 3. Occasional PVCs pretest 4. Nuclear images pending Myocardial perfusion imaging study: Technique: The patient was injected with 14.2 mci of technetium-99m Cardiolite and subsequently rest SPECT Cardiolite nuclear imaging was obtained in the horizontal long, vertical long, and short axis views. Patient underwent a pharmacologic (regadenoson) evaluation with peak heart rate of 87 beats per minute (58% predicted maximal heart rate) with a peak blood pressure of 160/88 mmHg. The patient was injected with 44.4 mci of technetium-99m Cardiolite and subsequently stress SPECT Cardiolite nuclear imaging was obtained in the horizontal, vertical, and short axis views. Gated Cardiolite study at peak stress was obtained. Interpretation: Rest and stress SPECT Cardiolite nuclear imaging status post realignment, normalization, and attenuation correction, demonstrates the appearance of an extracardiac/gastrointestinal tracer uptake near the inferior segments. Otherwise there appears to be relative uniform tracer uptake with the exception of a small area of subtle diminished tracer uptake near the inferior apical/lateral apical segments without significant change between rest and stress appearing compatible with physiologic apical thinning. There is end systolic thickening and brightening. The gated Cardiolite study demonstrates myocardial thickening and inward wall motion. The reported LVEF is 55%. Impression: 1. Rest and stress SPECT nuclear imaging demonstrate myocardial perfusion changes appearing compatible with physiologic apical thinning with no myocardial perfusion changes considered diagnostic for associated stress induced myocardial ischemia. 2. The gated Cardiolite study reports an LVEF of 55%. Cardiac catheterization: 12-14-15 Final impression: 1. Mild elevation of the left ventricular end-diastolic pressure compatible decreased as to compliance 2. Elevation of the intrapulmonary and right heart pressures compatible with secondary pulmonary hypertension 3. Oxygen saturations: No definitive evidence of intracardiac shunting phenomena 4. Left ventricle: A. Severe hypokinesis to akinesis of the basal inferior segment B. Estimated LVEF 55% 5. Left main coronary artery: A. Angiographically normal 6. Left anterior descending coronary artery: A. Proximal minimal luminal irregularities B. Status post the takeoff of the diagonal branch: 10-25% smooth concentric appearing stenosis C. Diagonal branch: Proximal minimal luminal irregularities 7. Left circumflex coronary artery: A. Ostial/proximal 25% smooth eccentric appearing stenosis B. OM1: Ostial/proximal 25% eccentric. Stenosis 8. Right coronary artery: A. Large dominant vessel B. Proximal 50% hazy irregular appearing stenosis followed by diffuse 10-25% eccentric appearing stenosis C. Mid to distal stented segment with the proximal portion having 25-50% hazy diffuse irregular appearing stenosis followed by distal 10-25% eccentric appearing stenosis D. Right AV segment: Minimal luminal irregularities Cardiac intervention: 05-22-17 RCA: Promus drug-eluting stent: 4.0?16 Labs LDL Cholesterol 58 mg/dL (0-130) 05/23/17 HDL Cholesterol 27 mg/dL (40-) L 05/23/17 Triglycerides 96 mg/dL (-199) 05/23/17 VLDL Cholesterol 19 mg/dL (5-40) 05/23/17 Diagnostics Electrocardiogram 03/19/19 Echocardiogram 01/03/19 Stress Test Nuclear Medicine 07/23/18 Stress Test 07/23/18 Cardiac Catheterization 12/14/15 Chest X-Ray 12/31/18 03/19/19 [id number] <Electronically signed by Micheal Rouse MD> Date Micheal Rouse MD Cosigner Signature: Date (if applicable) CC: Yuliet Owens, DO ~ I have re-examined the patient. There are no clinical changes since date of exam.
[2019-03-25 09:29] VITALS: BMI 30.1
--- NOTE | 2019-03-27 09:59 | CL.D_ITS ---
Patient Name: ASAF HERRERA Study Date: 03/25/2019 Performing: Micheal Rouse MD Ht: 72.04 inches 183 cm : 1950 Wt: 222.67 lbs 101 kg Age: 68 Gender: male BSA: 2.23 PROCEDURE(S) PERFORMED [id number]/LV CLINICAL PROFILE AND INDICATIONS Indications: Worsening Angina, Suspected CAD Heart Failure: None Stress/Imaging Date: 07/23/2018 Angina Classification Anginal Classification w/in 2 Weeks: CCS IV CAD Presentations: Unstable angina. CONCLUSIONS Elevated Left Ventricular End Diastolic Pressure Segmented LV systolic dysfunction- Mild LVEF: by LV gram 50 % [place] Multivessel CAD RECOMMENDATIONS Risk factor modification Medical therapy Case discussed / reviewed with Raymond Alexis MD of the Interventional Section of the [facility] DESCRIPTION OF PROCEDURE The patient arrived to the procedure lab. The risks and benefits of the procedure as well as a full d escription of our services here and current unavailability of surgical backup were fully explained to the patient and/or their significant other prior to the catheterization. The Timeout was completed, verifying the correct patient and procedure. The patient's procedural site was prepped and draped in the usual fashion. Local anesthetic was given subcutaneously to right radial region with Lidocaine 2% . Using a modified Seldinger technique, arterial access was obtained via the right radial artery, a 6 Fr sheath was inserted. Left Coronary Artery selective angiography was performed in multiple views u sing a 5 Fr. 4.0 [place] catheter. Right Coronary Artery selective angiography was then performed in mu ltiple views using a 5 Fr. 4.0 [place] catheter. Left Ventriculography was performed in BAUM projection using a 5 Fr. Pigtail catheter. LV to AO pullback pressures were then recorded.The arterial sheath was pulled and a TR Band was applied for hemostasis CORONARY ANGIOGRAPHY DOMINANCE: Right Dominant LEFT HEART ASSESSMENT Left Ventricular Ejection Fraction: by LV Gram 50 % Inferior Basal Hypokinesis. Inferior Basal Hypokinesis - Mild. Inferior Mid Hypokinesis. Inferior Api michelle Hypokinesis Elevated Left Ventricular End Diastolic Pressure LVEDP: 35 mmHg LEFT MAIN: Angiographically normal LEFT ANTERIOR DESCENDING ARTERY: Mild luminal irregularities MID LAD: s/p DX: smooth: concentric: 10 - 25 % Stenosis DIAGONAL 1: Proximal - Mild luminal irregularities CIRCUMFLEX ARTERY: Mild luminal irregularities OSTIAL CIRC: smooth: 25 % Stenosis OM 1: Ostial - smooth: 25 % Stenosis RIGHT CORONARY ARTERY: Mild luminal irregularities PROX RCA: Previously placed stent is patent DISTAL RCA: diffuse: hazy 10 - 25 % Stenosis VALVE FINDINGS: Normal Aortic Valve function Normal Mitral Valve function AORTIC ROOT: Angiographically normal COMPLICATIONS No Complications PROCEDURE MEDICATIONS Fentanyl 25 mcg IV Versed 0.5 mg IV Oxygen: 5 L/min via nasal cannula as per home Heparin diluted in 23cc Heparinized saline. Patient given 10cc IA of this solution. 03/25/2019 10:42: 39 SUMMARY OF HEMODYNAMIC DATA Time AIR REST ECG 09:29:29 AO 111/74 (90) SA 10:45:50 LV 150/17, 36 10:56:58 LV 147/19, 35 10:57:04 LV 139/19, 37 10:57:55 LV 138/18, 35 10:58:01 LVp 142/15, 36 10:58:09 AOp 138/71 (96) 10:58:14 Signed By Micheal Rouse MD On 03/25/2019 11:35:58 Micheal Rouse MD
== END 2019-03-25 13:07 | disposition home or self-care (01) ==
LOC: CLSP 09:01
PROVIDERS: Family Provider Family Medicine; PCP Family Medicine; Referring Provider Internal Medicine Cardiovascular Disease; Visit Provider Internal Medicine Cardiovascular Disease
DX: I25.110 Atherosclerotic heart disease of native coronary artery with unstable angina pectoris (principal); I25.5 Ischemic cardiomyopathy; I48.1 Persistent atrial fibrillation; I47.2 Ventricular tachycardia; E78.5 Hyperlipidemia, unspecified; I10 Essential (primary) hypertension; Z95.5 Presence of coronary angioplasty implant and graft; I27.20 Pulmonary hypertension, unspecified; I45.10 Unspecified right bundle-branch block; Z79.01 Long term (current) use of anticoagulants; Z79.02 Long term (current) use of antithrombotics/antiplatelets; Z79.82 Long term (current) use of aspirin; Z79.899 Other long term (current) drug therapy; Z85.72 Personal history of non-Hodgkin lymphomas; Z87.891 Personal history of nicotine dependence; I73.9 Peripheral vascular disease, unspecified; I25.2 Old myocardial infarction
CPT/HCPCS: 93458; 99152; 99153; J7040; Q9967; C1769; C1894

== ENCOUNTER → 2019-07-17 13:20 | Outpatient (CLI) | payer MEDICARE, OTHER, SELFPAY ==
[2019-06-19 10:30] VITALS: BMI 31.4
[2019-07-17 14:46] LABS: Anion Gap 5 (5-15); BUN 47 mg/dL (7-18); BUN/Creat Ratio 21.4 RATIO (10-20); Calcium,Total 9.1 mg/dL (8.5-10.1); Chloride 101 mmol/L (98-107); EST Glomerular Filtration Rate 32 mL/min (>60); Est Glom Filt Rate - Afr Amer 38 mL/min (>60); Glucose 309 mg/dL (74-106); Potassium 3.5 mmol/L (3.5-5.1); Sodium Level 140 mmol/L (136-145)
== END ==
PROVIDERS: PCP Family Medicine; Referring Provider Internal Medicine Cardiovascular Disease; Visit Provider Internal Medicine Cardiovascular Disease
DX: I27.20 Pulmonary hypertension, unspecified (principal)
CPT/HCPCS: 36415; 80048